=== PATIENT | female | born 1930 | race Caucasian/White ===

== ENCOUNTER 2016-10-11 17:56 | Inpatient (IN) | payer OTHER ==
[2016-10-11 20:06] LABS: MCH 27.9 pg (25.7-33.7); MCHC 33.1 g/dl (32.0-36.0); MEAN CELL VOLUME 84.3 fl (80-96); MEAN PLT VOLUME 6.8 fl (7.5-11.1); NEUTROPHILS 62.4 % (42.8-82.8); PLATELET COUNT 371 K/MM3 (134-434); RDW 15.4 % (11.6-15.6); WHITE BLOOD COUNT 7.5 K/mm3 (4.0-10.0)
[2016-10-11] MEDS ORDERED: VANCOMYCIN 1,000 MG in DEXTROSE 5%-WATER - 250 ML IVPB ONE (20:10)
[2016-10-11] MEDS ORDERED: PIPERACILLIN/TAZOB 3.375 GM/50 ML PRE-DOCKED IVPB ONE (20:10)
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
[2016-10-11 20:30] LABS: CALCIUM 8.3 mg/dL (8.5-10.1); CREATININE 1.1 mg/dL (0.55-1.02)
[2016-10-11 20:47] LABS: C-REACTIVE PROTEIN 1.9 MG/DL (0.00-0.3)
[2016-10-11 21:09] LABS: ERYTHROCYTE SEDIMENTATION RATE 125 mm/hr (0-30)
[2016-10-11] MEDS ORDERED: PIPERACILLIN/TAZOB 3.375 GM 50 ML IVPB ONE (21:55)
[2016-10-11] MEDS ORDERED: VANCOMYCIN 1 GRAM (PRE-DOCKED) 250 ML IVPB ONE (22:19)
[2016-10-12 00:44] VITALS: BMI 19.8
[2016-10-12 09:46] LABS: URINE APPEARANCE CLEAR; URINE BILIRUBIN NEGATIVE (NEGATIVE); URINE BLOOD NEGATIVE (NEGATIVE); URINE COLOR STRAW; URINE GLUCOSE (UA) NEGATIVE (NEGATIVE); URINE KETONE NEGATIVE (NEGATIVE); URINE LEUK ESTERASE NEGATIVE (NEGATIVE); URINE NITRITE NEGATIVE (NEGATIVE); URINE UROBILINOGEN NEGATIVE E.U./dl (0.2-1.0)
[2016-10-12 10:00] LABS: URINE PROTEIN 2+ (NEGATIVE)
[2016-10-12] MEDS ORDERED: ACETAMINOPHEN 325 MG TABLET (FP) PO PRN (10:22)
--- NOTE | 2016-10-12 12:27 | PN ---
Progress Note (short form) - Note Progress Note: ID Consult dictated Infected chronic R foot wound Chronic osteomyelitis Await wound c/s Empiric zosyn/ vancomycin
[2016-10-12] MEDS: PIPERACILLIN/TAZOB 3.375 GM 50 ML IVPB SCH (13:03)
[2016-10-12] MEDS: COLLAGENASE CLOSTRIDIUM HIST. 30 GRAMS TUBE TP SCH (13:19)
[2016-10-12] MEDS: VANCOMYCIN 1 GRAM (PRE-DOCKED) 250 ML IVPB SCH (13:20)
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
[2016-10-12] MEDS ORDERED: PIPERACILLIN/TAZOB 3.375 GM 50 ML IVPB SCH (18:00)
--- NOTE | 2016-10-12 19:59 | CONS ---
DATE OF CONSULTATION: DATE OF DICTATION: 10/12/2016 HISTORY OF PRESENT ILLNESS: The patient is an 86-year-old female evaluated for infected foot ulcer. She has a long history (20 years) of a chronic nonhealing right foot ulcer, for which she has been hospitalized on multiple occasions for infection. She has had multiple skin graft failures in the past. She was most recently hospitalized in May 2016 for infection of the wound. She now returns with worsening infection. She was seen in the wound care center where she was found to have a foul-smelling drainage and necrotic tissue over the 4th metatarsal bone. She underwent incision and drainage and debridement. She has an exposed 4th metatarsal. She was referred to the hospital for IV antibiotic therapy. She denies any pain. She also denies any associated fever or chills. Cultures in the past have grown pseudomonas and coagulase negative Staphylococcus. PAST MEDICAL HISTORY: Positive for diabetes mellitus, history of chronic right dorsal foot ulcer with recurrent cellulitis and wound infection, coronary artery disease, asthma, COPD, hypertension. The patient is legally blind. PAST SURGICAL HISTORY: Status post multiple failed skin grafts. ALLERGIES: Epinephrine. SOCIAL HISTORY: She lives at home with family members. Nonsmoker, nondrinker. SYSTEMS REVIEW: Neurologic: No loss of consciousness, seizure activity, focal weakness. Cardiac: Negative chest pain and palpitations. Respiratory: Negative cough or sputum production. Gastrointestinal: Negative vomiting or diarrhea. Genitourinary: Negative for urinary tract infection. LABORATORY DATA: White count 7.5, hematocrit 27.9, platelet count is 371. BUN 21, creatinine 1.1. ESR 125. C-reactive protein 1.7. Urine leukocyte esterase negative. PHYSICAL EXAMINATION: General: She is chronically ill-appearing. She is blind. Vital Signs: Temperature 97.9, blood pressure 138/73, pulse 62 and regular, respirations 20 per minute. Sclerae anicteric. Corneas are opacified. Heart: Sounds S1, S2. Lungs: Clear. Abdomen: Soft, nontender. Extremities: There is a large ulceration present over the dorsal aspect of the foot. There is granulation tissue. There is exposed bone. No purulent drainage or foul odor. Positive erythema and warmth present in the distal right lower extremity. IMPRESSION: 1. Recurrent infected right foot ulcer. 2. Possible sepsis secondary to infected foot ulcer. 3. Cellulitis of the right lower extremity. 4. Diabetes mellitus. PLAN: Wound culture. Await blood cultures, empiric antibiotic coverage with vancomycin and Zosyn, local wound care. Thank you for the kind referral. CARLOS MONTES M.D. [id number]
--- NOTE | 2016-10-12 21:05 | EKG ---
Test Reason : Blood Pressure : / mmHG Vent. Rate : 073 BPM Atrial Rate : 073 BPM P-R Int : 150 ms QRS Dur : 104 ms QT Int : 402 ms P-R-T Axes : 074 060 071 degrees QTc Int : 442 ms POOR DATA QUALITY, INTERPRETATION MAY BE ADVERSELY AFFECTED NORMAL SINUS RHYTHM SEPTAL INFARCT , AGE UNDETERMINED ABNORMAL ECG WHEN COMPARED WITH ECG OF 30-JUL-2016 16:07, SEPTAL INFARCT IS NOW PRESENT Confirmed by OLIVER FANG MD ([id number]) on 10/12/2016 9:04:59 PM Referred By: Confirmed By:OLIVER FANG MD
[2016-10-12] MEDS: HEPARIN NA (PORCINE) 5,000 UNITS/ML 1ML VIAL SQ SCH (21:35)
[2016-10-12] MEDS: guaiFENesin/D-METHORPHAN HB 10 ML UNIT-DOSE CUPS PO PRN (22:40)
[2016-10-13] MEDS: ALBUTEROL SO4 2.5/IPRATROPIUM 0.5 INH SOL 3 ML VIAL.NEB. NEB SCH ×4 (00:14→17:45)
[2016-10-13] MEDS: VANCOMYCIN 1 GRAM (PRE-DOCKED) 250 ML IVPB SCH (01:02)
[2016-10-13] MEDS: PIPERACILLIN/TAZOB 3.375 GM 50 ML IVPB SCH ×3 (02:00→17:38)
[2016-10-13 08:58] LABS: ALBUMIN 2.5 g/dl (3.4-5.0); BILIRUBIN,TOTAL 0.2 mg/dL (0.2-1.0); CALCIUM 7.9 mg/dL (8.5-10.1); TOT PROT 6.8 g/dl (6.4-8.2)
[2016-10-13 08:59] LABS: BASOPHIL 0.9 % (0-2.0); EOSINOPHIL 12.8 % (0-4.5); MCHC 32.8 g/dl (32.0-36.0); MEAN CELL VOLUME 85.5 fl (80-96); MEAN PLT VOLUME 7.1 fl (7.5-11.1); NEUTROPHILS 58.3 % (42.8-82.8); PLATELET COUNT 356 K/MM3 (134-434); WHITE BLOOD COUNT 7.6 K/mm3 (4.0-10.0)
[2016-10-13] MEDS: FUROSEMIDE 20 MG TABLET (FP) PO SCH (09:28)
[2016-10-13] MEDS: COLLAGENASE CLOSTRIDIUM HIST. 30 GRAMS TUBE TP SCH (09:28)
--- NOTE | 2016-10-13 11:10 | PN ---
Progress Note, Physician History of Present Illness: c/o cough no sob - Current Medication List Current Medications: Active Medications Acetaminophen (Tylenol -) 650 mg PO Q4H PRN PRN Reason: FEVER OR PAIN Albuterol/Ipratropium (Duoneb -) 1 amp NEB QIDR [facility] Last Admin: 10/13/16 08:03 Dose: Not Given Collagenase (Santyl -) 1 applic TP DAILY [facility] Last Admin: 10/13/16 09:28 Dose: 1 applic Furosemide (Lasix -) 20 mg PO DAILY [facility] Last Admin: 10/13/16 09:28 Dose: 20 mg Guaifenesin (Robitussin Dm -) 10 ml PO QID PRN PRN Reason: COUGH Last Admin: 10/12/16 22:40 Dose: 10 ml Heparin Sodium (Porcine) (Heparin -) 5,000 unit SQ BID [facility] Last Admin: 10/12/16 21:35 Dose: 5,000 unit Vancomycin HCl (Vancomycin (Pre-Docked)) 250 mls @ 166.667 mls/hr IVPB Q12H [facility] Last Admin: 10/13/16 01:02 Dose: 166.667 mls/hr Piperacillin Sod/Tazobactam Sod (Zosyn 3.375gm Ivpb (Pre-Docked)) 50 mls @ 100 mls/hr IVPB Q8H-IV [facility] PRN Reason: Protocol Last Admin: 10/13/16 09:28 Dose: 100 mls/hr - Objective Vital Signs: Vital Signs Temperature 98.3 F 10/13/16 05:30 Pulse Rate 63 10/13/16 05:30 Respiratory Rate 14 10/13/16 05:30 Blood Pressure 116/54 10/13/16 05:30 O2 Sat by Pulse Oximetry (%) 94 L 10/12/16 21:00 Cardiovascular: Yes: S1, S2 Respiratory: Yes: Rhonchi Gastrointestinal: Yes: Normal Bowel Sounds, Soft Wound/Incision: Yes: Dressing Dry and Intact Labs: CBC, BMP 10/13/16 07:50 10/13/16 07:50 Problem List - Problems (1) Chronic ulcer of right foot Assessment/Plan: IV ABX ID AND SURGERY WOUND CARE Code(s): L97.519 - NON-PRS CHRONIC ULCER OTH PRT RIGHT FOOT W UNSP SEVERITY Qualifiers: Non-pressure ulcer stage: limited to breakdown of skin Qualified Code(s): L97.511 - Non-pressure chronic ulcer of other part of right foot limited to breakdown of skin (2) COPD (chronic obstructive pulmonary disease) Assessment/Plan: NEBS F/U CXR Code(s): J44.9 - CHRONIC OBSTRUCTIVE PULMONARY DISEASE, UNSPECIFIED (3) Hypertension Assessment/Plan: Vital Signs Period Temp Pulse Resp BP Sys/Moscoso Pulse Ox Last 24 Hr 97.9 F-97.9 F 62-77 16-18 122-154/57-74 92-96 Code(s): I10 - ESSENTIAL (PRIMARY) HYPERTENSION (4) Peripheral vascular disease Code(s): I73.9 - PERIPHERAL VASCULAR DISEASE, UNSPECIFIED
[2016-10-13] MEDS: guaiFENesin/D-METHORPHAN HB 10 ML UNIT-DOSE CUPS PO PRN (21:20)
[2016-10-13] MEDS: HEPARIN NA (PORCINE) 5,000 UNITS/ML 1ML VIAL SQ SCH (21:32)
[2016-10-14] MEDS: ALBUTEROL SO4 2.5/IPRATROPIUM 0.5 INH SOL 3 ML VIAL.NEB. NEB SCH ×4 (00:15→17:02)
[2016-10-14] MEDS: VANCOMYCIN 1 GRAM (PRE-DOCKED) 250 ML IVPB SCH (01:00)
[2016-10-14] MEDS: PIPERACILLIN/TAZOB 3.375 GM 50 ML IVPB SCH ×3 (02:00→18:29)
[2016-10-14] MEDS: guaiFENesin/D-METHORPHAN HB 10 ML UNIT-DOSE CUPS PO PRN (04:20)
--- NOTE | 2016-10-14 10:01 | PN ---
Progress Note, Physician History of Present Illness: No complaints of foot pain Afebrile WBC WNL Wound c/s Proteus, corynebacterium - Current Medication List Current Medications: Active Medications Acetaminophen (Tylenol -) 650 mg PO Q4H PRN PRN Reason: FEVER OR PAIN Albuterol/Ipratropium (Duoneb -) 1 amp NEB QIDR [facility] Last Admin: 10/14/16 06:30 Dose: 1 amp Collagenase (Santyl -) 1 applic TP DAILY [facility] Last Admin: 10/13/16 09:28 Dose: 1 applic Furosemide (Lasix -) 20 mg PO DAILY [facility] Last Admin: 10/13/16 09:28 Dose: 20 mg Guaifenesin (Robitussin Dm -) 10 ml PO QID PRN PRN Reason: COUGH Last Admin: 10/14/16 04:20 Dose: 10 ml Heparin Sodium (Porcine) (Heparin -) 5,000 unit SQ BID [facility] Last Admin: 10/13/16 21:32 Dose: 5,000 unit Vancomycin HCl (Vancomycin (Pre-Docked)) 250 mls @ 166.667 mls/hr IVPB Q12H [facility] Last Admin: 10/14/16 01:00 Dose: 166.667 mls/hr Piperacillin Sod/Tazobactam Sod (Zosyn 3.375gm Ivpb (Pre-Docked)) 50 mls @ 100 mls/hr IVPB Q8H-IV [facility] PRN Reason: Protocol Last Admin: 10/14/16 02:00 Dose: 100 mls/hr - Objective Vital Signs: Vital Signs Temperature 97.4 F L 10/14/16 05:58 Pulse Rate 62 10/14/16 05:58 Respiratory Rate 20 10/14/16 05:58 Blood Pressure 140/70 10/14/16 05:58 O2 Sat by Pulse Oximetry (%) 96 10/13/16 21:00 Constitutional: Yes: No Distress Eyes: Yes: Other (Blind) Cardiovascular: Yes: Regular Rate and Rhythm, S1, S2 Respiratory: Yes: CTA Bilaterally Gastrointestinal: Yes: Normal Bowel Sounds, Soft. No: Tenderness Musculoskeletal: Yes: Other (R foot with malodorous serous drainage decreased distal LE warmth No erythema) Labs: CBC, BMP 10/13/16 07:50 10/13/16 07:50 Assessment/Plan Recurrent infection, chronic R foot ulcer Cellulitis LE- resolved Diabetes mellitus Continue zosyn D/C vancomycin Local wound care
[2016-10-14] MEDS: PIPERACILLIN/TAZOB 3.375 GM 50 ML IVPB ONE ×2 (10:28→10:29)
[2016-10-14] MEDS: HEPARIN NA (PORCINE) 5,000 UNITS/ML 1ML VIAL SQ SCH ×2 (10:30→21:37)
[2016-10-14] MEDS: FUROSEMIDE 20 MG TABLET (FP) PO SCH (10:31)
[2016-10-14] MEDS: COLLAGENASE CLOSTRIDIUM HIST. 30 GRAMS TUBE TP SCH (10:31)
--- NOTE | 2016-10-14 16:47 | PN ---
Progress Note, Physician Chief Complaint: eating no distress no compliants - Current Medication List Current Medications: Active Medications Acetaminophen (Tylenol -) 650 mg PO Q4H PRN PRN Reason: FEVER OR PAIN Albuterol/Ipratropium (Duoneb -) 1 amp NEB QIDR [facility] Last Admin: 10/14/16 11:30 Dose: Not Given Collagenase (Santyl -) 1 applic TP DAILY [facility] Last Admin: 10/14/16 10:31 Dose: 1 applic Furosemide (Lasix -) 20 mg PO DAILY [facility] Last Admin: 10/14/16 10:31 Dose: 20 mg Guaifenesin (Robitussin Dm -) 10 ml PO QID PRN PRN Reason: COUGH Last Admin: 10/14/16 04:20 Dose: 10 ml Heparin Sodium (Porcine) (Heparin -) 5,000 unit SQ BID [facility] Last Admin: 10/14/16 10:30 Dose: 5,000 unit Piperacillin Sod/Tazobactam Sod (Zosyn 3.375gm Ivpb (Pre-Docked)) 50 mls @ 100 mls/hr IVPB Q8H-IV [facility] PRN Reason: Protocol Last Admin: 10/14/16 10:30 Dose: 100 mls/hr - Objective Vital Signs: Vital Signs Temperature 97.9 F 10/14/16 14:00 Pulse Rate 64 10/14/16 15:18 Respiratory Rate 20 10/14/16 14:00 Blood Pressure 105/54 10/14/16 14:00 O2 Sat by Pulse Oximetry (%) 95 10/14/16 15:18 Eyes: Yes: Other (eye derangement) Cardiovascular: Yes: WNL Respiratory: Yes: WNL Gastrointestinal: Yes: WNL Edema: No Labs: CBC, BMP 10/13/16 07:50 10/13/16 07:50 Problem List - Problems (1) COPD (chronic obstructive pulmonary disease) Code(s): J44.9 - CHRONIC OBSTRUCTIVE PULMONARY DISEASE, UNSPECIFIED (2) Cellulitis and abscess of foot Code(s): L03.119 - CELLULITIS OF UNSPECIFIED PART OF LIMB L02.619 - CUTANEOUS ABSCESS OF UNSPECIFIED FOOT (3) Hypertension Code(s): I10 - ESSENTIAL (PRIMARY) HYPERTENSION (4) Peripheral vascular disease Code(s): I73.9 - PERIPHERAL VASCULAR DISEASE, UNSPECIFIED Assessment/Plan (1) Chronic ulcer of right foot Assessment/Plan: IV ABX ID AND SURGERY WOUND CARE Code(s): L97.519 - NON-PRS CHRONIC ULCER OTH PRT RIGHT FOOT W UNSP SEVERITY Qualifiers: Non-pressure ulcer stage: limited to breakdown of skin Qualified Code(s): L97.511 - Non-pressure chronic ulcer of other part of right foot limited to breakdown of skin (2) COPD (chronic obstructive pulmonary disease) Assessment/Plan: NEBS F/U CXR -> NO CHANGE Code(s): J44.9 - CHRONIC OBSTRUCTIVE PULMONARY DISEASE, UNSPECIFIED (3) Hypertension Assessment/Plan: Code(s): I10 - ESSENTIAL (PRIMARY) HYPERTENSION (4) Peripheral vascular disease Code(s): I73.9 - PERIPHERAL VASCULAR DISEASE, UNSPECIFIED [facility]
[2016-10-15] MEDS: PIPERACILLIN/TAZOB 3.375 GM 50 ML IVPB SCH ×2 (02:05→10:11)
[2016-10-15] MEDS: ALBUTEROL SO4 2.5/IPRATROPIUM 0.5 INH SOL 3 ML VIAL.NEB. NEB SCH ×3 (05:51→11:10)
[2016-10-15] MEDS: VANCOMYCIN 1 GRAM (PRE-DOCKED) 250 ML IVPB SCH (07:53)
[2016-10-15] MEDS: HEPARIN NA (PORCINE) 5,000 UNITS/ML 1ML VIAL SQ SCH ×2 (07:53→11:28)
[2016-10-15 08:07] LABS: EOSINOPHIL 19.8 % (0-4.5); MCH 28.1 pg (25.7-33.7); MEAN CELL VOLUME 85.2 fl (80-96); MEAN PLT VOLUME 6.9 fl (7.5-11.1); NEUTROPHILS 52.2 % (42.8-82.8); PLATELET COUNT 325 K/MM3 (134-434); RDW 15.4 % (11.6-15.6); WHITE BLOOD COUNT 7.1 K/mm3 (4.0-10.0)
[2016-10-15 08:53] LABS: ALBUMIN 2.4 g/dl (3.4-5.0); CALCIUM 8.5 mg/dL (8.5-10.1)
[2016-10-15 08:56] LABS: BILIRUBIN,TOTAL 0.2 mg/dL (0.2-1.0); CREATININE 0.9 mg/dL (0.55-1.02); TOT PROT 6.7 g/dl (6.4-8.2)
[2016-10-15] MEDS ORDERED: PT OWN MED DRAWER 7, Y5N ONE (10:07)
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
[2016-10-15] MEDS: FUROSEMIDE 20 MG TABLET (FP) PO SCH (10:11)
[2016-10-15] MEDS: COLLAGENASE CLOSTRIDIUM HIST. 30 GRAMS TUBE TP SCH (10:15)
[2016-10-15 14:32] VITALS: BP 118/56; PULSE 80; TEMP 97.6
--- NOTE | 2016-10-15 14:39 | PN ---
Progress Note, Physician History of Present Illness: No c/o foot pain No fever/ chills Wound c/s ESBL (s) levaquin - Current Medication List Current Medications: Active Medications Acetaminophen (Tylenol -) 650 mg PO Q4H PRN PRN Reason: FEVER OR PAIN Albuterol/Ipratropium (Duoneb -) 1 amp NEB QIDR [facility] Last Admin: 10/15/16 11:10 Dose: 1 amp Collagenase (Santyl -) 1 applic TP DAILY [facility] Last Admin: 10/15/16 10:15 Dose: 1 applic Furosemide (Lasix -) 20 mg PO DAILY [facility] Last Admin: 10/15/16 10:11 Dose: 20 mg Guaifenesin (Robitussin Dm -) 10 ml PO QID PRN PRN Reason: COUGH Last Admin: 10/14/16 04:20 Dose: 10 ml Heparin Sodium (Porcine) (Heparin -) 5,000 unit SQ BID [facility] Last Admin: 10/15/16 11:28 Dose: 5,000 unit Piperacillin Sod/Tazobactam Sod (Zosyn 3.375gm Ivpb (Pre-Docked)) 50 mls @ 100 mls/hr IVPB Q8H-IV TOMMY PRN Reason: Protocol Last Admin: 10/15/16 10:11 Dose: 100 mls/hr - Objective Vital Signs: Vital Signs Temperature 97.6 F 10/15/16 14:29 Pulse Rate 80 10/15/16 14:29 Respiratory Rate 20 10/15/16 06:08 Blood Pressure 118/56 10/15/16 14:29 O2 Sat by Pulse Oximetry (%) 95 10/14/16 21:00 Constitutional: Yes: No Distress Cardiovascular: Yes: Regular Rate and Rhythm, S1, S2 Respiratory: Yes: CTA Bilaterally Gastrointestinal: Yes: Normal Bowel Sounds, Soft Extremities: Yes: Other (decreased erythema/ warmth LE + chronic foot ulcer) Labs: CBC, BMP 10/15/16 07:08 10/15/16 07:08 Assessment/Plan Recurrent infection, chronic R foot ulcer Cellulitis LE- resolved Diabetes mellitus May substitute po levaquin for addition 7d Antibiotic "cure" unlikely Continue Local wound care
--- NOTE | 2016-10-15 15:23 | DS ---
Physical Examination Vital Signs: Vital Signs Temperature 97.6 F 10/15/16 14:29 Pulse Rate 80 10/15/16 14:29 Respiratory Rate 20 10/15/16 06:08 Blood Pressure 118/56 10/15/16 14:29 O2 Sat by Pulse Oximetry (%) 95 10/14/16 21:00 Findings/Remarks: CHRONIC WOUND INFECTION RIGHT FOOT, WELL KNOWN TO SURGICAL WOUND CARE TEAM HER AT [facility] Constitutional: Yes: Mild Distress Eyes: Yes: Other (BLIND LEGALLY) HENT: Yes: WNL Neck: Yes: WNL Cardiovascular: Yes: WNL Respiratory: Yes: WNL Gastrointestinal: Yes: WNL Renal/: Yes: WNL Musculoskeletal: Yes: WNL Extremities: Yes: Deformity Edema: Yes Peripheral Pulses WNL: Yes Integumentary: Yes: Pressure Ulcer Wound/Incision: Yes: Dressing Removed, Reddened, Excoriated, Unapproximated Neurological: Yes: Pre-Existing Deficit, Unsteady Gait, Weakness ...Motor Strength: LLE, RLE Psychiatric: Yes: Other Labs: CBC, BMP 10/15/16 07:08 10/15/16 07:08 Discharge Summary Reason For Visit: CHRONIC ULCER OF RIGHT FOOT Current Active Problems Foot pain, right (Acute) Procedures: Principal: XRAYS Other Procedures: LABS Hospital Course: ADMITTED GIVEN IV ABX, SEEN BY ID AND VASC SX. DEEMED LIKELY A WOUND THAT WILL NOT IMPROVE WITH IV ABX VS PO ABX AND CAN DISCHARGE ON PO ABX WITH WOUND CARE OUTPATIENT FOLLOW UP. - Instructions Diet, Activity, Other Instructions: PT NEEDS TO BE ENROLLED IN HYPERBARIC OXYGEN THERAPY PRIOR TO D/C [id number] . Referrals: Gretel Condon MD [Primary Care Provider] - Disposition: VNS/HOME HEALTH CARE - Home Medications Comprehensive Discharge Medication List: Ambulatory Orders Furosemide [Lasix -] 20 mg PO DAILY 07/30/16 Albuterol Sulfate Inhaler - [Ventolin HFA Inhaler -] 2 puff IH Q4H PRN #0 inhaler 08/05/16 Collagenase Clostridium Hist. [Santyl] 1 applic TP DAILY #90 oint...g. 09/18/16
[2016-10-16] MEDS ORDERED: LEVOFLOXACIN 500 MG TABLET (FP) PO SCH ×2 (06:00→10:00)
== END 2016-10-15 18:32 | disposition home health service (06) | DRG 593 ==
LOC: JER 17:56 → JERBED 22:07 → J6S 23:52
PROVIDERS: ADMIT Family Medicine; ATTEND Family Medicine
DX: L97.519 Non-pressure chronic ulcer of other part of right foot with unspecified severity (principal); L03.115 Cellulitis of right lower limb; B96.1 Klebsiella pneumoniae [K. pneumoniae] as the cause of diseases classified elsewhere; J44.9 Chronic obstructive pulmonary disease, unspecified; H40.9 Unspecified glaucoma; H54.8 Legal blindness, as defined in USA; I73.9 Peripheral vascular disease, unspecified; I10 Essential (primary) hypertension; E11.9 Type 2 diabetes mellitus without complications
CPT/HCPCS: 11042; 36415; 71010-TC; 71020-TC; 73610-TC-RT; 73630-TC-RT; 80048; 80053; 81003; 81015; 85025; 85651; 86140; 87040; 87070; 87086; 87186; 87205; 93005; 93010; 94640; 99284-25; J1644

== ENCOUNTER 2016-12-24 15:13 | Inpatient (IN) | payer OTHER ==
[2016-12-24] MEDS ORDERED: DEXAMETHASONE SOD PHOSPHATE 10 MG/1 ML VIAL ONE (15:18)
[2016-12-24] MEDS ORDERED: MAGNESIUM SULF 50% (8.12 MEQ/2 ML-1 GM VIAL) ONE (15:18)
[2016-12-24] MEDS ORDERED: IPRATROPIUM BR 0.02% 0.5 MG/2.5 ML VIAL.NEB. NEB ONE (15:19)
[2016-12-24] MEDS ORDERED: ALBUTEROL SO4 0.083% IH SOL 2.5 MG/3 ML VIAL.NEB. NEB ONE (15:19)
--- NOTE | 2016-12-24 15:25 | PDOC ---
History of Present Illness - General History Source: Patient Exam Limitations: No Limitations - History of Present Illness Initial Comments: 12/24/16 15:25 The patient is an 86-year-old woman, accompanied by her daughter, with a significant past medical history of hypertension, peripheral vascular disease, chronic right foot wound (has an appointment tomorrow with our Wound Care Clinic ), asthma, chronic obstructive pulmonary disease, and legally blindness who presents to the emergency department via EMS for further evaluation of shortness of breath this morning. As per EMS, on arrival, the patient was noted to have an oxygen saturation of 76%. Patient was given a total of 2 Combivent treatments, 2mg of Magnesium and 10 mg of Decadron. On ER arrival, patient was placed on a Duo-Neb treatment and was noted to have an oxygen saturation of 100% , respiratory rate of 28, heart rate 85 and blood pressure of 154/65. As per patient's daughter, she states that her mother had endorsed a dry intermittent cough that had progressively worsen throughout the day into shortness of breath. Patient expresses concern, as she does not want to miss her appointment for her chronic right foot wound tomorrow. No other complaints. No chills, weakness. No chest pain, lightheadedness, headaches. No abdominal pain, nausea, vomiting. Allergies: Epinepherine. Past Surgical History: None reported Social History: Non-smoker. No EtOH and recreational drug use. Primary Care Physician: Dr. Gretel Condon <Ronda Esquivel - Last Filed: 12/24/16 16:33> - General History Source: Patient, Family, Old Records Exam Limitations: No Limitations <Hellen Duque - Last Filed: 12/24/16 16:46> - General Chief Complaint: Shortness of Breath Stated Complaint: Shortness of Breath Time Seen by Provider: 12/24/16 15:24 Past History <Ronda Esquivel - Last Filed: 12/24/16 16:33> - Past Medical History Anemia: No Asthma: Yes Cancer: No Cardiac Disorders: Yes CVA: No COPD: Yes CHF: No Dementia: No Diabetes: (GLAUCOMA/BILATERAL BLINDNESS) GI Disorders: No Disorders: No HTN: Yes Hypercholesterolemia: No Liver Disease: No Seizures: No Thyroid Disease: No - Surgical History Abdominal Surgery: No Appendectomy: No Cardiac Surgery: No Cholecystectomy: No Lung Surgery: No Neurologic Surgery: No Orthopedic Surgery: No - Psycho/Social/Smoking Cessation Hx Anxiety: No Suicidal Ideation: No Smoking Status: No Smoking History: Never smoked Have you smoked in the past 12 months: No Number of Cigarettes Smoked Daily: 0 Hx Alcohol Use: No Drug/Substance Use Hx: No Substance Use Type: None Hx Substance Use Treatment: No <Hellen Duque - Last Filed: 12/24/16 16:46> - Past Medical History Allergies/Adverse Reactions: Allergies Allergy/AdvReac Type Severity Reaction Status Date / Time epinephrine AdvReac Mild Itching Verified 10/11/16 18:03 Home Medications: Ambulatory Orders Furosemide [Lasix -] 20 mg PO DAILY 07/30/16 Albuterol Sulfate Inhaler - [Ventolin HFA Inhaler -] 2 puff IH Q4H PRN #0 inhaler 08/05/16 Collagenase Clostridium Hist. [Santyl] 1 applic TP DAILY #90 oint...g. 09/18/16 Acetaminophen [Tylenol .Regular Strength -] 650 mg PO Q4H PRN #0 tablet Albuterol 2.5/Ipratropium 0.5 [Duoneb -] 1 amp NEB QIDR amp 10/15/16 Collagenase Clostridium Hist. [Santyl -] 1 applic TP DAILY tube 10/15/16 Guaifenesin Dm [Robitussin Dm -] 10 ml PO QID PRN #0 cup 10/15/16 Levofloxacin [Levaquin -] 500 mg PO DAILY #7 tablet 10/15/16 Review of Systems - Review of Systems Able to Perform ROS?: Yes Comments:: 12/24/16 15:25 CONSTITUTIONAL: Absent: fever, chills, diaphoresis, generalized weakness, malaise, loss of appetite HEENT: Absent: rhinorrhea, nasal congestion, throat pain, throat swelling, difficulty swallowing, mouth swelling, ear pain, eye pain, visual Changes CARDIOVASCULAR: Absent: chest pain, syncope, palpitations, irregular heart rate , lightheadedness, peripheral edema RESPIRATORY: Present: Cough. Shortness of breath. Absent: dyspnea with exertion , orthopnea, wheezing, stridor, hemoptysis GASTROINTESTINAL:Absent: abdominal pain, abdominal distension, nausea, vomiting , diarrhea, constipation, melena, hematochezia GENITOURINARY: Absent: dysuria, frequency, urgency, hesitancy, hematuria, flank pain, genital pain MUSCULOSKELETAL: Absent: myalgia, arthralgia, joint swelling SKIN: Absent: rash, itching, pallor HEMATOLOGIC/IMMUNOLOGIC: Absent: easy bleeding, easy bruising, lymphadenopathy, frequent infections ENDOCRINE:Absent: unexplained weight gain, unexplained weight loss, heat intolerance, cold intolerance NEUROLOGIC: Absent: headache, focal weakness or paresthesias, dizziness, unsteady gait, seizure, mental status changes, bladder or bowel incontinence PSYCHIATRIC: Absent: anxiety, depression, suicidal or homicidal ideation, hallucinations <Ronda Esquivel - Last Filed: 12/24/16 16:33> *Physical Exam - Vital Signs Last Vital Signs Temp Pulse Resp BP Pulse Ox 85 28 H 154/65 100 12/24/16 15:20 12/24/16 15:20 12/24/16 15:20 12/24/16 15:20 - Physical Exam Comments: 12/24/16 15:25 GENERAL: Well developed, well nourished. Awake and alert. HEENT: Normocephalic, atraumatic. EOMI. No conjunctival pallor. Sclera are non- icteric. Moist mucous membranes. Oropharynx is clear. NECK: Supple. Full ROM. No JVD. CARDIOVASCULAR: Regular rate and rhythm. No murmurs, rubs, or gallops. PULMONARY: Good air movement with diffuse expiratory wheezes and rhonhourous breath sounds, bl bases ABDOMINAL: Soft. Non-tender. Non-distended. No rebound or guarding. No organomegaly. Normoactive bowel sounds. MUSCULOSKELETAL: Normal range of motion at all joints. No bony deformities or tenderness. No CVA tenderness. EXTREMITIES: No cyanosis. No clubbing. No edema. No calf tenderness. SKIN: Extensive ulceration of the dorsum of the right foot with purulent and foul smelling drainage. Normal capillary refill. No rashes. No jaundice. NEUROLOGICAL: Alert, awake, appropriate. Cranial nerves 2-12 intact. Normal speech. PSYCHIATRIC: Cooperative. Appropriate mood and affect. <Ronda Esquivel - Last Filed: 12/24/16 16:33> - Vital Signs Last Vital Signs Temp Pulse Resp BP Pulse Ox 85 28 H 154/65 100 12/24/16 15:20 12/24/16 15:20 12/24/16 15:20 12/24/16 15:20 <Hellen Duque - Last Filed: 12/24/16 16:46> Heart Score/ECG Review #1 ECG reviewed & interpreted by me at: 15:42 General ECG Interpretation: Sinus Rhythm (at 88 bpm.), Normal Rate, Normal Intervals, No acute ischemic changes <Ronda Esquivel - Last Filed: 12/24/16 16:33> ED Treatment Course - LABORATORY CBC & Chemistry Diagram: 12/24/16 16:10 <Ronda Esquivel - Last Filed: 12/24/16 16:33> - LABORATORY CBC & Chemistry Diagram: 12/24/16 16:10 <Hellen Duque - Last Filed: 12/24/16 16:46> Medical Decision Making - Medical Decision Making 12/24/16 15:43 86-year-old female with history of asthma/COPD, CHF, chronic wound on the right foot for which he is followed by wound management presents to the emergency department with shortness of breath this morning; the patient received albuterol , dexamethasone and magnesium sulfate in the field by EMS. She also has foul smelling drainage from her right foot ulcer. Differential diagnosis includes but is not limited to: COPD exacerbation, pneumonia, URI, CHF, electrolyte abnormality, toxic/metabolic derangement, osteomyelitis of the right foot, cellulitis. Plan: 1. Albuterol/Atrovent treatments 2. Chest x-ray 3. Septic workup 4. Plain film of the right foot and ankle 5. IV antibiotics 6. Observe and reevaluate <Hellen Duque - Last Filed: 12/24/16 16:46> *DC/Admit/Observation/Transfer - Attestations Scribe Attestion: 12/24/16 15:25 Documentation prepared by Ronda Esquivel, acting as senior medical billing specialist for Hellen Duque MD. <Ronda Esquivel - Last Filed: 12/24/16 16:33> - Discharge Dispostion Admit: Yes - Attestations Physician Attestion: 12/24/16 15:46 I, Dr. Hellen Duque, attest that the scribes documentation that appears above has been prepared under my direction and personally reviewed by me in its entirety. I confirmed that the note above accurately reflects all work, treatment, procedures, and medical decision-making performed by me. <Hellen Duque - Last Filed: 12/24/16 16:46> Diagnosis at time of Disposition: COPD exacerbation, Shortness of breath, Cellulitis and abscess of leg - Discharge Dispostion Condition at time of disposition: Stable - Referrals Referrals: Gretel Condon MD [Primary Care Provider] -
[2016-12-24] MEDS ORDERED: SODIUM CHLORIDE 1,000 ML IV STA (15:26)
[2016-12-24] MEDS ORDERED: PIPERACILLIN/TAZOB 3.375 GM/50 ML PRE-DOCKED IV ONE (15:46)
[2016-12-24] MEDS ORDERED: VANCOMYCIN 1,000 MG in DEXTROSE 5%-WATER - 250 ML IVPB ONE (15:46)
[2016-12-24] MEDS ORDERED: VANCOMYCIN 1 GRAM (PRE-DOCKED) 250 ML IVPB ONE (16:35)
[2016-12-24] MEDS ORDERED: PIPERACILLIN/TAZOB 3.375 GM 50 ML IVPB ONE (16:35)
[2016-12-24 17:01] LABS: ALBUMIN 2.7 g/dl (3.4-5.0); BILIRUBIN,TOTAL 0.2 mg/dL (0.2-1.0); CALCIUM 8.1 mg/dL (8.5-10.1); COCKROFT - GAULT 37.7825; TOT PROT 7.4 g/dl (6.4-8.2)
[2016-12-24 17:04] LABS: TROPONIN I 0.05 ng/ml (0.00-0.05)
[2016-12-24 17:23] LABS: VENOUS BLOOD GAS HCO3 28.7 meq/L (19-25)
[2016-12-24 17:24] LABS: VENOUS PH 7.21 (7.32-7.42)
[2016-12-24 18:01] LABS: INR 1.08 (0.82-1.09); PROTHROMBIN TIME (PATIENT) 11.9 SEC (9.98-11.88)
[2016-12-24 18:03] LABS: ACTIVATED PTT 47.5 SECONDS (26.9-34.4)
--- NOTE | 2016-12-24 18:59 | HP ---
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 As per EMS, on arrival, the patient was noted to have an oxygen saturation of 76%. Patient was given a total of 2 Combivent treatments, 2mg of Magnesium and 10 mg of Decadron. On ER arrival, patient was placed on a Duo-Neb treatment and was noted to have an oxygen saturation of 100% , respiratory rate of 28, heart rate 85 and blood pressure of 154/65. As per patient's daughter, she states that her mother had endorsed a dry intermittent cough that had progressively worsen throughout the day into shortness of breath. Patient expresses concern, as she does not want to miss her appointment for her chronic right foot wound tomorrow. No other complaints. No chills, weakness. No chest pain, lightheadedness, headaches. No abdominal pain, nausea, vomiting. 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) Cardiovascular: Yes: HTN Pulmonary: Yes: Asthma, COPD Musculoskeletal: Yes: Other (rt leg wound - receiving wound care) - Smoking History Smoking history: Never smoked Have you smoked in the past 12 months: No Aproximately how many cigarettes per day: 0 - Alcohol/Substance Use Hx Alcohol Use: No - Social History ADL: Family Assistance History of Recent Travel: No Home Medications - Allergies Allergies/Adverse Reactions: Allergies Allergy/AdvReac Type Severity Reaction Status Date / Time epinephrine Allergy Mild Itching Verified 12/24/16 17:25 - Home Medications Home Medications: Ambulatory Orders Loratadine [Claritin -] 10 mg PO DAILY 12/24/16 Memantine HCl/Donepezil HCl [Namzaric 14 mg-10 mg Capsule] 12/24/16 Montelukast Na [Singulair -] 12/24/16 Review of Systems - Review of Systems Constitutional: reports: Weakness Eyes: reports: Other (LEGALLY BLIND) HENT: reports: No Symptoms Neck: reports: No Symptoms Cardiovascular: reports: Shortness of Breath Respiratory: reports: Cough, SOB, SOB on Exertion, Wheezing Gastrointestinal: reports: No Symptoms Genitourinary: reports: No Symptoms Integumentary: reports: Rash, Wound (FOUL SMELL) Neurological: reports: Pre-Existing Deficit Physical Examination Vital Signs: Vital Signs Temperature 97.6 F 12/24/16 16:20 Pulse Rate 86 12/24/16 16:20 Respiratory Rate 24 12/24/16 16:20 Blood Pressure 129/58 12/24/16 17:09 O2 Sat by Pulse Oximetry (%) 98 12/24/16 16:20 Constitutional: Yes: Moderate Distress Eyes: Yes: Other HENT: Yes: WNL Neck: Yes: WNL Cardiovascular: Yes: Murmur, Other Respiratory: Yes: Diminished, On Nasal O2, Poor Air Entry, SOB, Wheezes Gastrointestinal: Yes: WNL Renal/: Yes: WNL Musculoskeletal: Yes: Muscle Weakness Extremities: Yes: WNL Edema: Yes Peripheral Pulses WNL: Yes Integumentary: Yes: Pressure Ulcer, Venous Stasis Changes Wound/Incision: Yes: Dressing Dry and Intact, Draining, Unapproximated Neurological: Yes: Pre-Existing Deficit, Unsteady Gait, Other ...Motor Strength: RLE Psychiatric: Yes: Other Problem List - Problems (1) COPD exacerbation Code(s): J44.1 - CHRONIC OBSTRUCTIVE PULMONARY DISEASE W (ACUTE) EXACERBATION (2) Cellulitis and abscess of leg Code(s): L02.419 - CUTANEOUS ABSCESS OF LIMB, UNSPECIFIED L03.119 - CELLULITIS OF UNSPECIFIED PART OF LIMB (3) Shortness of breath Code(s): R06.02 - SHORTNESS OF BREATH (4) Asthma exacerbation in COPD Code(s): J44.1 - CHRONIC OBSTRUCTIVE PULMONARY DISEASE W (ACUTE) EXACERBATION J45.901 - UNSPECIFIED ASTHMA WITH (ACUTE) EXACERBATION Assessment/Plan COPD/ASTHMA ACUTE EXACERBATION PULMONARY EVAL STEROIDS IV NEBS 02 SUPPORT WOUND CARE RLE, PODIATRY AND VASC SURGERY EVAL
[2016-12-24] MEDS ORDERED: ACETAMINOPHEN 325 MG TABLET (FP) PO PRN (19:03)
[2016-12-24] MEDS ORDERED: methylPREDNISolone NA SUCC 40 MG/1 ML VIAL ONE (19:34)
[2016-12-24] MEDS: methylPREDNISolone NA SUCC 40 MG/1 ML VIAL IVPB SCH (20:05)
[2016-12-24] MEDS ORDERED: HEPARIN NA (PORCINE) 5,000 UNITS/ML 1ML VIAL ONE (21:00)
[2016-12-24] MEDS: BUDESONIDE/FORMETEROL FUMARATE 80/4.5 mcg INHALER IH SCH (21:40)
[2016-12-24] MEDS ORDERED: ARFORMOTEROL TARTRATE 15 MCG/2 ML VIAL NEB SCH (22:00)
[2016-12-24] MEDS: HEPARIN NA (PORCINE) 5,000 UNITS/ML 1ML VIAL SQ SCH (22:14)
[2016-12-24 22:26] LABS: MCH 26.7 pg (25.7-33.7); MCHC 31.1 g/dl (32.0-36.0); MEAN PLT VOLUME 7.7 fl (7.5-11.1); PLATELET COUNT 350 K/MM3 (134-434); RDW 17.1 % (11.6-15.6); WHITE BLOOD COUNT 13.4 K/mm3 (4.0-10.0)
[2016-12-24 22:41] LABS: URINE APPEARANCE CLEAR; URINE BILIRUBIN NEGATIVE (NEGATIVE); URINE BLOOD NEGATIVE (NEGATIVE); URINE COLOR LTYELLOW; URINE GLUCOSE (UA) NEGATIVE (NEGATIVE); URINE KETONE NEGATIVE (NEGATIVE); URINE LEUK ESTERASE NEGATIVE (NEGATIVE); URINE NITRITE NEGATIVE (NEGATIVE); URINE UROBILINOGEN NEGATIVE E.U./dl (0.2-1.0)
[2016-12-24 22:54] LABS: URINE PROTEIN 2+ (NEGATIVE)
[2016-12-24 23:13] LABS: URINE HYALINE CAST 6 /lpf; URINE MUCUS RARE; URINE RBC 1 /hpf (0-3); URINE WBC 1 /hpf (3-5)
[2016-12-24 23:51] LABS: PLATELET ESTIMATE ADEQUATE (NORMAL)
[2016-12-25] MEDS ORDERED: ALBUTEROL SO4 0.083% IH SOL 2.5 MG/3 ML VIAL.NEB. NEB PRN (00:20)
[2016-12-25] MEDS ORDERED: MAGNESIUM HYDROX 2400MG/30ML ORAL SUSPENSION 30 ML CUP PO ONE (00:30)
[2016-12-25 01:13] VITALS: BMI 17.6
[2016-12-25] MEDS: methylPREDNISolone NA SUCC 40 MG/1 ML VIAL IVPB SCH ×4 (02:46→21:57)
[2016-12-25] MEDS: guaiFENesin 200 MG/10 ML 10 ML UNIT-DOSE CUPS PO PRN (07:19)
[2016-12-25] MEDS: BUDESONIDE/FORMETEROL FUMARATE 80/4.5 mcg INHALER IH SCH (09:32)
[2016-12-25] MEDS: HEPARIN NA (PORCINE) 5,000 UNITS/ML 1ML VIAL SQ SCH ×2 (09:32→21:57)
--- NOTE | 2016-12-25 11:10 | CONSULT ---
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 As per EMS, on arrival, the patient was noted to have an oxygen saturation of 76%. Patient was given a total of 2 Combivent treatments, 2mg of Magnesium and 10 mg of Decadron. On ER arrival, patient was placed on a Duo-Neb treatment and was noted to have an oxygen saturation of 100% , respiratory rate of 28, heart rate 85 and blood pressure of 154/65. As per patient's daughter, she states that her mother had endorsed a dry intermittent cough that had progressively worsen throughout the day into shortness of breath. Patient expresses concern, as she does not want to miss her appointment for her chronic right foot wound tomorrow. 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) Cardiovascular: Yes: HTN Pulmonary: Yes: Asthma, COPD ...: No Musculoskeletal: Yes: Other (rt leg wound - receiving wound care) - Advance Directives Advance Directives: Yes: Living Will, Health Care Proxy - Smoking History Smoking history: Never smoked Have you smoked in the past 12 months: No Aproximately how many cigarettes per day: 0 - Alcohol/Substance Use Hx Alcohol Use: No - Social History ADL: Family Assistance History of Recent Travel: No History - Admission Reason For Visit: SHORTNESS OF BREATH; CHRONIC ASTHMA W/EXACERBATION - Diagnostics X-ray: Report Reviewed - General Mental Status: Alert and Oriented, Awake and Alert, Able to Follow Commands Attention: Intact Ability to Follow Directions: Excellent Head/Neck Control: WFL - Hearing Hearing: Functional, Impaired Speech Evaluation - Communication Primary Language: MEXICAN Communication: Yes: Within Normal Limits Oral Expression Ability: Yes: No Impairment - Speech Production Able to Make Needs Known: Yes: WNL Intelligibility: Yes: WNL - Speech Characteristics Voice Loudness: Mildly Soft/Quiet Voice Pitch: Yes: Normal Voice Phonatory-based Quality: Yes: Hoarse (mild. Pt reports feeling congested.) Speech Pattern: Normal Nasal Resonance: Normal Articulation: Yes: Precise Rate of Speech: Intact - Language/Auditory Comprehension Follows: Yes: 2 Stage Simple Commands - Language/Verbal Expression Able to Respond to Simple Queries: Yes: WNL Able to Communicate Wants and Needs: Yes: WNL Functional Communication Status: Yes: WNL - Memory/Perception long-term Memory: Yes: WNL Short Term Memory: Yes: WNL - Swallow Evaluation/Bedside Assessment Current Nutritional Intake: Regular, Thin Liquids, Other (Observed coughing during meals. Pt denies dysphagia, stating that she is coughing now because she is congested.) Dentition: Yes: Adequate Facial Symmetry at Rest: Facial Droop Left (slight) Facial Symmetry on Retraction: Symmetrical Facial Movement: Controlled Sensation: Normal Against Resistance Opening: Normal Against Resistance Closing: Normal Pucker Lips: Normal Smile: Normal Lingual Movement: Normal Lingual Speed of Movement: Normal Lingual Movement Strgth Against Opposition: Normal Velopharyngeal Movement: Normal Laryngeal Elevation: WFL Laryngeal Movement: Able to Palpate Rate of Intake: WFL Bolus Size: WFL Labial Seal: WFL Chewing: WFL Oral Prep Time: WFL A-P Transit: WFL Pocketing: None Timing of Swallow: WFL Coughing/Throat Clear: Yes (with and without po trials) Recommendations - Speech Evaluation, Impression/Plan Impression: Pt c/o congestion, mild hoarseness, noted to be coughing with and without po trials. Dx in EMR: acute exac of Asthma.Possible bronchitis/z jakob ordered by ID. - Dysphagia Impressions/Plan Dysphagia Impressions: Ongoing Evaluation *Silent aspiration: cannot be R/O at bedside Recommendations: Modified Barium Swallow (If ddx of pulmonary infection/ aspiration. Bedside evaluation not conclusive, but overtly is WNL.), Other ( Observe for PO tolerance.) - Recommendations Diet Consistency: Regular Medication Administration: Whole with water Liquids: Thin Liquids
--- NOTE | 2016-12-25 11:15 | PN ---
Progress Note (short form) - Note Progress Note: ID consult dictated a/p COPD/asthma exacerbation with acute onset of wheezing yesterday no fevers but productive cough no pneumonia on cxray possible bronchitis Zpak/nebs/steroids chronic foot wound followed by Dr Phoenix no signs of cellulitis to suggest need for antibiotics management per wound care history of ESBL organisms in the wound- maintain contact isolation Problem List - Problems (1) COPD exacerbation Code(s): J44.1 - CHRONIC OBSTRUCTIVE PULMONARY DISEASE W (ACUTE) EXACERBATION (2) Chronic ulcer of right foot Code(s): L97.519 - NON-PRS CHRONIC ULCER OTH PRT RIGHT FOOT W UNSP SEVERITY Qualifiers: Non-pressure ulcer stage: limited to breakdown of skin Qualified Code(s): L97.511 - Non-pressure chronic ulcer of other part of right foot limited to breakdown of skin
[2016-12-25] MEDS ORDERED: ALBUTEROL SO4 2.5/IPRATROPIUM 0.5 INH SOL 3 ML VIAL.NEB. NEB ONE (11:40)
--- NOTE | 2016-12-25 11:42 | CONSULT ---
Consultation: REQUESTING PROVIDER: CONSULT REQUEST: We have been asked to medically evaluate this patient for ( specify). HISTORY OF PRESENT ILLNESS: The patient is an 86-year-old woman, accompanied by her daughter, with a significant past medical history of hypertension, peripheral vascular disease, chronic right foot wound (has an appointment tomorrow with our Wound Care Clinic), asthma, chronic obstructive pulmonary disease, and legally blindness who presents to the emergency department via EMS for further evaluation of shortness of breath this morning. As per EMS, on arrival, the patient was noted to have an oxygen saturation of 76%. Patient was given a total of 2 Combivent treatments, 2mg of Magnesium and 10 mg of Decadron. patient states that she has productive cough from one week, which is same, don't know the color of sputum( she is blind and no one checked it for her ) denies fever, chills. Patient states that sob started in afternoon and she used her neb which didn't help so she called ems. Patient don't remember when was the last time she has copd exacerbation. She don't use her inhalers regularly. Not on home oxygen states that her daughter smokes and when ever she comes home after smoke the smell of smoke makes her uncomfortable. denies orthopnea, chest pain, palpitations, dizziness, lightheadedness. Denies sick contact, denies travel. Today states that she still feel congested. breathing is still same as yesterday. on 5 L NC never smoked sputum white in color REVIEW OF SYSTEMS: CONSTITUTIONAL: Absent: fever, chills, diaphoresis, HEENT: Absent: rhinorrhea, nasal congestion, CARDIOVASCULAR: Absent: chest pain, syncope, palpitations, lightheadedness, peripheral edema RESPIRATORY: Absent: cough, shortness of breath, dyspnea with exertion, orthopnea, wheezing, GASTROINTESTINAL: Absent: abdominal pain, abdominal distension, nausea, vomiting, diarrhea, constipation, GENITOURINARY: Absent: dysuria, frequency, urgency, PHYSICAL EXAMINATION Vital Signs - 24 hr 12/24/16 12/24/16 12/24/16 17: 20:00 21:00 Temperature 98 F Pulse Rate 76 Respiratory 20 20 Rate Blood Pressure 129/58 132/57 O2 Sat by Pulse 98 Oximetry (%) 12/24/16 12/25/16 23:00 06:00 Temperature 98.7 F 97.8 F Pulse Rate 86 79 Respiratory 20 18 Rate Blood Pressure 143/73 140/72 O2 Sat by Pulse 98 Oximetry (%) GENERAL: Awake, alert, and fully oriented, EARS, NOSE, THROAT: Ears normal, nares patent, oropharynx clear without exudates. dry mucous membranes. NECK: Normal range of motion, no lymphadenopathy, no JVD, LUNGS: decrease air entry b/l, b/l diffuse wheezing both in inspiration and expiration, no rales HEART: s1s2 noral ABDOMEN: Soft, nontender, not distended, normoactive bowel sounds, MUSCULOSKELETAL: Normal range of motion at all joints. No bony deformities or tenderness. No CVA tenderness UPPER EXTREMITIES: 2+ pulses, warm, well-perfused. LOWER EXTREMITIES: warm, well-perfused. No calf tenderness. No peripheral edema. SKIN: Warm, dry, Laboratory Results - last 24 hr 12/24/16 12/24/16 12/24/16 17:00 17:10 17:15 ESR INR 1.08 PTT (Actin FS) 47.5 H VBG pH 7.21 L* D POC VBG pCO2 73.1 H* D POC VBG pO2 33.6 Mixed VBG HCO3 28.7 H C-Reactive Protein Urine Color Urine Appearance Urine pH Urine Protein Urine Glucose (UA) Urine Ketones Urine Blood Urine Nitrite Urine Bilirubin Urine Urobilinogen Ur Leukocyte Esterase Urine RBC Urine WBC Ur Epithelial Cells Hyaline Casts Urine Mucus Blood Type A POSITIVE Antibody Screen Negative 12/24/16 12/24/16 12/24/16 19:15 19:15 22:25 ESR 117 H INR PTT (Actin FS) VBG pH POC VBG pCO2 POC VBG pO2 Mixed VBG HCO3 C-Reactive Protein 1.1 H D Urine Color Ltyellow Urine Appearance Clear Urine pH 5.0 Urine Protein 2+ H Urine Glucose (UA) Negative Urine Ketones Negative Urine Blood Negative Urine Nitrite Negative Urine Bilirubin Negative Urine Urobilinogen Negative Ur Leukocyte Esterase Negative Urine RBC 1 Urine WBC 1 Ur Epithelial Cells Rare Hyaline Casts 6 Urine Mucus Rare Blood Type Antibody Screen Active Medications Generic Name Dose Route Start Last Admin Trade Name Freq PRN Reason Stop Dose Admin Acetaminophen 650 mg 12/24/16 19:03 Tylenol - PO Q6H PRN FEVER OR PAIN Albuterol Sulfate 1 amp 12/25/16 00:20 12/25/16 07:22 Ventolin 0.083% Nebulizer Soln - NEB 1 amp Q4H PRN Administration SHORT OF BREATH/WHEEZING Albuterol/Ipratropium 1 amp 12/25/16 11:40 Duoneb - NEB 12/25/16 11:41 ONCE ONE Albuterol/Ipratropium 1 amp 12/25/16 12:00 Duoneb - NEB QIDR CONNIE Azithromycin 250 mg 12/26/16 10:00 Zithromax - PO 12/29/16 10:01 DAILY CONNIE Budesonide/Formoterol Fumarate 2 puff 12/24/16 22:00 12/25/16 09:32 Symbicort 80/4.5mcg - IH Not Given BID CONNIE Guaifenesin 10 ml 12/25/16 00:21 12/25/16 07:19 Robitussin - PO 10 ml Q6H PRN Administration Guaifenesin 10 ml 12/25/16 11:03 Robitussin Dm - PO Q6H PRN COUGH Heparin Sodium (Porcine) 5,000 unit 12/24/16 22:00 12/25/16 09:32 Heparin - SQ 5,000 unit BID CONNIE Administration Azithromycin 250 mls @ 250 mls/hr 12/25/16 11:45 Zithromax 500mg Ivpb (Pre-Docked) IVPB 12/25/16 12:44 ONCE ONE Methylprednisolone Sodium Succinate 40 mg 12/25/16 15:00 Solu-Medrol - IVPB Q6H-IV CONNIE Sodium Hypochlorite 1 applic 12/25/16 12:00 Dakin's Solution 0.5% (Full Strength) - TP DAILY [facility] ASSESSMENT/PLAN: acute hypoxic respiratory failure from copd/ asthma excerbration: diffuse b/l wheezing with decreased air entry b/l, could be exaggerated by coughing from bronchitis. asthma chronic right foot wound h/o pvd h/o htn constipation Plan Iv steroid 40mg iv q6h duoneb neb qid connie albuterol inhaler prn peak flow measurement humdified oxygen, keep spo2> 90 follow blood and urine culture monitor vitals miralax for cosntipation dvt prophylaxis: on heparin Dispo: We will continue to follow the patient. Thank you for this consultative opportunity. Visit type - Emergency Visit Emergency Visit: Yes ED Registration Date: 12/24/16 Care time: The patient presented to the Emergency Department on the above date and was hospitalized for further evaluation of their emergent condition. - New Patient This patient is new to me today: Yes Date on this admission: 12/25/16 - Critical Care Critical Care patient: No
[2016-12-25] MEDS ORDERED: AZITHROMYCIN IVPB 250 ML IVPB ONE (11:45)
--- NOTE | 2016-12-25 12:13 | PN ---
Problem List - Problems (1) COPD exacerbation Code(s): J44.1 - CHRONIC OBSTRUCTIVE PULMONARY DISEASE W (ACUTE) EXACERBATION (2) Chronic ulcer of right foot Code(s): L97.519 - NON-PRS CHRONIC ULCER OTH PRT RIGHT FOOT W UNSP SEVERITY Qualifiers: Non-pressure ulcer stage: limited to breakdown of skin Qualified Code(s): L97.511 - Non-pressure chronic ulcer of other part of right foot limited to breakdown of skin (3) Bronchitis Code(s): J40 - BRONCHITIS, NOT SPECIFIED ACUTE OR CHRONIC
--- NOTE | 2016-12-25 12:25 | CONSULT ---
Consult Consult Specialty:: Podiatry/Wound Care Reason for Consultation:: Chronic Ulcer Right foot - History of Present Illness Chief Complaint: Chronic Wound Right foot History of Present Illness: he patient is an 86-year-old woman, admitted on 12/25/16 fro COPD with SOB, with a significant past medical history of hypertension, peripheral vascular disease , chronic right foot wound (has an appointment tomorrow with our Wound Care Clinic), asthma, chronic obstructive pulmonary disease, and legally blindness who presents to the emergency department via EMS for further evaluation of shortness of breath this morning. As per EMS, on arrival, the patient was noted to have an oxygen saturation of 76%. Patient was given a total of 2 Combivent treatments, 2mg of Magnesium and 10 mg of Decadron. On ER arrival, patient was placed on a Duo-Neb treatment and was noted to have an oxygen saturation of 100% , respiratory rate of 28, heart rate 85 and blood pressure of 154/65. 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) Cardio/Vascular: Yes: HTN Pulmonary: Yes: Asthma, COPD ...: No Musculoskeletal: Yes: Other (rt leg wound - receiving wound care) - Alcohol/Substance Use Hx Alcohol Use: No - Smoking History Smoking history: Never smoked Have you smoked in the past 12 months: No Aproximately how many cigarettes per day: 0 - Social History ADL: Family Assistance History of Recent Travel: No Home Medications - Allergies Allergies/Adverse Reactions: Allergies Allergy/AdvReac Type Severity Reaction Status Date / Time epinephrine Allergy Mild Itching Verified 12/24/16 17:25 - Home Medications Home Medications: Ambulatory Orders Loratadine [Claritin -] 10 mg PO DAILY 12/24/16 Memantine HCl/Donepezil HCl [Namzaric 14 mg-10 mg Capsule] 1 cap PO DAILY Montelukast Na [Singulair -] 10 mg PO HS 12/24/16 Albuterol Sulfate Inhaler - [Ventolin Hfa Inhaler -] 1 - 2 inh PO Q4H PRN Furosemide 10 mg PO DAILY 12/25/16 Multivitamins [Tab-A-Vit -] 1 tab PO DAILY 12/25/16 Review of Systems - Review of Systems Constitutional: reports: No Symptoms Eyes: reports: No Symptoms HENT: reports: No Symptoms Neck: reports: No Symptoms Cardiovascular: reports: No Symptoms Respiratory: reports: No Symptoms Gastrointestinal: reports: No Symptoms Genitourinary: reports: No Symptoms Breasts: reports: No Symptoms Reported Musculoskeletal: reports: No Symptoms Integumentary: reports: Wound (Chronic Dorsal Right foot) Neurological: reports: No Symptoms Endocrine: reports: No Symptoms Hematology/Lymphatic: reports: No Symptoms Psychiatric: reports: No Symptoms Physical Exam Vital Signs: Vital Signs Temperature 97.8 F 12/25/16 06:00 Pulse Rate 79 12/25/16 06:00 Respiratory Rate 18 12/25/16 09:00 Blood Pressure 140/72 12/25/16 06:00 O2 Sat by Pulse Oximetry (%) 98 12/25/16 09:00 Constitutional: Yes: Well Nourished, No Distress, Calm Eyes: Yes: Other (Legally Blind) HENT: Yes: WNL Neck: Yes: WNL Cardiovascular: Yes: WNL Respiratory: Yes: WNL Gastrointestinal: Yes: WNL ...Rectal Exam: Yes: Deferred Renal/: Yes: WNL Musculoskeletal: Yes: WNL Extremities: Yes: WNL Peripheral Pulses WNL: Yes Integumentary: Yes: WNL Wound/Incision: Yes: Clean/Dry (Wound full thickness with mixed fibro granular base no drainage no mal odor no cellulitis no clinical signs of infection. Patetin had an Apligraf applied 1 week ago. Today the wound looks much better as compared to last visit.) ...Motor Strength: WNL Psychiatric: Yes: WNL, Alert, Oriented Imaging - Results X-ray: Report Reviewed, Image Reviewed Problem List - Problems (1) COPD exacerbation Code(s): J44.1 - CHRONIC OBSTRUCTIVE PULMONARY DISEASE W (ACUTE) EXACERBATION (2) Shortness of breath Code(s): R06.02 - SHORTNESS OF BREATH (3) Chronic ulcer of right foot Code(s): L97.519 - NON-PRS CHRONIC ULCER OTH PRT RIGHT FOOT W UNSP SEVERITY Qualifiers: Non-pressure ulcer stage: limited to breakdown of skin Qualified Code(s): L97.511 - Non-pressure chronic ulcer of other part of right foot limited to breakdown of skin (4) Bronchitis Code(s): J40 - BRONCHITIS, NOT SPECIFIED ACUTE OR CHRONIC Assessment/Plan 1) Continue Dakins solution and Locla wound care to Right foot 2) No surgical intervention needeat this time 3) Have aptietn follow up in wound center upon D/C to home 4) Re consult as need arises
[2016-12-25] MEDS: guaiFENesin/D-METHORPHAN HB 10 ML UNIT-DOSE CUPS PO PRN ×2 (12:48→21:57)
[2016-12-25] MEDS: SODIUM HYPOCHLORITE 0.5% 473 ML- BULK BOTTLE TP SCH (12:49)
--- NOTE | 2016-12-25 13:13 | PN ---
Progress Note (short form) - Note Progress Note: Vascular surgery note: The patient states that she had an appointment for today with Dr. Phoenix in the wound clinic. He see and treats her for her right foot wound. Two years ago she had a skin graft to her right foot in [place] which became infected. Since then the wound hasn't healed. They placed an apligraf on it last week. She is ambulatory and uses walking stick for assistance because of her sight. Vital Signs Period Temp Pulse Resp BP Sys/Moscoso Pulse Ox Last 24 Hr 97.6 F-98.7 F 76-86 18-28 129-154/57-73 98-100 PE: Right foot with large chronic wound over the dorsal aspect of her foot. Wound base with fibrinous material, no necrotic tissue. Granulation base. slight pseudomonal odor. mild venous stasis changes to right lower calf. No swelling noted bilaterally or erythema. +2 palpable femoral pulses and feet warm to touch b/l dorsi/plantar flexion, 5/5 bilaterally CBC, BMP 12/24/16 16:20 12/24/16 16:20 12/18/2016-LE arterial doppler studies completed, no results in the computer. Problem List - Problems (1) Chronic ulcer of right foot Assessment/Plan: Local wound care ordered with Dakins to right foot Spoke with Dr. Pulido and he reviewed her vascular studies and there is no evidence of vascular LE compromise, continue with local wound care and the patient may f/u with Dr. Phoenix in the wound clinic as an outpt. Code(s): L97.519 - NON-PRS CHRONIC ULCER OTH PRT RIGHT FOOT W UNSP SEVERITY Qualifiers: Non-pressure ulcer stage: limited to breakdown of skin Qualified Code(s): L97.511 - Non-pressure chronic ulcer of other part of right foot limited to breakdown of skin
--- NOTE | 2016-12-25 13:23 | EKG ---
Test Reason : Blood Pressure : / mmHG Vent. Rate : 088 BPM Atrial Rate : 088 BPM P-R Int : 200 ms QRS Dur : 100 ms QT Int : 384 ms P-R-T Axes : 087 067 084 degrees QTc Int : 464 ms NORMAL SINUS RHYTHM NORMAL ECG WHEN COMPARED WITH ECG OF 11-OCT-2016 21:43, CRITERIA FOR SEPTAL INFARCT ARE NO LONGER PRESENT NONSPECIFIC T WAVE ABNORMALITY NOW EVIDENT IN LATERAL LEADS Confirmed by AKASH CORONADO MD ([id number]) on 12/25/2016 1:23:21 PM Referred By: Confirmed By:AKASH CORONADO MD
--- NOTE | 2016-12-25 14:05 | CONS ---
DATE OF CONSULTATION: DATE OF DICTATION: 12/25/2016 REQUESTING PHYSICIAN: Gretel Condon MD HISTORY OF PRESENT ILLNESS: This is an 86-year-old woman with a longstanding history of a chronic wound to her right foot that she has had for years. She is followed by Dr. Phoenix in wound care. She gets admitted once or twice a year with accompanying cellulitis and fever. Yesterday morning, she developed shortness of breath and wheezing. Her daughter called the EMS. She had an O2 saturation of 76%. She was given Combivent, magnesium, Decadron, and she improved. She has had a cough that apparently for the last year. Patient is blind and unable to sort of quantitative her cough. She has had no fevers or chills. She has no chest pain or abdominal pain. ALLERGIES: She is allergic to EPINEPHRINE PAST MEDICAL HISTORY: Notable for hypertension, peripheral vascular disease, chronic right foot wound, asthma, COPD. She is legally blind. MEDICATIONS AT HOME: Include furosemide, albuterol inhaler, Santyl application to her leg, and cough medicine. FAMILY HISTORY: Noncontributory. SOCIAL HISTORY: She lives alone. There is no history of cigarette or substance use. REVIEW OF SYSTEMS: Her daughter is very involved in her care and she has visiting nurse services. There is no diarrhea, nausea, vomiting, chest pain, or abdominal pain. There is no history of any recent travel. Patient is blind due to glaucoma. PHYSICAL EXAMINATION General: She is awake and alert. She has a moist cough. Vital signs: Temperature is 97.8; pulse is 79. She has had no fevers since admission. Blood pressure is 140/72, respiratory rate 18, she weighs 126 pounds. HEENT: She is normocephalic. Her eyes are anicteric. Her right eye is sunken in. Both her corneas are cloudy. She has no thrush. Neck: Supple. Lungs: Have bilateral wheezes throughout. Heart: Regular rate and rhythm. Abdomen: Soft, nontender. Extremities: On the right leg, she has a chronic foot ulcer. There is no associated erythema. The leg is not swollen. DIAGNOSTIC DATA: Labs are notable for a white count of 13.4, hemoglobin 10, platelets are 350. BUN 31, creatinine 1.0. Chest x-ray is negative for infiltrate. Cultures are pending. SUMMARY: This is an 86-year-old woman with, legally blind, who lives at home, with chronic obstructive pulmonary disease asthma exacerbation, acute onset of wheezing yesterday, no fevers, but she has had productive cough, no pneumonia on x-ray, possible bronchitis. Will treat her with a Z-Monty and nebulizers and steroids per Pulmonary. She has a chronic foot wound that is followed by Dr. Phoenix. She has no signs of cellulitis to suggest a need for antibiotics at this time. Would continue local management of the wound. History of prior ESBL organisms. Would maintain contact isolation. LOCO PIERCE M.D. [id number]
--- NOTE | 2016-12-25 15:07 | PN ---
Teaching Attending Note Name of Resident: Kendell Gonzalez ATTENDING PHYSICIAN STATEMENT I saw and evaluated the patient. I reviewed the resident's note and discussed the case with the resident. I agree with the resident's findings and plan as documented PULMONARY IMP ACUTE HYPOXEMIC /HYPERCAPNEIC RESPIRATORY FAILURE ASTHMA/COPD EXACERBATION PVD HTN BLINDNESS PLAN IV STEROIDS INHALED BRONCHODILATORS NASAL O2 PEAK FLOW MEASUREMENTS ABG DR FONSECA Problem List - Problems (1) COPD exacerbation Code(s): J44.1 - CHRONIC OBSTRUCTIVE PULMONARY DISEASE W (ACUTE) EXACERBATION (2) Shortness of breath Code(s): R06.02 - SHORTNESS OF BREATH (3) Asthma exacerbation in COPD Code(s): J44.1 - CHRONIC OBSTRUCTIVE PULMONARY DISEASE W (ACUTE) EXACERBATION J45.901 - UNSPECIFIED ASTHMA WITH (ACUTE) EXACERBATION (4) Chronic ulcer of right foot Code(s): L97.519 - NON-PRS CHRONIC ULCER OTH PRT RIGHT FOOT W UNSP SEVERITY Qualifiers: Non-pressure ulcer stage: limited to breakdown of skin Qualified Code(s): L97.511 - Non-pressure chronic ulcer of other part of right foot limited to breakdown of skin (5) Cough Code(s): R05 - COUGH (6) Hypoxia Code(s): R09.02 - HYPOXEMIA (7) Acute hypoxemic respiratory failure Code(s): J96.01 - ACUTE RESPIRATORY FAILURE WITH HYPOXIA (8) Acute respiratory failure with hypoxia and hypercapnia Code(s): J96.01 - ACUTE RESPIRATORY FAILURE WITH HYPOXIA J96.02 - ACUTE RESPIRATORY FAILURE WITH HYPERCAPNIA
[2016-12-25 16:55] LABS: ARTERIAL BLD GAS O2 SATURATION 95.1 % (90-98.9); ARTERIAL BLOOD GAS BASE EXCESS 2.3 meq/l (-2-2); ARTERIAL BLOOD GAS HCO3 28.4 meq/L (22-26); ARTERIAL BLOOD GAS PO2 76.1 mmHg (68-100); ARTERIAL BLOOD GAS pH 7.34 (7.35-7.45)
[2016-12-25 16:56] LABS: ALLENS TEST POSITIVE; ART PUNCT SITE RIGHT RADIAL; LPM/O2% 2LPM; PT. ON O2? YES; TYPE OF O2 NASAL
[2016-12-25] MEDS: ALBUTEROL SO4 2.5/IPRATROPIUM 0.5 INH SOL 3 ML VIAL.NEB. NEB SCH (17:45)
--- NOTE | 2016-12-25 22:24 | PN ---
Progress Note, Physician Chief Complaint: AWAKE ALERT C/O DYSPNEA AND WHEEZING - Current Medication List Current Medications: Active Medications Acetaminophen (Tylenol -) 650 mg PO Q6H PRN PRN Reason: FEVER OR PAIN Albuterol Sulfate (Ventolin 0.083% Nebulizer Soln -) 1 amp NEB Q4H PRN PRN Reason: SHORT OF BREATH/WHEEZING Last Admin: 12/25/16 07:22 Dose: 1 amp Albuterol/Ipratropium (Duoneb -) 1 amp NEB QIDR TOMMY Last Admin: 12/25/16 17:45 Dose: 1 amp Azithromycin (Zithromax -) 250 mg PO DAILY [facility] Stop: 12/29/16 10:01 Guaifenesin (Robitussin -) 10 ml PO Q6H PRN Last Admin: 12/25/16 07:19 Dose: 10 ml Guaifenesin (Robitussin Dm -) 10 ml PO Q6H PRN PRN Reason: COUGH Last Admin: 12/25/16 21:57 Dose: 10 ml Heparin Sodium (Porcine) (Heparin -) 5,000 unit SQ BID TOMMY Last Admin: 12/25/16 21:57 Dose: 5,000 unit Methylprednisolone Sodium Succinate (Solu-Medrol -) 40 mg IVPB Q6H-IV [facility] Last Admin: 12/25/16 21:57 Dose: 40 mg Sodium Hypochlorite (Dakin's Solution 0.5% (Full Strength) -) 1 applic TP DAILY [facility] Last Admin: 12/25/16 12:49 Dose: 1 applic - Objective Vital Signs: Vital Signs Temperature 98.1 F 12/25/16 18:35 Pulse Rate 92 H 12/25/16 18:35 Respiratory Rate 18 12/25/16 18:35 Blood Pressure 144/69 12/25/16 18:35 O2 Sat by Pulse Oximetry (%) 98 12/25/16 09:00 Constitutional: Yes: Mild Distress Eyes: Yes: WNL HENT: Yes: WNL Neck: Yes: WNL Cardiovascular: Yes: WNL Respiratory: Yes: Wheezes Gastrointestinal: Yes: WNL Genitourinary: Yes: WNL Musculoskeletal: Yes: Muscle Weakness Extremities: Yes: WNL Edema: Yes Edema: LLE: Trace, RLE: Trace Peripheral Pulses WNL: Yes Integumentary: Yes: Pressure Ulcer Wound/Incision: Yes: Dressing Dry and Intact, Other Neurological: Yes: Pre-Existing Deficit, Unsteady Gait ...Motor Strength: RLE (ULCER WOUND DRESSING INTACT) Psychiatric: Yes: WNL Labs: INR, PTT INR 1.08 (0.82-1.09) 12/24/16 17:00 Problem List - Problems (1) COPD exacerbation Code(s): J44.1 - CHRONIC OBSTRUCTIVE PULMONARY DISEASE W (ACUTE) EXACERBATION (2) Cellulitis and abscess of leg Code(s): L02.419 - CUTANEOUS ABSCESS OF LIMB, UNSPECIFIED L03.119 - CELLULITIS OF UNSPECIFIED PART OF LIMB (3) Shortness of breath Code(s): R06.02 - SHORTNESS OF BREATH (4) Asthma exacerbation in COPD Code(s): J44.1 - CHRONIC OBSTRUCTIVE PULMONARY DISEASE W (ACUTE) EXACERBATION J45.901 - UNSPECIFIED ASTHMA WITH (ACUTE) EXACERBATION Assessment/Plan PULM EVAL NEBS STEROIDS IV 02 SUPPORT WOUND CAR WITH PODIATRY FOLLOW UP
[2016-12-26] MEDS: ALBUTEROL SO4 2.5/IPRATROPIUM 0.5 INH SOL 3 ML VIAL.NEB. NEB SCH ×5 (00:44→23:03)
[2016-12-26] MEDS: methylPREDNISolone NA SUCC 40 MG/1 ML VIAL IVPB SCH ×4 (02:15→21:59)
[2016-12-26] MEDS: AZITHROMYCIN 250 MG TABLET (FP) PO SCH (09:05)
[2016-12-26] MEDS: HEPARIN NA (PORCINE) 5,000 UNITS/ML 1ML VIAL SQ SCH ×2 (09:05→21:59)
[2016-12-26] MEDS: guaiFENesin/D-METHORPHAN HB 10 ML UNIT-DOSE CUPS PO PRN (09:05)
--- NOTE | 2016-12-26 09:56 | PN ---
Physical Exam: SUBJECTIVE: Patient seen and examined Patient sitting comfartably in bed, on 3 L NC spo2 95 states that she she still feel congested and have cough. States didn't feel any better since yesterday. Patient have diffuse wheezing b/l both in expiration and inspiration. OBJECTIVE: Vital Signs Period Temp Pulse Resp BP Sys/Moscoso Pulse Ox Last 24 Hr 97.8 F-98.1 F 82-92 18-20 132-189/69-94 95 GENERAL: Awake, alert, and fully oriented, EARS, NOSE, THROAT: nares patent, oropharynx clear without exudates. dry mucous membranes. NECK: Normal range of motion, no lymphadenopathy, LUNGSair entry improved since yesterday, b/l diffuse wheezing both in inspiration and expiration, no rales HEART: s1s2 normal ABDOMEN: Soft, nontender, not distended, normoactive bowel sounds, UPPER EXTREMITIES: 2+ pulses, warm, well-perfused. LOWER EXTREMITIES: warm, well-perfused. No calf tenderness. No peripheral edema. dressing present on right foot SKIN: Warm, dry, Laboratory Results - last 24 hr 12/24/16 12/25/16 22:25 16:50 Puncture Site Right radial ABG pH 7.34 L ABG pCO2 at Pt Temp 54.3 H ABG pO2 at Pt Temp 76.1 ABG HCO3 28.4 H ABG O2 Sat (Measured) 95.1 ABG O2 Content 14.1 L ABG Base Excess 2.3 H Darren Test Positive O2 Delivery Device Nasal Oxygen Flow Rate 2lpm PEEP 0.0 Ur Specific Burton 1.020 Active Medications Generic Name Dose Route Start Last Admin Trade Name Freq PRN Reason Stop Dose Admin Acetaminophen 650 mg 12/24/16 19:03 Tylenol - PO Q6H PRN FEVER OR PAIN Albuterol Sulfate 1 amp 12/25/16 00:20 12/25/16 07:22 Ventolin 0.083% Nebulizer Soln - NEB 1 amp Q4H PRN Administration SHORT OF BREATH/WHEEZING Albuterol/Ipratropium 1 amp 12/25/16 18:00 12/26/16 05:48 Duoneb - NEB 1 amp QIDR CONNIE Administration Arformoterol Tartrate 1 amp 12/26/16 10:00 Brovana (Restricted To Pulmonology/Resp) - NEB BID CONNIE Azithromycin 250 mg 12/26/16 10:00 12/26/16 09:05 Zithromax - PO 12/29/16 10:01 250 mg DAILY CONNIE Administration Guaifenesin 10 ml 12/25/16 00:21 12/25/16 07:19 Robitussin - PO 10 ml Q6H PRN Administration Guaifenesin 10 ml 12/25/16 11:03 12/26/16 09:05 Robitussin Dm - PO 10 ml Q6H PRN Administration COUGH Heparin Sodium (Porcine) 5,000 unit 12/24/16 22:00 12/26/16 09:05 Heparin - SQ 5,000 unit BID CONNIE Administration Methylprednisolone Sodium Succinate 40 mg 12/25/16 15:00 12/26/16 09:05 Solu-Medrol - IVPB 40 mg Q6H-IV CONNIE Administration Sodium Hypochlorite 1 applic 12/25/16 12:00 12/25/16 12:49 Dakin's Solution 0.5% (Full Strength) - TP 1 applic DAILY CONNIE Administration Microbiology 12/24/16 16:20 Blood - Peripheral Venous Blood Culture - Preliminary NO GROWTH OBTAINED AFTER 24 HOURS, INCUBATION TO CONTINUE FOR 4 DAYS. 12/24/16 16:20 Blood - Peripheral Venous Blood Culture - Preliminary NO GROWTH OBTAINED AFTER 24 HOURS, INCUBATION TO CONTINUE FOR 4 DAYS. ASSESSMENT/PLAN: acute hypoxic hypercapnic respiratory failure from copd/ asthma excerbration: diffuse b/l wheezing, could be exaggerated by coughing from bronchitis. asthma chronic right foot wound h/o pvd h/o htn constipation Plan Iv steroid 40mg iv q6h duoneb neb qid connie albuterol inhaler prn use humdified oxygen, keep spo2> 90 antibiotics as per id blood culture no growth monitor vitals, monitor and control blood pressure miralax for cosntipation dvt prophylaxis: on heparin Visit type - Emergency Visit Emergency Visit: Yes ED Registration Date: 12/24/16 Care time: The patient presented to the Emergency Department on the above date and was hospitalized for further evaluation of their emergent condition. - New Patient This patient is new to me today: No - Critical Care Critical Care patient: No
[2016-12-26] MEDS ORDERED: ARFORMOTEROL TARTRATE 15 MCG/2 ML VIAL NEB SCH (10:15)
--- NOTE | 2016-12-26 10:22 | PN ---
Progress Note, Physician Chief Complaint: STILL SOB WITH DYSPNEA AT REST COUGH IMPROVED - Current Medication List Current Medications: Active Medications Acetaminophen (Tylenol -) 650 mg PO Q6H PRN PRN Reason: FEVER OR PAIN Albuterol/Ipratropium (Duoneb -) 1 amp NEB QIDR [facility] Last Admin: 12/26/16 05:48 Dose: 1 amp Arformoterol Tartrate (Brovana (Restricted To Pulmonology/Resp) -) 1 amp NEB BID TOMMY Azithromycin (Zithromax -) 250 mg PO DAILY [facility] Stop: 12/29/16 10:01 Last Admin: 12/26/16 09:05 Dose: 250 mg Guaifenesin (Robitussin -) 10 ml PO Q6H PRN Last Admin: 12/25/16 07:19 Dose: 10 ml Guaifenesin (Robitussin Dm -) 10 ml PO Q6H PRN PRN Reason: COUGH Last Admin: 12/26/16 09:05 Dose: 10 ml Heparin Sodium (Porcine) (Heparin -) 5,000 unit SQ BID [facility] Last Admin: 12/26/16 09:05 Dose: 5,000 unit Methylprednisolone Sodium Succinate (Solu-Medrol -) 40 mg IVPB Q6H-IV TOMMY Last Admin: 12/26/16 09:05 Dose: 40 mg Sodium Hypochlorite (Dakin's Solution 0.5% (Full Strength) -) 1 applic TP DAILY [facility] Last Admin: 12/25/16 12:49 Dose: 1 applic - Objective Vital Signs: Vital Signs Temperature 97.8 F 12/26/16 06:00 Pulse Rate 92 H 12/26/16 06:00 Respiratory Rate 18 12/26/16 06:00 Blood Pressure 189/94 12/26/16 06:00 O2 Sat by Pulse Oximetry (%) 95 12/25/16 21:00 Constitutional: Yes: Mild Distress Eyes: Yes: WNL HENT: Yes: WNL Neck: Yes: WNL Cardiovascular: Yes: WNL Respiratory: Yes: Cough, Diminished, Wheezes Gastrointestinal: Yes: WNL Genitourinary: Yes: WNL Musculoskeletal: Yes: Muscle Weakness Extremities: Yes: Deformity Edema: Yes Edema: RLE: 1+ Peripheral Pulses WNL: Yes Integumentary: Yes: Pressure Ulcer Wound/Incision: Yes: Dressing Dry and Intact Neurological: Yes: Paresthesia ...Motor Strength: RLE Psychiatric: Yes: Other Labs: INR, PTT INR 1.08 (0.82-1.09) 12/24/16 17:00 Problem List - Problems (1) COPD exacerbation Code(s): J44.1 - CHRONIC OBSTRUCTIVE PULMONARY DISEASE W (ACUTE) EXACERBATION (2) Cellulitis and abscess of leg Code(s): L02.419 - CUTANEOUS ABSCESS OF LIMB, UNSPECIFIED L03.119 - CELLULITIS OF UNSPECIFIED PART OF LIMB (3) Shortness of breath Code(s): R06.02 - SHORTNESS OF BREATH (4) Asthma exacerbation in COPD Code(s): J44.1 - CHRONIC OBSTRUCTIVE PULMONARY DISEASE W (ACUTE) EXACERBATION J45.901 - UNSPECIFIED ASTHMA WITH (ACUTE) EXACERBATION Assessment/Plan PULM EVAL NEBS STEROIDS IV 02 SUPPORT WOUND CAR WITH PODIATRY FOLLOW UP DVT PROPHYLAXIS OOB TO CHAIR PT EVAL
--- NOTE | 2016-12-26 13:48 | PN ---
Progress Note (short form) - Note Progress Note: PULMONARY States breathing about the same. +nonproductive cough and wheezing. Last Vital Signs Temp Pulse Resp BP Pulse Ox 98.0 F 79 18 151/83 95 12/26/16 09:00 12/26/16 09:00 12/26/16 09:00 12/26/16 09:00 12/26/16 09:00 Gen: NAD in chair Heart: RRR Lung: scattered rhonchi, wheezes Abd: soft, nontender Ext: no edema CBC, BMP 12/24/16 16:20 12/24/16 16:20 Active Medications Acetaminophen (Tylenol -) 650 mg PO Q6H PRN PRN Reason: FEVER OR PAIN Albuterol Sulfate (Ventolin 0.083% Nebulizer Soln -) 1 amp NEB Q4H PRN PRN Reason: SHORT OF BREATH/WHEEZING Albuterol/Ipratropium (Duoneb -) 1 amp NEB QIDR [facility] Last Admin: 12/26/16 11:30 Dose: 1 amp Azithromycin (Zithromax -) 250 mg PO DAILY [facility] Stop: 12/29/16 10:01 Last Admin: 12/26/16 09:05 Dose: 250 mg Guaifenesin (Robitussin -) 10 ml PO Q6H PRN Last Admin: 12/25/16 07:19 Dose: 10 ml Guaifenesin (Robitussin Dm -) 10 ml PO Q6H PRN PRN Reason: COUGH Last Admin: 12/26/16 09:05 Dose: 10 ml Heparin Sodium (Porcine) (Heparin -) 5,000 unit SQ BID [facility] Last Admin: 12/26/16 09:05 Dose: 5,000 unit Methylprednisolone Sodium Succinate (Solu-Medrol -) 40 mg IVPB Q6H-IV [facility] Last Admin: 12/26/16 09:05 Dose: 40 mg Sodium Hypochlorite (Dakin's Solution 0.5% (Full Strength) -) 1 applic TP DAILY [facility] Last Admin: 12/25/16 12:49 Dose: 1 applic A/P Acute Asthma/COPD Exacerbation HTN PAD - continue medrol at current dose, can taper in AM - inhaled bronchodilators - O2 as needed - empiric antibiotics - monitor peak flow - DVT prophylaxis
[2016-12-26] MEDS: SODIUM HYPOCHLORITE 0.5% 473 ML- BULK BOTTLE TP SCH (16:00)
[2016-12-26] MEDS ORDERED: MAGNESIUM HYDROX 2400MG/30ML ORAL SUSPENSION 30 ML CUP PO PRN (21:39)
[2016-12-27] MEDS: methylPREDNISolone NA SUCC 40 MG/1 ML VIAL IVPB SCH ×3 (03:47→17:16)
[2016-12-27] MEDS: ALBUTEROL SO4 0.083% IH SOL 2.5 MG/3 ML VIAL.NEB. NEB PRN ×2 (04:05→15:58)
[2016-12-27] MEDS: guaiFENesin/D-METHORPHAN HB 10 ML UNIT-DOSE CUPS PO PRN ×2 (04:41→17:16)
[2016-12-27] MEDS: ALBUTEROL SO4 2.5/IPRATROPIUM 0.5 INH SOL 3 ML VIAL.NEB. NEB SCH ×4 (06:18→23:36)
[2016-12-27 08:12] LABS: MCH 27.6 pg (25.7-33.7); MCHC 32.5 g/dl (32.0-36.0); MEAN CELL VOLUME 84.9 fl (80-96); MEAN PLT VOLUME 7.2 fl (7.5-11.1); PLATELET COUNT 315 K/MM3 (134-434); RDW 16.8 % (11.6-15.6); WHITE BLOOD COUNT 8.3 K/mm3 (4.0-10.0)
[2016-12-27 08:48] LABS: ALBUMIN 2.6 g/dl (3.4-5.0); BILIRUBIN,TOTAL 0.2 mg/dL (0.2-1.0); CALCIUM 8.4 mg/dL (8.5-10.1); COCKROFT - GAULT 42.1685; CREATININE 0.9 mg/dL (0.55-1.02); TOT PROT 6.6 g/dl (6.4-8.2)
[2016-12-27] MEDS: HEPARIN NA (PORCINE) 5,000 UNITS/ML 1ML VIAL SQ SCH ×2 (09:23→21:47)
[2016-12-27] MEDS: AZITHROMYCIN 250 MG TABLET (FP) PO SCH (09:24)
[2016-12-27] MEDS: SODIUM HYPOCHLORITE 0.5% 473 ML- BULK BOTTLE TP SCH (09:26)
--- NOTE | 2016-12-27 12:45 | PN ---
Progress Note, Physician History of Present Illness: PULMONARY ALERT,FEELING BETTER,LESS DYSPNEIC - Current Medication List Current Medications: Active Medications Acetaminophen (Tylenol -) 650 mg PO Q6H PRN PRN Reason: FEVER OR PAIN Albuterol Sulfate (Ventolin 0.083% Nebulizer Soln -) 1 amp NEB Q4H PRN PRN Reason: SHORT OF BREATH/WHEEZING Last Admin: 12/27/16 04:05 Dose: 1 amp Albuterol/Ipratropium (Duoneb -) 1 amp NEB QIDR [facility]OM[facility] Last Admin: 12/27/16 11:05 Dose: 1 amp Azithromycin (Zithromax -) 250 mg PO DAILY [facility] Stop: 12/29/16 10:01 Last Admin: 12/27/16 09:24 Dose: 250 mg Guaifenesin (Robitussin -) 10 ml PO Q6H PRN Last Admin: 12/25/16 07:19 Dose: 10 ml Guaifenesin (Robitussin Dm -) 10 ml PO Q6H PRN PRN Reason: COUGH Last Admin: 12/27/16 04:41 Dose: 10 ml Heparin Sodium (Porcine) (Heparin -) 5,000 unit SQ BID [facility]OM[facility] Last Admin: 12/27/16 09:23 Dose: 5,000 unit Magnesium Hydroxide (Milk Of Magnesia -) 30 ml PO HS PRN PRN Reason: CONSTIPATION Last Admin: 12/26/16 22:03 Dose: 30 ml Methylprednisolone Sodium Succinate (Solu-Medrol -) 40 mg IVPB Q6H-IV TOMMY Last Admin: 12/27/16 09:23 Dose: 40 mg Sodium Hypochlorite (Dakin's Solution 0.5% (Full Strength) -) 1 applic TP DAILY [facility] Last Admin: 12/27/16 09:26 Dose: 1 applic - Objective Vital Signs: Vital Signs Temperature 97.8 F 12/27/16 10:00 Pulse Rate 88 12/27/16 11:00 Respiratory Rate 20 12/27/16 10:00 Blood Pressure 142/83 12/27/16 10:00 O2 Sat by Pulse Oximetry (%) 94 L 12/27/16 11:00 Constitutional: Yes: Well Nourished, Calm Eyes: Yes: WNL HENT: Yes: WNL Neck: Yes: WNL Cardiovascular: Yes: Regular Rate and Rhythm, S1, S2 Respiratory: Yes: Wheezes (LESS WHEEZES BILATERALLY) Gastrointestinal: Yes: Normal Bowel Sounds, Soft Extremities: Yes: WNL Edema: No Labs: CBC, BMP 12/27/16 06:20 12/27/16 06:20 INR, PTT INR 1.08 (0.82-1.09) 12/24/16 17:00 Problem List - Problems (1) COPD exacerbation Code(s): J44.1 - CHRONIC OBSTRUCTIVE PULMONARY DISEASE W (ACUTE) EXACERBATION (2) Shortness of breath Code(s): R06.02 - SHORTNESS OF BREATH (3) Asthma exacerbation in COPD Code(s): J44.1 - CHRONIC OBSTRUCTIVE PULMONARY DISEASE W (ACUTE) EXACERBATION J45.901 - UNSPECIFIED ASTHMA WITH (ACUTE) EXACERBATION (4) Chronic ulcer of right foot Code(s): L97.519 - NON-PRS CHRONIC ULCER OTH PRT RIGHT FOOT W UNSP SEVERITY Qualifiers: Non-pressure ulcer stage: limited to breakdown of skin Qualified Code(s): L97.511 - Non-pressure chronic ulcer of other part of right foot limited to breakdown of skin (5) Cough Code(s): R05 - COUGH (6) Hypoxia Code(s): R09.02 - HYPOXEMIA (7) Acute hypoxemic respiratory failure Code(s): J96.01 - ACUTE RESPIRATORY FAILURE WITH HYPOXIA (8) Acute respiratory failure with hypoxia and hypercapnia Code(s): J96.01 - ACUTE RESPIRATORY FAILURE WITH HYPOXIA J96.02 - ACUTE RESPIRATORY FAILURE WITH HYPERCAPNIA Assessment/Plan IMP ACUTE HYPOXEMIC /HYPERCAPNEIC RESPIRATORY FAILURE IMPROVING ASTHMA/COPD EXACERBATION PVD HTN BLINDNESS PLAN STEROID TAPER INHALED BRONCHODILATORS NASAL O2 PEAK FLOW MEASUREMENTS DR FONSECA Problem List - Problems (1) COPD exacerbation Code(s): J44.1 - CHRONIC OBSTRUCTIVE PULMONARY DISEASE W (ACUTE) EXACERBATION (2) Shortness of breath Code(s): R06.02 - SHORTNESS OF BREATH (3) Asthma exacerbation in COPD Code(s): J44.1 - CHRONIC OBSTRUCTIVE PULMONARY DISEASE W (ACUTE) EXACERBATION J45.901 - UNSPECIFIED ASTHMA WITH (ACUTE) EXACERBATION (4) Chronic ulcer of right foot Code(s): L97.519 - NON-PRS CHRONIC ULCER OTH PRT RIGHT FOOT W UNSP SEVERITY Qualifiers: Non-pressure ulcer stage: limited to breakdown of skin Qualified Code(s): L97.511 - Non-pressure chronic ulcer of other part of right foot limited to breakdown of skin (5) Cough Code(s): R05 - COUGH (6) Hypoxia Code(s): R09.02 - HYPOXEMIA (7) Acute hypoxemic respiratory failure Code(s): J96.01 - ACUTE RESPIRATORY FAILURE WITH HYPOXIA (8) Acute respiratory failure with hypoxia and hypercapnia Code(s): J96.01 - ACUTE RESPIRATORY FAILURE WITH HYPOXIA J96.02 - ACUTE RESPIRATORY FAILURE WITH HYPERCAPNIA
--- NOTE | 2016-12-27 12:49 | PN ---
Progress Note (short form) - Note Progress Note: still some wheezing Vital Signs Period Temp Pulse Resp BP Sys/Moscoso Pulse Ox Last 24 Hr 97.6 F-98.2 F 80-110 18-20 141-154/73-86 92-96 cor-rrr lungs bilateral wheezing abd soft,nt ext foot bandaged CBC, BMP 12/27/16 06:20 12/27/16 06:20 Microbiology 12/24/16 16:20 Blood - Peripheral Venous Blood Culture - Preliminary NO GROWTH OBTAINED AFTER 48 HOURS, INCUBATION TO CONTINUE FOR 3 DAYS. 12/24/16 16:20 Blood - Peripheral Venous Blood Culture - Preliminary NO GROWTH OBTAINED AFTER 48 HOURS, INCUBATION TO CONTINUE FOR 3 DAYS. 12/24/16 22:25 Urine - Urine Clean Catch Urine Culture - Final NO GROWTH OBTAINED a/p copd exacerbation- per pulmonary, would finish 5 day course of zithromax chronic right foot infection- local care per podiatry please call back if needed Problem List - Problems (1) COPD exacerbation Code(s): J44.1 - CHRONIC OBSTRUCTIVE PULMONARY DISEASE W (ACUTE) EXACERBATION (2) Chronic ulcer of right foot Code(s): L97.519 - NON-PRS CHRONIC ULCER OTH PRT RIGHT FOOT W UNSP SEVERITY Qualifiers: Non-pressure ulcer stage: limited to breakdown of skin Qualified Code(s): L97.511 - Non-pressure chronic ulcer of other part of right foot limited to breakdown of skin (3) Bronchitis Code(s): J40 - BRONCHITIS, NOT SPECIFIED ACUTE OR CHRONIC
--- NOTE | 2016-12-27 13:35 | PN ---
Physical Exam: SUBJECTIVE: Patient seen and examined sitting comfortably in bed, having breakfast and listening to music feels better states breathing has improved states cough has improved. denies fever, chills OBJECTIVE: Vital Signs Period Temp Pulse Resp BP Sys/Moscoso Pulse Ox Last 24 Hr 97.6 F-98.2 F 80-110 18-20 141-154/73-86 92-96 GENERAL: Awake, alert, and fully oriented, EARS, NOSE, THROAT: nares patent, oropharynx clear without exudates. dry mucous membranes. NECK: Normal range of motion, no lymphadenopathy, LUNGSair air entry improved, b/l diffuse wheezing but decreased since yesterday. HEART: s1s2 normal ABDOMEN: Soft, nontender, not distended, normoactive bowel sounds, UPPER EXTREMITIES: 2+ pulses, warm, well-perfused. LOWER EXTREMITIES: warm, No calf tenderness. No peripheral edema. SKIN: Warm, dry, Laboratory Results - last 24 hr 12/27/16 12/27/16 06:20 06:20 WBC 8.3 D RBC 3.90 Hgb 10.8 Hct 33.1 MCV 84.9 MCHC 32.5 RDW 16.8 H Plt Count 315 MPV 7.2 L Sodium 140 Potassium 5.2 H D Chloride 99 Carbon Dioxide 35 H D Anion Gap 6 L BUN 41 H D Creatinine 0.9 Creat Clearance w eGFR 59.65 Random Glucose 136 H Calcium 8.4 L Total Bilirubin 0.2 AST 19 ALT 19 Alkaline Phosphatase 114 Total Protein 6.6 Albumin 2.6 L Active Medications Generic Name Dose Route Start Last Admin Trade Name Freq PRN Reason Stop Dose Admin Acetaminophen 650 mg 12/24/16 19:03 Tylenol - PO Q6H PRN FEVER OR PAIN Albuterol Sulfate 1 amp 12/26/16 10:25 12/27/16 04:05 Ventolin 0.083% Nebulizer Soln - NEB 1 amp Q4H PRN Administration SHORT OF BREATH/WHEEZING Albuterol/Ipratropium 1 amp 12/25/16 18:00 12/27/16 11:05 Duoneb - NEB 1 amp QIDR CONNIE Administration Azithromycin 250 mg 12/26/16 10:00 12/27/16 09:24 Zithromax - PO 12/29/16 10:01 250 mg DAILY CONNIE Administration Guaifenesin 10 ml 12/25/16 00:21 12/25/16 07:19 Robitussin - PO 10 ml Q6H PRN Administration Guaifenesin 10 ml 12/25/16 11:03 12/27/16 04:41 Robitussin Dm - PO 10 ml Q6H PRN Administration COUGH Heparin Sodium (Porcine) 5,000 unit 12/24/16 22:00 12/27/16 09:23 Heparin - SQ 5,000 unit BID CONNIE Administration Magnesium Hydroxide 30 ml 12/26/16 21:39 12/26/16 22:03 Milk Of Magnesia - PO 30 ml HS PRN Administration CONSTIPATION Methylprednisolone Sodium Succinate 40 mg 12/27/16 18:00 Solu-Medrol - IVPB Q8H-IV CONNIE Sodium Hypochlorite 1 applic 12/25/16 12:00 12/27/16 09:26 Dakin's Solution 0.5% (Full Strength) - TP 1 applic DAILY CONNIE Administration Microbiology 12/24/16 16:20 Blood - Peripheral Venous Blood Culture - Preliminary NO GROWTH OBTAINED AFTER 48 HOURS, INCUBATION TO CONTINUE FOR 3 DAYS. 12/24/16 16:20 Blood - Peripheral Venous Blood Culture - Preliminary NO GROWTH OBTAINED AFTER 48 HOURS, INCUBATION TO CONTINUE FOR 3 DAYS. 12/24/16 22:25 Urine - Urine Clean Catch Urine Culture - Final NO GROWTH OBTAINED ASSESSMENT/PLAN: acute hypoxic hypercapnic respiratory failure from copd/ asthma excerbration: diffuse b/l wheezing, could be exaggerated by coughing from bronchitis. asthma chronic right foot wound h/o pvd h/o htn constipation Plan Iv steroid taperd to 40mg q8h conitnue duoneb neb qid connie albuterol inhaler prn use humdified oxygen, keep spo2> 90 antibiotics as per id miralax for cosntipation dvt prophylaxis: on heparin Visit type - Emergency Visit Emergency Visit: Yes ED Registration Date: 12/24/16 Care time: The patient presented to the Emergency Department on the above date and was hospitalized for further evaluation of their emergent condition. - New Patient This patient is new to me today: No - Critical Care Critical Care patient: No
--- NOTE | 2016-12-27 14:33 | PN ---
Progress Note, Physician Chief Complaint: STILL SOB WITH DYSPNEA AT REST COUGH IMPROVED - Current Medication List Current Medications: Active Medications Acetaminophen (Tylenol -) 650 mg PO Q6H PRN PRN Reason: FEVER OR PAIN Albuterol Sulfate (Ventolin 0.083% Nebulizer Soln -) 1 amp NEB Q4H PRN PRN Reason: SHORT OF BREATH/WHEEZING Last Admin: 12/27/16 04:05 Dose: 1 amp Albuterol/Ipratropium (Duoneb -) 1 amp NEB QIDR TOMMY Last Admin: 12/27/16 11:05 Dose: 1 amp Azithromycin (Zithromax -) 250 mg PO DAILY [facility] Stop: 12/29/16 10:01 Last Admin: 12/27/16 09:24 Dose: 250 mg Guaifenesin (Robitussin -) 10 ml PO Q6H PRN Last Admin: 12/25/16 07:19 Dose: 10 ml Guaifenesin (Robitussin Dm -) 10 ml PO Q6H PRN PRN Reason: COUGH Last Admin: 12/27/16 04:41 Dose: 10 ml Heparin Sodium (Porcine) (Heparin -) 5,000 unit SQ BID TOMMY Last Admin: 12/27/16 09:23 Dose: 5,000 unit Magnesium Hydroxide (Milk Of Magnesia -) 30 ml PO HS PRN PRN Reason: CONSTIPATION Last Admin: 12/26/16 22:03 Dose: 30 ml Methylprednisolone Sodium Succinate (Solu-Medrol -) 40 mg IVPB Q8H-IV TOMMY Sodium Hypochlorite (Dakin's Solution 0.5% (Full Strength) -) 1 applic TP DAILY [facility] Last Admin: 12/27/16 09:26 Dose: 1 applic - Objective Vital Signs: Vital Signs Temperature 97.8 F 12/27/16 10:00 Pulse Rate 88 12/27/16 11:00 Respiratory Rate 20 12/27/16 10:00 Blood Pressure 142/83 12/27/16 10:00 O2 Sat by Pulse Oximetry (%) 94 L 12/27/16 11:00 Constitutional: Yes: Mild Distress Eyes: Yes: WNL HENT: Yes: WNL Neck: Yes: WNL Cardiovascular: Yes: WNL Respiratory: Yes: Wheezes Gastrointestinal: Yes: WNL Genitourinary: Yes: WNL Musculoskeletal: Yes: Muscle Weakness Extremities: Yes: Deformity Edema: Yes Edema: RLE: 1+ Peripheral Pulses WNL: Yes Integumentary: Yes: Pressure Ulcer, Other Wound/Incision: Yes: Dressing Dry and Intact, Unapproximated, Other Neurological: Yes: Pre-Existing Deficit, Weakness, Other ...Motor Strength: RLE Psychiatric: Yes: WNL Labs: CBC, BMP 12/27/16 06:20 12/27/16 06:20 INR, PTT INR 1.08 (0.82-1.09) 12/24/16 17:00 Problem List - Problems (1) COPD exacerbation Code(s): J44.1 - CHRONIC OBSTRUCTIVE PULMONARY DISEASE W (ACUTE) EXACERBATION (2) Cellulitis and abscess of leg Code(s): L02.419 - CUTANEOUS ABSCESS OF LIMB, UNSPECIFIED L03.119 - CELLULITIS OF UNSPECIFIED PART OF LIMB (3) Shortness of breath Code(s): R06.02 - SHORTNESS OF BREATH (4) Asthma exacerbation in COPD Code(s): J44.1 - CHRONIC OBSTRUCTIVE PULMONARY DISEASE W (ACUTE) EXACERBATION J45.901 - UNSPECIFIED ASTHMA WITH (ACUTE) EXACERBATION Assessment/Plan PULM EVAL NEBS STEROIDS IV 02 SUPPORT WOUND CAR WITH PODIATRY FOLLOW UP DVT PROPHYLAXIS OOB TO CHAIR PT EVAL
[2016-12-27 17:18] LABS: CALCIUM 8.3 mg/dL (8.5-10.1); COCKROFT - GAULT 34.5015; CREATININE 1.1 mg/dL (0.55-1.02)
[2016-12-28] MEDS: methylPREDNISolone NA SUCC 40 MG/1 ML VIAL IVPB SCH ×3 (01:53→17:29)
[2016-12-28] MEDS: ALBUTEROL SO4 0.083% IH SOL 2.5 MG/3 ML VIAL.NEB. NEB PRN ×3 (02:52→19:55)
[2016-12-28] MEDS: ALBUTEROL SO4 2.5/IPRATROPIUM 0.5 INH SOL 3 ML VIAL.NEB. NEB SCH ×4 (06:35→23:10)
[2016-12-28] MEDS: HEPARIN NA (PORCINE) 5,000 UNITS/ML 1ML VIAL SQ SCH ×2 (09:17→21:31)
[2016-12-28] MEDS: guaiFENesin/D-METHORPHAN HB 10 ML UNIT-DOSE CUPS PO PRN ×2 (09:17→20:20)
[2016-12-28] MEDS: AZITHROMYCIN 250 MG TABLET (FP) PO SCH (09:17)
[2016-12-28] MEDS: SODIUM HYPOCHLORITE 0.5% 473 ML- BULK BOTTLE TP SCH (09:20)
[2016-12-28] MEDS ORDERED: INSULIN REGULAR HUMAN 100 UNITS/ML *VIAL IVPUSH ONE (10:00)
[2016-12-28 10:36] LABS: CALCIUM 8.7 mg/dL (8.5-10.1); COCKROFT - GAULT 42.1685; CREATININE 0.9 mg/dL (0.55-1.02)
--- NOTE | 2016-12-28 12:06 | PN ---
Progress Note (short form) - Note Progress Note: PULMONARY Short of breath this AM but now feeling better. +nonproductive cough and wheezing. Last Vital Signs Temp Pulse Resp BP Pulse Ox 98.1 F 99 H 20 151/89 94 L 12/28/16 10:00 12/28/16 10:00 12/28/16 10:00 12/28/16 10:00 12/28/16 09:00 Gen: NAD in chair Heart: RRR Lung: scattered rhonchi, wheezes Abd: soft, nontender Ext: no edema CBC, BMP 12/27/16 06:20 12/28/16 09:50 Active Medications Acetaminophen (Tylenol -) 650 mg PO Q6H PRN PRN Reason: FEVER OR PAIN Albuterol Sulfate (Ventolin 0.083% Nebulizer Soln -) 1 amp NEB Q4H PRN PRN Reason: SHORT OF BREATH/WHEEZING Last Admin: 12/28/16 08:52 Dose: 1 amp Albuterol/Ipratropium (Duoneb -) 1 amp NEB QIDR [facility]OM[facility] Last Admin: 12/28/16 06:35 Dose: 1 amp Azithromycin (Zithromax -) 250 mg PO DAILY [facility] Stop: 12/29/16 10:01 Last Admin: 12/28/16 09:17 Dose: 250 mg Guaifenesin (Robitussin -) 10 ml PO Q6H PRN Last Admin: 12/25/16 07:19 Dose: 10 ml Guaifenesin (Robitussin Dm -) 10 ml PO Q6H PRN PRN Reason: COUGH Last Admin: 12/28/16 09:17 Dose: 10 ml Heparin Sodium (Porcine) (Heparin -) 5,000 unit SQ BID [facility] Last Admin: 12/28/16 09:17 Dose: 5,000 unit Methylprednisolone Sodium Succinate (Solu-Medrol -) 40 mg IVPB Q8H-IV [facility] Last Admin: 12/28/16 09:17 Dose: 40 mg Sodium Hypochlorite (Dakin's Solution 0.5% (Full Strength) -) 1 applic TP DAILY [facility] Last Admin: 12/28/16 09:20 Dose: 1 applic A/P Acute Asthma/COPD Exacerbation HTN PAD - continue medrol at current dose - inhaled bronchodilators - O2 as needed - empiric antibiotics - monitor peak flow - DVT prophylaxis
--- NOTE | 2016-12-28 13:55 | PN ---
Progress Note, Physician Chief Complaint: AWAKE EATING LUNCH WITH ASSISTANCE BREATHING BETTER DENIES CHEST PAIN - Current Medication List Current Medications: Active Medications Acetaminophen (Tylenol -) 650 mg PO Q6H PRN PRN Reason: FEVER OR PAIN Albuterol Sulfate (Ventolin 0.083% Nebulizer Soln -) 1 amp NEB Q4H PRN PRN Reason: SHORT OF BREATH/WHEEZING Last Admin: 12/28/16 08:52 Dose: 1 amp Albuterol/Ipratropium (Duoneb -) 1 amp NEB QIDR [facility] Last Admin: 12/28/16 12:23 Dose: 1 amp Azithromycin (Zithromax -) 250 mg PO DAILY [facility] Stop: 12/29/16 10:01 Last Admin: 12/28/16 09:17 Dose: 250 mg Guaifenesin (Robitussin -) 10 ml PO Q6H PRN Last Admin: 12/25/16 07:19 Dose: 10 ml Guaifenesin (Robitussin Dm -) 10 ml PO Q6H PRN PRN Reason: COUGH Last Admin: 12/28/16 09:17 Dose: 10 ml Heparin Sodium (Porcine) (Heparin -) 5,000 unit SQ BID [facility] Last Admin: 12/28/16 09:17 Dose: 5,000 unit Methylprednisolone Sodium Succinate (Solu-Medrol -) 40 mg IVPB Q8H-IV [facility] Last Admin: 12/28/16 09:17 Dose: 40 mg Sodium Hypochlorite (Dakin's Solution 0.5% (Full Strength) -) 1 applic TP DAILY [facility] Last Admin: 12/28/16 09:20 Dose: 1 applic - Objective Vital Signs: Vital Signs Temperature 98.1 F 12/28/16 10:00 Pulse Rate 86 12/28/16 12:22 Respiratory Rate 20 12/28/16 10:00 Blood Pressure 151/89 12/28/16 10:00 O2 Sat by Pulse Oximetry (%) 96 12/28/16 12:22 Constitutional: Yes: Mild Distress Eyes: Yes: WNL HENT: Yes: WNL Neck: Yes: WNL Cardiovascular: Yes: WNL Respiratory: Yes: On Nasal O2, Wheezes Gastrointestinal: Yes: WNL Musculoskeletal: Yes: Muscle Weakness Extremities: Yes: Other Edema: Yes Edema: LLE: 1+, RLE: 1+ Peripheral Pulses WNL: Yes Integumentary: Yes: Pressure Ulcer, Rash, Skin Tear, Venous Stasis Changes Wound/Incision: Yes: Dressing Dry and Intact, Unapproximated Neurological: Yes: Pre-Existing Deficit, Unsteady Gait, Weakness ...Motor Strength: RLE Psychiatric: Yes: WNL, Other Labs: CBC, BMP 12/27/16 06:20 12/28/16 09:50 INR, PTT INR 1.08 (0.82-1.09) 12/24/16 17:00 Problem List - Problems (1) COPD exacerbation Code(s): J44.1 - CHRONIC OBSTRUCTIVE PULMONARY DISEASE W (ACUTE) EXACERBATION (2) Cellulitis and abscess of leg Code(s): L02.419 - CUTANEOUS ABSCESS OF LIMB, UNSPECIFIED L03.119 - CELLULITIS OF UNSPECIFIED PART OF LIMB (3) Shortness of breath Code(s): R06.02 - SHORTNESS OF BREATH (4) Asthma exacerbation in COPD Code(s): J44.1 - CHRONIC OBSTRUCTIVE PULMONARY DISEASE W (ACUTE) EXACERBATION J45.901 - UNSPECIFIED ASTHMA WITH (ACUTE) EXACERBATION Assessment/Plan K+ ELEVATED 5.8 D50 1 AMP AND INSULIN 10UNITS GIVEN REPEAT BMP STEROIDS IV TAPER TO PREDNISONE THEN OFF IV ABX NEBS OOB TO CHAIR INCENTIVE SPRIOMETRY
[2016-12-28] MEDS ORDERED: FUROSEMIDE 40 MG/4 ML INJECTABLE VIAL ONE (22:30)
[2016-12-28] MEDS ORDERED: FUROSEMIDE 40 MG/4 ML INJECTABLE VIAL IVPUSH ONE (23:00)
[2016-12-29] MEDS: methylPREDNISolone NA SUCC 40 MG/1 ML VIAL IVPB SCH ×3 (01:48→21:50)
[2016-12-29] MEDS: ALBUTEROL SO4 0.083% IH SOL 2.5 MG/3 ML VIAL.NEB. NEB PRN ×3 (03:00→21:55)
[2016-12-29] MEDS: guaiFENesin/D-METHORPHAN HB 10 ML UNIT-DOSE CUPS PO PRN ×3 (04:14→21:49)
[2016-12-29] MEDS: ALBUTEROL SO4 2.5/IPRATROPIUM 0.5 INH SOL 3 ML VIAL.NEB. NEB SCH ×3 (05:48→17:47)
[2016-12-29 07:47] LABS: COCKROFT - GAULT 42.1685; CREATININE 0.9 mg/dL (0.55-1.02); MAGNESIUM 2.4 mg/dL (1.8-2.4)
[2016-12-29] MEDS: AZITHROMYCIN 250 MG TABLET (FP) PO SCH (10:26)
[2016-12-29] MEDS: HEPARIN NA (PORCINE) 5,000 UNITS/ML 1ML VIAL SQ SCH ×2 (10:26→21:50)
--- NOTE | 2016-12-29 12:56 | PN ---
Progress Note (short form) - Note Progress Note: PULMONARY Breathing slightly better. +nonproductive cough and wheezing. Last Vital Signs Temp Pulse Resp BP Pulse Ox 98.2 F 82 22 126/64 95 12/29/16 08:01 12/29/16 11:36 12/29/16 08:01 12/29/16 08:01 12/29/16 11:36 Gen: NAD in chair Heart: RRR Lung: scattered rhonchi, wheezes Abd: soft, nontender Ext: no edema CBC, BMP 12/27/16 06:20 12/29/16 06:15 Active Medications Acetaminophen (Tylenol -) 650 mg PO Q6H PRN PRN Reason: FEVER OR PAIN Albuterol Sulfate (Ventolin 0.083% Nebulizer Soln -) 1 amp NEB Q4H PRN PRN Reason: SHORT OF BREATH/WHEEZING Last Admin: 12/29/16 08:23 Dose: 1 amp Albuterol/Ipratropium (Duoneb -) 1 amp NEB QIDR [facility] Last Admin: 12/29/16 11:36 Dose: 1 amp Guaifenesin (Robitussin -) 10 ml PO Q6H PRN Last Admin: 12/25/16 07:19 Dose: 10 ml Guaifenesin (Robitussin Dm -) 10 ml PO Q6H PRN PRN Reason: COUGH Last Admin: 12/29/16 10:25 Dose: 10 ml Heparin Sodium (Porcine) (Heparin -) 5,000 unit SQ BID [facility] Last Admin: 12/29/16 10:26 Dose: 5,000 unit Methylprednisolone Sodium Succinate (Solu-Medrol -) 40 mg IVPB Q8H-IV [facility] Last Admin: 12/29/16 10:26 Dose: 40 mg Sodium Hypochlorite (Dakin's Solution 0.5% (Full Strength) -) 1 applic TP DAILY [facility] Last Admin: 12/28/16 09:20 Dose: 1 applic A/P Acute Asthma/COPD Exacerbation HTN PAD - will decrease medrol to q12h, if continues to improve can change to oral prednisone in AM - inhaled bronchodilators - O2 as needed - empiric antibiotics - monitor peak flow - DVT prophylaxis
[2016-12-29] MEDS: PARoxetine HCL 10 MG TABLET (FP) PO SCH (13:59)
[2016-12-29] MEDS: SODIUM HYPOCHLORITE 0.5% 473 ML- BULK BOTTLE TP SCH (17:40)
--- NOTE | 2016-12-29 20:33 | PN ---
Progress Note, Physician Chief Complaint: awake nad appears depressed - Current Medication List Current Medications: Active Medications Acetaminophen (Tylenol -) 650 mg PO Q6H PRN PRN Reason: FEVER OR PAIN Albuterol Sulfate (Ventolin 0.083% Nebulizer Soln -) 1 amp NEB Q4H PRN PRN Reason: SHORT OF BREATH/WHEEZING Last Admin: 12/29/16 08:23 Dose: 1 amp Albuterol/Ipratropium (Duoneb -) 1 amp NEB QIDR [facility] Last Admin: 12/29/16 17:47 Dose: 1 amp Guaifenesin (Robitussin -) 10 ml PO Q6H PRN Last Admin: 12/25/16 07:19 Dose: 10 ml Guaifenesin (Robitussin Dm -) 10 ml PO Q6H PRN PRN Reason: COUGH Last Admin: 12/29/16 10:25 Dose: 10 ml Heparin Sodium (Porcine) (Heparin -) 5,000 unit SQ BID [facility] Last Admin: 12/29/16 10:26 Dose: 5,000 unit Methylprednisolone Sodium Succinate (Solu-Medrol -) 40 mg IVPB BID [facility] Paroxetine HCl (Paxil -) 10 mg PO DAILY [facility] Last Admin: 12/29/16 13:59 Dose: 10 mg Sodium Hypochlorite (Dakin's Solution 0.5% (Full Strength) -) 1 applic TP DAILY [facility] Last Admin: 12/29/16 17:40 Dose: 1 applic - Objective Vital Signs: Vital Signs Temperature 98.2 F 12/29/16 17:38 Pulse Rate 83 12/29/16 17:38 Respiratory Rate 20 12/29/16 17:38 Blood Pressure 137/69 12/29/16 17:38 O2 Sat by Pulse Oximetry (%) 95 12/29/16 11:36 Constitutional: Yes: No Distress Eyes: Yes: WNL HENT: Yes: WNL Neck: Yes: WNL Cardiovascular: Yes: WNL Respiratory: Yes: Wheezes Gastrointestinal: Yes: WNL Genitourinary: Yes: WNL Musculoskeletal: Yes: WNL Extremities: Yes: WNL, Deformity Edema: Yes Edema: LLE: 1+, RLE: 1+ Peripheral Pulses WNL: Yes Integumentary: Yes: WNL Wound/Incision: Yes: Clean/Dry Neurological: Yes: Pre-Existing Deficit ...Motor Strength: LLE, RLE Labs: CBC, BMP 12/27/16 06:20 12/29/16 06:15 INR, PTT INR 1.08 (0.82-1.09) 12/24/16 17:00 Problem List - Problems (1) COPD exacerbation Code(s): J44.1 - CHRONIC OBSTRUCTIVE PULMONARY DISEASE W (ACUTE) EXACERBATION (2) Cellulitis and abscess of leg Code(s): L02.419 - CUTANEOUS ABSCESS OF LIMB, UNSPECIFIED L03.119 - CELLULITIS OF UNSPECIFIED PART OF LIMB (3) Shortness of breath Code(s): R06.02 - SHORTNESS OF BREATH (4) Asthma exacerbation in COPD Code(s): J44.1 - CHRONIC OBSTRUCTIVE PULMONARY DISEASE W (ACUTE) EXACERBATION J45.901 - UNSPECIFIED ASTHMA WITH (ACUTE) EXACERBATION Assessment/Plan K+ IMPROVED PAXIL STARTED DISCHARGE PLANNING D50 1 AMP AND INSULIN 10UNITS GIVEN REPEAT BMP STEROIDS IV TAPER TO PREDNISONE THEN OFF IV ABX NEBS OOB TO CHAIR INCENTIVE SPRIOMETRY
[2016-12-30] MEDS: ALBUTEROL SO4 2.5/IPRATROPIUM 0.5 INH SOL 3 ML VIAL.NEB. NEB SCH ×4 (00:34→18:34)
[2016-12-30] MEDS: guaiFENesin/D-METHORPHAN HB 10 ML UNIT-DOSE CUPS PO PRN (06:28)
[2016-12-30] MEDS: ALBUTEROL SO4 0.083% IH SOL 2.5 MG/3 ML VIAL.NEB. NEB PRN (06:59)
[2016-12-30] MEDS: SODIUM HYPOCHLORITE 0.5% 473 ML- BULK BOTTLE TP SCH (09:24)
[2016-12-30] MEDS: HEPARIN NA (PORCINE) 5,000 UNITS/ML 1ML VIAL SQ SCH ×2 (09:24→22:35)
[2016-12-30] MEDS: PARoxetine HCL 10 MG TABLET (FP) PO SCH (09:24)
[2016-12-30] MEDS: methylPREDNISolone NA SUCC 40 MG/1 ML VIAL IVPB SCH ×2 (09:24→22:35)
--- NOTE | 2016-12-30 13:13 | PN ---
Progress Note, Physician History of Present Illness: pulmonary alert,still dyspneic,+cough,+ wheezing - Current Medication List Current Medications: Active Medications Acetaminophen (Tylenol -) 650 mg PO Q6H PRN PRN Reason: FEVER OR PAIN Albuterol Sulfate (Ventolin 0.083% Nebulizer Soln -) 1 amp NEB Q4H PRN PRN Reason: SHORT OF BREATH/WHEEZING Last Admin: 12/30/16 06:59 Dose: 1 amp Albuterol/Ipratropium (Duoneb -) 1 amp NEB QIDR [facility] Last Admin: 12/30/16 11:55 Dose: 1 amp Guaifenesin (Robitussin -) 10 ml PO Q6H PRN Last Admin: 12/25/16 07:19 Dose: 10 ml Guaifenesin (Robitussin Dm -) 10 ml PO Q6H PRN PRN Reason: COUGH Last Admin: 12/30/16 06:28 Dose: 10 ml Heparin Sodium (Porcine) (Heparin -) 5,000 unit SQ BID [facility] Last Admin: 12/30/16 09:24 Dose: 5,000 unit Paroxetine HCl (Paxil -) 10 mg PO DAILY [facility] Last Admin: 12/30/16 09:24 Dose: 10 mg Prednisone (Deltasone -) 20 mg PO DAILY [facility] Sodium Hypochlorite (Dakin's Solution 0.5% (Full Strength) -) 1 applic TP DAILY [facility] Last Admin: 12/30/16 09:24 Dose: 1 applic - Objective Vital Signs: Vital Signs Temperature 98.2 F 12/30/16 06:00 Pulse Rate 78 12/30/16 06:00 Respiratory Rate 20 12/30/16 06:00 Blood Pressure 140/80 12/30/16 06:00 O2 Sat by Pulse Oximetry (%) 95 12/29/16 22:00 Constitutional: Yes: Well Nourished, Calm Eyes: Yes: WNL HENT: Yes: WNL Neck: Yes: WNL Cardiovascular: Yes: Regular Rate and Rhythm, S1, S2 Respiratory: Yes: Wheezes (bilateral wheezes) Gastrointestinal: Yes: Normal Bowel Sounds, Soft Extremities: Yes: WNL Edema: No Labs: CBC, BMP Problem List - Problems (1) COPD exacerbation Code(s): J44.1 - CHRONIC OBSTRUCTIVE PULMONARY DISEASE W (ACUTE) EXACERBATION (2) Shortness of breath Code(s): R06.02 - SHORTNESS OF BREATH (3) Asthma exacerbation in COPD Code(s): J44.1 - CHRONIC OBSTRUCTIVE PULMONARY DISEASE W (ACUTE) EXACERBATION J45.901 - UNSPECIFIED ASTHMA WITH (ACUTE) EXACERBATION (4) Chronic ulcer of right foot Code(s): L97.519 - NON-PRS CHRONIC ULCER OTH PRT RIGHT FOOT W UNSP SEVERITY Qualifiers: Non-pressure ulcer stage: limited to breakdown of skin Qualified Code(s): L97.511 - Non-pressure chronic ulcer of other part of right foot limited to breakdown of skin (5) Cough Code(s): R05 - COUGH (6) Hypoxia Code(s): R09.02 - HYPOXEMIA (7) Acute hypoxemic respiratory failure Code(s): J96.01 - ACUTE RESPIRATORY FAILURE WITH HYPOXIA (8) Acute respiratory failure with hypoxia and hypercapnia Code(s): J96.01 - ACUTE RESPIRATORY FAILURE WITH HYPOXIA J96.02 - ACUTE RESPIRATORY FAILURE WITH HYPERCAPNIA Assessment/Plan PULMONARY IMP ACUTE HYPOXEMIC /HYPERCAPNEIC RESPIRATORY FAILURE ASTHMA/COPD EXACERBATION PVD HTN BLINDNESS PLAN IV STEROIDS SOLUMEDROL 40Q12 INHALED BRONCHODILATORS NASAL O2 PEAK FLOW MEASUREMENTS CHEST PT DR FONSECA Problem List - Problems (1) COPD exacerbation Code(s): J44.1 - CHRONIC OBSTRUCTIVE PULMONARY DISEASE W (ACUTE) EXACERBATION (2) Shortness of breath Code(s): R06.02 - SHORTNESS OF BREATH (3) Asthma exacerbation in COPD Code(s): J44.1 - CHRONIC OBSTRUCTIVE PULMONARY DISEASE W (ACUTE) EXACERBATION J45.901 - UNSPECIFIED ASTHMA WITH (ACUTE) EXACERBATION (4) Chronic ulcer of right foot Code(s): L97.519 - NON-PRS CHRONIC ULCER OTH PRT RIGHT FOOT W UNSP SEVERITY Qualifiers: Non-pressure ulcer stage: limited to breakdown of skin Qualified Code(s): L97.511 - Non-pressure chronic ulcer of other part of right foot limited to breakdown of skin (5) Cough Code(s): R05 - COUGH (6) Hypoxia Code(s): R09.02 - HYPOXEMIA (7) Acute hypoxemic respiratory failure Code(s): J96.01 - ACUTE RESPIRATORY FAILURE WITH HYPOXIA (8) Acute respiratory failure with hypoxia and hypercapnia Code(s): J96.01 - ACUTE RESPIRATORY FAILURE WITH HYPOXIA J96.02 - ACUTE RESPIRATORY FAILURE WITH HYPERCAPNIA
[2016-12-30] MEDS ORDERED: predniSONE 20 MG TABLET (UD) PO SCH (13:15)
--- NOTE | 2016-12-30 16:34 | PN ---
Progress Note, Physician Chief Complaint: AWAKE ALERT STILL HAS SOB - Current Medication List Current Medications: Active Medications Acetaminophen (Tylenol -) 650 mg PO Q6H PRN PRN Reason: FEVER OR PAIN Albuterol Sulfate (Ventolin 0.083% Nebulizer Soln -) 1 amp NEB Q4H PRN PRN Reason: SHORT OF BREATH/WHEEZING Last Admin: 12/30/16 06:59 Dose: 1 amp Albuterol/Ipratropium (Duoneb -) 1 amp NEB QIDR [facility] Last Admin: 12/30/16 11:55 Dose: 1 amp Guaifenesin (Robitussin -) 10 ml PO Q6H PRN Last Admin: 12/25/16 07:19 Dose: 10 ml Guaifenesin (Robitussin Dm -) 10 ml PO Q6H PRN PRN Reason: COUGH Last Admin: 12/30/16 06:28 Dose: 10 ml Heparin Sodium (Porcine) (Heparin -) 5,000 unit SQ BID [facility] Last Admin: 12/30/16 09:24 Dose: 5,000 unit Methylprednisolone Sodium Succinate (Solu-Medrol -) 40 mg IVPB BID [facility] Paroxetine HCl (Paxil -) 10 mg PO DAILY [facility] Last Admin: 12/30/16 09:24 Dose: 10 mg Sodium Hypochlorite (Dakin's Solution 0.5% (Full Strength) -) 1 applic TP DAILY [facility] Last Admin: 12/30/16 09:24 Dose: 1 applic - Objective Vital Signs: Vital Signs Temperature 98.3 F 12/30/16 14:00 Pulse Rate 78 12/30/16 14:00 Respiratory Rate 18 12/30/16 14:00 Blood Pressure 142/78 12/30/16 14:00 O2 Sat by Pulse Oximetry (%) 96 12/30/16 13:34 Constitutional: Yes: Mild Distress Eyes: Yes: WNL HENT: Yes: WNL Neck: Yes: WNL Cardiovascular: Yes: WNL Respiratory: Yes: Wheezes Gastrointestinal: Yes: WNL Genitourinary: Yes: Other Musculoskeletal: Yes: Muscle Weakness Extremities: Yes: Deformity Edema: Yes Edema: RLE: 1+ Peripheral Pulses WNL: Yes Integumentary: Yes: Pressure Ulcer, Venous Stasis Changes Wound/Incision: Yes: Dressing Dry and Intact Neurological: Yes: Pre-Existing Deficit ...Motor Strength: LLE, RLE Psychiatric: Yes: WNL Labs: CBC, BMP 12/27/16 06:20 12/29/16 06:15 INR, PTT INR 1.08 (0.82-1.09) 12/24/16 17:00 Problem List - Problems (1) COPD exacerbation Code(s): J44.1 - CHRONIC OBSTRUCTIVE PULMONARY DISEASE W (ACUTE) EXACERBATION (2) Cellulitis and abscess of leg Code(s): L02.419 - CUTANEOUS ABSCESS OF LIMB, UNSPECIFIED L03.119 - CELLULITIS OF UNSPECIFIED PART OF LIMB (3) Shortness of breath Code(s): R06.02 - SHORTNESS OF BREATH (4) Asthma exacerbation in COPD Code(s): J44.1 - CHRONIC OBSTRUCTIVE PULMONARY DISEASE W (ACUTE) EXACERBATION J45.901 - UNSPECIFIED ASTHMA WITH (ACUTE) EXACERBATION Assessment/Plan PLAN DISCUSSED WITH PATIENT WILL NEED SNF TO [facility] FOR CARDIOPULM REHAB PREDNISONE TAPER AND NEBS PT ASHISH
[2016-12-30] MEDS: guaiFENesin 200 MG/10 ML 10 ML UNIT-DOSE CUPS PO PRN (22:35)
[2016-12-31] MEDS: ALBUTEROL SO4 2.5/IPRATROPIUM 0.5 INH SOL 3 ML VIAL.NEB. NEB SCH ×3 (00:01→11:58)
[2016-12-31] MEDS: ALBUTEROL SO4 0.083% IH SOL 2.5 MG/3 ML VIAL.NEB. NEB PRN (03:24)
--- NOTE | 2016-12-31 06:57 | DS ---
Physical Examination Vital Signs: Vital Signs Temperature 97.9 F 12/31/16 06:00 Pulse Rate 71 12/31/16 06:00 Respiratory Rate 18 12/31/16 06:00 Blood Pressure 142/71 12/31/16 06:00 O2 Sat by Pulse Oximetry (%) 96 12/30/16 21:00 Constitutional: Yes: No Distress Eyes: Yes: WNL HENT: Yes: WNL Neck: Yes: WNL Cardiovascular: Yes: WNL Respiratory: Yes: Wheezes Gastrointestinal: Yes: WNL Musculoskeletal: Yes: Muscle Weakness Extremities: Yes: Deformity Edema: Yes Edema: RLE: 1+ Integumentary: Yes: Pressure Ulcer, Venous Stasis Changes Wound/Incision: Yes: Dressing Dry and Intact, Unapproximated Neurological: Yes: Pre-Existing Deficit Psychiatric: Yes: Other Labs: CBC, BMP 12/27/16 06:20 12/29/16 06:15 Discharge Summary Reason For Visit: SHORTNESS OF BREATH; CHRONIC ASTHMA W/EXACERBATION Current Active Problems Acute hypoxemic respiratory failure (Acute) Acute respiratory failure with hypoxia and hypercapnia (Acute) Bronchitis (Acute) COPD exacerbation (Acute) Cellulitis and abscess of leg (Acute) Shortness of breath (Acute) Procedures: Principal: chest xrays Other Procedures: labs Hospital Course: admitted for acute exacerbation of asthma, right lower extremity wound, iv abx given, iv steroids, nebs, patient will need PT and cardiopulm rehab with wound care at [facility] Condition: Improved - Instructions Diet, Activity, Other Instructions: low sodoim, wound care, cardio pulm rehab Referrals: Gretel Condon MD [Primary Care Provider] - Disposition: [facility] - Home Medications Comprehensive Discharge Medication List: Ambulatory Orders Loratadine [Claritin -] 10 mg PO DAILY 12/24/16 Memantine HCl/Donepezil HCl [Namzaric 14 mg-10 mg Capsule] 1 cap PO DAILY Montelukast Na [Singulair -] 10 mg PO HS 12/24/16 Albuterol Sulfate Inhaler - [Ventolin HFA Inhaler -] 1 - 2 inh PO Q4H PRN Furosemide 10 mg PO DAILY 12/25/16 Multivitamins [Multivit ([facility] Formulary)] 1 tab PO DAILY 12/25/16 Acetaminophen [Tylenol .Regular Strength -] 650 mg PO Q6H PRN #0 tablet Albuterol 2.5/Ipratropium 0.5 [Duoneb -] 1 amp NEB QIDR amp 12/31/16 Heparin - 5,000 unit SQ BID vial 12/31/16 Paroxetine HCl [Paxil -] 10 mg PO DAILY tablet 12/31/16 Prednisone [Deltasone -] 20 mg PO DAILY tablet 12/31/16 Sodium Hypochlorite 0.5% [Dakin's Solution 0.5% (Full Strength) -] 1 applic TP DAILY ml 12/31/16
[2016-12-31] MEDS: HEPARIN NA (PORCINE) 5,000 UNITS/ML 1ML VIAL SQ SCH (09:09)
[2016-12-31] MEDS: PARoxetine HCL 10 MG TABLET (FP) PO SCH (09:10)
[2016-12-31] MEDS: methylPREDNISolone NA SUCC 40 MG/1 ML VIAL IVPB SCH (09:10)
[2016-12-31] MEDS: SODIUM HYPOCHLORITE 0.5% 473 ML- BULK BOTTLE TP SCH (09:17)
[2016-12-31 15:25] VITALS: BP 145/67; PULSE 75; TEMP 98.5
== END 2016-12-31 16:57 | DRG 189 ==
LOC: JER 15:13 → JERBED 16:46 → J4S 23:30
PROVIDERS: ADMIT Family Medicine; ATTEND Family Medicine
DX: J96.01 Acute respiratory failure with hypoxia (principal); J44.1 Chronic obstructive pulmonary disease with (acute) exacerbation; J45.901 Unspecified asthma with (acute) exacerbation; L03.115 Cellulitis of right lower limb; J96.02 Acute respiratory failure with hypercapnia; I73.9 Peripheral vascular disease, unspecified; H54.8 Legal blindness, as defined in USA; L97.519 Non-pressure chronic ulcer of other part of right foot with unspecified severity; K59.00 Constipation, unspecified; I10 Essential (primary) hypertension
CPT/HCPCS: 36415; 36600; 71010-TC; 73610-TC-RT; 73630-TC-RT; 80048; 80053; 81003; 81015; 82550; 82803; 83605; 83735; 84484; 85025; 85027; 85610; 85651; 85730; 86140; 86850; 86900; 86901; 87040; 87070; 87086; 87186; 87205; 93005; 93010; 94150; 94640; 97116-GP; 97162-PG; 99285-25; J1644

== ENCOUNTER 2017-05-05 13:33 | Inpatient (IN) | payer OTHER ==
[2017-05-05 14:08] VITALS: BMI 23.3
[2017-05-05 14:20] LABS: BASOPHIL 0.4 % (0-2.0); EOSINOPHIL 2.4 % (0-4.5); MCH 28.8 pg (25.7-33.7); MCHC 32.8 g/dl (32.0-36.0); MEAN PLT VOLUME 7.2 fl (7.5-11.1); NEUTROPHILS 90.1 % (42.8-82.8); PLATELET COUNT 292 K/MM3 (134-434); RDW 13.8 % (11.6-15.6); WHITE BLOOD COUNT 10.4 K/mm3 (4.0-10.0)
[2017-05-05 14:28] LABS: INR 1.05 (0.82-1.09); PROTHROMBIN TIME (PATIENT) 11.6 SEC (9.98-11.88)
[2017-05-05] MEDS ORDERED: ALBUTEROL SO4 2.5/IPRATROPIUM 0.5 INH SOL 3 ML VIAL.NEB. NEB ONE (14:33)
[2017-05-05 14:46] LABS: ALBUMIN 2.6 g/dl (3.4-5.0); ALK PHOS 85 U/L (45-117); ANION GAP 6 (8-16); BILIRUBIN,TOTAL 0.3 mg/dL (0.2-1.0); CALCIUM 8.5 mg/dL (8.5-10.1); CO2 33 mmol/L (21-32); CREATININE 0.8 mg/dL (0.55-1.02); GLUCOSE,RANDOM 112 mg/dL (74-106); SGOT/AST 24 U/L (15-37); SGPT/ALT 26 U/L (12-78); TOT PROT 6.1 g/dl (6.4-8.2)
[2017-05-05 15:08] LABS: CPK 196 IU/L (26-192)
[2017-05-05 15:09] LABS: TROPONIN I 0.28 ng/ml (0.00-0.05)
[2017-05-05] MEDS ORDERED: ASPIRIN 81 MG CHEWABLE TABLETS PO ONE (15:20)
--- NOTE | 2017-05-05 15:43 | PDOC ---
Attending Attestation - Resident Resident Name: Jas Urbina - ED Attending Attestation I have performed the following: I have examined & evaluated the patient, The case was reviewed & discussed with the resident, I agree w/resident's findings & plan, Exceptions are as noted - Medical Decision Making 05/05/17 15:51 Vital Signs Temp Pulse Resp BP Pulse Ox 97.5 F L 78 22 136/50 98 05/05/17 13:40 05/05/17 13:40 05/05/17 13:40 05/05/17 13:40 05/05/17 13:50 86 year old female with HTN, peripheral vascular disease, asthma, COPD p/w COPD exacerbation. Pt reports for the last several days of feeing SOB. The patient has been started empirically on levaquin and prednisone, however, symptoms weren 't improving. So came into the ED from halfway. Denies fevers, chills, chest pain. Pt appears to be in COPD exacerbation. Nebs, steroids. Chest xray reviewed. No acute infiltrate. Labs reviewed. Troponin elevated 0.28. ECG reviewed with no SEAN. I suspect demand ischemia. However, will need to cycle troponins. Admit. 05/05/17 16:[address] Condon. Accepts patient under telemetry. Requests Dr Funk for cardiology consultation. <Sean Cintron - Last Filed: 05/05/17 16:00> - HPI HPI: 05/05/17 15:57 The patient is a 86 year old female resident from [facility], with a significant past medical history of Asthma, COPD, Dementia who presents to the emergency department for evaluation of COPD. As per nursing staff patient has been complaining of cough and SOB. Patient was given 60 mg of Prednisone and Levaquin. Patient presents to the ED for further evaluation. Currently in the ED, patient offers no complaints however states that she is cold. She denies chest pain, headache or dizziness. She denies fever, chills, abdominal pain, nausea, vomit, diarrhea or constipation. She denies dysuria, frequency, urgency or hematu - Physicial Exam PE: 05/05/17 15:57 GENERAL: Awake, alert, and fully oriented, in no acute distress. +Tired appearing. +Blind HEAD: No signs of trauma EYES: PERRLA, EOMI, sclera anicteric, conjunctiva clear ENT: Auricles normal inspection, hearing grossly normal, nares patent, oropharynx clear without exudates. Moist mucosa NECK: Normal ROM, supple, no lymphadenopathy, JVD, or masses LUNGS: Breath sounds equal, clear to auscultation bilaterally. No crackles. + Diffuse wheezing. Tachypneic to mid 20s HEART: Regular rate and rhythm, normal S1 and S2, no murmurs, rubs or gallops ABDOMEN: Soft, nontender, normoactive bowel sounds. No guarding, no rebound. No masses EXTREMITIES: Normal range of motion, no edema. No clubbing or cyanosis. No cords, erythema, or tenderness NEUROLOGICAL: Cranial nerves II through XII grossly intact. Normal speech, normal gait SKIN: Warm, Dry, normal turgor, no rashes or lesions noted. - Medical Decision Making 05/05/17 15:[address] Condon 15:49 Awaiting call back. Roseanna Akhtar returned the page 15:57 Discussed case. Patient will be admitted Dr. Funk's service paged at 16:00 Number unable to be reached. Busy signal. Documentation prepared by Brittany Lees, acting as certified medical technician assistant for Sean Cintron MD <Brittany Lees - Last Filed: 05/05/17 16:11> Heart Score/ECG Review #1 ECG reviewed & interpreted by me at: 14:20 05/05/17 15:43 NSR 79, no std/sean, normal axis, normal intervals, QTC 472 msec <Sean Cintron - Last Filed: 05/05/17 16:00>
[2017-05-05] MEDS ORDERED: MAGNESIUM SULF 50% (8.12 MEQ/2 ML-1 GM VIAL) IVPB ONE (15:56)
[2017-05-05] MEDS ORDERED: ALBUTEROL SO4 0.083% IH SOL 2.5 MG/3 ML VIAL.NEB. NEB ONE ×2 (15:56→16:04)
[2017-05-05] MEDS ORDERED: methylPREDNISolone NA SUCC 125 MG/2 ML VIAL IVPB ONE (16:03)
[2017-05-05] MEDS ORDERED: MAGNESIUM SULF 50% (8.12 MEQ/2 ML-1 GM VIAL) ONE (16:04)
[2017-05-05] MEDS ORDERED: ASPIRIN 81 MG CHEWABLE TABLETS ONE (16:04)
--- NOTE | 2017-05-05 16:05 | PDOC ---
*Physical Exam - Vital Signs Last Vital Signs Temp Pulse Resp BP Pulse Ox 97.5 F L 78 22 136/50 98 05/05/17 13:40 05/05/17 13:40 05/05/17 13:40 05/05/17 13:40 05/05/17 13:50 ED Treatment Course - LABORATORY CBC & Chemistry Diagram: 05/05/17 14:05 05/05/17 14:05 - ADDITIONAL ORDERS Additional order review: Laboratory Results 05/05/17 05/05/17 05/05/17 15:20 14:05 14:05 PT with INR 11.60 INR 1.05 Sodium 142 Potassium 3.9 D Chloride 103 Carbon Dioxide 33 H Anion Gap 6 L BUN 27 H D Creatinine 0.8 Creat Clearance w eGFR > 60 Random Glucose 112 H Lactic Acid 0.8 Calcium 8.5 Total Bilirubin 0.3 D AST 24 D ALT 26 D Alkaline Phosphatase 85 D Creatine Kinase 196 H Creatine Kinase Index 4.1 CK-MB (CK-2) 8.149 H Troponin I 0.28 H B-Natriuretic Peptide 473.92 H Total Protein 6.1 L Albumin 2.6 L 05/05/17 14:24 Influenza Types A,B Antigen (BRADY) - Final Nasopharyngeal Swab - Final 05/05/17 14:05 RBC 3.93 MCV 88.0 MCHC 32.8 RDW 13.8 D MPV 7.2 L Neutrophils % 90.1 H Lymphocytes % 4.6 L D Monocytes % 2.5 L Eosinophils % 2.4 D Basophils % 0.4 - Medications Given in the ED: ED Medications Discontinued Medications Generic Name Dose Route Start Last Admin Trade Name Loyda PRN Reason Stop Dose Admin Albuterol/Ipratropium 1 amp 05/05/17 14:33 05/05/17 15:06 Duoneb - NEB 05/05/17 14:34 1 amp ONCE ONE Administration *DC/Admit/Observation/Transfer Diagnosis at time of Disposition: COPD exacerbation - Discharge Dispostion Condition at time of disposition: Stable Admit: Yes
--- NOTE | 2017-05-05 16:09 | PDOC ---
History of Present Illness - General Chief Complaint: Shortness of Breath Stated Complaint: SOB Time Seen by Provider: 05/05/17 14:08 History Source: Patient Exam Limitations: Dementia - History of Present Illness Initial Comments: 05/05/17 16:44 Patient is a 86F with history of blindness, COPD, and wound on R leg here today complaining of shortness of breath for the past 3-4 days from [facility]. She has complained of associated cough. Per the daughter, the [place] [facility] facility has said her vital signs have been stable and normal. They gave her 60mg prednisone and 500mg levaquin along with nebs and O2. Patient denies chest pain, nausea, vomiting, fevers, chills and diaphoresis. She endorses worsening cough. Patient has a healing wound on left foot, currently being followed by Dr Che. Last seen on , according to daughter. Past History - Past Medical History Allergies/Adverse Reactions: Allergies Allergy/AdvReac Type Severity Reaction Status Date / Time Penicillins Allergy Severe Verified 05/05/17 14:03 epinephrine Allergy Mild Itching Verified 05/05/17 14:03 Home Medications: Ambulatory Orders Memantine HCl/Donepezil HCl [Namzaric 14 mg-10 mg Capsule] 1 cap PO DAILY Montelukast Na [Singulair -] 10 mg PO HS 12/24/16 Furosemide 20 mg PO DAILY 12/25/16 Paroxetine HCl [Paxil -] 10 mg PO DAILY tablet 12/31/16 Acetaminophen [Tylenol] 650 mg PO BID 05/05/17 Albuterol 2.5/Ipratropium 0.5 [Duoneb -] 1 amp NEB TID 05/05/17 Calcium Alginate 1 applic TP DAILY 05/05/17 Calcium Carbonate/Vitamin D3 [Oyster Shell 500-Vit D3 200 Tb] 1 each PO BID Guaifenesin Dm [Robitussin Dm] 10 ml PO Q6H 05/05/17 Levofloxacin [Levaquin] 500 mg PO DAILY 05/05/17 Prednisolone [Millipred] 60 mg PO ONCE 05/05/17 Prednisone [Deltasone -] 5 mg PO DAILY 05/05/17 Sennosides [Senna] 2 tab PO DAILY 05/05/17 Anemia: No Asthma: Yes (has home o2 PRN) Cancer: No Cardiac Disorders: No CVA: No COPD: Yes CHF: No Dementia: Yes (short term) Diabetes: No GI Disorders: Yes (constipation) Disorders: No HTN: No Hypercholesterolemia: No Liver Disease: No Seizures: No Thyroid Disease: No - Surgical History Abdominal Surgery: No Appendectomy: No Cardiac Surgery: No Cholecystectomy: No Lung Surgery: No Neurologic Surgery: No Orthopedic Surgery: No - Immunization History Immunization Up to Date: Yes - Suicide/Smoking/Psychosocial Hx Smoking Status: No Smoking History: Former smoker Have you smoked in the past 12 months: No Number of Cigarettes Smoked Daily: 0 Information on smoking cessation initiated: No Hx Alcohol Use: No Drug/Substance Use Hx: No Substance Use Type: None Hx Substance Use Treatment: No Review of Systems - Review of Systems Comments:: 05/05/17 16:47 GENERAL/CONSTITUTIONAL: No fever or chills. HEAD, EYES, EARS, NOSE AND THROAT: No change in vision, but blind. No sore throat. CARDIOVASCULAR: No chest pain. Positive for shortness of breath. RESPIRATORY: Positive for cough and wheezing. GASTROINTESTINAL: No nausea, vomiting, diarrhea or constipation. GENITOURINARY: No dysuria, frequency, or change in urination. SKIN: No rash NEUROLOGIC: No headache, vertigo, loss of consciousness, or change in strength/ sensation. ENDOCRINE: No increased thirst. No abnormal weight change ALLERGIC/IMMUNOLOGIC: No hives or skin allergy. *Physical Exam - Vital Signs Last Vital Signs Temp Pulse Resp BP Pulse Ox 97.5 F L 78 22 136/50 98 05/05/17 13:40 05/05/17 13:40 05/05/17 13:40 05/05/17 13:40 05/05/17 13:50 - Physical Exam Comments: 05/05/17 16:48 GENERAL: Awake, alert, and fully oriented, in moderate distress HEAD: No signs of trauma, normocephalic, atraumatic EYES: sclera anicteric, conjunctiva clear ENT: Auricles normal inspection, hearing grossly normal, nares patent, oropharynx clear without exudates. Moist mucosa LUNGS: Tachypneic, speaks full sentences, bilateral wheezing and rales HEART: Regular rate and rhythm, normal S1 and S2, no murmurs, rubs or gallops, peripheral pulses normal and equal bilaterally. ABDOMEN: Soft, nontender, normoactive bowel sounds. No guarding, no rebound. No masses EXTREMITIES: Banded right foot with healing wound. Normal range of motion, no edema. No clubbing or cyanosis. NEUROLOGICAL: Cranial nerves II through XII grossly intact. Normal speech, no focal sensorimotor deficits SKIN: Warm, Dry, normal turgor ED Treatment Course - LABORATORY CBC & Chemistry Diagram: 05/05/17 14:05 05/05/17 14:05 - ADDITIONAL ORDERS Additional order review: Laboratory Results 05/05/17 05/05/17 05/05/17 15:20 14:05 14:05 PT with INR 11.60 INR 1.05 Sodium 142 Potassium 3.9 D Chloride 103 Carbon Dioxide 33 H Anion Gap 6 L BUN 27 H D Creatinine 0.8 Creat Clearance w eGFR > 60 Random Glucose 112 H Lactic Acid 0.8 Calcium 8.5 Total Bilirubin 0.3 D AST 24 D ALT 26 D Alkaline Phosphatase 85 D Creatine Kinase 196 H Creatine Kinase Index 4.1 CK-MB (CK-2) 8.149 H Troponin I 0.28 H B-Natriuretic Peptide 473.92 H Total Protein 6.1 L Albumin 2.6 L 05/05/17 14:24 Influenza Types A,B Antigen (BRADY) - Final Nasopharyngeal Swab - Final 05/05/17 14:05 RBC 3.93 MCV 88.0 MCHC 32.8 RDW 13.8 D MPV 7.2 L Neutrophils % 90.1 H Lymphocytes % 4.6 L D Monocytes % 2.5 L Eosinophils % 2.4 D Basophils % 0.4 - RADIOLOGY Radiology Studies Ordered: Category Date Time Status CHEST - PA [RAD] Stat Radiology 05/05/17 14:25 Completed - Medications Given in the ED: ED Medications Discontinued Medications Generic Name Dose Route Start Last Admin Trade Name Freq PRN Reason Stop Dose Admin Albuterol/Ipratropium 1 amp 05/05/17 14:33 05/05/17 15:06 Duoneb - NEB 05/05/17 14:34 1 amp ONCE ONE Administration Medical Decision Making - Medical Decision Making 05/05/17 16:49 Patient is an 86F with history of blindness, COPD and chronic foot wound here today with SOB. In some respiratory distress. Will evaluate with labs, cxr, ecg , blood cultures. Differential diagnosis includes, but is not limited to: COPD exacerbation, ACS, CHF. Will treat with duonebs. 05/05/17 16:52 Laboratory Tests 05/05/17 05/05/17 05/05/17 14:05 14:05 14:05 WBC 10.4 H Hgb 11.3 Hct 34.6 Plt Count 292 INR 1.05 Lactic Acid Troponin I 0.28 H B-Natriuretic Peptide 473.92 H 05/05/17 15:20 WBC Hgb Hct Plt Count INR Lactic Acid 0.8 Troponin I B-Natriuretic Peptide CBC shows small white count, otherwise normal. INR normal. Trop elevated to .28. BNP elevated to 473. Believe that this is demand ischemia. Given aspirin. EKG shows normal sinus rhythm, normal axis, normal rate. No ST elevations or depressions. CXR shows no pneumonia. Admitted to [facility]. *DC/Admit/Observation/Transfer Diagnosis at time of Disposition: COPD exacerbation - Discharge Dispostion Condition at time of disposition: Stable Admit: Yes
[2017-05-05] MEDS ORDERED: ARTIFICIAL TEARS (POLYVINYL ALCOHOL 1.4%) OPTH DROPS OU PRN (17:47)
[2017-05-05] MEDS ORDERED: ACETAMINOPHEN 325 MG TABLET (FP) PO PRN (17:47)
--- NOTE | 2017-05-05 17:51 | HP ---
Admitting History and Physical - Primary Care Physician PCP: Gretel Condon - Admission Chief Complaint: SHORT OF BREATH/COUGH History of Present Illness: Patient is a 86F with history of blindness, COPD, and wound on R leg here today complaining of shortness of breath for the past 3-4 days from [facility]. She has complained of associated cough. Per the daughter, the care home has said her vital signs have been stable and normal. They gave her 60mg prednisone and 500mg levaquin along with nebs and O2. Patient denies chest pain, nausea, vomiting, fevers, chills and diaphoresis. She endorses worsening cough. Patient has a healing wound on left foot, currently being followed by Dr Che. Last seen on , according to daughter. 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 (legally blind due to glaucoma) Cardiovascular: Yes: HTN Pulmonary: Yes: Asthma, COPD Musculoskeletal: Yes: Other (rt leg wound - receiving wound care) - Smoking History Smoking history: Former smoker Have you smoked in the past 12 months: No Aproximately how many cigarettes per day: 0 - Alcohol/Substance Use Hx Alcohol Use: No - Social History ADL: Family Assistance History of Recent Travel: No Home Medications - Allergies Allergies/Adverse Reactions: Allergies Allergy/AdvReac Type Severity Reaction Status Date / Time Penicillins Allergy Severe Verified 05/05/17 14:03 epinephrine Allergy Mild Itching Verified 05/05/17 14:03 - Home Medications Home Medications: Ambulatory Orders Memantine HCl/Donepezil HCl [Namzaric 14 mg-10 mg Capsule] 1 cap PO DAILY Montelukast Na [Singulair -] 10 mg PO HS 12/24/16 Furosemide 20 mg PO DAILY 12/25/16 Paroxetine HCl [Paxil -] 10 mg PO DAILY tablet 12/31/16 Acetaminophen [Tylenol] 650 mg PO BID 05/05/17 Albuterol 2.5/Ipratropium 0.5 [Duoneb -] 1 amp NEB TID 05/05/17 Calcium Alginate 1 applic TP DAILY 05/05/17 Calcium Carbonate/Vitamin D3 [Oyster Shell 500-Vit D3 200 Tb] 1 each PO BID Guaifenesin Dm [Robitussin Dm] 10 ml PO Q6H 05/05/17 Levofloxacin [Levaquin] 500 mg PO DAILY 05/05/17 Prednisolone [Millipred] 60 mg PO ONCE 05/05/17 Prednisone [Deltasone -] 5 mg PO DAILY 05/05/17 Sennosides [Senna] 2 tab PO DAILY 05/05/17 Review of Systems - Review of Systems Constitutional: reports: Weakness Eyes: reports: Blind Spots, Other HENT: reports: No Symptoms Neck: reports: No Symptoms Cardiovascular: reports: No Symptoms Respiratory: reports: Cough, SOB Gastrointestinal: reports: No Symptoms Genitourinary: reports: No Symptoms Musculoskeletal: reports: Joint Pain, Muscle Weakness Integumentary: reports: Rash, Wound Neurological: reports: Pre-Existing Deficit, Unsteady Gait, Weakness Endocrine: reports: No Symptoms Hematology/Lymphatic: reports: No Symptoms Psychiatric: reports: Anxiety Physical Examination Vital Signs: Vital Signs Temperature 98.0 F 05/05/17 17:01 Pulse Rate 78 05/05/17 17:01 Respiratory Rate 20 05/05/17 17:01 Blood Pressure 122/58 05/05/17 17:01 O2 Sat by Pulse Oximetry (%) 98 05/05/17 17:01 Constitutional: Yes: Moderate Distress Eyes: Yes: WNL HENT: Yes: WNL Neck: Yes: WNL Cardiovascular: Yes: WNL Respiratory: Yes: Cough, On Nasal O2, Poor Air Entry, SOB Gastrointestinal: Yes: WNL Renal/: Yes: WNL Musculoskeletal: Yes: Muscle Weakness Extremities: Yes: Deformity, Erythema Edema: No Peripheral Pulses WNL: Yes Integumentary: Yes: Pressure Ulcer, Venous Stasis Changes, Other Wound/Incision: Yes: Dressing Dry and Intact Neurological: Yes: Pre-Existing Deficit ...Motor Strength: RLE Psychiatric: Yes: Other Imaging - Results Chest X-ray: Report Reviewed Problem List - Problems (1) Acute hypoxemic respiratory failure Code(s): J96.01 - ACUTE RESPIRATORY FAILURE WITH HYPOXIA (2) Acute respiratory failure with hypoxia and hypercapnia Code(s): J96.01 - ACUTE RESPIRATORY FAILURE WITH HYPOXIA J96.02 - ACUTE RESPIRATORY FAILURE WITH HYPERCAPNIA (3) Asthma exacerbation in COPD Code(s): J44.1 - CHRONIC OBSTRUCTIVE PULMONARY DISEASE W (ACUTE) EXACERBATION J45.901 - UNSPECIFIED ASTHMA WITH (ACUTE) EXACERBATION (4) Cellulitis Code(s): L03.90 - CELLULITIS, UNSPECIFIED Qualifiers: Site of cellulitis: extremity Site of cellulitis of extremity: lower extremity Laterality: right Qualified Code(s): L03.115 - Cellulitis of right lower limb Assessment/Plan IV STEROIDS PULM EVAL DUO NEB LEVAQUIN IV WOUND CARE PSYCHIATRY TO DETERMINE IF ANXIETY INDUCED TACHYPNEA PAXIL INCREASED TO 20MG DAILY
[2017-05-05] MEDS: LEVOFLOXACIN 500 MG IVPB 100 ML IVPB SCH (18:34)
[2017-05-05] MEDS: methylPREDNISolone NA SUCC 40 MG/1 ML VIAL IVPB SCH (18:34)
[2017-05-05] MEDS: MONTELUKAST NA 10 MG TABLET PO SCH (22:03)
[2017-05-05] MEDS: SENNOSIDES 8.6MG TABLET (FP) PO SCH (22:03)
[2017-05-05] MEDS: MEMANTINE HCL 10 MG TABLET (FP) PO SCH (22:03)
[2017-05-05] MEDS: ALBUTEROL SO4 2.5/IPRATROPIUM 0.5 INH SOL 3 ML VIAL.NEB. NEB PRN (22:09)
[2017-05-06] MEDS: methylPREDNISolone NA SUCC 40 MG/1 ML VIAL IVPB SCH ×3 (02:18→17:41)
[2017-05-06] MEDS: ALBUTEROL SO4 2.5/IPRATROPIUM 0.5 INH SOL 3 ML VIAL.NEB. NEB PRN ×2 (06:00→21:45)
[2017-05-06] MEDS ORDERED: PT OWN MED DRAWER 7, Y5N ONE ×2 (06:17→21:38)
[2017-05-06 08:30] LABS: MCH 28.5 pg (25.7-33.7); MCHC 32.9 g/dl (32.0-36.0); MEAN CELL VOLUME 86.6 fl (80-96); PLATELET COUNT 293 K/MM3 (134-434); RDW 13.9 % (11.6-15.6); WHITE BLOOD COUNT 5.4 K/mm3 (4.0-10.0)
[2017-05-06 08:55] LABS: ALBUMIN 2.4 g/dl (3.4-5.0); ALK PHOS 80 U/L (45-117); ANION GAP 4 (8-16); BILIRUBIN,TOTAL 0.3 mg/dL (0.2-1.0); CALCIUM 8.2 mg/dL (8.5-10.1); CO2 33 mmol/L (21-32); GLUCOSE,RANDOM 124 mg/dL (74-106); SGOT/AST 21 U/L (15-37); SGPT/ALT 22 U/L (12-78); TOT PROT 5.6 g/dl (6.4-8.2)
[2017-05-06] MEDS ORDERED: PARoxetine HCL 10 MG TABLET (FP) ONE (10:00)
[2017-05-06] MEDS: LEVOFLOXACIN 500 MG IVPB 100 ML IVPB SCH (10:18)
[2017-05-06] MEDS: MEMANTINE HCL 10 MG TABLET (FP) PO SCH ×2 (10:19→21:49)
[2017-05-06] MEDS: PARoxetine HCL 20 MG TABLET (FP) PO SCH (10:19)
[2017-05-06] MEDS: guaiFENesin/D-METHORPHAN HB 10 ML UNIT-DOSE CUPS PO PRN (11:18)
--- NOTE | 2017-05-06 12:09 | PN ---
Progress Note (short form) - Note Progress Note: PULMONARY CONSULTATION DICTATED 05/06/17 IMP ASTHMA/COPD EXACERBATION LIKELY URI H/O HYPOXEMIC/HYPERCAPNEIC RESPIRATORY FAILURE CHRONIC RLE WOUND INFECTION GLAUCOMA PVD HTN PLAN IV STEROIDS INHALED BRONCHODILATORS NASAL O2 ANTIBIOTICS SPUTUM C+S MONITOR PEAK FLOW DR FONSECA Problem List - Problems (1) COPD exacerbation Code(s): J44.1 - CHRONIC OBSTRUCTIVE PULMONARY DISEASE W (ACUTE) EXACERBATION (2) Chronic ulcer of right foot Code(s): L97.519 - NON-PRS CHRONIC ULCER OTH PRT RIGHT FOOT W UNSP SEVERITY Qualifiers: Non-pressure ulcer stage: limited to breakdown of skin Qualified Code(s ): L97.511 - Non-pressure chronic ulcer of other part of right foot limited to breakdown of skin (3) Cough Code(s): R05 - COUGH (4) Hypertension Code(s): I10 - ESSENTIAL (PRIMARY) HYPERTENSION (5) Legally blind Code(s): H54.8 - LEGAL BLINDNESS, DEFINED IN [place] (6) Peripheral vascular disease Code(s): I73.9 - PERIPHERAL VASCULAR DISEASE, UNSPECIFIED (7) Shortness of breath Code(s): R06.02 - SHORTNESS OF BREATH (8) Asthma-COPD overlap syndrome Code(s): J44.9 - CHRONIC OBSTRUCTIVE PULMONARY DISEASE, UNSPECIFIED
--- NOTE | 2017-05-06 13:57 | CON.PSY ---
Psychiatry Consult Chief Complaint: I am ok, I have pneumonia. Symptoms: reports: Memory Impairment - Previous Psychiatric Treatment Outpatient: Less than 6 mos ago - Previous Substance Abuse Treatment Outpatient: None - Reason for Previous Treatment Reason for Previous Treatment: Major Depression - Current Medications Current Medications: Active Medications Acetaminophen (Tylenol -) 650 mg PO Q6H PRN PRN Reason: FEVER OR PAIN Albuterol/Ipratropium (Duoneb -) 1 amp NEB Q6H PRN PRN Reason: SHORTNESS OF BREATH Last Admin: 05/06/17 06:00 Dose: 1 amp Artificial Tears (Artificial Tears) 1 drop OU BID PRN PRN Reason: DRY EYES Last Admin: 05/05/17 22:03 Dose: 1 drp Guaifenesin (Robitussin Dm -) 10 ml PO Q6H PRN PRN Reason: COUGH Last Admin: 05/06/17 11:18 Dose: 10 ml Levofloxacin (Levaquin 500 Mg Premixed Ivpb -) 100 mls @ 100 mls/hr IVPB DAILY [facility] Last Admin: 05/06/17 10:18 Dose: 100 mls/hr Memantine (Namenda -) 10 mg PO BID [facility] Last Admin: 05/06/17 10:19 Dose: 10 mg Methylprednisolone Sodium Succinate (Solu-Medrol -) 40 mg IVPB Q8H-IV [facility] Last Admin: 05/06/17 10:19 Dose: 40 mg Montelukast Sodium (Singulair -) 10 mg PO HS [facility] Last Admin: 05/05/17 22:03 Dose: 10 mg Paroxetine HCl (Paxil -) 20 mg PO DAILY [facility] Last Admin: 05/06/17 10:19 Dose: 20 mg Senna (Senna -) 1 tab PO HS [facility] Last Admin: 05/05/17 22:03 Dose: 1 tab - Allergies Allergies: Allergies Allergy/AdvReac Type Severity Reaction Status Date / Time Penicillins Allergy Severe Verified 05/05/17 14:03 epinephrine Allergy Mild Itching Verified 05/05/17 14:03 - Current Living Status Usual Living Arrangement: Senior Living - Current Mental Status Evaluation Appearance: Well Groomed Attitude: Cooperative - Affect Affect: Constrictive Appropriateness: Appropriate to Content - Mood Mood: Euthymic - Speech/Language Expressive: Coherent - Psychomotor Activity Psychomotor Activity: Slowed - Thought Process Thought Process: Intact - Thought Content Hallucinations: Absent Delusions: Absent - Self Perception Self Perception: No Impairment - Cognition Attention: Alert Orientation: Time Memory, Short Term: 2/3 Memory, Remote with Promptin/3 - Concentration Serial Sevens Intact: No Simple Calculations Intact: No - Abstraction Proverb Interpretation: Intact Judgement: Minimally Impaired - Insight Insight: Intact - Impulse Control Impulse Control: Minimally Impaired - Suicidal Ideation Suicidal Ideation: No - Homicidal Ideation Homicidal Ideation: No
--- NOTE | 2017-05-06 14:29 | CON.CARD ---
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 The patient denies chest pains and palpitations. Her breathlessness improved. She is currently symptom free. 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 blind due to glaucoma) Cardio/Vascular: Yes: HTN Pulmonary: Yes: Asthma, COPD ...: No Musculoskeletal: Yes: Other (rt leg wound - receiving wound care) - Alcohol/Substance Use Hx Alcohol Use: No - Smoking History Smoking history: Former smoker Have you smoked in the past 12 months: No Aproximately how many cigarettes per day: 0 - Social History Usual Living Arrangement: Intermediate ADL: Family Assistance History of Recent Travel: No Home Medications - Allergies Allergies/Adverse Reactions: Allergies Allergy/AdvReac Type Severity Reaction Status Date / Time Penicillins Allergy Severe Verified 05/05/17 14:03 epinephrine Allergy Mild Itching Verified 05/05/17 14:03 - Home Medications Home Medications: Ambulatory Orders Memantine HCl/Donepezil HCl [Namzaric 14 mg-10 mg Capsule] 1 cap PO DAILY Montelukast Na [Singulair -] 10 mg PO HS 12/24/16 Furosemide 20 mg PO DAILY 12/25/16 Paroxetine HCl [Paxil -] 10 mg PO DAILY tablet 12/31/16 Acetaminophen [Tylenol] 650 mg PO BID 05/05/17 Albuterol 2.5/Ipratropium 0.5 [Duoneb -] 1 amp NEB TID 05/05/17 Calcium Alginate 1 applic TP DAILY 05/05/17 Calcium Carbonate/Vitamin D3 [Oyster Shell 500-Vit D3 200 Tb] 1 each PO BID Guaifenesin Dm [Robitussin Dm] 10 ml PO Q6H 05/05/17 Levofloxacin [Levaquin] 500 mg PO DAILY 05/05/17 Prednisolone [Millipred] 60 mg PO ONCE 05/05/17 Prednisone [Deltasone -] 5 mg PO DAILY 05/05/17 Sennosides [Senna] 2 tab PO DAILY 05/05/17 Review of Systems - Review of Systems Constitutional: reports: Weakness Eyes: reports: Other (Blindness) HENT: reports: No Symptoms Neck: reports: No Symptoms Cardiovascular: reports: Shortness of Breath Respiratory: reports: SOB Gastrointestinal: reports: No Symptoms Genitourinary: reports: No Symptoms Breasts: reports: No Symptoms Reported Musculoskeletal: reports: No Symptoms Integumentary: reports: No Symptoms Neurological: reports: No Symptoms Endocrine: reports: No Symptoms Hematology/Lymphatic: reports: No Symptoms Psychiatric: reports: Depression Vital Signs: Vital Signs Temperature 99.9 F H 05/06/17 13:54 Pulse Rate 70 05/06/17 13:54 Respiratory Rate 20 05/06/17 13:54 Blood Pressure 126/61 05/06/17 13:54 O2 Sat by Pulse Oximetry (%) 98 05/06/17 09:00 Constitutional: Yes: Well Nourished, No Distress, Calm Eyes: Yes: Other (Blindness) HENT: Yes: WNL, Atraumatic, Normocephalic Neck: Yes: WNL, Supple Respiratory: Yes: Regular, CTA Bilaterally Gastrointestinal: Yes: WNL, Normal Bowel Sounds, Soft Renal/: Yes: WNL Cardiovascular: Yes: Regular Rate and Rhythm JVD: No Carotid Bruit: No PMI: Non-Displaced Heart Sounds: Yes: S1, S2 Murmur: Yes: Systolic Murmur, Grade 2 Musculoskeletal: Yes: WNL Extremities: Yes: Other (Wound draped) Edema: No Peripheral Pulses WNL: No Peripheral Pulses: 1+ Left Femoral, 1+ Right Femoral, 1+ Left Popliteal, 1+ Right Popliteal, 1+ Left Doralis Pedis, 1+ Right Dorsalis Pedis, 2+ Left Carotid , 2+ Right Carotid Neurological: Yes: Alert ...Motor Strength: WNL - Other Data Labs, Other Data: CBC, BMP 05/06/17 06:00 05/06/17 06:00 INR, PTT INR 1.05 (0.82-1.09) 05/05/17 14:05 Assessment/Plan 86-year-old correction resident, who is blind, now presenting with shortness of breath, and found to have elevated cardiac markers. The patient reports no chest pains. Would treat conservatively in this setting. Start Toprol-XL 25 mg daily. Consider ruling out pulmonary embolus. There is no evidence of CHF nor pneumonia. There is no need for further cardiac workup at this point. Please do not hesitate to call us PRN. The patient is stable and symptom-free.
--- NOTE | 2017-05-06 14:30 | PN ---
Progress Note, Physician Chief Complaint: AWAKE, COMFORTABLE MILD SOB NO CP - Current Medication List Current Medications: Active Medications Acetaminophen (Tylenol -) 650 mg PO Q6H PRN PRN Reason: FEVER OR PAIN Albuterol/Ipratropium (Duoneb -) 1 amp NEB Q6H PRN PRN Reason: SHORTNESS OF BREATH Last Admin: 05/06/17 06:00 Dose: 1 amp Artificial Tears (Artificial Tears) 1 drop OU BID PRN PRN Reason: DRY EYES Last Admin: 05/05/17 22:03 Dose: 1 drp Guaifenesin (Robitussin Dm -) 10 ml PO Q6H PRN PRN Reason: COUGH Last Admin: 05/06/17 11:18 Dose: 10 ml Levofloxacin (Levaquin 500 Mg Premixed Ivpb -) 100 mls @ 100 mls/hr IVPB DAILY [facility] Last Admin: 05/06/17 10:18 Dose: 100 mls/hr Memantine (Namenda -) 10 mg PO BID [facility] Last Admin: 05/06/17 10:19 Dose: 10 mg Methylprednisolone Sodium Succinate (Solu-Medrol -) 40 mg IVPB Q8H-IV [facility] Last Admin: 05/06/17 10:19 Dose: 40 mg Montelukast Sodium (Singulair -) 10 mg PO HS [facility] Last Admin: 05/05/17 22:03 Dose: 10 mg Paroxetine HCl (Paxil -) 20 mg PO DAILY [facility] Last Admin: 05/06/17 10:19 Dose: 20 mg Senna (Senna -) 1 tab PO HS [facility] Last Admin: 05/05/17 22:03 Dose: 1 tab - Objective Vital Signs: Vital Signs Temperature 99.9 F H 05/06/17 13:54 Pulse Rate 70 05/06/17 13:54 Respiratory Rate 20 05/06/17 13:54 Blood Pressure 126/61 05/06/17 13:54 O2 Sat by Pulse Oximetry (%) 98 05/06/17 09:00 Constitutional: Yes: Mild Distress Eyes: Yes: WNL HENT: Yes: WNL Neck: Yes: WNL Cardiovascular: Yes: WNL Respiratory: Yes: Cough, On Nasal O2, SOB Gastrointestinal: Yes: WNL Genitourinary: Yes: WNL Musculoskeletal: Yes: WNL Extremities: Yes: Deformity, Erythema Edema: Yes Peripheral Pulses WNL: Yes Integumentary: Yes: Pressure Ulcer, Skin Tear Wound/Incision: Yes: Dressing Dry and Intact, Excoriated, Unapproximated Neurological: Yes: Pre-Existing Deficit ...Motor Strength: LLE, RLE Psychiatric: Yes: Other Labs: CBC, BMP 05/06/17 06:00 05/06/17 06:00 INR, PTT INR 1.05 (0.82-1.09) 05/05/17 14:05 Problem List - Problems (1) Acute hypoxemic respiratory failure Code(s): J96.01 - ACUTE RESPIRATORY FAILURE WITH HYPOXIA (2) Acute respiratory failure with hypoxia and hypercapnia Code(s): J96.01 - ACUTE RESPIRATORY FAILURE WITH HYPOXIA J96.02 - ACUTE RESPIRATORY FAILURE WITH HYPERCAPNIA (3) Asthma exacerbation in COPD Code(s): J44.1 - CHRONIC OBSTRUCTIVE PULMONARY DISEASE W (ACUTE) EXACERBATION J45.901 - UNSPECIFIED ASTHMA WITH (ACUTE) EXACERBATION (4) Cellulitis Code(s): L03.90 - CELLULITIS, UNSPECIFIED Qualifiers: Qualified Code(s): L03.115 - Cellulitis of right lower limb Assessment/Plan IV STEROIDS PULM EVAL DUO NEB LEVAQUIN IV WOUND CARE PSYCHIATRY TO DETERMINE IF ANXIETY INDUCED TACHYPNEA PAXIL INCREASED TO 20MG DAILY FEELING BETTER TODAY CHANGE TO PREDNISONE TOMORROW DC PLANNING
--- NOTE | 2017-05-06 14:57 | CONS ---
PULMONARY CONSULTATION DATE OF CONSULTATION: 05/06/2017 REFERRING PHYSICIAN: Grteel Condon MD HISTORY OF PRESENT ILLNESS: The patient is an 86-year-old female with a past medical history of asthma/COPD; history of chronic right lower extremity wound infection, currently being treated in wound care; history of blindness; history of hypercapnic, hypoxemic respiratory failure last spring, who is a nonsmoker, admitted to [facility] from [facility] with complaint of 3-to-4-day history of increasing shortness of breath. Patient apparently at the custodial started complaining of cough. At the time, they gave her prednisone and Levaquin and supplemental O2 and nebulizer. Despite these measures, she has had increase in symptoms. At which time, she presented to the emergency room. She denies any chest pain, nausea, vomiting, or diaphoresis. Denies any fevers or chills. They report she is a nonsmoker. There is no history of occupational exposure to chemicals or fumes. She was born in [place], moved to the [facility] many years ago. On admission, she was placed on IV steroids and bronchodilators with good clinical response. PAST MEDICAL HISTORY: Again includes asthma/COPD; history of hypercapnic, hypoxemic respiratory failure; chronic right lower extremity wound; and glaucoma, legally blind. REVIEW OF SYSTEMS: No orthopnea. Positive cough. Positive shortness of breath. No fever. No chills. No chest pain. No palpitations. No nausea. No vomiting. No abdominal pain. CURRENT MEDICATIONS: Solu-Medrol, Tylenol, Levaquin, Paxil, DuoNeb, Namenda, Singulair, and Artificial Tears. PHYSICAL EXAMINATION: General: The patient is an elderly female, was awake, alert, in no acute distress. She is out of bed, in chair. Vital Signs: She is afebrile. Her heart rate is 78, blood pressure is 110/50, respiratory rate is 18, O2 saturation is 93% on 2 L. HEENT: Normocephalic, atraumatic. Neck: Supple. Heart: Regular. S1, S2. Chest: Scattered bilateral wheezes. Abdomen: Soft. Bowel sounds are positive. Extremities: The right lower extremity foot is wrapped. LABORATORY DATA: WBC is 5.4, hemoglobin 10.8, hematocrit 33, platelet count of 293,000. INR is 1.05. Chemistries: BUN is 30, creatinine 1.0. Chest x-ray: No infiltrates and no effusions. IMPRESSION: 1. Dyspnea, cough, chest congestion, likely asthma exacerbation. 2. Likely upper respiratory tract infection. 3. Chronic right lower extremity wound. 4. History of hypercapnic/hypoxemic respiratory failure. PLAN: Continue IV steroids, inhaled bronchodilators, O2, on to peak flow, antibiotics. MARILY FONSECA M.D. [id number]
--- NOTE | 2017-05-06 21:41 | EKG ---
Test Reason : Blood Pressure : / mmHG Vent. Rate : 079 BPM Atrial Rate : 079 BPM P-R Int : 190 ms QRS Dur : 100 ms QT Int : 412 ms P-R-T Axes : 076 051 060 degrees QTc Int : 472 ms NORMAL SINUS RHYTHM BASELINE ARTIFACTS POSSIBLE LEFT ATRIAL ENLARGEMENT BORDERLINE ECG WHEN COMPARED WITH ECG OF 24-DEC-2016 15:42, NONSPECIFIC T WAVE ABNORMALITY NO LONGER EVIDENT IN LATERAL LEADS NO CLINICAL INFORMATION IS AVAILABLE REPEAT EKG IF CLINICALLY INDICATED Confirmed by ARCADIO CANDELARIO MD ([id number]) on 05/06/2017 9:40:44 PM Referred By: Confirmed By:ARCADIO CANDELARIO MD
[2017-05-06] MEDS: SENNOSIDES 8.6MG TABLET (FP) PO SCH (21:48)
[2017-05-06] MEDS: MONTELUKAST NA 10 MG TABLET PO SCH (21:49)
[2017-05-07] MEDS: methylPREDNISolone NA SUCC 40 MG/1 ML VIAL IVPB SCH (01:34)
[2017-05-07] MEDS ORDERED: METOPROLOL SUCCINATE 25 MG TAB.SR.24H (FP) PO SCH (10:00)
[2017-05-07] MEDS: ALBUTEROL SO4 2.5/IPRATROPIUM 0.5 INH SOL 3 ML VIAL.NEB. NEB PRN (10:00)
[2017-05-07] MEDS ORDERED: predniSONE 10 MG TABLET (UD) PO SCH (10:00)
--- NOTE | 2017-05-07 10:28 | DS ---
Physical Examination Vital Signs: Vital Signs Temperature 97.2 F L 05/07/17 05:48 Pulse Rate 716 H 05/07/17 05:48 Respiratory Rate 20 05/07/17 05:48 Blood Pressure 135/58 05/07/17 05:48 O2 Sat by Pulse Oximetry (%) 93 L 05/06/17 21:55 Constitutional: Yes: No Distress Eyes: Yes: WNL, Other HENT: Yes: WNL Neck: Yes: WNL Cardiovascular: Yes: WNL Respiratory: Yes: WNL Gastrointestinal: Yes: WNL Renal/: Yes: WNL Musculoskeletal: Yes: WNL Extremities: Yes: WNL Edema: No Peripheral Pulses WNL: Yes Integumentary: Yes: Pressure Ulcer Wound/Incision: Yes: Dressing Dry and Intact Neurological: Yes: Pre-Existing Deficit, Unsteady Gait ...Motor Strength: LLE, RLE Psychiatric: Yes: Other Labs: CBC, BMP 05/06/17 06:00 05/06/17 06:00 Discharge Summary Reason For Visit: CHRONIC OBSTRUCTIVE ASTHMA WITH EXACERBATION Current Active Problems Asthma-COPD overlap syndrome (Acute) COPD exacerbation (Acute) Procedures: Principal: CXR Hospital Course: ADMITTED FOR ACUTE ASTHMA EXACERBATION, IV STEROIDS AND PAXIL INCREASED TO 20MG DAILY PREDNISONE TAPER FOR 15 DAYS Condition: Stable - Instructions Diet, Activity, Other Instructions: PREDNISONE TAPER BY 10MG EVERY 5 DAYS LOW SODIUM DIET PULMONARY REHAB Disposition: SNF FACILITY - Home Medications Comprehensive Discharge Medication List: Ambulatory Orders Acetaminophen [Tylenol] 650 mg PO BID 05/05/17 Guaifenesin Dm [Robitussin Dm -] 10 ml PO Q6H 05/05/17 Acetaminophen [Tylenol .Regular Strength -] 650 mg PO Q6H PRN #0 tablet Albuterol 2.5/Ipratropium 0.5 [Duoneb -] 1 amp NEB Q6H PRN #0 amp 05/07/17 Albuterol 2.5/Ipratropium 0.5 [Duoneb -] 1 amp NEB TID #0 amp 05/07/17 Calcium Alginate 1 applic TP DAILY #0 pkt 05/07/17 Calcium Carbonate/Vitamin D3 [Oyster Shell 500-Vit D3 200 Tb] 1 each PO BID #0 tab 05/07/17 Furosemide 20 mg PO DAILY #0 tab 05/07/17 Guaifenesin Dm [Robitussin Dm -] 10 ml PO Q6H PRN #0 syr 05/07/17 Levofloxacin [Levaquin] 500 mg PO DAILY #0 tab 05/07/17 Memantine HCl/Donepezil HCl [Namzaric 14 mg-10 mg Capsule] 1 cap PO DAILY #0 tab 05/07/17 Metoprolol Succinate [Toprol XL -] 25 mg PO DAILY tab 05/07/17 Montelukast Na [Singulair -] 10 mg PO HS tablet 05/07/17 Montelukast Na [Singulair -] 10 mg PO HS #0 tab 05/07/17 Paroxetine HCl [Paxil -] 20 mg PO DAILY tablet 05/07/17 Polyvinyl Alcohol [Artificial Tears] 1 drop OU BID PRN #0 bottle 05/07/17 Prednisone [Deltasone -] 30 mg PO DAILY tablet 05/07/17 10MG TAPER EVERY 5 DAYS Sennosides [Senna -] 1 tab PO HS tablet 05/07/17 Sennosides [Senna -] 2 tab PO DAILY #0 tab 05/07/17
[2017-05-07] MEDS ORDERED: PARoxetine HCL 10 MG TABLET (FP) ONE (10:39)
[2017-05-07] MEDS: MEMANTINE HCL 10 MG TABLET (FP) PO SCH (10:51)
[2017-05-07] MEDS: PARoxetine HCL 20 MG TABLET (FP) PO SCH (10:51)
[2017-05-07] MEDS: LEVOFLOXACIN 500 MG IVPB 100 ML IVPB SCH (10:51)
[2017-05-07] MEDS: guaiFENesin/D-METHORPHAN HB 10 ML UNIT-DOSE CUPS PO PRN (10:59)
[2017-05-07 12:53] VITALS: BP 137/74; PULSE 71; TEMP 98.4
== END 2017-05-07 13:34 | DRG 190 ==
LOC: JER 13:33 → JERBED 16:05 → J4S 17:00
PROVIDERS: ADMIT Family Medicine; ATTEND Family Medicine
PROC: 3E0F7GC Introduction of Other Therapeutic Substance into Respiratory Tract, Via Natural or Artificial Opening (ICD-10-PCS; principal; 2017-05-05)
DX: J44.1 Chronic obstructive pulmonary disease with (acute) exacerbation (principal); J96.01 Acute respiratory failure with hypoxia; J96.02 Acute respiratory failure with hypercapnia; L03.115 Cellulitis of right lower limb; I73.89 Other specified peripheral vascular diseases; I10 Essential (primary) hypertension; K59.09 Other constipation; F41.8 Other specified anxiety disorders; H40.89 Other specified glaucoma; H54.8 Legal blindness, as defined in USA; L89.311 Pressure ulcer of right buttock, stage 1; L89.321 Pressure ulcer of left buttock, stage 1; R05 Cough; L97.519 Non-pressure chronic ulcer of other part of right foot with unspecified severity; Z87.891 Personal history of nicotine dependence; Z99.81 Dependence on supplemental oxygen
CPT/HCPCS: 36415; 71010-TC; 80053; 82553; 83036; 83605; 83880; 84484; 85025; 85027; 85610; 85651; 86140; 87040; 87804; 93005; 93010; 94640; 97116-GP; 97161-GP; 99285-25

== ENCOUNTER 2017-05-09 21:48 | Emergency (ER) | payer OTHER ==
[2017-05-09 22:27] VITALS: BMI 23.2
--- NOTE | 2017-05-10 00:03 | PDOC ---
Attending Attestation - HPI HPI: 05/10/17 01:53 Patient is a 86 year old woman from [facility] who was brought by EMS to the ED s/p fall at 2pm today. Patient reports sitting on the toilet when she slipped and hit her shoulder on the wall followed by falling on the floor. She reports falling onto her left hand when falling on the floor. As per patient's daughter, patient was giving x ray at [place], results indicating left shoulder fracture, causing them to send her to the ED. Patient denies hitting her head and loss on consciousness after fall. Denies fever, chills. Denies chest pain, SOB. Denies headache, lightheadedness. Denies any other symptoms. Allergies: penicillin. Epinephrine. Social history: No smoking. No alcohol. No illicit drugs. Surgical history: Dr. Jenkins PMD: Dr. Jenkins - Physicial Exam PE: 05/10/17 01:53 GENERAL: Awake, alert, and fully oriented, in no acute distress HEAD: No signs of trauma EYES: +Blind at baseline. PERRLA, EOMI, sclera anicteric, conjunctiva clear ENT: Auricles normal inspection, hearing grossly normal, nares patent, oropharynx clear without exudates. Moist mucosa NECK: Normal ROM, supple, no lymphadenopathy, JVD, or masses LUNGS: Breath sounds equal, clear to auscultation bilaterally. No wheezes, and no crackles HEART: Regular rate and rhythm, normal S1 and S2, no murmurs, rubs or gallops ABDOMEN: Soft, nontender, normoactive bowel sounds. No guarding, no rebound. No masses EXTREMITIES: +Swelling to left shoulder and left humerus. +Swelling to left hand. +Left hand ecchymosis. +Deforming to left forearm. +Radial pulse intact. + Left arm sensation intact. +Distal pulse intact Normal range of motion, no edema. No clubbing or cyanosis. No cords, erythema, or tenderness NEUROLOGICAL: Cranial nerves II through XII grossly intact. Normal speech, normal gait SKIN: +Brisk capillary refill Warm, Dry, normal turgor, no rashes or lesions noted. <Zack Carlisle - Last Filed: 05/10/17 01:53> - Resident Resident Name: Charmaine Strong - ED Attending Attestation I have performed the following: I have examined & evaluated the patient, The case was reviewed & discussed with the resident, I agree w/resident's findings & plan, Exceptions are as noted - Medical Decision Making 05/10/17 00:03 I, Dr. Jaki Miles, DO, attest that this document has been prepared under my direction and personally reviewed by me in its entirety. I further attest, that it accurately reflects all work, treatment, procedures and medical decision -making performed by me. 05/10/17 02:29 a/p: 86yo female with L shoulder fracture after a fall today in the bathroom at her ECF. -deformity noted to wrist -will repeat xrays -sling -splint most likely -ct head and neck, question if the patient hit her head -labs -re-eval 05/10/17 02:29 pt with distal radius fracture - splint applied. pt tolerated the procedure well neurovasc intact after the splinting 05/10/17 02:30 pt signed out pending ct head and neck after fall call placed to dr. cordero to discuss fractures most likely d/c to ecf <Jaki Miles - Last Filed: 05/10/17 02:32> Procedures - Splinting Splint Location: Left: Forearm Pre-Proc Neuro Vasc Exam: normal Hand-Made Type: orthoglass Splint Type: Yes: Volar Post-Proc Neuro Vasc Exam: normal Sanjeev Bandage: 3" Sling: Yes Complications: No <Jaki Miles - Last Filed: 05/10/17 02:32>
[2017-05-10] MEDS ORDERED: SODIUM CHLORIDE 1,000 ML IV STA ×2 (00:13→08:34)
[2017-05-10] MEDS ORDERED: morphine CARPU-JECT 2 MG/1 ML DISP.SYRIN IVPUSH ONE ×2 (00:14→05:14)
--- NOTE | 2017-05-10 00:48 | PDOC ---
History of Present Illness - General Chief Complaint: Injury Stated Complaint: FALL Time Seen by Provider: 05/09/17 22:41 History Source: Patient, Family (2 daughters at bedside) Exam Limitations: No Limitations - History of Present Illness Initial Comments: 86yo F with PMH of asthma/COPD, mild dementia, presents c/o Left shoulder pain s /p fall. Pt comes from [facility]. At 2pm pt fell off toilet in bathroom, hit her head and shoulder and slouched down to the floor. (-) LOC. [facility] performed xrays revealing acute Left humeral neck and greater tuberosity fractures with mild displacement, prompting [facility] to send pt to ER. Pt was last adm to this hospital on 05/05/17 for COPD/asthma exacerbation , discharged 05/07/17. PCP: Dr. Jose Jenkins 05/10/17 00:43 Associated Symptoms: denies: chest pain, cough, diaphoresis, fever/chills, headaches, nausea/vomiting, rash, syncope Past History - Past Medical History Allergies/Adverse Reactions: Allergies Allergy/AdvReac Type Severity Reaction Status Date / Time Penicillins Allergy Severe Verified 05/09/17 22:27 epinephrine Allergy Mild Itching Verified 05/09/17 22:27 Home Medications: Ambulatory Orders Acetaminophen [Tylenol .Regular Strength -] 650 mg PO Q6H PRN #0 tablet Albuterol 2.5/Ipratropium 0.5 [Duoneb -] 1 amp NEB Q6H PRN #0 amp 05/07/17 Albuterol 2.5/Ipratropium 0.5 [Duoneb -] 1 amp NEB TID #0 amp 05/07/17 Calcium Alginate 1 applic TP DAILY #0 pkt 05/07/17 Calcium Carbonate/Vitamin D3 [Oyster Shell 500-Vit D3 200 Tb] 1 each PO BID #0 tab 05/07/17 Furosemide 20 mg PO DAILY #0 tab 05/07/17 Guaifenesin Dm [Robitussin Dm -] 10 ml PO Q6H PRN #0 syr 05/07/17 Levofloxacin [Levaquin] 500 mg PO DAILY #0 tab 05/07/17 Memantine HCl/Donepezil HCl [Namzaric 14 mg-10 mg Capsule] 1 cap PO DAILY #0 tab 05/07/17 Montelukast Na [Singulair -] 10 mg PO HS tablet 05/07/17 Paroxetine HCl [Paxil -] 20 mg PO DAILY tablet 05/07/17 Polyvinyl Alcohol [Artificial Tears] 1 drop OU BID PRN #0 bottle 05/07/17 Prednisone [Deltasone -] 30 mg PO DAILY tablet 05/07/17 Sennosides [Senna -] 1 tab PO HS tablet 05/07/17 Sennosides [Senna -] 2 tab PO DAILY #0 tab 05/07/17 Metoprolol Tartrate 25 mg PO DAILY 05/09/17 Anemia: No Asthma: Yes (has home o2 PRN) Cancer: No Cardiac Disorders: No CVA: No COPD: Yes CHF: No Dementia: Yes (short term) Diabetes: No GI Disorders: Yes (constipation) Disorders: No HTN: No Hypercholesterolemia: No Liver Disease: No Seizures: No Thyroid Disease: No Other medical history: blind, healing wound on Right foot -> followed by Dr. Solares - Surgical History Abdominal Surgery: No Appendectomy: No Cardiac Surgery: No Cholecystectomy: No Lung Surgery: No Neurologic Surgery: No Orthopedic Surgery: No - Immunization History Immunization Up to Date: Yes - Suicide/Smoking/Psychosocial Hx Smoking Status: No Smoking History: Never smoked Have you smoked in the past 12 months: No Number of Cigarettes Smoked Daily: 0 Information on smoking cessation initiated: No Hx Alcohol Use: No Drug/Substance Use Hx: No Substance Use Type: None Hx Substance Use Treatment: No Review of Systems - Review of Systems Able to Perform ROS?: Yes Is the patient limited Ivorian proficient: No Constitutional: No: Chills, Diaphoresis, Fever HEENTM: No: Eye Pain, Ear Pain, Nose Pain, Nose Congestion, Throat Pain Respiratory: No: Cough, Shortness of Breath Cardiac (ROS): No: Chest Pain, Edema, Irregular Heart Rate, Lightheadedness, Palpitations, Syncope, Chest Tightness ABD/GI: No: Abdominal Distended, Constipated, Diarrhea, Nausea, Vomiting, Abdominal cramping : No: Burning, Dysuria Musculoskeletal: No: Back Pain, Neck Pain Integumentary: Yes: Bruising (Right antecubital, Left hand dorsum). No: Rash Neurological: No: Headache, Dizziness Hematologic/Lymphatic: Yes: Easy Bruising. No: Easy Bleeding *Physical Exam - Vital Signs Last Vital Signs Temp Pulse Resp BP Pulse Ox 98.2 F 55 L 16 154/66 97 05/09/17 22:16 05/09/17 22:16 05/09/17 22:16 05/09/17 22:16 05/09/17 22:16 - Physical Exam General Appearance: Yes: Nourished, Appropriately Dressed. No: Apparent Distress HEENT: positive: Normal Voice, Other (normocephalic, atraumatic skull with no crepitus or tenderness). negative: Nasal Congestion, Rhinorrhea, [place]ajera Neck: positive: Trachea midline, Supple Respiratory/Chest: positive: Wheezing (mild expiratory wheezing to bilateral lower lungs). negative: Respiratory Distress, Accessory Muscle Use Cardiovascular: positive: Regular Rhythm, S1, S2. negative: Murmur Gastrointestinal/Abdominal: positive: Soft. negative: Distended, Guarding, Rebound, Tenderness Musculoskeletal: positive: Other (Left shoulder/forearm/wrist tender to palpation. Deformity to Left forearm noted. Left radial pulse intact.). negative: Vertebral Tenderness Extremity: positive: Other (Healing wound to Right foot followed by Dr. Solares). negative: Swelling, Calf Tenderness, Erythema Integumentary: positive: Swelling (Left forearm to wrist), Bruising (Left forearm to wrist) Neurologic: positive: Fully Oriented, Alert, Normal Mood/Affect, Normal Response ED Treatment Course - LABORATORY CBC & Chemistry Diagram: 05/10/17 00:48 05/10/17 00:48 - RADIOLOGY Radiology Studies Ordered: Category Date Time Status CERVICAL SPINE CT W/O CONTR [CT] Stat CT Scan 05/10/17 00:[address] WITHOUT CONTRAST [CT] Stat CT Scan 05/10/17 00:10 Ordered ELBOW-LEFT [RAD] Stat Radiology 05/10/17 00:10 Ordered SHOULDER-LEFT [RAD] Stat Radiology 05/10/17 00:10 Ordered WRIST W/HAND-LEFT* [RAD] Stat Radiology 05/10/17 00:10 Ordered Medical Decision Making - Medical Decision Making 86yo F with PMH of asthma/COPD, mild dementia, presents from [facility] s/p fall c/o Left shoulder pain. custodial performed xrays revealing acute Left humeral neck and greater tuberosity fractures with mild displacement. Pt also hit head, (-) LOC. On exam, +tenderness to Left shoulder , Left forearm and Left wrist. Deformity noted to Left forearm. Bruising/ swelling noted from Left forearm to wrist. repeat xrays to Left: shoulder, humerus, elbow, forearm, wrist/hand Head CT noncontrast Cervical Spine CT noncontrast Morphine 2mg IVpush given for pain NS 1 L bolus Call put out to Ortho (Dr. Dorman) 05/10/17 01:15 05/10/17 01:32 CBC with diff -> leukocytosis of 11.4 CMP -> mildly elevated Cr of 1.1, elevated BUN of 43 -> pt received NS 1 L bolus while in ER type and screen 05/10/17 02:26 INR/PT and PTT wnl Xrays to Left: shoulder, humerus, elbow, forearm, wrist/hand -> reveal distal radial fx and proximal humerus fx, official read pending. Wrist splinted. Shoulder in sling. 2nd call put out to Ortho (Dr. Dorman). Pt can likely f/u as outpt for these fxs. 05/10/17 05:[address] Cervical Spine CT performed, official read pending. Morphine 2mg IM given for pain. 05/10/17 06:[address] reveals no acute processes. Head CT reveals partial opacification of the Right mastoid air cells, which could suggest mastoiditis. Call put out to Dr. Jose Jenkins regarding admission. 05/10/17 07:22 Case signed out to ER resident Allegra Mosquera. *DC/Admit/Observation/Transfer Diagnosis at time of Disposition: Mastoiditis - Discharge Dispostion Condition at time of disposition: Fair
[2017-05-10] MEDS ORDERED: morphine CARPU-JECT 2 MG/1 ML DISP.SYRIN ONE ×2 (00:51→06:10)
[2017-05-10 00:59] LABS: BASOPHIL 0.6 % (0-2.0); EOSINOPHIL 0.4 % (0-4.5); MCH 28.6 pg (25.7-33.7); MCHC 32.9 g/dl (32.0-36.0); MEAN CELL VOLUME 86.8 fl (80-96); MEAN PLT VOLUME 7.9 fl (7.5-11.1); NEUTROPHILS 81.2 % (42.8-82.8); PLATELET COUNT 300 K/MM3 (134-434); RDW 14.2 % (11.6-15.6); WHITE BLOOD COUNT 11.4 K/mm3 (4.0-10.0)
[2017-05-10 01:19] LABS: ALBUMIN 2.3 g/dl (3.4-5.0); ANION GAP 7 (8-16); BILIRUBIN,TOTAL 0.2 mg/dL (0.2-1.0); CALCIUM 7.4 mg/dL (8.5-10.1); CO2 31 mmol/L (21-32); CREATININE 1.1 mg/dL (0.55-1.02); GLUCOSE,RANDOM 117 mg/dL (74-106); INR 1.02 (0.82-1.09); PROTHROMBIN TIME (PATIENT) 11.2 SEC (9.98-11.88); SGOT/AST 16 U/L (15-37); SGPT/ALT 25 U/L (12-78); TOT PROT 5.2 g/dl (6.4-8.2)
[2017-05-10 01:20] LABS: ALK PHOS 70 U/L (45-117)
[2017-05-10 01:22] LABS: ACTIVATED PTT 29.1 SECONDS (26.9-34.4)
[2017-05-10] MEDS ORDERED: morphine CARPU-JECT 2 MG/1 ML DISP.SYRIN IM ONE (05:59)
--- NOTE | 2017-05-10 07:34 | PDOC ---
*Physical Exam - Vital Signs 86 yo with mild dementia who had a GLF in her SNF and hurt her arm. Fractures of distal humerus, FA fracture as well. Mastoid effusion on CT, elevated WBC 11.4. If the CT is normal she may be able to go home. PMD is Dr. Dubon who has been paged to discuss admission to Obs. Resident Sherri spoke with Ortho Dr. Dorman who notes from ortho perspective can be managed as OP from SNF Last Vital Signs Temp Pulse Resp BP Pulse Ox 98.2 F 55 L 16 154/66 97 05/09/17 22:16 05/09/17 22:16 05/09/17 22:16 05/09/17 22:16 05/09/17 22:16 05/10/17 07:40 ED Treatment Course - LABORATORY CBC & Chemistry Diagram: 05/10/17 00:48 05/10/17 00:48 - ADDITIONAL ORDERS Additional order review: Laboratory Results 05/10/17 05/10/17 05/10/17 00:48 00:48 00:48 PT with INR 11.20 INR 1.02 PTT (Actin FS) 29.1 D Sodium 140 Potassium 4.2 Chloride 102 Carbon Dioxide 31 Anion Gap 7 L BUN 43 H D Creatinine 1.1 H Creat Clearance w eGFR 47.32 Random Glucose 117 H Calcium 7.4 L Total Bilirubin 0.2 D AST 16 D ALT 25 Alkaline Phosphatase 70 Total Protein 5.2 L Albumin 2.3 L Blood Type A POSITIVE Antibody Screen Negative 05/10/17 00:48 RBC 3.85 MCV 86.8 MCHC 32.9 RDW 14.2 MPV 7.9 Neutrophils % 81.2 Lymphocytes % 11.3 D Monocytes % 6.5 D Eosinophils % 0.4 D Basophils % 0.6 - Medications Given in the ED: ED Medications Discontinued Medications Generic Name Dose Route Start Last Admin Trade Name Freq PRN Reason Stop Dose Admin Sodium Chloride 1,000 mls @ 1,000 mls/hr 05/10/17 00:13 05/10/17 00:55 Normal Saline - IV 05/10/17 01:12 1,000 mls/hr ASDIR STA Administration Morphine Sulfate 2 mg 05/10/17 00:14 05/10/17 00:55 Morphine Injection - IVPUSH 05/10/17 00:15 2 mg ONCE ONE Administration Morphine Sulfate 2 mg 05/10/17 05:14 05/10/17 06:02 Morphine Injection - IVPUSH 05/10/17 05:15 Not Given ONCE ONE Morphine Sulfate 2 mg 05/10/17 05:59 05/10/17 06:17 Morphine Injection - IM 05/10/17 06:00 2 mg ONCE ONE Administration *DC/Admit/Observation/Transfer Diagnosis at time of Disposition: Fracture, humerus, anatomical neck Qualifiers: Encounter type: initial encounter Fracture type: closed Laterality: left Qualified Code(s): S42.292A - Other displaced fracture of upper end of left humerus, initial encounter for closed fracture Distal radius fracture, left Qualifiers: Encounter type: initial encounter Fracture type: closed Fracture morphology: unspecified fracture morphology Qualified Code(s): S52.502A - Unspecified fracture of the lower end of left radius, initial encounter for closed fracture - Discharge Dispostion Disposition: CARE HOME FACILITY Condition at time of disposition: Stable Admit: No - Referrals Referrals: Jose Jenkins MD [Primary Care Provider] - Artem Dorman MD [Staff Physician] - - Patient Instructions Printed Discharge Instructions: How to Use a Sling Additional Instructions: You were seen in the ER for a fall during which you fractured your left upper arm and left wrist as well. We spoke with our orthopedist second rigger, Dr. Dorman, who believes you can go back to your skilled care facility and be managed in the orthopedics clinic. Please follow up with Dr. Dorman (we are giving you the referral information). Please also follow up with your primary care provider , or you can always return to the emergency room for new or worsening symptoms like headache, vomiting, vision changes, another fall, or any other symptoms. - Post Discharge Activity
--- NOTE | 2017-05-10 08:19 | PDOC ---
*Physical Exam - Vital Signs Last Vital Signs Temp Pulse Resp BP Pulse Ox 98.2 F 55 L 16 154/66 97 05/09/17 22:16 05/09/17 22:16 05/09/17 22:16 05/09/17 22:16 05/09/17 22:16 - Physical Exam General Appearance: Yes: Nourished, Appropriately Dressed HEENT: positive: Normal ENT Inspection, Other (no tenderness to scalp or mastoid bone. TM clear bilaterally.) Neck: positive: Trachea midline Respiratory/Chest: positive: Lungs Clear, Normal Breath Sounds Cardiovascular: positive: Regular Rhythm, Regular Rate, S1, S2 Gastrointestinal/Abdominal: positive: Normal Bowel Sounds, Flat, Soft Musculoskeletal: positive: Other (left arm sling and splint in place) Extremity: positive: Normal Capillary Refill, Normal Inspection Integumentary: positive: Normal Color, Dry, Warm ED Treatment Course - LABORATORY CBC & Chemistry Diagram: 05/10/17 00:48 05/10/17 00:48 - ADDITIONAL ORDERS Additional order review: Laboratory Results 05/10/17 05/10/17 05/10/17 00:48 00:48 00:48 PT with INR 11.20 INR 1.02 PTT (Actin FS) 29.1 D Sodium 140 Potassium 4.2 Chloride 102 Carbon Dioxide 31 Anion Gap 7 L BUN 43 H D Creatinine 1.1 H Creat Clearance w eGFR 47.32 Random Glucose 117 H Calcium 7.4 L Total Bilirubin 0.2 D AST 16 D ALT 25 Alkaline Phosphatase 70 Total Protein 5.2 L Albumin 2.3 L Blood Type A POSITIVE Antibody Screen Negative 05/10/17 00:48 RBC 3.85 MCV 86.8 MCHC 32.9 RDW 14.2 MPV 7.9 Neutrophils % 81.2 Lymphocytes % 11.3 D Monocytes % 6.5 D Eosinophils % 0.4 D Basophils % 0.6 - Medications Given in the ED: ED Medications Discontinued Medications Generic Name Dose Route Start Last Admin Trade Name Freq PRN Reason Stop Dose Admin Sodium Chloride 1,000 mls @ 1,000 mls/hr 05/10/17 00:13 05/10/17 00:55 Normal Saline - IV 05/10/17 01:12 1,000 mls/hr ASDIR STA Administration Morphine Sulfate 2 mg 05/10/17 00:14 05/10/17 00:55 Morphine Injection - IVPUSH 05/10/17 00:15 2 mg ONCE ONE Administration Morphine Sulfate 2 mg 05/10/17 05:14 05/10/17 06:02 Morphine Injection - IVPUSH 05/10/17 05:15 Not Given ONCE ONE Morphine Sulfate 2 mg 05/10/17 05:59 05/10/17 06:17 Morphine Injection - IM 05/10/17 06:00 2 mg ONCE ONE Administration Medical Decision Making - Medical Decision Making 05/10/17 08:14 pt signed out to me at 7 am. briefly 86 yo F s/p fall from toilet. hit head on wall. denies LOC. no neck or back pain. c/o left shoulder pain. pt was found to have distal radial fracture, and humeral fracture. awaiting head ct results. ct head with air fluid levels in mastoid cells. stated clinical correlat e for mastoiditis. pt denies head pain , ear pain, no dizziness or other comlaints. on exam awake alert left arm splinted. mastoid nontender bilaterally. tm clear bilaterally. plan: no clinical signs of mastoiditis. awaiting urine for possible uti, due to mild elevated wbc. 11.1. also possible due to trauma/ fracture. Dr. barnes was paged, no return call. d/w dr ortiz, will send back to [facility]. d/w dr. cordero, [facility], will followup outpt. 05/10/17 09:06 ua negative. d/w nurse at [facility], will send back to nursing facility. *DC/Admit/Observation/Transfer Diagnosis at time of Disposition: Radial fracture, Left humeral fracture Fracture, humerus, anatomical neck Qualifiers: Encounter type: initial encounter Fracture type: closed Laterality: left Qualified Code(s): S42.292A - Other displaced fracture of upper end of left humerus, initial encounter for closed fracture Distal radius fracture, left Qualifiers: Encounter type: initial encounter Fracture type: closed Fracture morphology: unspecified fracture morphology Qualified Code(s): S52.502A - Unspecified fracture of the lower end of left radius, initial encounter for closed fracture - Discharge Dispostion Disposition: JAIL FACILITY Condition at time of disposition: Stable Admit: No - Referrals Referrals: Jose Jenkins MD [Primary Care Provider] - Artem Cordero MD [Staff Physician] - - Patient Instructions Printed Discharge Instructions: How to Use a Sling Additional Instructions: You were seen in the ER for a fall during which you fractured your left upper arm and left wrist as well. We spoke with our orthopedist prosthodontist, Dr. Cordero, who believes you can go back to your skilled care facility and be managed in the orthopedics clinic. Please follow up with Dr. Cordero (we are giving you the referral information). Please also follow up with your primary care provider , or you can always return to the emergency room for new or worsening symptoms like headache, vomiting, vision changes, another fall, or any other symptoms. - Post Discharge Activity
[2017-05-10 08:34] VITALS: TEMP 98.5
[2017-05-10 08:54] LABS: PH,URINE 5.5 (5.0-8.0); URINE APPEARANCE CLEAR; URINE BILIRUBIN NEGATIVE (NEGATIVE); URINE BLOOD TRACE-INTA (NEGATIVE); URINE COLOR LT. YELLOW; URINE GLUCOSE (UA) NEGATIVE (NEGATIVE); URINE KETONE NEGATIVE (NEGATIVE); URINE LEUK ESTERASE NEGATIVE (NEGATIVE); URINE NITRITE NEGATIVE (NEGATIVE); URINE UROBILINOGEN 0.2 mg/dL (0.2-1.0)
[2017-05-10 08:55] LABS: URINE PROTEIN 2+ (NEGATIVE)
[2017-05-10 09:25] LABS: URINE HYALINE CAST 1 /lpf; URINE MUCUS RARE; URINE RBC <1 /hpf (0-3); URINE WBC <1 /hpf (3-5)
[2017-05-10 09:59] VITALS: BP 157/77; PULSE 67
--- NOTE | 2017-05-11 08:42 | EKG ---
Test Reason : Blood Pressure : / mmHG Vent. Rate : 055 BPM Atrial Rate : 055 BPM P-R Int : 200 ms QRS Dur : 096 ms QT Int : 410 ms P-R-T Axes : 085 062 063 degrees QTc Int : 392 ms SINUS BRADYCARDIA ANTEROSEPTAL INFARCT , AGE UNDETERMINED ABNORMAL ECG Confirmed by MD DAMIEN, KAMLESH ([id number]) on 05/11/2017 8:42:20 AM Referred By: Confirmed By:KAMLESH QUEZADA MD
== END 2017-05-10 10:09 ==
LOC: JER 21:48 → SUPCPDRO 21:48 → JER 05-10 10:09
PROC: 3E0337Z Introduction of Electrolytic and Water Balance Substance into Peripheral Vein, Percutaneous Approach (ICD-10-PCS; principal; 2017-05-09)
PROC: 2W3DX1Z Immobilization of Left Lower Arm using Splint (ICD-10-PCS; 2017-05-09)
DX: S42.292A Other displaced fracture of upper end of left humerus, initial encounter for closed fracture (principal); S52.502A Unspecified fracture of the lower end of left radius, initial encounter for closed fracture; H70.009 Acute mastoiditis without complications, unspecified ear; J45.909 Unspecified asthma, uncomplicated; J44.9 Chronic obstructive pulmonary disease, unspecified; F03.90 Unspecified dementia, unspecified severity, without behavioral disturbance, psychotic disturbance, mood disturbance, and anxiety; K59.00 Constipation, unspecified; W18.12XA Fall from or off toilet with subsequent striking against object, initial encounter; Y93.89 Activity, other specified; Y92.121 Bathroom in nursing home as the place of occurrence of the external cause; Y99.8 Other external cause status
CPT/HCPCS: 29125; 36415; 70450-TC; 72125-TC; 73030-TC-LT; 73060-TC-LT; 73070-TC-LT; 73090-TC-LT; 73110-TC-LT; 73130-TC-LT; 80053; 81003; 81015; 85025; 85610; 85730; 86850; 86900; 86901; 87086; 93005; 93010; 96360; 99285-25

== ENCOUNTER 2017-08-05 08:33 | Inpatient (IN) | payer OTHER ==
--- NOTE | 2017-08-05 08:46 | PDOC ---
Attending Attestation - [facility] HPI: 08/05/17 09:59 The patient is a 86 year old female, with a significant past medical history of Asthma, DM, Dementia, Depression, Glaucoma, PVD, COPD who presents to the emergency department with generalized weakness and cough today. Patients state tested nursing assistant knocked on patients door with no response which was unusual. Apartment door was opened by superintendent [employer] services and patient was found in bed, coughing, AMS. As per EMS, patients O2 saturation was 79% and was immediately place on non rebreather. Patients O2 saturation came to 95 % and patient was brought to the ED for further evaluation of her emergent condition. As per daughters at bedside, patient has been feeling increasingly tired and fatigued for the past few days. Patient endorses dry cough for which she has been on Prednisone for 2 days. Patient denies chest pain, headache or dizziness. Patient denies fever, chills, abdominal pain, nausea, vomit, diarrhea or constipation. Patient denies dysuria , frequency, urgency or hematuria. Patient denies sick contacts or recent travel. Allergies: epinephrine Past surgical history: None Social history: None PCP: Dr. Condon - Physicial Exam PE: 08/05/17 09:59 GENERAL: Awake, alert, and fully oriented, in no acute distress HEAD: No signs of trauma EYES: PERRLA, EOMI, sclera anicteric, conjunctiva clear ENT: Auricles normal inspection, hearing grossly normal, nares patent, oropharynx clear without exudates. Moist mucosa NECK: Normal ROM, supple, no lymphadenopathy, JVD, or masses LUNGS: +Rhoncii with wheezing. +Coarse breath sounds. Breath sounds equal. No crackles HEART: Regular rate and rhythm, normal S1 and S2, no murmurs, rubs or gallops ABDOMEN: Soft, nontender, normoactive bowel sounds. No guarding, no rebound. No masses EXTREMITIES: Normal range of motion, no edema. No clubbing or cyanosis. No cords, erythema, or tenderness NEUROLOGICAL: Cranial nerves II through XII grossly intact. Normal speech, normal gait SKIN: Warm, Dry, normal turgor, no rashes or lesions noted. - Critical Care Time Total Critical Care Time: 30 Critical Care Statement: The care of this patient involved high complexity decision making to prevent further life threatening deterioration of the patient 's condition and/or to evaluate & treat vital organ system(s) failure or risk of failure. - Medical Decision Making 08/05/17 09:59 Documentation prepared by Brittany Lees, acting as medical device engineer for Jaki Miles DO 08/05/17 10:22 Dr. Condon paged via phone answering service. Patient's case discussed. 08/05/17 10:33 Marian paged overhead Awaiting call back. 08/05/17 10:34 Call returned. Patients case discussed <Brittany Lees - Last Filed: 08/05/17 10:34> - Resident Resident Name: Chepe Joyce - ED Attending Attestation I have performed the following: I have examined & evaluated the patient, The case was reviewed & discussed with the resident, I agree w/resident's findings & plan, Exceptions are as noted - Critical Care Time Total Critical Care Time: 30 Critical Care Statement: The care of this patient involved high complexity decision making to prevent further life threatening deterioration of the patient 's condition and/or to evaluate & treat vital organ system(s) failure or risk of failure. - Medical Decision Making 08/05/17 08:46 I, Dr. Jaki Miles DO, attest that this document has been prepared under my direction and personally reviewed by me in its entirety. I further attest, that it accurately reflects all work, treatment, procedures and medical decision -making performed by me. 08/05/17 10:38 a/p: 86yo female with resp distress from home -hx of copd follows with MARIAN worsening SOB, weakness today, will check all labs, nebs, lactate, ivf hydation, steroids, mag -will monitor and reassess 08/05/17 10:[address] Condon who accepts pt to service 08/05/17 10:[address] Braga who will see the patient in consult 08/05/17 10:39 still with wheezing on exam, improved. will give another neb <Jaki Miles - Last Filed: 08/05/17 10:42> Discharge Disposition <Brittany Lees - Last Filed: 08/05/17 10:34> - Discharge Dispostion Last Admission D/C Date: 05/07/17 Admit: Yes <Jaki Miles - Last Filed: 08/05/17 10:42> - Diagnosis COPD exacerbation, Hypercapnic respiratory failure - Discharge Dispostion Condition at time of disposition: Guarded
[2017-08-05] MEDS ORDERED: methylPREDNISolone NA SUCC 125 MG/2 ML VIAL IVPB ONE (08:47)
[2017-08-05] MEDS ORDERED: methylPREDNISolone NA SUCC 125 MG/2 ML VIAL ONE ×2 (08:47→16:00)
[2017-08-05] MEDS ORDERED: ALBUTEROL SO4 2.5/IPRATROPIUM 0.5 INH SOL 3 ML VIAL.NEB. NEB ONE ×4 (08:47)
[2017-08-05] MEDS ORDERED: SODIUM CHLORIDE 0.9% 1000 ML INFUS.BAG IV ONE (08:47)
--- NOTE | 2017-08-05 09:03 | PDOC ---
History of Present Illness - General Chief Complaint: Altered Mental Status Stated Complaint: POSSIBLE STROKE Time Seen by Provider: 08/05/17 08:43 History Source: EMS Exam Limitations: Clinical Condition - History of Present Illness Initial Comments: 08/05/17 09:04 The patient is an 86F with a PMH of COPD and asthma, mild dementia, who presents to the ED from her home after being found by her aide. The aide states that she was unable to move or speak, altered, and was having some difficulty breathing. She called EMS. On EMS's arrival she was satting 97, BG 206. She is currently on medrol for a COPD exacerbation. She is unable to provide any history but states that she is not in any pain. Unable to do ROS. Past History - Past Medical History Allergies/Adverse Reactions: Allergies Allergy/AdvReac Type Severity Reaction Status Date / Time epinephrine Allergy Mild Itching Verified 08/05/17 08:43 Home Medications: Ambulatory Orders Acetaminophen [Tylenol .Regular Strength -] 650 mg PO Q6H PRN #0 tablet Albuterol 2.5/Ipratropium 0.5 [Duoneb -] 1 amp NEB Q6H PRN #0 amp 05/07/17 Albuterol 2.5/Ipratropium 0.5 [Duoneb -] 1 amp NEB TID #0 amp 05/07/17 Calcium Alginate 1 applic TP DAILY #0 pkt 05/07/17 Calcium Carbonate/Vitamin D3 [Oyster Shell 500-Vit D3 200 Tb] 1 each PO BID #0 tab 05/07/17 Furosemide 20 mg PO DAILY #0 tab 05/07/17 Guaifenesin Dm [Robitussin Dm -] 10 ml PO Q6H PRN #0 syr 05/07/17 Levofloxacin [Levaquin] 500 mg PO DAILY #0 tab 05/07/17 Memantine HCl/Donepezil HCl [Namzaric 14 mg-10 mg Capsule] 1 cap PO DAILY #0 tab 05/07/17 Montelukast Na [Singulair -] 10 mg PO HS tablet 05/07/17 Paroxetine HCl [Paxil -] 20 mg PO DAILY tablet 05/07/17 Polyvinyl Alcohol [Artificial Tears] 1 drop OU BID PRN #0 bottle 05/07/17 Prednisone [Deltasone -] 30 mg PO DAILY tablet 05/07/17 Sennosides [Senna -] 1 tab PO HS tablet 05/07/17 Sennosides [Senna -] 2 tab PO DAILY #0 tab 05/07/17 Metoprolol Tartrate 25 mg PO DAILY 05/09/17 Anemia: No Asthma: Yes (has home o2 PRN) Cancer: No Cardiac Disorders: No CVA: No COPD: Yes CHF: No Dementia: Yes (short term) Diabetes: No GI Disorders: Yes (constipation) Disorders: No HTN: No Hypercholesterolemia: No Liver Disease: No Psychiatric Problems: Yes (depression) Seizures: No Thyroid Disease: No Other medical history: glucoma,pvd, foot ulcer - Surgical History Abdominal Surgery: No Appendectomy: No Cardiac Surgery: No Cholecystectomy: No Lung Surgery: No Neurologic Surgery: No Orthopedic Surgery: No - Immunization History Immunization Up to Date: Yes - Suicide/Smoking/Psychosocial Hx Smoking Status: No Smoking History: Unknown if ever smoked Have you smoked in the past 12 months: No Number of Cigarettes Smoked Daily: 0 Information on smoking cessation initiated: No Hx Alcohol Use: No Drug/Substance Use Hx: No Substance Use Type: None Hx Substance Use Treatment: No Review of Systems - Review of Systems Able to Perform ROS?: No (Clinical condition) *Physical Exam - Vital Signs Last Vital Signs Temp Pulse Resp BP Pulse Ox 96.6 F L 95 H 30 H 148/106 85 L 08/05/17 08:44 08/05/17 08:44 08/05/17 08:44 08/05/17 08:44 08/05/17 08:44 - Physical Exam Comments: 08/05/17 09:17 GENERAL: Well developed, well nourished. Awake and not fully alert. In moderate distress. HEENT: Normocephalic, atraumatic. Hearing grossly normal. B/l glaucoma, worse in R eye. Oropharynx is clear. NECK: Supple. Full ROM. No JVD. CARDIOVASCULAR: Regular rate and rhythm. No murmurs, rubs, or gallops. Distal pulses are 2+ and symmetric. PULMONARY: In respiratory distress. B/l rhonchi in all lung lombardi. ABDOMINAL: Soft. Non-tender. Non-distended. No rebound or guarding. No organomegaly. Normoactive bowel sounds. MUSCULOSKELETAL: Normal range of motion at all joints. No bony deformities or tenderness. EXTREMITIES: No cyanosis. No clubbing. No edema. No calf tenderness. SKIN: Warm and dry. Normal capillary refill. No rashes. No jaundice. NEUROLOGICAL: Alert, awake, appropriate. Cranial nerves 2-12 intact. Normal speech. Gait is unobserved. PSYCHIATRIC: Cooperative. Good eye contact. Appropriate mood and affect. Heart Score/ECG Review #1 ECG reviewed & interpreted by me at: 09:45 General ECG Interpretation: Sinus Rhythm, Normal Rate, Normal Intervals, No acute ischemic changes Compared to previous ECG there are: Changes noted (New T wave flattening in V3, otherwise unremarkable) 08/05/17 09:45 Rate 95 QRS 100 Qtc 472 ED Treatment Course - LABORATORY CBC & Chemistry Diagram: 08/05/17 09:10 08/05/17 08:50 - RADIOLOGY Radiology Studies Ordered: Category Date Time Status CHEST X-RAY PORTABLE* [RAD] Stat Radiology 08/05/17 08:43 Ordered Medical Decision Making - Medical Decision Making 08/05/17 09:20 The patient is an 86F with a PMH of COPD and mild dementia who presents in AMS with difficulty breathing. BG was 206 at bedside. U/S did not show B lines but did reveal a distended bladder. Rectal temp is 96.8. Sepsis protocol is being followed. Will monitor closely. Will give duonebs to help with breathing. CXR negative. 08/05/17 09:36 ABG 7.2/72/54 Will inform hospitalist once labs return. 08/05/17 09:46 Pt is satting 96-98% on NRB with nebs. 08/05/17 11:21 Attending admitted pt. *DC/Admit/Observation/Transfer Diagnosis at time of Disposition: COPD exacerbation, Hypercapnic respiratory failure - Discharge Dispostion Condition at time of disposition: Guarded - Referrals - Patient Instructions - Post Discharge Activity
[2017-08-05] MEDS ORDERED: MAGNESIUM SULF 50% (8.12 MEQ/2 ML-1 GM VIAL) IVPB ONE (09:39)
[2017-08-05] MEDS ORDERED: MAGNESIUM SULF 50% (8.12 MEQ/2 ML-1 GM VIAL) ONE (09:45)
[2017-08-05 09:48] LABS: INR 0.96 (0.82-1.09); PROTHROMBIN TIME (PATIENT) 10.9 SEC (9.98-11.88)
[2017-08-05 09:51] LABS: ACTIVATED PTT 30.3 SECONDS (26.9-34.4)
[2017-08-05 09:58] LABS: URINE APPEARANCE CLEAR; URINE BILIRUBIN NEGATIVE (NEGATIVE); URINE BLOOD 1+ (NEGATIVE); URINE COLOR COLORLESS; URINE GLUCOSE (UA) 3+ (NEGATIVE); URINE KETONE NEGATIVE (NEGATIVE); URINE LEUK ESTERASE NEGATIVE (NEGATIVE); URINE NITRITE NEGATIVE (NEGATIVE); URINE UROBILINOGEN NEGATIVE mg/dL (0.2-1.0)
[2017-08-05 09:59] LABS: URINE PROTEIN 2+ (NEGATIVE)
[2017-08-05 10:01] LABS: URINE HYALINE CAST 6 /lpf
[2017-08-05 10:03] LABS: ALBUMIN 2.9 g/dl (3.4-5.0); ANION GAP 7 (8-16); BLOOD UREA NITROGEN 26 mg/dL (7-18); CALCIUM 8.1 mg/dL (8.5-10.1); CHLORIDE 104 mmol/L (98-107); CO2 30 mmol/L (21-32); CREATININE 1.2 mg/dL (0.55-1.02); GLUCOSE,RANDOM 229 mg/dL (74-106); SGPT/ALT 33 U/L (12-78); SODIUM 141 mmol/L (136-145)
[2017-08-05 10:08] LABS: ALK PHOS 124 U/L (45-117); BILIRUBIN,TOTAL 0.2 mg/dL (0.2-1.0)
[2017-08-05 10:11] LABS: POTASSIUM 4.3 mmol/L (3.5-5.1); SGOT/AST 38 U/L (15-37)
[2017-08-05] MEDS ORDERED: ALBUTEROL SO4 0.083% IH SOL 2.5 MG/3 ML VIAL.NEB. NEB ONE ×2 (10:41)
[2017-08-05 11:55] LABS: BASO % 0.4 % (0-2.0); EOS % 0.4 % (0-4.5); HEMATOCRIT 31.8 % (32.4-45.2); LYMPH % 3.8 % (8-40); MCH 27.6 pg (25.7-33.7); MCHC 31.5 g/dl (32.0-36.0); MEAN CELL VOLUME 87.6 fl (80-96); MEAN PLT VOLUME 7.3 fl (7.5-11.1); NEUT % 91.4 % (42.8-82.8); PLATELET COUNT 246 K/MM3 (134-434); RBC 3.63 M/mm3 (3.60-5.2); RDW 15.2 % (11.6-15.6); WHITE BLOOD COUNT 11.5 K/mm3 (4.0-10.0)
--- NOTE | 2017-08-05 12:05 | PN ---
Progress Note (short form) - Note Progress Note: PULMONARY CONSULTATION DICTATED 08/05/17 IMP ACUTE ON CHRONIC HYPOXEMIC/HYPERCAPNEIC RESPIRATORY FAILURE ASTHMA/COPD EXACERBATION PVD ELEVATED LACTATE BLINDNESS DM PLAN IV STEROIDS INHALED BRONCHODILATORS O2 TO MAINTAIN SAT 90% OR GREATER ANTIBIOTICS F/U ABGS TREND LACTATE DR FONSECA Problem List - Problems (1) Acute on chronic respiratory failure with hypoxia and hypercapnia Code(s): J96.21 - ACUTE AND CHRONIC RESPIRATORY FAILURE WITH HYPOXIA; J96.22 - ACUTE AND CHRONIC RESPIRATORY FAILURE WITH HYPERCAPNIA (2) COPD exacerbation Code(s): J44.1 - CHRONIC OBSTRUCTIVE PULMONARY DISEASE W (ACUTE) EXACERBATION (3) Asthma-COPD overlap syndrome Code(s): J44.9 - CHRONIC OBSTRUCTIVE PULMONARY DISEASE, UNSPECIFIED (4) Hypoxia Code(s): R09.02 - HYPOXEMIA (5) Peripheral vascular disease Code(s): I73.9 - PERIPHERAL VASCULAR DISEASE, UNSPECIFIED (6) Pressure ulcer of right foot, stage 3 Code(s): L89.893 - PRESSURE ULCER OF OTHER SITE, STAGE 3 (7) Wheeze Code(s): R06.2 - WHEEZING
[2017-08-05] MEDS ORDERED: methylPREDNISolone NA SUCC 40 MG/1 ML VIAL IVPUSH SCH (12:15)
[2017-08-05] MEDS ORDERED: methylPREDNISolone NA SUCC 40 MG/1 ML VIAL ONE (12:39)
--- NOTE | 2017-08-05 14:31 | CONS ---
PULMONARY CONSULTATION DATE OF CONSULTATION: 08/05/2017 REFERRING PHYSICIAN: Gretel Condon MD HISTORY OF PRESENT ILLNESS: The patient is an 86-year-old female known to me in previous hospitalization with past medical history of asthma/COPD, history of chronic right lower extremity wound infection, history of blindness, and hypoxemic, hypercapnic respiratory failure, currently maintained on home O2, lives at home, transferred to [facility] earlier today secondary to generalized weakness, cough, and increasing shortness of breath. Patient apparently was at the shelter. The aide knocked on the door. The patient was found to be poorly responsive. The apartment door was opened by the superintendent [employer], and the patient was found lying in bed, coughing, with altered mental status. As per EMS, the patient's O2 saturation was 79%. She was placed on nonrebreather, with improvement in O2 saturation to 95%. The patient was transferred to [facility] ER with the above. In the ER, the patient was found to be in acute respiratory distress. She was treated with inhaled bronchodilators, supplemental O2, as well as magnesium sulfate with some clinical improvement. Patient is currently on nasal cannula, appears in no acute respiratory distress. The patient is a nonsmoker. There is no history of occupational exposure to chemicals or fumes. She was born in [place] and moved to the [place] at the age of 86. There is no history of recent travel. There is no history of DVT or PE in the past. PAST MEDICAL HISTORY: Again includes asthma/COPD on home O2, diabetes, dementia , depression, glaucoma, blindness, peripheral vascular disease, and chronic lower extremity wound. REVIEW OF SYSTEMS: Unable to obtain at this time. CURRENT MEDICATIONS: Administered Solu-Medrol, magnesium sulfate, albuterol, and DuoNeb. MEDICATIONS PRIOR TO ADMISSION: Include, DuoNeb, calcium carbonate, Lasix 20 mg daily, Robitussin-DM, Levaquin, Namzaric, and Singulair. PHYSICAL EXAMINATION: General: The patient is an elderly female, thin, well developed, awake, appears in no acute respiratory distress. Vital Signs: She is currently afebrile. Blood pressure is 148/106. Respiratory rate is 30. O2 saturation is 85%; that was on room air. HEENT: Normocephalic, atraumatic. Neck: Supple. Heart: Regular. S1, S2. Chest: Diffuse bilateral expiratory and inspiratory wheezes. Abdomen: Soft. Bowel sounds are positive. Extremities: No signs of edema. LABORATORY DATA: WBC is pending. Chemistries: BUN 26, creatinine 1.2. Lactate is 2.1. CPK/MB is 4.6. Initial blood gas showed pH of 7.20, pCO2 of 72, a pO2 of 54, bicarbonate of 29, and a saturation of 82, unknown quantity of oxygen. Chest x-ray reveals no acute infiltrates and/or effusions. IMPRESSION: 1. [id number], hypercapnic, hypoxemic respiratory failure secondary to decompensated chronic obstructive pulmonary disease. 2. History of peripheral vascular disease. 3. Glaucoma. 4. Lower extremity wound. 5. Depression. PLAN: IV steroids, inhaled bronchodilators, supplemental O2, antibiotics. Obtain followup chest x-rays. Follow up ABGs. If the patient should develop progressive respiratory distress, will require BiPAP and/or mechanical ventilation. MARILY FONSECA M.D. [id number] MTDD
[2017-08-05] MEDS: methylPREDNISolone NA SUCC 125 MG/2 ML VIAL IVPUSH SCH ×2 (16:02→22:07)
--- NOTE | 2017-08-05 16:46 | HP ---
Admitting History and Physical - Primary Care Physician PCP: Gretel Condon - Admission Chief Complaint: resp distress History of Present Illness: The patient is an 86F with a PMH of COPD and asthma, mild dementia, who presents to the ED from her home after being found by her aide. The aide states that she was unable to move or speak, altered, and was having some difficulty breathing. She called EMS. On EMS's arrival she was satting 97, BG 206. She is currently on medrol for a COPD exacerbation. She is unable to provide any history but states that she is not in any pain. Unable to do ROS. 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: Other (legally blind due to glaucoma) Cardiovascular: Yes: HTN Pulmonary: Yes: Asthma, COPD Musculoskeletal: Yes: Other (rt leg wound - receiving wound care) - Smoking History Smoking history: Unknown if ever smoked Have you smoked in the past 12 months: No Aproximately how many cigarettes per day: 0 - Alcohol/Substance Use Hx Alcohol Use: No - Social History ADL: Family Assistance History of Recent Travel: No Home Medications - Allergies Allergies/Adverse Reactions: Allergies Allergy/AdvReac Type Severity Reaction Status Date / Time epinephrine Allergy Mild Itching Verified 08/05/17 08:43 - Home Medications Home Medications: Ambulatory Orders Albuterol 0.083% Nebulizer Jasmin [Ventolin 0.083%] 1 neb NEB QID 08/05/17 Memantine HCl/Donepezil HCl [Namzaric 28 mg-10 mg Capsule] 1 each PO DAILY 08/05 Montelukast Na [Singulair -] 10 mg PO HS 08/05/17 Review of Systems - Review of Systems Constitutional: reports: Weakness Eyes: reports: No Symptoms HENT: reports: No Symptoms Neck: reports: No Symptoms Cardiovascular: reports: Shortness of Breath Respiratory: reports: Cough, SOB Gastrointestinal: reports: No Symptoms Genitourinary: reports: No Symptoms Musculoskeletal: reports: Muscle Weakness Integumentary: reports: Wound Neurological: reports: Pre-Existing Deficit Endocrine: reports: No Symptoms Hematology/Lymphatic: reports: No Symptoms Psychiatric: reports: No Symptoms Physical Examination Vital Signs: Vital Signs Temperature 96.6 F L 08/05/17 08:44 Pulse Rate 76 08/05/17 13:47 Respiratory Rate 16 12/19/17 13:47 Blood Pressure 147/57 08/05/17 13:47 O2 Sat by Pulse Oximetry (%) 100 08/05/17 13:47 Constitutional: Yes: Mild Distress Eyes: Yes: WNL HENT: Yes: WNL Neck: Yes: WNL Cardiovascular: Yes: Other Respiratory: Yes: Cough, On Nasal O2, Poor Air Entry, SOB, SOB on Exertion Gastrointestinal: Yes: WNL Renal/: Yes: WNL Musculoskeletal: Yes: Muscle Weakness Edema: No Peripheral Pulses WNL: Yes Integumentary: Yes: Other Wound/Incision: Yes: Unapproximated (right foot ulcer) ...Motor Strength: LLE, RLE Psychiatric: Yes: WNL Labs: CBC, BMP 08/05/17 10:41 08/05/17 08:50 Imaging - Results Chest X-ray: Report Reviewed Cat Scan: Report Reviewed Problem List - Problems (1) Acute on chronic respiratory failure with hypoxia and hypercapnia Code(s): J96.21 - ACUTE AND CHRONIC RESPIRATORY FAILURE WITH HYPOXIA; J96.22 - ACUTE AND CHRONIC RESPIRATORY FAILURE WITH HYPERCAPNIA (2) COPD exacerbation Code(s): J44.1 - CHRONIC OBSTRUCTIVE PULMONARY DISEASE W (ACUTE) EXACERBATION (3) Hypercapnic respiratory failure Code(s): J96.92 - RESPIRATORY FAILURE, UNSPECIFIED WITH HYPERCAPNIA (4) Acute hypoxemic respiratory failure Code(s): J96.01 - ACUTE RESPIRATORY FAILURE WITH HYPOXIA (5) Acute respiratory failure with hypoxia and hypercapnia Code(s): J96.01 - ACUTE RESPIRATORY FAILURE WITH HYPOXIA; J96.02 - ACUTE RESPIRATORY FAILURE WITH HYPERCAPNIA (6) Asthma exacerbation in COPD Code(s): J44.1 - CHRONIC OBSTRUCTIVE PULMONARY DISEASE W (ACUTE) EXACERBATION; J45.901 - UNSPECIFIED ASTHMA WITH (ACUTE) EXACERBATION (7) Asthma-COPD overlap syndrome Code(s): J44.9 - CHRONIC OBSTRUCTIVE PULMONARY DISEASE, UNSPECIFIED Assessment/Plan pulmonary eval steroids iv nebs 02 support dvt prophylaxis oob to chair pt eval
[2017-08-05] MEDS ORDERED: ONDANSETRON *ODT* 4 MG TABLET SL PRN (16:47)
[2017-08-05] MEDS ORDERED: ACETAMINOPHEN 325 MG TABLET (FP) PO PRN (16:47)
[2017-08-05 17:58] VITALS: BMI 25.4
[2017-08-05] MEDS: ALBUTEROL SO4 2.5/IPRATROPIUM 0.5 INH SOL 3 ML VIAL.NEB. NEB SCH ×2 (18:09→23:14)
--- NOTE | 2017-08-05 21:17 | EKG ---
Test Reason : Blood Pressure : / mmHG Vent. Rate : 095 BPM Atrial Rate : 095 BPM P-R Int : 190 ms QRS Dur : 100 ms QT Int : 376 ms P-R-T Axes : 084 071 075 degrees QTc Int : 472 ms NORMAL SINUS RHYTHM ANTEROSEPTAL INFARCT (CITED ON OR BEFORE 10-MAY-2017) ABNORMAL ECG WHEN COMPARED WITH ECG OF 10-MAY-2017 07:43, VENT. RATE HAS INCREASED BY 40 BPM QT HAS LENGTHENED Confirmed by MD OCTAVIO, MONICA ([id number]) on 08/05/2017 9:17:03 PM Referred By: Confirmed By:MONICA CUNNINGHAM MD
[2017-08-05] MEDS: MONTELUKAST NA 10 MG TABLET PO SCH (22:06)
[2017-08-05] MEDS: HEPARIN NA (PORCINE) 5,000 UNITS/ML 1ML VIAL SQ SCH (22:07)
[2017-08-05] MEDS: DONEPEZIL HCL 10 MG TABLET (FP) PO SCH (22:07)
[2017-08-06] MEDS: ALBUTEROL SO4 0.083% IH SOL 2.5 MG/3 ML VIAL.NEB. NEB PRN ×2 (03:43→09:15)
[2017-08-06] MEDS: methylPREDNISolone NA SUCC 125 MG/2 ML VIAL IVPUSH SCH ×4 (04:10→21:52)
[2017-08-06] MEDS ORDERED: guaiFENesin/D-METHORPHAN HB 10 ML UNIT-DOSE CUPS PO PRN (04:32)
[2017-08-06] MEDS: ALBUTEROL SO4 2.5/IPRATROPIUM 0.5 INH SOL 3 ML VIAL.NEB. NEB SCH ×4 (06:45→23:31)
[2017-08-06] MEDS: DONEPEZIL HCL 10 MG TABLET (FP) PO SCH ×2 (09:30→21:53)
[2017-08-06] MEDS: HEPARIN NA (PORCINE) 5,000 UNITS/ML 1ML VIAL SQ SCH ×2 (09:30→21:53)
--- NOTE | 2017-08-06 11:43 | PN ---
Progress Note, Physician Chief Complaint: AWAKE ALERT LEGALLY BLIND STILL WITH SOB/COUGH - Current Medication List Current Medications: Active Medications Acetaminophen (Tylenol -) 650 mg PO Q6H PRN PRN Reason: FEVER OR PAIN Albuterol Sulfate (Ventolin 0.083% Nebulizer Soln -) 1 amp NEB Q4H PRN PRN Reason: SHORT OF BREATH/WHEEZING Last Admin: 08/06/17 09:15 Dose: 1 amp Albuterol/Ipratropium (Duoneb -) 1 amp NEB QIDR [facility] Last Admin: 08/06/17 06:45 Dose: 1 amp Donepezil HCl (Aricept -) 10 mg PO BID [facility] Last Admin: 08/06/17 09:30 Dose: 10 mg Guaifenesin (Robitussin Dm -) 10 ml PO Q6H PRN PRN Reason: COUGH Last Admin: 08/06/17 06:04 Dose: 10 ml Heparin Sodium (Porcine) (Heparin -) 5,000 unit SQ BID [facility] Last Admin: 08/06/17 09:30 Dose: 5,000 unit Methylprednisolone Sodium Succinate (Solu-Medrol -) 60 mg IVPUSH Q6H-IV [facility] Last Admin: 08/06/17 09:30 Dose: 60 mg Montelukast Sodium (Singulair -) 10 mg PO HS [facility] Last Admin: 08/05/17 22:06 Dose: 10 mg Ondansetron HCl (Zofran Odt -) 4 mg SL Q6H PRN PRN Reason: NAUSEA AND/OR VOMITING - Objective Vital Signs: Vital Signs Temperature 98.0 F 08/06/17 10:00 Pulse Rate 89 08/06/17 10:00 Respiratory Rate 26 H 08/06/17 10:00 Blood Pressure 135/58 08/06/17 10:00 O2 Sat by Pulse Oximetry (%) 95 08/05/17 21:00 Constitutional: Yes: Mild Distress Eyes: Yes: WNL HENT: Yes: WNL Neck: Yes: WNL Cardiovascular: Yes: WNL Respiratory: Yes: Cough, On Nasal O2, Poor Air Entry, SOB Gastrointestinal: Yes: WNL Genitourinary: Yes: WNL Musculoskeletal: Yes: Muscle Weakness Extremities: Yes: WNL Edema: No Peripheral Pulses WNL: Yes Integumentary: Yes: Pressure Ulcer Wound/Incision: Yes: Dressing Dry and Intact Neurological: Yes: Pre-Existing Deficit, Weakness ...Motor Strength: LLE, RLE Psychiatric: Yes: Other Labs: CBC, BMP 08/05/17 10:41 08/05/17 08:50 INR, PTT INR 0.96 (0.82-1.09) 08/05/17 09:10 Problem List - Problems (1) Acute on chronic respiratory failure with hypoxia and hypercapnia Code(s): J96.21 - ACUTE AND CHRONIC RESPIRATORY FAILURE WITH HYPOXIA; J96.22 - ACUTE AND CHRONIC RESPIRATORY FAILURE WITH HYPERCAPNIA (2) COPD exacerbation Code(s): J44.1 - CHRONIC OBSTRUCTIVE PULMONARY DISEASE W (ACUTE) EXACERBATION (3) Hypercapnic respiratory failure Code(s): J96.92 - RESPIRATORY FAILURE, UNSPECIFIED WITH HYPERCAPNIA (4) Acute hypoxemic respiratory failure Code(s): J96.01 - ACUTE RESPIRATORY FAILURE WITH HYPOXIA (5) Acute respiratory failure with hypoxia and hypercapnia Code(s): J96.01 - ACUTE RESPIRATORY FAILURE WITH HYPOXIA; J96.02 - ACUTE RESPIRATORY FAILURE WITH HYPERCAPNIA (6) Asthma exacerbation in COPD Code(s): J44.1 - CHRONIC OBSTRUCTIVE PULMONARY DISEASE W (ACUTE) EXACERBATION; J45.901 - UNSPECIFIED ASTHMA WITH (ACUTE) EXACERBATION (7) Asthma-COPD overlap syndrome Code(s): J44.9 - CHRONIC OBSTRUCTIVE PULMONARY DISEASE, UNSPECIFIED (8) Pressure ulcer of right foot, stage 3 Code(s): L89.893 - PRESSURE ULCER OF OTHER SITE, STAGE 3 Assessment/Plan STEROIDS IV NEBS 02 SUPPORT WOUND CARE ULCER RIGHT FOOT DRESSING CHANGE PULM/VASC SX F/U
--- NOTE | 2017-08-06 11:53 | PN ---
Progress Note, Physician History of Present Illness: pulmonary alert,sob improving,+ cough - Current Medication List Current Medications: Active Medications Acetaminophen (Tylenol -) 650 mg PO Q6H PRN PRN Reason: FEVER OR PAIN Albuterol Sulfate (Ventolin 0.083% Nebulizer Soln -) 1 amp NEB Q4H PRN PRN Reason: SHORT OF BREATH/WHEEZING Last Admin: 08/06/17 09:15 Dose: 1 amp Albuterol/Ipratropium (Duoneb -) 1 amp NEB QIDR [facility] Last Admin: 08/06/17 06:45 Dose: 1 amp Donepezil HCl (Aricept -) 10 mg PO BID [facility] Last Admin: 08/06/17 09:30 Dose: 10 mg Guaifenesin (Robitussin Dm -) 10 ml PO Q6H PRN PRN Reason: COUGH Last Admin: 08/06/17 06:04 Dose: 10 ml Heparin Sodium (Porcine) (Heparin -) 5,000 unit SQ BID [facility] Last Admin: 08/06/17 09:30 Dose: 5,000 unit Methylprednisolone Sodium Succinate (Solu-Medrol -) 60 mg IVPUSH Q6H-IV [facility] Last Admin: 08/06/17 09:30 Dose: 60 mg Montelukast Sodium (Singulair -) 10 mg PO HS [facility] Last Admin: 08/05/17 22:06 Dose: 10 mg Ondansetron HCl (Zofran Odt -) 4 mg SL Q6H PRN PRN Reason: NAUSEA AND/OR VOMITING - Objective Vital Signs: Vital Signs Temperature 98.0 F 08/06/17 10:00 Pulse Rate 89 08/06/17 10:00 Respiratory Rate 26 H 08/06/17 10:00 Blood Pressure 135/58 08/06/17 10:00 O2 Sat by Pulse Oximetry (%) 95 08/05/17 21:00 Constitutional: Yes: Calm, Thin Eyes: Yes: Other (legally blind) HENT: Yes: WNL Neck: Yes: WNL Cardiovascular: Yes: Pulse Irregular, S1, S2 Respiratory: Yes: Wheezes (bilatral wheezes) Gastrointestinal: Yes: Normal Bowel Sounds, Soft Extremities: Yes: WNL Edema: Yes Labs: CBC, BMP Laboratory Tests 08/05/17 11:44 Lactic Acid 1.6 Problem List - Problems (1) Acute on chronic respiratory failure with hypoxia and hypercapnia Code(s): J96.21 - ACUTE AND CHRONIC RESPIRATORY FAILURE WITH HYPOXIA; J96.22 - ACUTE AND CHRONIC RESPIRATORY FAILURE WITH HYPERCAPNIA (2) COPD exacerbation Code(s): J44.1 - CHRONIC OBSTRUCTIVE PULMONARY DISEASE W (ACUTE) EXACERBATION (3) Asthma-COPD overlap syndrome Code(s): J44.9 - CHRONIC OBSTRUCTIVE PULMONARY DISEASE, UNSPECIFIED (4) Hypoxia Code(s): R09.02 - HYPOXEMIA (5) Peripheral vascular disease Code(s): I73.9 - PERIPHERAL VASCULAR DISEASE, UNSPECIFIED (6) Pressure ulcer of right foot, stage 3 Code(s): L89.893 - PRESSURE ULCER OF OTHER SITE, STAGE 3 (7) Wheeze Code(s): R06.2 - WHEEZING Assessment/Plan IMP ACUTE ON CHRONIC HYPOXEMIC/HYPERCAPNEIC RESPIRATORY FAILURE ASTHMA/COPD EXACERBATION PVD ELEVATED LACTATE NORMAL BLINDNESS DM PLAN IV STEROIDS same dose INHALED BRONCHODILATORS O2 TO MAINTAIN SAT 90% OR GREATER F/U ABGS ROBITUSSIN AC DR FONSECA Problem List - Problems (1) Acute on chronic respiratory failure with hypoxia and hypercapnia Code(s): J96.21 - ACUTE AND CHRONIC RESPIRATORY FAILURE WITH HYPOXIA; J96.22 - ACUTE AND CHRONIC RESPIRATORY FAILURE WITH HYPERCAPNIA (2) COPD exacerbation Code(s): J44.1 - CHRONIC OBSTRUCTIVE PULMONARY DISEASE W (ACUTE) EXACERBATION (3) Asthma-COPD overlap syndrome Code(s): J44.9 - CHRONIC OBSTRUCTIVE PULMONARY DISEASE, UNSPECIFIED (4) Hypoxia Code(s): R09.02 - HYPOXEMIA (5) Peripheral vascular disease Code(s): I73.9 - PERIPHERAL VASCULAR DISEASE, UNSPECIFIED (6) Pressure ulcer of right foot, stage 3 Code(s): L89.893 - PRESSURE ULCER OF OTHER SITE, STAGE 3 (7) Wheeze Code(s): R06.2 - WHEEZING
[2017-08-06] MEDS: guaiFENesin/CODEINE 5 ML UNIT-DOSE CUPS PO PRN ×2 (14:07→21:53)
[2017-08-06] MEDS: MONTELUKAST NA 10 MG TABLET PO SCH (21:53)
[2017-08-07] MEDS: methylPREDNISolone NA SUCC 125 MG/2 ML VIAL IVPUSH SCH ×4 (03:16→21:55)
[2017-08-07] MEDS: ALBUTEROL SO4 2.5/IPRATROPIUM 0.5 INH SOL 3 ML VIAL.NEB. NEB SCH ×4 (06:50→23:20)
[2017-08-07] MEDS: guaiFENesin/CODEINE 5 ML UNIT-DOSE CUPS PO PRN (09:26)
[2017-08-07] MEDS: HEPARIN NA (PORCINE) 5,000 UNITS/ML 1ML VIAL SQ SCH ×2 (09:27→22:09)
[2017-08-07] MEDS: DONEPEZIL HCL 10 MG TABLET (FP) PO SCH ×2 (09:27→22:08)
[2017-08-07] MEDS: ALBUTEROL SO4 0.083% IH SOL 2.5 MG/3 ML VIAL.NEB. NEB PRN (10:00)
[2017-08-07] MEDS ORDERED: MAGNESIUM HYDROX 2400MG/30ML ORAL SUSPENSION 30 ML CUP PO ONE (11:39)
--- NOTE | 2017-08-07 11:40 | PN ---
Progress Note, Physician Chief Complaint: AWAKE FEELING BETTER OFF 02 - Current Medication List Current Medications: Active Medications Acetaminophen (Tylenol -) 650 mg PO Q6H PRN PRN Reason: FEVER OR PAIN Albuterol Sulfate (Ventolin 0.083% Nebulizer Soln -) 1 amp NEB Q4H PRN PRN Reason: SHORT OF BREATH/WHEEZING Last Admin: 08/07/17 10:00 Dose: 1 amp Albuterol/Ipratropium (Duoneb -) 1 amp NEB QIDR [facility] Last Admin: 08/07/17 11:33 Dose: Not Given Donepezil HCl (Aricept -) 10 mg PO BID [facility] Last Admin: 08/07/17 09:27 Dose: 10 mg Guaifenesin/Codeine Phosphate (Robitussin Ac -) 5 ml PO QID PRN PRN Reason: COUGH Last Admin: 08/07/17 09:26 Dose: 5 ml Heparin Sodium (Porcine) (Heparin -) 5,000 unit SQ BID [facility] Last Admin: 08/07/17 09:27 Dose: 5,000 unit Magnesium Hydroxide (Milk Of Magnesia -) 30 ml PO ONCE ONE Stop: 08/07/17 11:40 Methylprednisolone Sodium Succinate (Solu-Medrol -) 60 mg IVPUSH Q6H-IV [facility] Last Admin: 08/07/17 09:27 Dose: 60 mg Montelukast Sodium (Singulair -) 10 mg PO HS [facility] Last Admin: 08/06/17 21:53 Dose: 10 mg Ondansetron HCl (Zofran Odt -) 4 mg SL Q6H PRN PRN Reason: NAUSEA AND/OR VOMITING Polyethylene Glycol (Miralax (For Daily Use) -) 17 gm PO DAILY [facility] - Objective Vital Signs: Vital Signs Temperature 98 F 08/07/17 09:40 Pulse Rate 84 08/07/17 09:40 Respiratory Rate 18 08/07/17 09:40 Blood Pressure 154/70 08/07/17 09:40 O2 Sat by Pulse Oximetry (%) 96 08/07/17 09:00 Constitutional: Yes: No Distress Eyes: Yes: WNL HENT: Yes: WNL Neck: Yes: WNL Cardiovascular: Yes: WNL Respiratory: Yes: Wheezes Gastrointestinal: Yes: WNL Genitourinary: Yes: WNL Musculoskeletal: Yes: Muscle Weakness Extremities: Yes: WNL Edema: Yes Peripheral Pulses WNL: Yes Integumentary: Yes: Pressure Ulcer Wound/Incision: Yes: Dressing Dry and Intact Neurological: Yes: Pre-Existing Deficit ...Motor Strength: LLE, RLE Psychiatric: Yes: WNL Labs: CBC, BMP 08/05/17 10:41 08/05/17 08:50 INR, PTT INR 0.96 (0.82-1.09) 08/05/17 09:10 Problem List - Problems (1) Acute on chronic respiratory failure with hypoxia and hypercapnia Code(s): J96.21 - ACUTE AND CHRONIC RESPIRATORY FAILURE WITH HYPOXIA; J96.22 - ACUTE AND CHRONIC RESPIRATORY FAILURE WITH HYPERCAPNIA (2) COPD exacerbation Code(s): J44.1 - CHRONIC OBSTRUCTIVE PULMONARY DISEASE W (ACUTE) EXACERBATION (3) Hypercapnic respiratory failure Code(s): J96.92 - RESPIRATORY FAILURE, UNSPECIFIED WITH HYPERCAPNIA (4) Acute hypoxemic respiratory failure Code(s): J96.01 - ACUTE RESPIRATORY FAILURE WITH HYPOXIA (5) Acute respiratory failure with hypoxia and hypercapnia Code(s): J96.01 - ACUTE RESPIRATORY FAILURE WITH HYPOXIA; J96.02 - ACUTE RESPIRATORY FAILURE WITH HYPERCAPNIA (6) Asthma exacerbation in COPD Code(s): J44.1 - CHRONIC OBSTRUCTIVE PULMONARY DISEASE W (ACUTE) EXACERBATION; J45.901 - UNSPECIFIED ASTHMA WITH (ACUTE) EXACERBATION (7) Asthma-COPD overlap syndrome Code(s): J44.9 - CHRONIC OBSTRUCTIVE PULMONARY DISEASE, UNSPECIFIED (8) Pressure ulcer of right foot, stage 3 Code(s): L89.893 - PRESSURE ULCER OF OTHER SITE, STAGE 3 Assessment/Plan STEROIDS IV NEBS 02 SUPPORT WOUND CARE ULCER RIGHT FOOT DRESSING CHANGE PULM/VASC SX F/U
[2017-08-07] MEDS: POLYETHYLENE GLYCOL 3350 119 GM BTL PO SCH (11:51)
--- NOTE | 2017-08-07 14:12 | PN ---
Progress Note (short form) - Note Progress Note: NAD on 2 L NC O2 with saturation 96%. No acute events overnight. Breathing improving. Intake & Output 08/04/17 08/05/17 08/06/17 08/07/17 23:59 23:59 23:59 23:59 Intake Total 560 120 Output Total 100 800 400 Balance -100 -240 -280 Weight 130 lb Last Vital Signs Temp Pulse Resp BP Pulse Ox 98 F 84 18 154/70 96 08/07/17 09:40 08/07/17 09:40 08/07/17 09:40 08/07/17 09:40 08/07/17 09:00 Active Medications Acetaminophen (Tylenol -) 650 mg PO Q6H PRN PRN Reason: FEVER OR PAIN Albuterol Sulfate (Ventolin 0.083% Nebulizer Soln -) 1 amp NEB Q4H PRN PRN Reason: SHORT OF BREATH/WHEEZING Last Admin: 08/07/17 10:00 Dose: 1 amp Albuterol/Ipratropium (Duoneb -) 1 amp NEB QIDR [facility] Last Admin: 08/07/17 11:33 Dose: Not Given Donepezil HCl (Aricept -) 10 mg PO BID [facility] Last Admin: 08/07/17 09:27 Dose: 10 mg Guaifenesin/Codeine Phosphate (Robitussin Ac -) 5 ml PO QID PRN PRN Reason: COUGH Last Admin: 08/07/17 09:26 Dose: 5 ml Heparin Sodium (Porcine) (Heparin -) 5,000 unit SQ BID [facility] Last Admin: 08/07/17 09:27 Dose: 5,000 unit Methylprednisolone Sodium Succinate (Solu-Medrol -) 60 mg IVPUSH Q6H-IV [facility] Last Admin: 08/07/17 09:27 Dose: 60 mg Montelukast Sodium (Singulair -) 10 mg PO HS [facility] Last Admin: 08/06/17 21:53 Dose: 10 mg Ondansetron HCl (Zofran Odt -) 4 mg SL Q6H PRN PRN Reason: NAUSEA AND/OR VOMITING Polyethylene Glycol (Miralax (For Daily Use) -) 17 gm PO DAILY [facility] Last Admin: 08/07/17 11:51 Dose: 17 gm Constitutional: Yes: NAD Eyes: Yes: Other (legally blind) HENT: Yes: WNL Neck: Yes: WNL Cardiovascular: Yes: Pulse Irregular, S1, S2 Respiratory: Yes: Bilateral wheeze/rhonchi Gastrointestinal: Yes: Normal Bowel Sounds, Soft Extremities: Yes: WNL Edema: Yes Labs: Problem List - Problems (1) Acute on chronic respiratory failure with hypoxia and hypercapnia Code(s): J96.21 - ACUTE AND CHRONIC RESPIRATORY FAILURE WITH HYPOXIA; J96.22 - ACUTE AND CHRONIC RESPIRATORY FAILURE WITH HYPERCAPNIA (2) COPD exacerbation Code(s): J44.1 - CHRONIC OBSTRUCTIVE PULMONARY DISEASE W (ACUTE) EXACERBATION (3) Asthma-COPD overlap syndrome Code(s): J44.9 - CHRONIC OBSTRUCTIVE PULMONARY DISEASE, UNSPECIFIED (4) Hypoxia Code(s): R09.02 - HYPOXEMIA (5) Peripheral vascular disease Code(s): I73.9 - PERIPHERAL VASCULAR DISEASE, UNSPECIFIED (6) Pressure ulcer of right foot, stage 3 Code(s): L89.893 - PRESSURE ULCER OF OTHER SITE, STAGE 3 (7) Wheeze Code(s): R06.2 - WHEEZING Assessment/Plan IMP ACUTE ON CHRONIC HYPOXEMIC/HYPERCAPNEIC RESPIRATORY FAILURE ASTHMA/COPD EXACERBATION PVD ELEVATED LACTATE NORMAL BLINDNESS DM PLAN IV STEROID TAPER INHALED BRONCHODILATORS O2 TO MAINTAIN SAT 90% OR GREATER ROBITUSSIN AC Dr Guzman
--- NOTE | 2017-08-07 17:30 | PN ---
Progress Note (short form) - Note Progress Note: [facility] Pt seen and examined. Well known to wound care team. Dressing changed to right foot. Ulcer is clean, pink, good granulation. Santyl to wound daily. Ty Pulido DO
[2017-08-07] MEDS: COLLAGENASE CLOSTRIDIUM HIST. 30 GRAMS TUBE TP SCH (19:10)
--- NOTE | 2017-08-07 19:55 | CONSULT ---
Consult - text type - Consultation Consultation Note: The patient is a 86F with a PMH of COPD and asthma, mild dementia, who presents to the ED from her home after being found by her aide with ltered mental status and difficulty breathing. She called EMS. On EMS's arrival she was satting 97, BG 206. She is currently on medrol for a COPD exacerbation. She is unable to provide any history but states that she is not in any pain. 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 (legally blind due to glaucoma) Cardiovascular: Yes: HTN Pulmonary: Yes: Asthma, COPD Musculoskeletal: Yes: Other (rt leg wound - receiving wound care) - Smoking History Smoking history: Unknown if ever smoked - Social History ADL: Family Assistance Home Medications - Allergies Allergies/Adverse Reactions: Allergies Allergy/AdvReac Type Severity Reaction Status Date / Time epinephrine Allergy Mild Itching Verified 08/05/17 08:43 - Home Medications Home Medications: Ambulatory Orders Albuterol 0.083% Nebulizer Jasmin [Ventolin 0.083%] 1 neb NEB QID 08/05/17 Memantine HCl/Donepezil HCl [Namzaric 28 mg-10 mg Capsule] 1 each PO DAILY 08/05 Montelukast Na [Singulair -] 10 mg PO HS 08/05/17 Vital Signs: Last Vital Signs Temp Pulse Resp BP Pulse Ox 98.0 F 72 18 140/80 96 08/07/17 17:00 08/07/17 17:00 08/07/17 17:00 08/07/17 17:00 08/07/17 09:00 Constitutional: Yes: Mild Distress Eyes: Yes: WNL HENT: Yes: WNL Neck: Yes: WNL Cardiovascular: Yes: Other Respiratory: Yes: Cough, On Nasal O2, Poor Air Entry, SOB, SOB on Exertion Gastrointestinal: Yes: WNL Renal/: Yes: WNL Musculoskeletal: Yes: Muscle Weakness Peripheral Pulses WNL: Yes Integumentary: Yes: Other Wound/Incision: Yes: Unapproximated (right foot ulcer) ...Motor Strength: LLE, RLE LAbs/Meds reviewed Imaging - Results Chest X-ray: Report Reviewed Cat Scan: Report Reviewed Problem List - Problems (1) Acute on chronic respiratory failure with hypoxia and hypercapnia Code(s): J96.21 - ACUTE AND CHRONIC RESPIRATORY FAILURE WITH HYPOXIA; J96.22 - ACUTE AND CHRONIC RESPIRATORY FAILURE WITH HYPERCAPNIA (2) COPD exacerbation Code(s): J44.1 - CHRONIC OBSTRUCTIVE PULMONARY DISEASE W (ACUTE) EXACERBATION (3) Hypercapnic respiratory failure Code(s): J96.92 - RESPIRATORY FAILURE, UNSPECIFIED WITH HYPERCAPNIA (4) Acute hypoxemic respiratory failure Code(s): J96.01 - ACUTE RESPIRATORY FAILURE WITH HYPOXIA (5) Acute respiratory failure with hypoxia and hypercapnia Code(s): J96.01 - ACUTE RESPIRATORY FAILURE WITH HYPOXIA; J96.02 - ACUTE RESPIRATORY FAILURE WITH HYPERCAPNIA (6) Asthma exacerbation in COPD Code(s): J44.1 - CHRONIC OBSTRUCTIVE PULMONARY DISEASE W (ACUTE) EXACERBATION; J45.901 - UNSPECIFIED ASTHMA WITH (ACUTE) EXACERBATION (7) Asthma-COPD overlap syndrome Code(s): J44.9 - CHRONIC OBSTRUCTIVE PULMONARY DISEASE, UNSPECIFIED Assessment/Plan 86 y/o with HTN/COPD/asthma, comes in with COPD exacrbation Anemia of chronic disease--? COPD/Rt. leg wound/? CKD check iron studies/B12/folate/protein studies/TSH/fT4 check stool occult did not have gi w/u will follow will follow
[2017-08-07] MEDS: MONTELUKAST NA 10 MG TABLET PO SCH (22:08)
[2017-08-08] MEDS: methylPREDNISolone NA SUCC 125 MG/2 ML VIAL IVPUSH SCH ×2 (03:56→09:40)
[2017-08-08] MEDS: ALBUTEROL SO4 2.5/IPRATROPIUM 0.5 INH SOL 3 ML VIAL.NEB. NEB SCH ×2 (06:50→12:00)
[2017-08-08 07:53] LABS: BASO % 0.2 % (0-2.0); HEMATOCRIT 33.4 % (32.4-45.2); HEMOGLOBIN 10.9 GM/dL (10.7-15.3); MCH 28.1 pg (25.7-33.7); MCHC 32.5 g/dl (32.0-36.0); MEAN CELL VOLUME 86.5 fl (80-96); MONO % 2.1 % (3.8-10.2); NEUT % 92.7 % (42.8-82.8); RBC 3.86 M/mm3 (3.60-5.2); RDW 15.3 % (11.6-15.6); WHITE BLOOD COUNT 9.1 K/mm3 (4.0-10.0)
[2017-08-08 07:56] LABS: ACTIVATED PTT 30.7 SECONDS (26.9-34.4); INR 0.99 (0.82-1.09); PROTHROMBIN TIME (PATIENT) 11.2 SEC (9.98-11.88)
[2017-08-08 08:58] LABS: ALBUMIN 2.4 g/dl (3.4-5.0); ANION GAP 7 (8-16); BLOOD UREA NITROGEN 41 mg/dL (7-18); CALCIUM 7.7 mg/dL (8.5-10.1); CHLORIDE 101 mmol/L (98-107); CO2 32 mmol/L (21-32); GLUCOSE,RANDOM 141 mg/dL (74-106); POTASSIUM 4.6 mmol/L (3.5-5.1); SGOT/AST 22 U/L (15-37); SGPT/ALT 36 U/L (12-78); SODIUM 140 mmol/L (136-145)
[2017-08-08 08:59] LABS: BILIRUBIN,TOTAL 0.2 mg/dL (0.2-1.0); TOT PROT 5.7 g/dl (6.4-8.2)
[2017-08-08 09:08] LABS: ALK PHOS 95 U/L (45-117)
[2017-08-08] MEDS: DONEPEZIL HCL 10 MG TABLET (FP) PO SCH (09:40)
[2017-08-08] MEDS: HEPARIN NA (PORCINE) 5,000 UNITS/ML 1ML VIAL SQ SCH (09:40)
[2017-08-08] MEDS: POLYETHYLENE GLYCOL 3350 119 GM BTL PO SCH (09:41)
[2017-08-08] MEDS: COLLAGENASE CLOSTRIDIUM HIST. 30 GRAMS TUBE TP SCH (09:41)
[2017-08-08] MEDS ORDERED: predniSONE 20 MG TABLET (UD) PO SCH (10:00)
--- NOTE | 2017-08-08 10:01 | DS ---
Physical Examination Vital Signs: Vital Signs Temperature 98.7 F 08/08/17 06:00 Pulse Rate 65 08/08/17 06:00 Respiratory Rate 18 08/08/17 06:00 Blood Pressure 154/81 08/08/17 06:00 O2 Sat by Pulse Oximetry (%) 98 08/07/17 21:00 Constitutional: Yes: Mild Distress Eyes: Yes: WNL HENT: Yes: WNL Neck: Yes: WNL Cardiovascular: Yes: WNL Respiratory: Yes: Wheezes Gastrointestinal: Yes: WNL Renal/: Yes: WNL Musculoskeletal: Yes: Muscle Weakness Extremities: Yes: WNL Edema: No Peripheral Pulses WNL: Yes Integumentary: Yes: Pressure Ulcer Wound/Incision: Yes: Dressing Dry and Intact Neurological: Yes: WNL ...Motor Strength: WNL Psychiatric: Yes: WNL Labs: CBC, BMP 08/08/17 05:05 08/08/17 05:05 Discharge Summary Reason For Visit: OBSTRUCTIVE CHRONIC BRONCHITIS Current Active Problems Acute on chronic respiratory failure with hypoxia and hypercapnia (Acute) COPD exacerbation (Acute) Hypercapnic respiratory failure (Acute) Procedures: Principal: CXR Hospital Course: ADMITTED ASTHMA EXACERBATION, IV STEROIDS, NEBS RESP SUPPORT GIVEN, CHANGE TO PO PREDNISONE WITH HOME HEALTH AID. F/U OUT PATIENT Condition: Fair - Instructions Diet, Activity, Other Instructions: SEE DR BROOKS IN 1 WEEK FOR F/U [facility] Disposition: VNS/HOME HEALTH CARE - Home Medications Comprehensive Discharge Medication List: Ambulatory Orders Albuterol 0.083% Nebulizer Jasmin [Ventolin 0.083%] 1 neb NEB QID 08/05/17 Memantine HCl/Donepezil HCl [Namzaric 28 mg-10 mg Capsule] 1 each PO DAILY 08/05 Montelukast Na [Singulair -] 10 mg PO HS 08/05/17
[2017-08-08 12:46] LABS: PLATELET COUNT 255 K/MM3 (134-434)
[2017-08-08 13:57] VITALS: BP 144/71; PULSE 81; TEMP 98.9
[2017-08-09 06:06] LABS: SERUM IRON SATURATION 9 % (15-55); TOTAL IRON BINDING CAPACITY 237 ug/dL (250-450); UIBC 215 ug/dL (118-369)
[2017-08-14 09:50] LABS: ALBUMIN 2.7 g/dL (2.9-4.4); ALPHA-1-GLOBULINS 0.3 g/dL (0.0-0.4); ALPHA-2-GLOBULINS 0.8 g/dL (0.4-1.0); BETA GLOBULINS 0.9 g/dL (0.7-1.3)
== END 2017-08-08 17:23 | disposition home health service (06) | DRG 189 ==
LOC: JER 08:33 → JERBED 10:41 → J4W 20:30
PROVIDERS: ADMIT Family Medicine; ATTEND Family Medicine
DX: J96.22 Acute and chronic respiratory failure with hypercapnia (principal); L89.893 Pressure ulcer of other site, stage 3; J44.1 Chronic obstructive pulmonary disease with (acute) exacerbation; F03.90 Unspecified dementia, unspecified severity, without behavioral disturbance, psychotic disturbance, mood disturbance, and anxiety; J96.21 Acute and chronic respiratory failure with hypoxia; E11.9 Type 2 diabetes mellitus without complications; F32.9 Major depressive disorder, single episode, unspecified; H40.9 Unspecified glaucoma; I73.9 Peripheral vascular disease, unspecified; Z99.81 Dependence on supplemental oxygen; H54.8 Legal blindness, as defined in USA; D63.8 Anemia in other chronic diseases classified elsewhere
CPT/HCPCS: 36415; 71010-TC; 80053; 81003; 81015; 82550; 82553; 82607; 82728; 82747; 82803; 83540; 83550; 83605; 84155; 84156; 84157; 84165; 84439; 84443; 84484; 85014; 85025; 85384; 85610; 85730; 86850; 86900; 86901; 87040; 87086; 93005; 93010; 94640; 97116-GP; 97161-GP; 99284-25; J1644

== ENCOUNTER 2017-09-22 09:06 | Inpatient (IN) | payer OTHER ==
--- NOTE | 2017-09-22 09:39 | PDOC ---
History of Present Illness - General Chief Complaint: Shortness of Breath Stated Complaint: SHORTNESS OF BREATH Time Seen by Provider: 09/22/17 09:28 Past History - Past Medical History Allergies/Adverse Reactions: Allergies Allergy/AdvReac Type Severity Reaction Status Date / Time epinephrine Allergy Mild Itching Verified 09/22/17 09:07 Home Medications: Ambulatory Orders Albuterol 0.083% Nebulizer Jasmin [Ventolin 0.083%] 1 neb NEB QID 09/22/17 Ferrous Sulfate 325 mg PO BID 09/22/17 Memantine HCl/Donepezil HCl [Namzaric 28 mg-10 mg Capsule] 1 each PO DAILY 09/22 Montelukast Sodium [Singulair] 10 mg PO DAILY 09/22/17 Anemia: No Asthma: Yes (has home o2 PRN) Cancer: No Cardiac Disorders: No CVA: No COPD: Yes CHF: No Dementia: Yes (short term) Diabetes: No GI Disorders: Yes (constipation) Disorders: No HTN: No Hypercholesterolemia: No Liver Disease: No Psychiatric Problems: Yes (depression) Seizures: No Thyroid Disease: No - Surgical History Abdominal Surgery: No Appendectomy: No Cardiac Surgery: No Cholecystectomy: No Lung Surgery: No Neurologic Surgery: No Orthopedic Surgery: No - Immunization History Immunization Up to Date: Yes - Suicide/Smoking/Psychosocial Hx Smoking Status: No Smoking History: Never smoked Have you smoked in the past 12 months: No Number of Cigarettes Smoked Daily: 0 Hx Alcohol Use: No Drug/Substance Use Hx: No Substance Use Type: None Hx Substance Use Treatment: No *Physical Exam - Vital Signs Last Vital Signs Temp Pulse Resp BP Pulse Ox 95.7 F L 88 22 182/92 100 09/22/17 09:08 09/22/17 09:32 09/22/17 09:08 09/22/17 09:08 09/22/17 09:32 *DC/Admit/Observation/Transfer - Referrals Referrals: Gretel Condon MD [Primary Care Provider] - - Patient Instructions - Post Discharge Activity
--- NOTE | 2017-09-22 09:53 | PDOC ---
Attending Attestation - HPI HPI: 09/22/17 10:30 Pt is a 86 yo F with a PMHx of Asthma, DM, Dementia, Depression, Glaucoma, PVD, COPD who presents to the ED BIBA with generalized weakness ,cough and SOB for the past 5 days. As per family, patient has been taking at home nebulizers with no relief and presents to the ED for further evaluation. Upon evaluation, patient's vital signs significant for 95.7 rectal temperature. Allergies: epinephrine Past surgical history: None Social history: None PCP: Dr. Condon - Medical Decision Making 09/22/17 10:31 Documentation prepared by Brittany Lees, acting as center medical and lab director for Joanne Prado MD <Brittany Lees - Last Filed: 09/22/17 11:46> - Resident Resident Name: Partha Molina - ED Attending Attestation I have performed the following: I have examined & evaluated the patient, The case was reviewed & discussed with the resident, I agree w/resident's findings & plan, Exceptions are as noted - Physicial Exam PE: GENERAL: Awake, alert, and oriented to person and place. +Tachypnea, labored breathing. HEAD: No signs of trauma EYES: PERRLA, EOMI, sclera anicteric, conjunctiva clear ENT: Auricles normal inspection, hearing grossly normal, nares patent, oropharynx clear without exudates. Dry mucosa NECK: Normal ROM, supple, no lymphadenopathy, JVD, or masses LUNGS: Breath sounds equal, clear to auscultation bilaterally. No wheezes, and no crackles HEART: Regular rate and rhythm, normal S1 and S2, no murmurs, rubs or gallops ABDOMEN: Soft, nontender, normoactive bowel sounds. No guarding, no rebound. No masses EXTREMITIES: Normal range of motion, no edema. No clubbing or cyanosis. No cords, erythema, or tenderness NEUROLOGICAL: Cranial nerves II through XII grossly intact. Motor and sensation intact. SKIN: Warm, Dry, normal turgor, no rashes or lesions noted. - Medical Decision Making Pt ill-appearing on eval, with diffuse wheezing, tachypnea. Will treat with nebs , abx and steroids, plan for admission. <Joanne Prado - Last Filed: 09/29/17 09:48>
--- NOTE | 2017-09-22 09:56 | PDOC ---
History of Present Illness - General Chief Complaint: Shortness of Breath Stated Complaint: SHORTNESS OF BREATH Time Seen by Provider: 09/22/17 09:28 - History of Present Illness Initial Comments: 09/22/17 09:46 87 yo F with h/o DM, PVD, asthma, COPD, Dementia, macular degeneration, who presents with SOB, cough, and fatigue. Pt. reports increased weakness this AM. Has been experieinced increased SOB, Ortiz, pleuritic chest pain, and increased non productive cough over the past 5 days ( 09/17/17). Home 02 2 liters, but increased to 3 liters over the past 3 days. Decreased ambulation with cane over the past week. Up with assistance (home health aide) to bathroom. Denies F/C, N /V, hemoptysis, swelling, abdominal pain, urinary complaints, diarrhea, constipation, lightheadedness, LOC, sensory changes. Daily duoneb use Q4 hours albuterol. Denies h//o CAD/ FL, stent placement, CABG. Dr. Condon PMD. Scheduled to see Dr. Braga tomorrow. Flu vaccine 6 months ago. Denies recent sick contacts. Recent [facility] admission for acute hypoxic, hypercarbnic resp failure ( 08/05/17-08/08/17). Denies h/o ICU admission or intubation. NKDA. Past History - Past Medical History Allergies/Adverse Reactions: Allergies Allergy/AdvReac Type Severity Reaction Status Date / Time epinephrine Allergy Mild Itching Verified 09/22/17 09:07 Home Medications: Ambulatory Orders Albuterol 0.083% Nebulizer Jasmin [Ventolin 0.083%] 1 neb NEB QID 09/22/17 Ferrous Sulfate 325 mg PO BID 09/22/17 Memantine HCl/Donepezil HCl [Namzaric 28 mg-10 mg Capsule] 1 each PO DAILY 09/22 Montelukast Sodium [Singulair] 10 mg PO DAILY 09/22/17 Anemia: No Asthma: Yes (has home o2 PRN) Cancer: No Cardiac Disorders: No CVA: No COPD: Yes CHF: No Dementia: Yes (short term) Diabetes: No GI Disorders: Yes (constipation) Disorders: No HTN: No Hypercholesterolemia: No Liver Disease: No Psychiatric Problems: Yes (depression) Seizures: No Thyroid Disease: No - Surgical History Abdominal Surgery: No Appendectomy: No Cardiac Surgery: No Cholecystectomy: No Lung Surgery: No Neurologic Surgery: No Orthopedic Surgery: No - Immunization History Immunization Up to Date: Yes - Suicide/Smoking/Psychosocial Hx Smoking Status: No Smoking History: Never smoked Have you smoked in the past 12 months: No Number of Cigarettes Smoked Daily: 0 Hx Alcohol Use: No Drug/Substance Use Hx: No Substance Use Type: None Hx Substance Use Treatment: No Review of Systems - Review of Systems Comments:: 09/22/17 09:46 GENERAL/CONSTITUTIONAL:+ Fatigue. No fever or chills. HEAD, EYES, EARS, NOSE AND THROAT: No change in vision. No ear pain or discharge. No sore throat.- CARDIOVASCULAR: + chest pain and shortness of breath RESPIRATORY: +cough, wheezing. No hemoptysis. GASTROINTESTINAL: No nausea, vomiting, diarrhea or constipation. GENITOURINARY: No dysuria, frequency, or change in urination. MUSCULOSKELETAL: No joint or muscle swelling or pain. No neck or back pain. SKIN: No rash NEUROLOGIC: No headache, vertigo, loss of consciousness, or change in strength/ sensation. ENDOCRINE: No increased thirst. No abnormal weight change HEMATOLOGIC/LYMPHATIC: No anemia, easy bleeding, or history of blood clots. ALLERGIC/IMMUNOLOGIC: No hives or skin allergy. *Physical Exam - Vital Signs Last Vital Signs Temp Pulse Resp BP Pulse Ox 95.7 F L 88 22 182/92 100 09/22/17 09:08 09/22/17 09:32 09/22/17 09:08 09/22/17 09:08 09/22/17 09:32 - Physical Exam Comments: 09/22/17 09:46 GENERAL: Awake, alert, and fully oriented, in no acute distress HEAD: No signs of trauma, normocephalic, atraumatic EYES: PERRLA, EOMI, sclera anicteric, conjunctiva clear ENT: Hearing grossly normal, nares patent, oropharynx clear without exudates. Moist mucosa NECK: Normal ROM, supple, no lymphadenopathy, JVD, or masses LUNGS: BL diffuse exp/insp rhonci and BL rales at lung bases. HEART: Regular rate and rhythm, normal S1 and S2, no murmurs, rubs or gallops, peripheral pulses normal and equal bilaterally. EXTREMITIES : Normal inspection, Normal range of motion, no edema. No clubbing or cyanosis. SKIN: Warm, Dry, normal turgor, no rashes or lesions noted. ED Treatment Course - LABORATORY CBC & Chemistry Diagram: 09/22/17 09:41 09/22/17 09:41 Medical Decision Making - Medical Decision Making 09/22/17 10:07 87 yo F with h/o DM, PVD, asthma, COPD, Dementia, macular degeneration, arrives EMS w/ increased SOB, Ortiz, pleuritic chest pain, and increased non productive cough over the past 5 days ( 09/17/17). Increased home O2 requirement, duoneb use , and decreased ambulation x 1 week Denies F/C, N/V, hemoptysis, swelling, abdominal pain, urinary complaints, diarrhea, constipation, lightheadedness, LOC , sensory changes. Denies h/o CAD/ FL, stent placement, CABG. Dr. Condon PMD. Flu vaccine 6 months ago. Recent [facility] admission for acute hypoxic, hypercarbnic resp failure ( 08/05/17-08/08/17). Denies h/o ICU admission or intubation. NKDA. Physical exam with insp/exp rhonci and rales at BL Lung bases. Patient with obstructive lung disease, possible COPD and asthma exaccerbation. Will also consider PNA, URI, and influenza in setting opf acute on chronic resp. complaints. ED Course: CBC, CMP, Cardiac Profile, UA, PT/INR EKG, CXR Duonebs, Methylpred 125mg 09/22/17 11:32 CBC, CMP: Unremarkable CXR: No acute cardiopulm pathology 09/22/17 11:35 Azithromycin IV 09/22/17 11:37 Dr. Condon control electrician service contacted. 09/22/17 11:47 2 Magnesium EKG: Abnormal rhythm with TWI leads III, AvF. Absent GILLES, STD. RBBB. 09/22/17 12:12 Dr Condon control electrician service contacted. Per Dr. Condon BNP, Echo. Consulted Dr. Funk and Dr. Braga. Admit to Dr. Condon tele *DC/Admit/Observation/Transfer Diagnosis at time of Disposition: SOB (shortness of breath) - Discharge Dispostion Disposition: HOME - Referrals Referrals: Gretel Condon MD [Primary Care Provider] - - Patient Instructions - Post Discharge Activity
[2017-09-22 10:02] LABS: BASO % 0.6 % (0-2.0); EOS % 0.6 % (0-4.5); HEMATOCRIT 39.3 % (32.4-45.2); HEMOGLOBIN 12.3 GM/dL (10.7-15.3); MCH 27.9 pg (25.7-33.7); MCHC 31.4 g/dl (32.0-36.0); MONO % 5.3 % (3.8-10.2); NEUT % 84.5 % (42.8-82.8); PLATELET COUNT 238 K/MM3 (134-434); RBC 4.42 M/mm3 (3.60-5.2); RDW 15.9 % (11.6-15.6); WHITE BLOOD COUNT 11.4 K/mm3 (4.0-10.0)
[2017-09-22] MEDS ORDERED: methylPREDNISolone NA SUCC 40 MG/1 ML VIAL IVPUSH ONE ×2 (10:05→11:30)
[2017-09-22 10:14] LABS: PROTHROMBIN TIME (PATIENT) 11.3 SEC (9.98-11.88)
[2017-09-22 10:17] LABS: ACTIVATED PTT 38.3 SECONDS (26.9-34.4)
[2017-09-22 10:23] LABS: ALBUMIN 3.2 g/dl (3.4-5.0); ANION GAP 8 (8-16); BILIRUBIN,TOTAL 0.2 mg/dL (0.2-1.0); BLOOD UREA NITROGEN 30 mg/dL (7-18); CALCIUM 8.1 mg/dL (8.5-10.1); CHLORIDE 103 mmol/L (98-107); CO2 32 mmol/L (21-32); GLUCOSE,RANDOM 127 mg/dL (74-106); POTASSIUM 4.5 mmol/L (3.5-5.1); SGOT/AST 30 U/L (15-37); SGPT/ALT 31 U/L (12-78); SODIUM 143 mmol/L (136-145); TOT PROT 7.7 g/dl (6.4-8.2)
[2017-09-22 10:26] LABS: ALK PHOS 146 U/L (45-117)
[2017-09-22] MEDS ORDERED: methylPREDNISolone NA SUCC 125 MG/2 ML VIAL ONE ×2 (10:35→12:16)
[2017-09-22] MEDS ORDERED: ALBUTEROL SO4 2.5/IPRATROPIUM 0.5 INH SOL 3 ML VIAL.NEB. NEB ONE (10:35)
[2017-09-22] MEDS: ALBUTEROL SO4 2.5/IPRATROPIUM 0.5 INH SOL 3 ML VIAL.NEB. NEB SCH ×3 (10:55→20:50)
[2017-09-22] MEDS ORDERED: AZITHROMYCIN IVPB 500 MG in DEXTROSE 5%-WATER - 250 ML IVPB ONE (11:34)
[2017-09-22] MEDS ORDERED: MAGNESIUM SULF 50% (8.12 MEQ/2 ML-1 GM VIAL) IVPB ONE (11:46)
[2017-09-22] MEDS ORDERED: AZITHROMYCIN IVPB 250 ML IVPB ONE (12:16)
[2017-09-22] MEDS ORDERED: MAGNESIUM SULF 50% (8.12 MEQ/2 ML-1 GM VIAL) ONE (12:16)
--- NOTE | 2017-09-22 12:42 | EKG ---
Test Reason : Blood Pressure : / mmHG Vent. Rate : 084 BPM Atrial Rate : 084 BPM P-R Int : 194 ms QRS Dur : 104 ms QT Int : 404 ms P-R-T Axes : 085 069 080 degrees QTc Int : 477 ms NORMAL SINUS RHYTHM SEPTAL INFARCT (CITED ON OR BEFORE 10-MAY-2017) ABNORMAL ECG WHEN COMPARED WITH ECG OF 05-AUG-2017 09:36, T WAVE VARIATION Confirmed by SAM TUCKER, ESTEBAN ([id number]) on 09/22/2017 12:41:54 PM Referred By: Confirmed By:ESTEBAN VARGAS MD
--- NOTE | 2017-09-22 15:32 | CON.CARD ---
Consult Consult Specialty:: Cardiology Reason for Consultation:: Elevated TP - History of Present Illness History of Present Illness: 87 F with COPD and Asthma on home O2, several admissions for asthma exacerbation in the past. Mildly elevated TP levels in the past and normal LV function on echocardiogram. She is admitted with few days of cough and wheezing with increased shortness of breath and this morning was less alert and therefore brought to the ER. There are no sick contacts. Her daughter is with her and reports decreased food intake. Her ECG is normal. 1st troponin is minimally elevated. The patient is sleeping but aroused and does not offer complaints of chest pain. 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 (legally blind due to glaucoma) Cardio/Vascular: Yes: HTN Pulmonary: Yes: Asthma, COPD Musculoskeletal: Yes: Other (rt leg wound - receiving wound care) - Alcohol/Substance Use Hx Alcohol Use: No - Smoking History Smoking history: Never smoked Have you smoked in the past 12 months: No Aproximately how many cigarettes per day: 0 - Social History Usual Living Arrangement: [facility] ADL: Family Assistance History of Recent Travel: No Home Medications - Allergies Allergies/Adverse Reactions: Allergies Allergy/AdvReac Type Severity Reaction Status Date / Time epinephrine Allergy Mild Itching Verified 09/22/17 09:07 - Home Medications Home Medications: Ambulatory Orders Albuterol 0.083% Nebulizer Jasmin [Ventolin 0.083%] 1 neb NEB QID 09/22/17 Ferrous Sulfate 325 mg PO BID 09/22/17 Memantine HCl/Donepezil HCl [Namzaric 28 mg-10 mg Capsule] 1 each PO DAILY 09/22 Montelukast Sodium [Singulair] 10 mg PO DAILY 09/22/17 Review of Systems Unable to obtain ROS, reason: due to dementia Vital Signs: Vital Signs Temperature 95.7 F L 09/22/17 09:08 Pulse Rate 86 09/22/17 11:30 Respiratory Rate 26 H 09/22/17 11:30 Blood Pressure 168/70 09/22/17 11:30 O2 Sat by Pulse Oximetry (%) 100 09/22/17 11:30 Constitutional: Yes: No Distress, Cachectic Eyes: Yes: Conjunctiva Clear HENT: Yes: Atraumatic, Normocephalic Neck: Yes: Supple, Trachea Midline Respiratory: Yes: Regular, Diminished (poor effort), Wheezes Gastrointestinal: Yes: Normal Bowel Sounds, Soft JVD: No Carotid Bruit: No Heart Sounds: Yes: S1, S2 Murmur: No: Systolic Murmur, Diastolic Murmur Edema: Yes Edema: LLE: Trace, RLE: Trace - Other Data Labs, Other Data: CBC, BMP 09/22/17 09:41 09/22/17 09:41 INR, PTT INR 1.00 (0.82-1.09) 09/22/17 09:41 Troponin, BNP 09/22/17 09:41 Troponin I 0.06 H Troponin, BNP 09/22/17 09:41 Troponin I 0.06 H NSR nl axis and interval no STT changes. Imaging - Results Chest X-ray: Image Reviewed (Clear lungs) Problem List - Problems (1) Shortness of breath Code(s): R06.02 - SHORTNESS OF BREATH (2) Acute hypoxemic respiratory failure Code(s): J96.01 - ACUTE RESPIRATORY FAILURE WITH HYPOXIA Assessment/Plan 87 F with COPD and asthma on home O2. She is admitted with wheezing, SOB and cough. Likely Asthma exacerbation with possible infection possibly viral. CXR shows no infiltrates. She is started on steroids and IV Abx. Troponin level is minimally elevated with no significant findings on ECG. -Follow up Troponin level. Possibly due to demand mediated ischemia. No cardiac intervention is indicated. -Check Flu swab. Consider pulmonary consultation. -Avoid beta blockers in setting of active wheezing.
--- NOTE | 2017-09-22 16:33 | PN ---
Progress Note (short form) - Note Progress Note: PULMONARY CONSULTATION DICTATED 09/22/17 IMP ACUTE ON CHRONIC HYPOXEMIC RESPIRATORY FAILURE COPD EXACERBATION LIKELY URI PVD DEMENTIA HTN MACULAR DEGENERATION PLAN IV STEROIDS INHALED BRONCHODILATORS ABX CHECK ABG CULTURES O2 NIPPV NEEDED DR FONSECA Problem List - Problems (1) Shortness of breath Code(s): R06.02 - SHORTNESS OF BREATH (2) Acute on chronic respiratory failure with hypoxia and hypercapnia Code(s): J96.21 - ACUTE AND CHRONIC RESPIRATORY FAILURE WITH HYPOXIA; J96.22 - ACUTE AND CHRONIC RESPIRATORY FAILURE WITH HYPERCAPNIA (3) Asthma exacerbation in COPD Code(s): J44.1 - CHRONIC OBSTRUCTIVE PULMONARY DISEASE W (ACUTE) EXACERBATION; J45.901 - UNSPECIFIED ASTHMA WITH (ACUTE) EXACERBATION (4) Asthma-COPD overlap syndrome Code(s): J44.9 - CHRONIC OBSTRUCTIVE PULMONARY DISEASE, UNSPECIFIED (5) Bronchitis Code(s): J40 - BRONCHITIS, NOT SPECIFIED ACUTE OR CHRONIC (6) COPD exacerbation Code(s): J44.1 - CHRONIC OBSTRUCTIVE PULMONARY DISEASE W (ACUTE) EXACERBATION (7) Chronic ulcer of right foot Code(s): L97.519 - NON-PRS CHRONIC ULCER OTH PRT RIGHT FOOT W UNSP SEVERITY Qualifiers: Non-pressure ulcer stage: limited to breakdown of skin Qualified Code(s): L97.511 - Non-pressure chronic ulcer of other part of right foot limited to breakdown of skin (8) Hypertension Code(s): I10 - ESSENTIAL (PRIMARY) HYPERTENSION (9) Hypoxia Code(s): R09.02 - HYPOXEMIA (10) Peripheral vascular disease Code(s): I73.9 - PERIPHERAL VASCULAR DISEASE, UNSPECIFIED (11) Acute and chronic respiratory failure with hypoxia Code(s): J96.21 - ACUTE AND CHRONIC RESPIRATORY FAILURE WITH HYPOXIA
--- NOTE | 2017-09-22 20:19 | CONS ---
PULMONARY CONSULTATION DATE OF CONSULTATION: 09/22/2017 REFERRING PHYSICIAN: Gretel Condon MD HISTORY OF PRESENT ILLNESS: The patient is an 87-year-old female known to me in previous hospitalization with past medical history of advanced COPD on home O2, asthma, peripheral vascular disease, diabetes, dementia, macular degeneration, blindness, who presented to [facility] ER with complaint of 4-5 day history of increasing shortness of breath; cough, nonproductive; and chills. Patient uses at O2 at home, but over the past few days, increased from 2 L to 3 L. She also took frequent albuterol treatments without any improvement. According to the patient's daughter, there was no fever. There were chills. There was no chest pain or palpitations. No hemoptysis. She is a nonsmoker. There is no history of occupational exposure to chemicals or fumes. She was recently hospitalized in December 2016 secondary to hypercapnic, hypoxemic respiratory failure. At the time, she was started on inhaled bronchodilators and O2 and BiPAP with good response. In the emergency room, patient was treated with inhaled bronchodilators and steroids with some improvement. PAST MEDICAL HISTORY: Again includes asthma/COPD, dementia, macular degeneration, blindness, peripheral vascular disease, diabetes. REVIEW OF SYSTEMS: Positive shortness of breath. Positive cough. Positive chills. Positive sputum. No chest pain. No palpitations. No hemoptysis. No abdominal pain. CURRENT MEDICATIONS: Include what she was given in the ER: Solu-Medrol, Zithromax, magnesium sulfate, and DuoNeb. PHYSICAL EXAMINATION: General: The patient is an elderly female, well developed, thin, awake, alert, dyspneic. Vital Signs: She is afebrile. Heart rate is 76, blood pressure 144/71, respiratory rate is 22, O2 saturation is 96% on 2 L. HEENT: Normocephalic, atraumatic. Neck: Supple. Heart: Regular. S1, S2. Chest: Diffuse bilateral expiratory and inspiratory wheezes. Abdomen: Soft. Bowel sounds are positive. Extremities: No signs of edema. LABORATORY DATA: Chemistries: BUN is 30, creatinine is 1.0. Blood gases pending. WBC is 11.4, hemoglobin 12.3, hematocrit 39.3, platelet count 238,000. Chest x-ray reveals no infiltrates and no effusions. IMPRESSION: [id number] hypoxemic respiratory failure secondary to: 1. Advanced chronic obstructive pulmonary disease with exacerbation. 2. Likely upper respiratory tract infection. 3. Dementia. 4. Peripheral vascular disease. 5. Macular degeneration. PLAN: IV steroids, inhaled bronchodilators, supplemental O2. Check arterial blood gas. BiPAP if the patient develops increasing respiratory distress or worsening hypercapnia. Obtain cultures. Antibiotic therapy. MARILY FONSECA M.D. [id number]
[2017-09-22] MEDS: methylPREDNISolone NA SUCC 125 MG/2 ML VIAL IVPUSH SCH (22:39)
[2017-09-22 22:53] LABS: ARTERIAL BLOOD GAS BASE EXCESS 1.2 meq/l (-2-2)
[2017-09-22 22:57] LABS: ALLENS TEST POSITIVE
[2017-09-22 23:01] LABS: ARTERIAL BLD GAS O2 SATURATION 99.6 % (90-98.9); ARTERIAL BLOOD GAS pH 7.11 (7.35-7.45)
--- NOTE | 2017-09-23 00:37 | HP ---
Admitting History and Physical - Primary Care Physician PCP: Shaan Montiel - Admission Chief Complaint: Cough, Wheezing, increased SOB History of Present Illness: This is a 87 y/o woman with a PMHx of Dementia, Asthma, COPD (on O2), HTN, Glaucoma, PVD. Who presents to the ED with family for cough, wheezing and increased SOB x 5 days. Per ED records: As per family, patient has been taking at home nebulizers with no relief and presents to the ED for further evaluation. Upon evaluation, patient's vital signs significant for 95.7 rectal temperature. 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 (legally blind due to glaucoma) Cardiovascular: Yes: HTN Pulmonary: Yes: Asthma, COPD, O2 Dependent Psych: Yes: Depression Musculoskeletal: Yes: Other (rt leg wound - receiving wound care) - Smoking History Smoking history: Never smoked Have you smoked in the past 12 months: No Aproximately how many cigarettes per day: 0 - Alcohol/Substance Use Hx Alcohol Use: No - Social History ADL: Family Assistance History of Recent Travel: No Home Medications - Allergies Allergies/Adverse Reactions: Allergies Allergy/AdvReac Type Severity Reaction Status Date / Time epinephrine Allergy Mild Itching Verified 09/22/17 09:07 - Home Medications Home Medications: Ambulatory Orders Albuterol 0.083% Nebulizer Jasmin [Ventolin 0.083%] 1 neb NEB QID 09/22/17 Ferrous Sulfate 325 mg PO BID 09/22/17 Memantine HCl/Donepezil HCl [Namzaric 28 mg-10 mg Capsule] 1 each PO DAILY 09/22 Montelukast Sodium [Singulair] 10 mg PO DAILY 09/22/17 Family Disease History - Family Disease History Family History: Unable to Obtain Review of Systems Unable to obtain ROS, reason: Dementia Physical Examination Vital Signs: Vital Signs Temperature 98.6 F 09/23/17 00:03 Pulse Rate 77 09/23/17 00:03 Respiratory Rate 22 09/23/17 00:21 Blood Pressure 115/52 09/23/17 00:03 O2 Sat by Pulse Oximetry (%) 98 09/23/17 00:21 Constitutional: Yes: No Distress, Calm, Cachectic Eyes: Yes: Other (R- eye blindness) HENT: Yes: WNL, Atraumatic, Normocephalic Neck: Yes: WNL, Supple, Trachea Midline Cardiovascular: Yes: Regular Rate and Rhythm, S1, S2 Respiratory: Yes: On BiPap, Rhonchi, Wheezes Gastrointestinal: Yes: Normal Bowel Sounds, Soft ...Rectal Exam: Yes: Deferred Renal/: Yes: Incontinence Breast(s): Yes: WNL Musculoskeletal: Yes: WNL Extremities: Yes: WNL Edema: No Peripheral Pulses WNL: Yes Integumentary: Yes: Other (vascular ulcer to RLE) Wound/Incision: Yes: Dressing Dry and Intact (RLE) Neurological: Yes: Lethargy ...Motor Strength: WNL (passive) Labs: CBC, BMP 09/22/17 09:41 09/22/17 09:41 Laboratory Results - last 24 hr 09/22/17 09/22/17 09/22/17 09:30 09:41 09:41 WBC 11.4 H RBC 4.42 Hgb 12.3 D Hct 39.3 D MCV 89.0 MCH 27.9 MCHC 31.4 L RDW 15.9 H Plt Count 238 MPV 8.0 D Neutrophils % 84.5 H Lymphocytes % 9.0 D Monocytes % 5.3 D Eosinophils % 0.6 D Basophils % 0.6 PT with INR 11.30 INR 1.00 PTT (Actin FS) 38.3 H Puncture Site ABG pH ABG pCO2 at Pt Temp ABG pO2 at Pt Temp ABG HCO3 ABG O2 Sat (Measured) ABG O2 Content ABG Base Excess Darren Test O2 Delivery Device Oxygen Flow Rate Vent Mode Vent Rate Pressure Support Vent Sodium Potassium Chloride Carbon Dioxide Anion Gap BUN Creatinine Creat Clearance w eGFR Random Glucose Lactic Acid 0.9 Calcium Total Bilirubin AST ALT Alkaline Phosphatase Creatine Kinase Troponin I Total Protein Albumin Blood Type Antibody Screen 09/22/17 09/22/17 09/22/17 09:41 09:50 22:50 WBC RBC Hgb Hct MCV MCH MCHC RDW Plt Count MPV Neutrophils % Lymphocytes % Monocytes % Eosinophils % Basophils % PT with INR INR PTT (Actin FS) Puncture Site Right brachial ABG pH 7.11 L* D ABG pCO2 at Pt Temp 112.0 H* D ABG pO2 at Pt Temp 429.0 H* ABG HCO3 33.7 H ABG O2 Sat (Measured) 99.6 H* ABG O2 Content 16.5 ABG Base Excess 1.2 Darren Test Positive O2 Delivery Device Norebreather Oxygen Flow Rate 100 Vent Mode Vent Rate Pressure Support Vent Sodium 143 Potassium 4.5 Chloride 103 Carbon Dioxide 32 Anion Gap 8 BUN 30 H Creatinine 1.0 Creat Clearance w eGFR 52.69 Random Glucose 127 H Lactic Acid Calcium 8.1 L Total Bilirubin 0.2 AST 30 ALT 31 Alkaline Phosphatase 146 H Creatine Kinase 132 Troponin I 0.06 H Total Protein 7.7 Albumin 3.2 L Blood Type A POSITIVE Antibody Screen Negative 09/23/17 00:35 WBC RBC Hgb Hct MCV MCH MCHC RDW Plt Count MPV Neutrophils % Lymphocytes % Monocytes % Eosinophils % Basophils % PT with INR INR PTT (Actin FS) Puncture Site Right radial ABG pH 7.15 L* ABG pCO2 at Pt Temp 97.8 H* ABG pO2 at Pt Temp 117.0 H D ABG HCO3 32.9 H ABG O2 Sat (Measured) 98.2 ABG O2 Content 15.0 ABG Base Excess 1.9 Darren Test Positive O2 Delivery Device Bipap Oxygen Flow Rate 50% Vent Mode S/t Vent Rate 18 Pressure Support Vent 14/4 Sodium Potassium Chloride Carbon Dioxide Anion Gap BUN Creatinine Creat Clearance w eGFR Random Glucose Lactic Acid Calcium Total Bilirubin AST ALT Alkaline Phosphatase Creatine Kinase Troponin I Total Protein Albumin Blood Type Antibody Screen Intake & Output 09/20/17 09/21/17 09/22/17 09/23/17 23:59 23:59 23:59 23:59 Intake Total 111 Balance 111 Weight 58.967 kg 57.805 kg Current Medications Generic Name Dose Route Start Last Admin Trade Name Freq PRN Reason Stop Dose Admin Albuterol Sulfate 1 amp 09/22/17 16:34 Ventolin 0.083% Nebulizer Soln - NEB Q4H PRN SHORT OF BREATH/WHEEZING Albuterol/Ipratropium 1 amp 09/22/17 20:00 09/22/17 20:50 Duoneb - NEB 1 amp RQID TOMMY Administration Levofloxacin 500 mg in 100 mls @ 100 mls/hr 09/23/17 10:00 Levaquin 500 Mg Premixed Ivpb - IVPB DAILY TOMMY Methylprednisolone Sodium Succinate 60 mg 09/22/17 21:00 09/22/17 22:39 Solu-Medrol - IVPUSH 60 mg Q6H-IV TOMMY Administration Imaging - Results Chest X-ray: Report Reviewed, Image Reviewed EKG: Image Reviewed Assessment/Plan This is a 87 y/o woman with a PMHx of: Dementia, Asthma, COPD (on O2), HTN, Glaucoma, Legally Blind, PVD. Admitted Telemetry for Acute on Chronic Hypoxemic Respiratory Failure, COPD Exacerbation Problems: Acute on Chronic Hypoxemic Respiratory Failure Acute COPD Exacerbation likely URI PVD Dementia HTN Macular Degeneration Plan: 1. Pulm: Acute on Chronic Hypoxemic Resp. Failure, COPD Exacerbation secondary to URI. ABG- CO2 retention 112, placed on BIPAP, repeat ABG 1Hr post placement CO2- 97 adjusted settings accordingly maintain spo2 => 95%, Chest xray- no active disease, Pulm following, continue steroids, continue duonebs, supportive care for URI. ABG in am 2. PVD: Appreciate Vascular consult, dressing changes. 3. Neuro: Dementia, Continue home meds, Fall precautions 4. Card: Continue home meds with parameters, monitor renal function, continue tele monitoring- serial enzymes- 1st set slightly elevated- likely Demand Ischemia, Cardiology following 5. Macular Degeneration: Will continue to monitor and treat with interventions accordingly, Fall precautions 6. Straight Cath now- to obtain UA and urine culture r/o UTI FEN Replete lytes prn NPO for now, until pt is lucid DVT Prophylaxis SCDs Heparin SQ Code Status: Full Code Dispo: Requires Inpatient Care Visit type - Emergency Visit Emergency Visit: Yes ED Registration Date: 09/22/17 Care time: The patient presented to the Emergency Department on the above date and was hospitalized for further evaluation of their emergent condition. - New Patient This patient is new to me today: Yes Date on this admission: 09/23/17 - Critical Care Critical Care patient: No
[2017-09-23 00:56] LABS: ARTERIAL BLD GAS O2 SATURATION 98.2 % (90-98.9); ARTERIAL BLOOD GAS BASE EXCESS 1.9 meq/l (-2-2)
[2017-09-23 00:58] LABS: ALLENS TEST POSITIVE
[2017-09-23 01:06] LABS: ARTERIAL BLOOD GAS PCO2 97.8 mmHg (35-45); ARTERIAL BLOOD GAS pH 7.15 (7.35-7.45)
[2017-09-23] MEDS: ALBUTEROL SO4 0.083% IH SOL 2.5 MG/3 ML VIAL.NEB. NEB PRN (02:00)
[2017-09-23 02:02] LABS: URINE APPEARANCE SLCLOUDY; URINE BILIRUBIN NEGATIVE (NEGATIVE); URINE BLOOD 2+ (NEGATIVE); URINE COLOR YELLOW; URINE GLUCOSE (UA) 1+ (NEGATIVE); URINE KETONE NEGATIVE (NEGATIVE); URINE LEUK ESTERASE NEGATIVE (NEGATIVE); URINE NITRITE NEGATIVE (NEGATIVE); URINE UROBILINOGEN NEGATIVE mg/dL (0.2-1.0)
[2017-09-23 02:06] LABS: URINE PROTEIN 3+ (NEGATIVE)
[2017-09-23] MEDS: methylPREDNISolone NA SUCC 125 MG/2 ML VIAL IVPUSH SCH ×4 (02:11→22:10)
[2017-09-23 02:15] LABS: EPI CELLS RARE /HPF (FEW); URINE HYALINE CAST 37 /lpf; URINE MUCUS RARE
[2017-09-23 06:06] LABS: BASO % 0.3 % (0-2.0); EOS % 0.1 % (0-4.5); HEMATOCRIT 35.4 % (32.4-45.2); HEMOGLOBIN 11.3 GM/dL (10.7-15.3); LYMPH % 4.6 % (8-40); MCH 28.7 pg (25.7-33.7); MEAN CELL VOLUME 89.8 fl (80-96); MEAN PLT VOLUME 8.3 fl (7.5-11.1); MONO % 1.1 % (3.8-10.2); NEUT % 93.9 % (42.8-82.8); PLATELET COUNT 195 K/MM3 (134-434); RBC 3.95 M/mm3 (3.60-5.2); RDW 15.9 % (11.6-15.6); WHITE BLOOD COUNT 6.9 K/mm3 (4.0-10.0)
[2017-09-23 06:30] LABS: CHLORIDE 103 mmol/L (98-107); SODIUM 143 mmol/L (136-145)
[2017-09-23 06:31] LABS: ARTERIAL BLOOD GAS BASE EXCESS 1.8 meq/l (-2-2)
[2017-09-23 06:35] LABS: ALLENS TEST POSITIVE
[2017-09-23 06:39] LABS: ANION GAP 4 (8-16); BLOOD UREA NITROGEN 40 mg/dL (7-18); CALCIUM 8.3 mg/dL (8.5-10.1); CO2 36 mmol/L (21-32); CREATININE 1.2 mg/dL (0.55-1.02); GLUCOSE,RANDOM 146 mg/dL (74-106); PHOSPHOROUS 6.5 mg/dL (2.5-4.9)
[2017-09-23 06:41] LABS: ARTERIAL BLD GAS O2 SATURATION 99.8 % (90-98.9); ARTERIAL BLOOD GAS pH 7.14 (7.35-7.45)
[2017-09-23] MEDS: ALBUTEROL SO4 2.5/IPRATROPIUM 0.5 INH SOL 3 ML VIAL.NEB. NEB SCH ×4 (07:00→20:35)
[2017-09-23 07:55] VITALS: BMI 17.7
--- NOTE | 2017-09-23 08:16 | PN ---
Progress Note (short form) - Note Progress Note: NURSING STAFF CALLED TO REPORT PATIENT HAS BEEN SOB WITH 02 SAT 85% ON BIPAP, WITH ABG WORSENING. I SPOKE TO THE DAUGHTER OF THEO ASHBY , AND I DISCUSSED WITH AGNES THAT WE MAY NEED TO INTUBATE AND RULE OUT A PULMONARY EMBOLISM WITH A CT ANGIO OF LUNGS. AGNES HAS GIVEN PERMISSION FOR INTUBATION AND VENTILATOR USE FOR PULMONARY FAILURE AND TO HAVE A CT ANGIO DONE FOR PE WORKUP.
[2017-09-23] MEDS ORDERED: MIDAZOLAM HCL 2 MG/2 ML SINGLE DOSE VIAL ONE (08:38)
[2017-09-23] MEDS ORDERED: PROPOFOL 1,000,000 MCG/100 ML VIAL ONE ×2 (08:38→22:32)
[2017-09-23] MEDS: ALBUTEROL SO4 0.083% IH SOL 2.5 MG/3 ML VIAL.NEB. NEB SCH ×3 (09:00→09:30)
--- NOTE | 2017-09-23 09:07 | PROC ---
Intubation - Intubation Reason for Intubation: Respiratory Failure, Airway Protection Time of Intubation: 09:06 Intubation Method: orotracheal Blade used: Glidescope Tube Size (cm): 7.5 Tube position confirmed by: Direct visualization, CO2 detector, Chest x-ray, Breath sounds Breath Sounds after Intubation: equal Post Intubation Xray: Yes
[2017-09-23] MEDS: DOPAMINE 400 MG/D5W - 400,000 MCG/250 ML INFUS.BAG IVPB SCH (09:20)
[2017-09-23] MEDS ORDERED: methylPREDNISolone NA SUCC 125 MG/2 ML VIAL ONE (09:53)
[2017-09-23] MEDS ORDERED: NOREPINEPHRINE BITARTRATE 4 MG/4 ML ML IV ONE (09:56)
[2017-09-23] MEDS ORDERED: methylPREDNISolone NA SUCC 125 MG/2 ML VIAL IVPUSH ONE (10:02)
[2017-09-23] MEDS ORDERED: EPINEPHrine 1:10,000 (P-F SYR) 1 MG/10 ML DISP.SYRIN ONE (10:20)
--- NOTE | 2017-09-23 10:25 | PN ---
Progress Note (short form) - Note Progress Note: called Paola at 12:25am left a message on her cell to call back regarding mother 's current status and about ROSC efforts.
--- NOTE | 2017-09-23 10:44 | PN ---
Progress Note, Physician Chief Complaint: patient hypoxic on bipap-intubated, and transferred to icu the became pulseless - resucitated efforts started got 3 rounds of epi- atropine -central line placed then became bradycardia on pressors- dopamine cxr just taken - Current Medication List Current Medications: Active Medications Albuterol Sulfate (Ventolin 0.083% Nebulizer Soln -) 1 amp NEB Q4H PRN PRN Reason: SHORT OF BREATH/WHEEZING Last Admin: 09/23/17 02:00 Dose: 1 amp Albuterol/Ipratropium (Duoneb -) 1 amp NEB RQID TOMMY Last Admin: 09/23/17 07:00 Dose: 1 amp Levofloxacin (Levaquin 500 Mg Premixed Ivpb -) 500 mg in 100 mls @ 100 mls/hr IVPB DAILY TOMMY Dopamine HCl/Dextrose (Dopamine 400 Mg/D5w -) 400,000 mcg in 250 mls @ 10.838 mls/hr IVPB TITR TOMMY; 5 MCG/KG/MIN PRN Reason: Protocol Methylprednisolone Sodium Succinate (Solu-Medrol -) 60 mg IVPUSH Q6H-IV TOMMY Last Admin: 09/23/17 08:05 Dose: 60 mg Methylprednisolone Sodium Succinate (Solu-Medrol -) 125 mg IVPUSH ONCE ONE Stop: 09/23/17 10:03 - Objective Vital Signs: Vital Signs Temperature 98.8 F 09/23/17 08:00 Pulse Rate 85 09/23/17 08:00 Respiratory Rate 22 09/23/17 08:03 Blood Pressure 161/80 09/23/17 08:00 O2 Sat by Pulse Oximetry (%) 90 L 09/23/17 08:03 Constitutional: Yes: Other (intubated) Eyes: Yes: Other (og tube legally blind) Cardiovascular: Yes: S1, S2 Respiratory: Yes: Mechanically Ventilated Gastrointestinal: Yes: Normal Bowel Sounds, Soft Genitourinary: Yes: Mooney Present Labs: CBC, BMP 09/23/17 05:20 09/23/17 05:20 INR, PTT INR 1.00 (0.82-1.09) 09/22/17 09:41 Problem List - Problems (1) Acute on chronic respiratory failure with hypoxia and hypercapnia Assessment/Plan: intubated in icu on steroids iv iv abx pulseless- code intiated- coded 3 times already s/p 3 rounds of epi/atropine bradycardiac started on dopamine called Laurel spoke to her informed her of the situation tried to reach margarita, she didnot apple picker the phone laurel says that neither she or margarita ar HCP only wendy is the hcp and no contact information for her the family will try to reach her regarding code status explained how critical the patient current condition is... just spoke to Laurel again she is on her way to the hospital will give us the phone number of HCP when she gets her. Code(s): J96.21 - ACUTE AND CHRONIC RESPIRATORY FAILURE WITH HYPOXIA; J96.22 - ACUTE AND CHRONIC RESPIRATORY FAILURE WITH HYPERCAPNIA
[2017-09-23 10:52] LABS: HEMATOCRIT 26.5 % (32.4-45.2); HEMOGLOBIN 8.1 GM/dL (10.7-15.3); MCH 27.9 pg (25.7-33.7); MCHC 30.5 g/dl (32.0-36.0); MEAN CELL VOLUME 91.6 fl (80-96); MEAN PLT VOLUME 7.9 fl (7.5-11.1); PLATELET COUNT 170 K/MM3 (134-434); RBC 2.89 M/mm3 (3.60-5.2); RDW 15.7 % (11.6-15.6); WHITE BLOOD COUNT 23.2 K/mm3 (4.0-10.0)
[2017-09-23] MEDS: NOREPINEPHRINE BITARTRATE 16,000 MCG in DEXTROSE 5%-WATER - 984 ML IV SCH (11:00)
[2017-09-23 11:09] LABS: INR 1.21 (0.82-1.09); PROTHROMBIN TIME (PATIENT) 13.7 SEC (9.98-11.88)
[2017-09-23 11:12] LABS: ACTIVATED PTT 26.1 SECONDS (26.9-34.4)
--- NOTE | 2017-09-23 11:14 | CONSULT ---
Consultation: REQUESTING PROVIDER: CONSULT REQUEST: We have been asked to medically evaluate this patient for respiratory distress and cardiac arrest. HISTORY OF PRESENT ILLNESS: The patient is an 87 year old female with a history of Dementia, Asthma, COPD ( on O2), HTN, Glaucoma, PVD who initially presented for a COPD exacerbation with acute on chronic hypoxemia transferred to the ICU for respiratory distress following 3 cardiac arrests. The patient was initially admitted to the hospital for a COPD exacerbation and worsening SOB over the past week. This morning, the patient was noted to have worsening SOB and oxygenation status despite Bipap prompting her to be intubated. She proceeded to experience a cardiac arrest and was resuscitated with ROSC being obtained after 2 amps of epinephrine and 4 minutes. She proceeded to experience a 2nd cardiac arrest approximately 15 minutes later and ROSC was obtained after 1 amp of epinephrine and 6 minutes. She proceeded to experience a 3rd cardiac arrest approximately 45 minutes later with ROSC being obtained after 1 amp of epinephrine and 2 minutes. Overall, prognosis appears to be poor. Family was notified. Primary care physician was notified. 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 PHYSICAL EXAMINATION Vital Signs - 24 hr 09/22/17 09/22/17 09/22/17 11:30 16:26 20:20 Temperature Pulse Rate 86 Pulse Rate [ 86 86 82 Apical] Respiratory 26 H 22 20 Rate Blood Pressure Blood Pressure 168/70 144/80 131/68 [Left Arm] O2 Sat by Pulse 100 100 100 Oximetry (%) 09/22/17 09/22/17 09/23/17 22:54 23:00 00:03 Temperature 98.6 F Pulse Rate 77 Pulse Rate [ Apical] Respiratory 22 Rate Blood Pressure 115/52 Blood Pressure [Left Arm] O2 Sat by Pulse 100 98 Oximetry (%) 09/23/17 09/23/17 09/23/17 00:21 00:36 02:27 Temperature 98.7 F Pulse Rate 76 76 Pulse Rate [ Apical] Respiratory 22 22 22 Rate Blood Pressure 150/69 140/65 Blood Pressure [Left Arm] O2 Sat by Pulse 98 Oximetry (%) 09/23/17 09/23/17 09/23/17 02:40 05:00 05:28 Temperature 98.8 F Pulse Rate 84 Pulse Rate [ Apical] Respiratory 22 Rate Blood Pressure 162/74 Blood Pressure [Left Arm] O2 Sat by Pulse 96 97 Oximetry (%) 09/23/17 09/23/17 09/23/17 06:58 07:22 07:53 Temperature 98.8 F Pulse Rate 85 Pulse Rate [ Apical] Respiratory 22 Rate Blood Pressure 161/80 Blood Pressure [Left Arm] O2 Sat by Pulse 100 90 L 90 L Oximetry (%) 09/23/17 09/23/17 09/23/17 08:00 08:03 10:05 Temperature 98.8 F 97.7 F Pulse Rate 85 125 H Pulse Rate [ Apical] Respiratory 22 22 24 Rate Blood Pressure 161/80 80/50 Blood Pressure [Left Arm] O2 Sat by Pulse 90 L Oximetry (%) 09/23/17 09/23/17 10:59 11:06 Temperature Pulse Rate 114 H Pulse Rate [ Apical] Respiratory 18 18 Rate Blood Pressure 72/55 Blood Pressure [Left Arm] O2 Sat by Pulse 100 Oximetry (%) GENERAL: Sedated and intubated in acute distress. HEAD: Normal with no signs of trauma. EYES: sclera anicteric, conjunctiva clear. No lid lag. EARS, NOSE, THROAT: Ears normal, nares patent, oropharynx clear without exudates. Moist mucous membranes. NECK: Normal range of motion, supple without lymphadenopathy, JVD, or masses. LUNGS: Breath sounds equal, diffuse inspiratory and expiratory wheezing with bilateral diffuse crackles auscultated on exam. No accessory muscle use. HEART: Tachycardic rate and rhythm, normal S1 and S2 without murmur, rub or gallop. ABDOMEN: Soft, nontender, not distended, normoactive bowel sounds, no guarding, no rebound, no masses. No hepatomegaly or splenomegaly. MUSCULOSKELETAL: No bony deformities or tenderness. UPPER EXTREMITIES: 2+ pulses, warm, well-perfused. No cyanosis. No clubbing. Cap refill <2 seconds. No peripheral edema. LOWER EXTREMITIES: 2+ pulses, warm, well-perfused. No calf tenderness. No peripheral edema. NEUROLOGICAL: Unable to assess due to sedation and intubation. PSYCHIATRIC: Unable to assess due to sedation and intubation. SKIN: Warm, dry, normal turgor, no rashes or lesions noted. Laboratory Results - last 24 hr 09/22/17 09/22/17 09/23/17 09:30 22:50 00:35 WBC RBC Hgb Hct MCV MCH MCHC RDW Plt Count MPV Neutrophils % Lymphocytes % Monocytes % Eosinophils % Basophils % PT with INR INR Puncture Site Right brachial Right radial ABG pH 7.11 L* D 7.15 L* ABG pCO2 at Pt Temp 112.0 H* D 97.8 H* ABG pO2 at Pt Temp 429.0 H* 117.0 H D ABG HCO3 33.7 H 32.9 H ABG O2 Sat (Measured) 99.6 H* 98.2 ABG O2 Content 16.5 15.0 ABG Base Excess 1.2 1.9 Darren Test Positive Positive O2 Delivery Device Norebreather Bipap Oxygen Flow Rate 100 50% Vent Mode S/t Vent Rate 18 Pressure Support Vent 14/4 Sodium Potassium Chloride Carbon Dioxide Anion Gap BUN Creatinine Random Glucose Lactic Acid 0.9 Calcium Phosphorus Magnesium Troponin I Urine Color Urine Appearance Urine pH Ur Specific [place] Urine Protein Urine Glucose (UA) Urine Ketones Urine Blood Urine Nitrite Urine Bilirubin Urine Urobilinogen Ur Leukocyte Esterase Urine WBC (Auto) Urine RBC (Auto) Ur Epithelial Cells Hyaline Casts Urine Mucus 09/23/17 09/23/17 09/23/17 01:20 01:24 05:20 WBC 6.9 D RBC 3.95 Hgb 11.3 Hct 35.4 MCV 89.8 MCH 28.7 MCHC 32.0 RDW 15.9 H Plt Count 195 MPV 8.3 Neutrophils % 93.9 H Lymphocytes % 4.6 L D Monocytes % 1.1 L Eosinophils % 0.1 D Basophils % 0.3 PT with INR INR Puncture Site ABG pH ABG pCO2 at Pt Temp ABG pO2 at Pt Temp ABG HCO3 ABG O2 Sat (Measured) ABG O2 Content ABG Base Excess Darren Test O2 Delivery Device Oxygen Flow Rate Vent Mode Vent Rate Pressure Support Vent Sodium Potassium Chloride Carbon Dioxide Anion Gap BUN Creatinine Random Glucose Lactic Acid Calcium Phosphorus Magnesium Troponin I 0.05 Urine Color Yellow Urine Appearance Slcloudy Urine pH 5.0 D Ur Specific [place] 1.019 Urine Protein 3+ H Urine Glucose (UA) 1+ H D Urine Ketones Negative Urine Blood 2+ H Urine Nitrite Negative Urine Bilirubin Negative Urine Urobilinogen Negative Ur Leukocyte Esterase Negative Urine WBC (Auto) 15 Urine RBC (Auto) 97 Ur Epithelial Cells Rare Hyaline Casts 37 Urine Mucus Rare 09/23/17 09/23/17 09/23/17 05:20 06:00 10:30 WBC 23.2 H D RBC 2.89 L D Hgb 8.1 L D Hct 26.5 L D MCV 91.6 MCH 27.9 MCHC 30.5 L RDW 15.7 H Plt Count 170 MPV 7.9 Neutrophils % No Result Required. Lymphocytes % No Result Required. Monocytes % Eosinophils % Basophils % PT with INR INR Puncture Site Right brachial ABG pH 7.14 L* ABG pCO2 at Pt Temp 102.0 H* ABG pO2 at Pt Temp 412.0 H* ABG HCO3 33.4 H ABG O2 Sat (Measured) 99.8 H* ABG O2 Content 16.7 ABG Base Excess 1.8 Darren Test Positive O2 Delivery Device Oxygen Flow Rate 100 Vent Mode Vent Rate 20 Pressure Support Vent 16/4 Sodium 143 Potassium 5.0 Chloride 103 Carbon Dioxide 36 H Anion Gap 4 L BUN 40 H Creatinine 1.2 H Random Glucose 146 H Lactic Acid Calcium 8.3 L Phosphorus 6.5 H Magnesium 3.0 H Troponin I 0.04 Urine Color Urine Appearance Urine pH Ur Specific [place] Urine Protein Urine Glucose (UA) Urine Ketones Urine Blood Urine Nitrite Urine Bilirubin Urine Urobilinogen Ur Leukocyte Esterase Urine WBC (Auto) Urine RBC (Auto) Ur Epithelial Cells Hyaline Casts Urine Mucus 09/23/17 10:30 WBC RBC Hgb Hct MCV MCH MCHC RDW Plt Count MPV Neutrophils % Lymphocytes % Monocytes % Eosinophils % Basophils % PT with INR 13.70 H INR 1.21 H Puncture Site ABG pH ABG pCO2 at Pt Temp ABG pO2 at Pt Temp ABG HCO3 ABG O2 Sat (Measured) ABG O2 Content ABG Base Excess Darren Test O2 Delivery Device Oxygen Flow Rate Vent Mode Vent Rate Pressure Support Vent Sodium Potassium Chloride Carbon Dioxide Anion Gap BUN Creatinine Random Glucose Lactic Acid Calcium Phosphorus Magnesium Troponin I Urine Color Urine Appearance Urine pH Ur Specific [place] Urine Protein Urine Glucose (UA) Urine Ketones Urine Blood Urine Nitrite Urine Bilirubin Urine Urobilinogen Ur Leukocyte Esterase Urine WBC (Auto) Urine RBC (Auto) Ur Epithelial Cells Hyaline Casts Urine Mucus Active Medications Generic Name Dose Route Start Last Admin Trade Name Loyda PRN Reason Stop Dose Admin Albuterol Sulfate 1 amp 09/22/17 16:34 09/23/17 02:00 Ventolin 0.083% Nebulizer Soln - NEB 1 amp Q4H PRN Administration SHORT OF BREATH/WHEEZING Albuterol/Ipratropium 1 amp 09/22/17 20:00 09/23/17 08:50 Duoneb - NEB 1 amp RQID TOMMY Administration Levofloxacin 500 mg in 100 mls @ 100 mls/hr 09/23/17 10:00 Levaquin 500 Mg Premixed Ivpb - IVPB DAILY TOMMY Dopamine HCl/Dextrose 400,000 mcg in 250 mls @ 10.838 mls/hr 09/23/17 09:30 Dopamine 400 Mg/D5w - IVPB TITR TOMMY Protocol 5 MCG/KG/MIN Methylprednisolone Sodium Succinate 60 mg 09/22/17 21:00 09/23/17 08:05 Solu-Medrol - IVPUSH 60 mg Q6H-IV TOMMY Administration Methylprednisolone Sodium Succinate 125 mg 09/23/17 10:02 Solu-Medrol - IVPUSH 09/23/17 10:03 ONCE ONE ASSESSMENT/PLAN: The patient is an 87 year old female with a history of Dementia, Asthma, COPD ( on O2), HTN, Glaucoma, PVD who initially presented for a COPD exacerbation with acute on chronic hypoxemia transferred to the ICU for respiratory distress following 3 cardiac arrests. Overall poor prognosis. NEURO Patient is intubated. -Sedated with propofol. -Will continue to monitor. CV #Cardiac Arrest Patient coded 3 times this morning with RSOC obtained each time. She was initially noted to be in asystole with the first arrest, ventricular fibullation with the second arrest, and PEA with the third arrest. The patient is now on pressor support and tachycardic with an MAP of 62. Femoral central line has been placed. -Continue pressor support at this time and titrate as needed to maintain MAP >65 -Follow up labs drawn post arrest. -Patient to be made DNR per family's wishes. -Continue to monitor. RESP #Acute on Chronic respiratory failure Patient initially presented for COPD exacerbation. She was intubated this morning for continued respiratory distress despite Bipap prior to her cardiac arrest. She received albuterol nebulizers and steroids as well. -Follow up chest plain film. -Continue to maintain vent settings. -Follow up ABG. -Continue solu-medrol. -Continue to monitor. GI No issues currently. -Will continue to monitor. Renal No issues currently -Will continue to monitor bun/creatinine. ID No issues currently. -Will continue to monitor. MSK No issues currently FEN/GI -Replete electrolytes PRN, will monitor DISPO: Continue ICU level of care. Visit type - Emergency Visit Emergency Visit: No - New Patient This patient is new to me today: Yes Date on this admission: 09/23/17 - Critical Care Critical Care patient: Yes Total Critical Care Time (in minutes): 75 Critical Care Statement: The care of this patient involved high complexity decision making to prevent further life threatening deterioration of the patient 's condition and/or to evaluate & treat vital organ system(s) failure or risk of failure.
[2017-09-23 11:32] LABS: ALBUMIN 2.2 g/dl (3.4-5.0); ANION GAP 10 (8-16); BILIRUBIN,TOTAL 0.3 mg/dL (0.2-1.0); BLOOD UREA NITROGEN 40 mg/dL (7-18); CALCIUM 7.2 mg/dL (8.5-10.1); CHLORIDE 108 mmol/L (98-107); CO2 28 mmol/L (21-32); CREATININE 1.4 mg/dL (0.55-1.02); GLUCOSE,RANDOM 198 mg/dL (74-106); PHOSPHOROUS 7.2 mg/dL (2.5-4.9); POTASSIUM 4.5 mmol/L (3.5-5.1); SODIUM 146 mmol/L (136-145); TOT PROT 5.1 g/dl (6.4-8.2)
[2017-09-23 11:34] LABS: SGOT/AST 769 U/L (15-37); SGPT/ALT 584 U/L (12-78)
[2017-09-23 11:36] LABS: ALK PHOS 97 U/L (45-117)
[2017-09-23 12:14] LABS: PLATELET ESTIMATE ADEQUATE
--- NOTE | 2017-09-23 12:27 | PN ---
Teaching Attending Note Name of Resident: Nabeel Davis ATTENDING PHYSICIAN STATEMENT I saw and evaluated the patient. I reviewed the resident's note and discussed the case with the resident. I agree with the resident's findings and plan as documented. SUBJECTIVE: Patient seen and examined in the ICU. S/P acute respiratory failure and CP arrest x 3 events with eventual ROSC (details as outlined in Dr Davis note). Currently intubated and poorly responsive on AC mode of vent. NE and Dopamine for hemodynamic support. Family has been contacted and they have informed us that they would like Ms Cheung to DNR/DNI. They are on their way to the hospital. Intake & Output 09/20/17 09/21/17 09/22/17 09/23/17 23:59 23:59 23:59 23:59 Intake Total 311 Output Total 600 Balance -289 Weight 130 lb 127 lb 7 oz Last Vital Signs Temp Pulse Resp BP Pulse Ox 97.7 F 144 H 18 81/58 100 09/23/17 10:05 09/23/17 11:27 09/23/17 11:27 09/23/17 11:27 09/23/17 10:59 Active Medications Albuterol Sulfate (Ventolin 0.083% Nebulizer Soln -) 1 amp NEB Q4H PRN PRN Reason: SHORT OF BREATH/WHEEZING Last Admin: 09/23/17 02:00 Dose: 1 amp Albuterol/Ipratropium (Duoneb -) 1 amp NEB RQID TOMMY Last Admin: 09/23/17 08:50 Dose: 1 amp Levofloxacin (Levaquin 500 Mg Premixed Ivpb -) 500 mg in 100 mls @ 100 mls/hr IVPB DAILY TOMMY Dopamine HCl/Dextrose (Dopamine 400 Mg/D5w -) 400,000 mcg in 250 mls @ 10.838 mls/hr IVPB TITR TOMMY; 5 MCG/KG/MIN PRN Reason: Protocol Last Admin: 09/23/17 09:20 Dose: 5 mcg/kg/min, 10.838 mls/hr Methylprednisolone Sodium Succinate (Solu-Medrol -) 60 mg IVPUSH Q6H-IV TOMMY Last Admin: 09/23/17 08:05 Dose: 60 mg Methylprednisolone Sodium Succinate (Solu-Medrol -) 125 mg IVPUSH ONCE ONE Stop: 09/23/17 10:03 Last Admin: 09/23/17 11:47 Dose: 125 mg GENERAL: Intubated, poorly responsive HEAD: Normal with no signs of trauma. EYES: sclera anicteric, conjunctiva clear EARS, NOSE, THROAT: Dry mucous membranes. NECK: Normal range of motion, supple without lymphadenopathy, JVD, or masses. LUNGS: Intubated, diffuse inspiratory and expiratory wheezing with bilateral diffuse crackles. HEART: Tachycardic rate and rhythm, normal S1 and S2 without murmur, rub or gallop. ABDOMEN: Soft, not distended, (+) bowel sounds, no guarding, no rebound, no masses. No hepatomegaly or splenomegaly. MUSCULOSKELETAL: No bony deformities or tenderness. UPPER EXTREMITIES: 2+ pulses, warm, well-perfused. No cyanosis. No clubbing. Cap refill <2 seconds. No peripheral edema. LOWER EXTREMITIES: 2+ pulses, warm, well-perfused. No calf tenderness. No peripheral edema. NEUROLOGICAL: poorly responsive PSYCHIATRIC: Unable to assess due to sedation and intubation. SKIN: dry, poor turgor, no rashes or lesions noted. Laboratory Results - last 24 hr 09/22/17 09/22/17 09/23/17 09:30 22:50 00:35 WBC RBC Hgb Hct MCV MCH MCHC RDW Plt Count MPV Total Counted Neutrophils % Neutrophils % (Manual) Band Neutrophils % Lymphocytes % Lymphocytes % (Manual) Monocytes % Monocytes % (Manual) Eosinophils % Eosinophils % (Manual) Basophils % Myelocytes % (Man) Metamyelocytes Platelet Estimate PT with INR INR PTT (Actin FS) Puncture Site Right brachial Right radial ABG pH 7.11 L* D 7.15 L* ABG pCO2 at Pt Temp 112.0 H* D 97.8 H* ABG pO2 at Pt Temp 429.0 H* 117.0 H D ABG HCO3 33.7 H 32.9 H ABG O2 Sat (Measured) 99.6 H* 98.2 ABG O2 Content 16.5 15.0 ABG Base Excess 1.2 1.9 Darren Test Positive Positive O2 Delivery Device Norebreather Bipap Oxygen Flow Rate 100 50% Vent Mode S/t Vent Rate 18 Pressure Support Vent 14/4 Sodium Potassium Chloride Carbon Dioxide Anion Gap BUN Creatinine Creat Clearance w eGFR Random Glucose Lactic Acid 0.9 Calcium Phosphorus Magnesium Total Bilirubin AST ALT Alkaline Phosphatase Creatine Kinase Troponin I Total Protein Albumin Urine Color Urine Appearance Urine pH Ur Specific [place] Urine Protein Urine Glucose (UA) Urine Ketones Urine Blood Urine Nitrite Urine Bilirubin Urine Urobilinogen Ur Leukocyte Esterase Urine WBC (Auto) Urine RBC (Auto) Ur Epithelial Cells Hyaline Casts Urine Mucus 09/23/17 09/23/17 09/23/17 01:20 01:24 05:20 WBC 6.9 D RBC 3.95 Hgb 11.3 Hct 35.4 MCV 89.8 MCH 28.7 MCHC 32.0 RDW 15.9 H Plt Count 195 MPV 8.3 Total Counted Neutrophils % 93.9 H Neutrophils % (Manual) Band Neutrophils % Lymphocytes % 4.6 L D Lymphocytes % (Manual) Monocytes % 1.1 L Monocytes % (Manual) Eosinophils % 0.1 D Eosinophils % (Manual) Basophils % 0.3 Myelocytes % (Man) Metamyelocytes Platelet Estimate PT with INR INR PTT (Actin FS) Puncture Site ABG pH ABG pCO2 at Pt Temp ABG pO2 at Pt Temp ABG HCO3 ABG O2 Sat (Measured) ABG O2 Content ABG Base Excess Darren Test O2 Delivery Device Oxygen Flow Rate Vent Mode Vent Rate Pressure Support Vent Sodium Potassium Chloride Carbon Dioxide Anion Gap BUN Creatinine Creat Clearance w eGFR Random Glucose Lactic Acid Calcium Phosphorus Magnesium Total Bilirubin AST ALT Alkaline Phosphatase Creatine Kinase Troponin I 0.05 Total Protein Albumin Urine Color Yellow Urine Appearance Slcloudy Urine pH 5.0 D Ur Specific [place] 1.019 Urine Protein 3+ H Urine Glucose (UA) 1+ H D Urine Ketones Negative Urine Blood 2+ H Urine Nitrite Negative Urine Bilirubin Negative Urine Urobilinogen Negative Ur Leukocyte Esterase Negative Urine WBC (Auto) 15 Urine RBC (Auto) 97 Ur Epithelial Cells Rare Hyaline Casts 37 Urine Mucus Rare 09/23/17 09/23/17 09/23/17 05:20 06:00 10:30 WBC 23.2 H D RBC 2.89 L D Hgb 8.1 L D Hct 26.5 L D MCV 91.6 MCH 27.9 MCHC 30.5 L RDW 15.7 H Plt Count 170 MPV 7.9 Total Counted 100 Neutrophils % No Result Required. Neutrophils % (Manual) 68.0 Band Neutrophils % 11.0 Lymphocytes % No Result Required. Lymphocytes % (Manual) 6.0 L Monocytes % Monocytes % (Manual) 2 L Eosinophils % Eosinophils % (Manual) 1.0 Basophils % Myelocytes % (Man) 8 H Metamyelocytes 4 H Platelet Estimate Adequate PT with INR INR PTT (Actin FS) Puncture Site Right brachial ABG pH 7.14 L* ABG pCO2 at Pt Temp 102.0 H* ABG pO2 at Pt Temp 412.0 H* ABG HCO3 33.4 H ABG O2 Sat (Measured) 99.8 H* ABG O2 Content 16.7 ABG Base Excess 1.8 Darren Test Positive O2 Delivery Device Oxygen Flow Rate 100 Vent Mode Vent Rate 20 Pressure Support Vent 16/4 Sodium 143 Potassium 5.0 Chloride 103 Carbon Dioxide 36 H Anion Gap 4 L BUN 40 H Creatinine 1.2 H Creat Clearance w eGFR Random Glucose 146 H Lactic Acid Calcium 8.3 L Phosphorus 6.5 H Magnesium 3.0 H Total Bilirubin AST ALT Alkaline Phosphatase Creatine Kinase Troponin I 0.04 Total Protein Albumin Urine Color Urine Appearance Urine pH Ur Specific [place] Urine Protein Urine Glucose (UA) Urine Ketones Urine Blood Urine Nitrite Urine Bilirubin Urine Urobilinogen Ur Leukocyte Esterase Urine WBC (Auto) Urine RBC (Auto) Ur Epithelial Cells Hyaline Casts Urine Mucus 09/23/17 09/23/17 09/23/17 10:30 10:30 10:30 WBC RBC Hgb Hct MCV MCH MCHC RDW Plt Count MPV Total Counted Neutrophils % Neutrophils % (Manual) Band Neutrophils % Lymphocytes % Lymphocytes % (Manual) Monocytes % Monocytes % (Manual) Eosinophils % Eosinophils % (Manual) Basophils % Myelocytes % (Man) Metamyelocytes Platelet Estimate PT with INR 13.70 H INR 1.21 H PTT (Actin FS) 26.1 L D Puncture Site ABG pH ABG pCO2 at Pt Temp ABG pO2 at Pt Temp ABG HCO3 ABG O2 Sat (Measured) ABG O2 Content ABG Base Excess Darren Test O2 Delivery Device Oxygen Flow Rate Vent Mode Vent Rate Pressure Support Vent Sodium 146 H Potassium 4.5 Chloride 108 H Carbon Dioxide 28 Anion Gap 10 BUN 40 H Creatinine 1.4 H Creat Clearance w eGFR 35.74 Random Glucose 198 H Lactic Acid 6.1 H* Calcium 7.2 L Phosphorus 7.2 H Magnesium 3.0 H Total Bilirubin 0.3 D AST 769 H ALT 584 H Alkaline Phosphatase 97 Creatine Kinase 111 Troponin I 0.08 H Total Protein 5.1 L Albumin 2.2 L Urine Color Urine Appearance Urine pH Ur Specific [place] Urine Protein Urine Glucose (UA) Urine Ketones Urine Blood Urine Nitrite Urine Bilirubin Urine Urobilinogen Ur Leukocyte Esterase Urine WBC (Auto) Urine RBC (Auto) Ur Epithelial Cells Hyaline Casts Urine Mucus ASSESSMENT/PLAN: CP Arrest: prolonged resuscitative efforts with likely JAIME Dementia Asthma COPD (on O2) HTN Glaucoma PVD COPD exacerbation with acute on chronic hypoxemia PLAN: AC mode of vent Pressors for hemodynamic support STAT labs sent Check ABG Strict I & O IVF Overall prognosis appears grave for meaningful survival Family is proceeding to the hospital to discuss GOC Dr Guzman Critical care time spent in reviewing chart, evaluating patient and formulating plan - 36 minutes.
--- NOTE | 2017-09-23 12:46 | PROC ---
Central Line Insertion Indication: Vasopressor Central Line: Triple Lumen Catheter Sterile Technique: Yes Ultrasound Guided Assistance: Yes Position: Right Femoral Sterile Dressing Applied: Yes Remarks: Placed emergently for pressure support s/p ROSC
--- NOTE | 2017-09-23 12:56 | PN ---
Progress Note (short form) - Note Progress Note: called Paola at 10:25am left a message on her cell to call back regarding mother 's current status and about ROSC efforts. Paola arrived to the unit at 11:30am. I discussed her mother's CPR efforts and loss of pulse x3, intubation, and pressor support. Paola acknowledge that her mother was not doing well since last night and "since yesterday in the ER, my mother hasn't been with me, she was lost yesterday." She wanted to sign the DNR and begin to make arrangements with her sisters and family. She did not want the staff to call Luci, saying that she would do it. She declined to see her mother because she "wanted to remember her as she was." If her mother loses her pulse again, she does not want CPR or any "heroic" medications to be provided. When I explained that her mother is currently intubated, has a pulse and is currently having her blood pressure supported by medications and may not lose her pulse again, she said she would be back again in the evening with the family to consider compassionate weaning. Cary has signed the DNR, placed in the chart.
[2017-09-23 16:32] LABS: ARTERIAL BLOOD GAS BASE EXCESS -1.8 meq/l (-2-2)
[2017-09-23 16:36] LABS: ALLENS TEST POSITIVE
[2017-09-23 16:39] LABS: ARTERIAL BLOOD GAS pH 7.24 (7.35-7.45)
[2017-09-23 16:40] LABS: ARTERIAL BLOOD GAS PCO2 61.2 mmHg (35-45)
--- NOTE | 2017-09-23 16:40 | CON.ID ---
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 currently she is intubated and unresponsive in the ICU per the family she was at a SNF in the fall currently DNR - History Source History Provided By: Family Member, Medical Record Limitations to Obtaining History: Clinical Condition - Past Medical History 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 (legally blind due to glaucoma) Cardio/Vascular: Yes: HTN Pulmonary: Yes: Asthma, COPD, O2 Dependent Psych: Yes: Depression Musculoskeletal: Yes: Other (rt leg wound - receiving wound care) - Alcohol/Substance Use Hx Alcohol Use: No - Smoking History Smoking history: Never smoked Have you smoked in the past 12 months: No Aproximately how many cigarettes per day: 0 - Social History Usual Living Arrangement: [facility] ADL: Family Assistance History of Recent Travel: No Home Medications - Allergies Allergies/Adverse Reactions: Allergies Allergy/AdvReac Type Severity Reaction Status Date / Time epinephrine Allergy Mild Itching Verified 09/22/17 09:07 - Home Medications Home Medications: Ambulatory Orders Albuterol 0.083% Nebulizer Jasmin [Ventolin 0.083%] 1 neb NEB QID 09/22/17 Ferrous Sulfate 325 mg PO BID 09/22/17 Memantine HCl/Donepezil HCl [Namzaric 28 mg-10 mg Capsule] 1 each PO DAILY 09/22 Montelukast Sodium [Singulair] 10 mg PO DAILY 09/22/17 Review of Systems Unable to obtain ROS, reason: unable to obtain Physical Exam Vital Signs: Vital Signs Temperature 97.2 F L 09/23/17 13:07 Pulse Rate 144 H 09/23/17 13:07 Respiratory Rate 18 09/23/17 13:07 Blood Pressure 103/46 09/23/17 13:07 O2 Sat by Pulse Oximetry (%) 100 09/23/17 12:58 Constitutional: Yes: Other (intubated) HENT: Yes: Atraumatic, Normocephalic Neck: Yes: Other (orally intubated) Cardiovascular: Yes: Regular Rate and Rhythm, Tachycardia Respiratory: Yes: CTA Bilaterally, Diminished (at the bases) Gastrointestinal: Yes: Normal Bowel Sounds, Soft Extremities: Yes: Other (dressing RLE with underlying ulcer) Edema: No Labs: CBC, BMP 09/23/17 10:30 09/23/17 10:30 Imaging - Results Chest X-ray: Report Reviewed, Image Reviewed Problem List - Problems (1) Cardiac arrest Code(s): I46.9 - CARDIAC ARREST, CAUSE UNSPECIFIED (2) Acute respiratory failure with hypoxia and hypercapnia Code(s): J96.01 - ACUTE RESPIRATORY FAILURE WITH HYPOXIA; J96.02 - ACUTE RESPIRATORY FAILURE WITH HYPERCAPNIA (3) Leukocytosis Code(s): D72.829 - ELEVATED WHITE BLOOD CELL COUNT, UNSPECIFIED Assessment/Plan now with elevated WC would cover for aspiration and leg wound vanco/zosyn for now
[2017-09-23 16:41] LABS: ARTERIAL BLD GAS O2 SATURATION 99.9 % (90-98.9)
[2017-09-23] MEDS ORDERED: VANCOMYCIN 1,000 MG in DEXTROSE 5%-WATER - 250 ML IVPB ONE (17:05)
[2017-09-23] MEDS ORDERED: PIPERACILLIN/TAZOB 3.375 GM/50 ML PRE-DOCKED IVPB SCH (17:15)
[2017-09-23] MEDS ORDERED: PT OWN MED DRAWER 7, Y5N ONE (17:44)
[2017-09-23] MEDS: PIPERACILLIN/TAZOB 3.375 GM 3.375 GM in DEXTROSE 5%-WATER - 100 ML IVPB SCH (18:00)
[2017-09-23 20:36] LABS: ARTERIAL BLD GAS O2 SATURATION 98.5 % (90-98.9); ARTERIAL BLOOD GAS BASE EXCESS -0.1 meq/l (-2-2); ARTERIAL BLOOD GAS PCO2 55.8 mmHg (35-45)
[2017-09-23 20:39] LABS: ALLENS TEST POSITIVE
[2017-09-24] MEDS: methylPREDNISolone NA SUCC 125 MG/2 ML VIAL IVPUSH SCH ×4 (02:50→20:24)
[2017-09-24] MEDS: PIPERACILLIN/TAZOB 3.375 GM 3.375 GM in DEXTROSE 5%-WATER - 100 ML IVPB SCH (02:52)
[2017-09-24 06:24] LABS: BASO % 0.4 % (0-2.0); HEMATOCRIT 23.1 % (32.4-45.2); HEMOGLOBIN 7.5 GM/dL (10.7-15.3); LYMPH % 2.9 % (8-40); MCH 28.6 pg (25.7-33.7); MCHC 32.6 g/dl (32.0-36.0); MEAN CELL VOLUME 87.6 fl (80-96); MEAN PLT VOLUME 8.5 fl (7.5-11.1); MONO % 3.4 % (3.8-10.2); NEUT % 93.3 % (42.8-82.8); PLATELET COUNT 181 K/MM3 (134-434); RBC 2.64 M/mm3 (3.60-5.2); RDW 15.6 % (11.6-15.6); WHITE BLOOD COUNT 14.5 K/mm3 (4.0-10.0)
[2017-09-24 06:53] LABS: ALBUMIN 2.5 g/dl (3.4-5.0); ANION GAP 8 (8-16); BILIRUBIN,TOTAL 0.3 mg/dL (0.2-1.0); BLOOD UREA NITROGEN 63 mg/dL (7-18); CALCIUM 7.2 mg/dL (8.5-10.1); CHLORIDE 103 mmol/L (98-107); CO2 29 mmol/L (21-32); CREATININE 2.9 mg/dL (0.55-1.02); GLUCOSE,RANDOM 265 mg/dL (74-106); MAGNESIUM 2.7 mg/dL (1.8-2.4); PHOSPHOROUS 3.5 mg/dL (2.5-4.9); POTASSIUM 3.8 mmol/L (3.5-5.1); SODIUM 140 mmol/L (136-145); TOT PROT 5.4 g/dl (6.4-8.2)
[2017-09-24 06:54] LABS: ALK PHOS 91 U/L (45-117)
[2017-09-24 06:55] LABS: ARTERIAL BLD GAS O2 SATURATION 99.4 % (90-98.9); ARTERIAL BLOOD GAS BASE EXCESS 1.6 meq/l (-2-2); ARTERIAL BLOOD GAS PCO2 46.2 mmHg (35-45); ARTERIAL BLOOD GAS pH 7.38 (7.35-7.45)
[2017-09-24 07:01] LABS: SGOT/AST 516 U/L (15-37); SGPT/ALT 635 U/L (12-78)
[2017-09-24 07:14] LABS: INR 1.07 (0.82-1.09); PROTHROMBIN TIME (PATIENT) 12.1 SEC (9.98-11.88)
[2017-09-24 07:17] LABS: ACTIVATED PTT 29.4 SECONDS (26.9-34.4)
[2017-09-24 07:21] LABS: ALLENS TEST POSITIVE
--- NOTE | 2017-09-24 07:43 | PN ---
Progress Note, Physician Chief Complaint: Pt intubated and unresponsive at bedside. Febrile at 100.0F axillary. Waiting on family to decide further care plan. Will treat for aspiration and RLE wound with Vanco/Zosyn. - Current Medication List Current Medications: Active Medications Albuterol Sulfate (Ventolin 0.083% Nebulizer Soln -) 1 amp NEB Q4H PRN PRN Reason: SHORT OF BREATH/WHEEZING Last Admin: 09/23/17 02:00 Dose: 1 amp Albuterol/Ipratropium (Duoneb -) 1 amp NEB RQID TOMMY Last Admin: 09/23/17 20:35 Dose: 1 amp Dopamine HCl/Dextrose (Dopamine 400 Mg/D5w -) 400,000 mcg in 250 mls @ 10.838 mls/hr IVPB TITR TOMMY; 5 MCG/KG/MIN PRN Reason: Protocol Last Titration: 09/24/17 07:25 Dose: 5 mcg/kg/min, 10.838 mls/hr Norepinephrine Bitartrate 16, (000 mcg/ Dextrose) 1,000 mls @ 6.5 mls/hr IV ASDIR TOMMY; 0.03 MCG/KG/MIN PRN Reason: Protocol Last Admin: 09/23/17 11:00 Dose: 0.17 mcg/kg/min, 36.85 mls/hr Piperacillin Sod/Tazobactam (Sod 3.375 gm/ Dextrose) 100 mls @ 200 mls/hr IVPB Q8H-IV TOMMY Last Admin: 09/24/17 02:52 Dose: 200 mls/hr Sodium Chloride (Normal Saline -) 1,000 mls @ 75 mls/hr IV ASDIR TOMMY Methylprednisolone Sodium Succinate (Solu-Medrol -) 60 mg IVPUSH Q6H-IV TOMMY Last Admin: 09/24/17 02:50 Dose: 60 mg - Objective Vital Signs: Vital Signs Temperature 100.0 F H 09/24/17 06:00 Pulse Rate 80 09/24/17 07:25 Respiratory Rate 16 09/24/17 06:32 Blood Pressure 114/50 09/24/17 07:25 O2 Sat by Pulse Oximetry (%) 99 09/23/17 22:00 Constitutional: Yes: Other (INtubated) Cardiovascular: Yes: S1, S2 Respiratory: Yes: WNL, Regular, CTA Bilaterally, Wheezes Gastrointestinal: Yes: Soft. No: Tenderness, Tenderness, Rebound Edema: No Labs: CBC, BMP 09/24/17 06:10 09/24/17 06:10 INR, PTT INR 1.21 (0.82-1.09) H 09/23/17 10:30 Assessment/Plan Microbiology 09/22/17 09:50 Nasopharyngeal Swab Influenza Types A,B Antigen (BRADY) - Final 09/22/17 09:50 Nasopharyngeal Swab - Final 09/22/17 09:50 Blood - Peripheral Venous Blood Culture - Preliminary NO GROWTH OBTAINED AFTER 24 HOURS, INCUBATION TO CONTINUE FOR 4 DAYS. 09/22/17 09:30 Blood - Peripheral Venous Blood Culture - Preliminary NO GROWTH OBTAINED AFTER 24 HOURS, INCUBATION TO CONTINUE FOR 4 DAYS. Laboratory Tests 09/23/17 09/23/17 09/24/17 01:24 10:30 06:00 WBC 23.2 H D Hgb Hct Plt Count ABG pH 7.38 Oxygen Flow Rate 40 BUN Creatinine Creat Clearance w eGFR Total Bilirubin Alkaline Phosphatase Urine WBC (Auto) 15 Urine RBC (Auto) 97 09/24/17 09/24/17 06:10 06:10 WBC 14.5 H D Hgb 7.5 L Hct 23.1 L Plt Count 181 ABG pH Oxygen Flow Rate BUN 63 H Creatinine 2.9 H Creat Clearance w eGFR 15.42 Total Bilirubin 0.3 Alkaline Phosphatase 91 Urine WBC (Auto) Urine RBC (Auto) Assessment Cardiopulmonary arrest COPD Leukomoid response secondary to arrest Not sure infected ORTIZ Shock liver elevated LFTs Plan Stop Vancomcyin (no further) Continue Zosyn for today End of life care issues as discussed Christa Corrigan
[2017-09-24] MEDS: SODIUM CHLORIDE 1,000 ML IV SCH (08:06)
[2017-09-24] MEDS: ALBUTEROL SO4 2.5/IPRATROPIUM 0.5 INH SOL 3 ML VIAL.NEB. NEB SCH ×4 (08:10→20:25)
[2017-09-24] MEDS ORDERED: PT OWN MED DRAWER 7, Y5N ONE (09:06)
[2017-09-24] MEDS ORDERED: NOREPINEPHRINE BITARTRATE 4 MG/4 ML ML IV ONE ×2 (09:06→18:33)
[2017-09-24] MEDS: PIPERACILLIN/TAZOB 2.25 GM 2.25 GM/50 ML BAG IVPB SCH ×3 (09:25→20:20)
[2017-09-24] MEDS: NOREPINEPHRINE BITARTRATE 16,000 MCG in DEXTROSE 5%-WATER - 984 ML IV SCH ×2 (09:28→16:37)
[2017-09-24 09:35] LABS: URINE APPEARANCE TURBID; URINE BILIRUBIN NEGATIVE (NEGATIVE); URINE BLOOD 3+ (NEGATIVE); URINE COLOR AMBER; URINE GLUCOSE (UA) 1+ (NEGATIVE); URINE KETONE TRACE (NEGATIVE); URINE LEUK ESTERASE 1+ (NEGATIVE); URINE NITRITE NEGATIVE (NEGATIVE); URINE PROTEIN 3+ (NEGATIVE); URINE UROBILINOGEN NEGATIVE mg/dL (0.2-1.0)
--- NOTE | 2017-09-24 09:54 | PN ---
Progress Note (short form) - Note Progress Note: intubated and sedated on propofol. Vital Signs Period Temp Pulse Resp BP Sys/Moscoso Pulse Ox Last 24 Hr 99.8 F-100.8 F 78-109 16-19 111-171/40-67 99-99 GENERAL: Sedated and intubated, calm. EYES: b/l opacified iris, clear sclera. EARS, NOSE, THROAT: oropharynx clear w/endotracheal tube. Moist mucous membranes. NECK: Normal range of motion, supple without lymphadenopathy, JVD, or masses. Central line placed in left IJ LUNGS: Breath sounds equal, bilateral diffuse crackles auscultated on exam. No accessory muscle use. HEART: normal S1 and S2 without murmur, rub or gallop. ABDOMEN: Soft, nontender, not distended, normoactive bowel sounds UPPER EXTREMITIES: 2+ radial pulses, warm, well-perfused. No peripheral edema. LOWER EXTREMITIES: 2+ right DP pulse, warm, well-perfused. No peripheral edema. SKIN: anterior wound in right foot with scant drainage Laboratory Last Values WBC 14.5 K/mm3 (4.0-10.0) H D 09/24/17 06:10 RBC 2.64 M/mm3 (3.60-5.2) L 09/24/17 06:10 Hgb 7.5 GM/dL (10.7-15.3) L 09/24/17 06:10 Hct 23.1 % (32.4-45.2) L 09/24/17 06:10 MCV 87.6 fl (80-96) 09/24/17 06:10 MCH 28.6 pg (25.7-33.7) 09/24/17 06:10 MCHC 32.6 g/dl (32.0-36.0) 09/24/17 06:10 RDW 15.6 % (11.6-15.6) 09/24/17 06:10 Plt Count 181 K/MM3 (134-434) 09/24/17 06:10 MPV 8.5 fl (7.5-11.1) 09/24/17 06:10 Total Counted 100 09/23/17 10:30 Neutrophils % 93.3 % (42.8-82.8) H 09/24/17 06:10 Neutrophils % (Manual) 68.0 % (42.8-82.8) 09/23/17 10:30 Band Neutrophils % 11.0 % 09/23/17 10:30 Lymphocytes % 2.9 % (8-40) L D 09/24/17 06:10 Lymphocytes % (Manual) 6.0 % (8-40) L 09/23/17 10:30 Monocytes % 3.4 % (3.8-10.2) L D 09/24/17 06:10 Monocytes % (Manual) 2 % (3.8-10.2) L 09/23/17 10:30 Eosinophils % 0.0 % (0-4.5) D 09/24/17 06:10 Eosinophils % (Manual) 1.0 % (0-4.5) 09/23/17 10:30 Basophils % 0.4 % (0-2.0) 09/24/17 06:10 Myelocytes % (Man) 8 % (0-2) H 09/23/17 10:30 Metamyelocytes 4 % (0-2) H 09/23/17 10:30 Platelet Estimate Adequate 09/23/17 10:30 Retic Count 1.29 % (0.5-1.5) 09/24/17 16:00 PT with INR 12.10 SEC (9.98-11.88) H 09/24/17 06:10 INR 1.07 (0.82-1.09) 09/24/17 06:10 PTT (Actin FS) 29.4 SECONDS (26.9-34.4) 09/24/17 06:10 Anticoagulation Therapy No Result Required. 09/23/17 16:10 Puncture Site Right brachial 09/24/17 06:00 ABG pH 7.38 (7.35-7.45) 09/24/17 06:00 ABG pCO2 at Pt Temp 46.2 mmHg (35-45) H 09/24/17 06:00 ABG pO2 at Pt Temp 143.0 mmHg (68-100) H D 09/24/17 06:00 ABG HCO3 26.4 meq/L (22-26) H 09/24/17 06:00 ABG O2 Sat (Measured) 99.4 % (90-98.9) H 09/24/17 06:00 ABG O2 Content 11.2 % vol (15-22) L 09/24/17 06:00 ABG Base Excess 1.6 meq/l (-2-2) 09/24/17 06:00 Darren Test Positive 09/24/17 06:00 O2 Delivery Device Mech vent 09/24/17 06:00 Oxygen Flow Rate 40 09/24/17 06:00 Vent Mode A/c 09/24/17 06:00 Vent Rate 16 09/24/17 06:00 Mechanical Rate Y 09/24/17 06:00 PEEP 5.0 cmH2O 09/24/17 06:00 Pressure Support Vent 425 09/24/17 06:00 Sodium 140 mmol/L (136-145) 09/24/17 06:10 Potassium 3.8 mmol/L (3.5-5.1) 09/24/17 06:10 Chloride 103 mmol/L (98-107) 09/24/17 06:10 Carbon Dioxide 29 mmol/L (21-32) 09/24/17 06:10 Anion Gap 8 (8-16) 09/24/17 06:10 BUN 63 mg/dL (7-18) H 09/24/17 06:10 Creatinine 2.9 mg/dL (0.55-1.02) H 09/24/17 06:10 Creat Clearance w eGFR 15.42 (>60) 09/24/17 06:10 Random Glucose 265 mg/dL (74-106) H 09/24/17 06:10 Lactic Acid 6.1 mmol/L (0.0-2.0) H* 09/23/17 10:30 Calcium 7.2 mg/dL (8.5-10.1) L 09/24/17 06:10 Phosphorus 3.5 mg/dL (2.5-4.9) 09/24/17 06:10 Magnesium 2.7 mg/dL (1.8-2.4) H 09/24/17 06:10 Ferritin 138.345 ng/ml (6.9-282.5) 09/24/17 16:00 Total Bilirubin 0.3 mg/dL (0.2-1.0) 09/24/17 06:10 AST 516 U/L (15-37) H 09/24/17 06:10 ALT 635 U/L (12-78) H 09/24/17 06:10 Alkaline Phosphatase 91 U/L (45-117) 09/24/17 06:10 Creatine Kinase 111 IU/L (26-192) 09/23/17 10:30 Troponin I 0.08 ng/ml (0.00-0.05) H 09/23/17 10:30 Total Protein 5.4 g/dl (6.4-8.2) L 09/24/17 06:10 Albumin 2.5 g/dl (3.4-5.0) L 09/24/17 06:10 Urine Color Isabel 09/24/17 05:00 Urine Appearance Turbid 09/24/17 05:00 Urine pH 5.0 (5.0-8.0) 09/24/17 05:00 Ur Specific [place] 1.019 (1.001-1.035) 09/24/17 05:00 Urine Protein 3+ (NEGATIVE) H 09/24/17 05:00 Urine Glucose (UA) 1+ (NEGATIVE) H 09/24/17 05:00 Urine Ketones Trace (NEGATIVE) H 09/24/17 05:00 Urine Blood 3+ (NEGATIVE) H 09/24/17 05:00 Urine Nitrite Negative (NEGATIVE) 09/24/17 05:00 Urine Bilirubin Negative (NEGATIVE) 09/24/17 05:00 Urine Urobilinogen Negative mg/dL (0.2-1.0) 09/24/17 05:00 Ur Leukocyte Esterase 1+ (NEGATIVE) H 09/24/17 05:00 Urine WBC (Auto) 53 /hpf (3-5) 09/24/17 05:00 Urine RBC (Auto) 69 /hpf (0-3) 09/24/17 05:00 Ur Epithelial Cells Rare /HPF (FEW) 09/24/17 05:00 Urine Bacteria Many /hpf (NONE SEEN) 09/24/17 05:00 Hyaline Casts 37 /lpf 09/23/17 01:24 Urine Mucus Few 09/24/17 05:00 Blood Type A POSITIVE 09/22/17 09:50 Antibody Screen Negative 09/22/17 09:50 Crossmatch See Detail 09/22/17 09:50 Active Medications Albuterol Sulfate (Ventolin 0.083% Nebulizer Soln -) 1 amp NEB Q4H PRN PRN Reason: SHORT OF BREATH/WHEEZING Last Admin: 02/06/18 02:00 Dose: 1 amp Albuterol/Ipratropium (Duoneb -) 1 amp NEB RQID [facility] Last Admin: 09/24/17 14:10 Dose: 1 amp Heparin Sodium (Porcine) (Heparin -) 5,000 unit SQ BID CONNIE Last Admin: 09/24/17 16:37 Dose: Not Given Dopamine HCl/Dextrose (Dopamine 400 Mg/D5w -) 400,000 mcg in 250 mls @ 10.838 mls/hr IVPB TITR CONNIE; 5 MCG/KG/MIN PRN Reason: Protocol Last Admin: 09/24/17 16:44 Dose: Not Given Norepinephrine Bitartrate 16, (000 mcg/ Dextrose) 1,000 mls @ 6.5 mls/hr IV ASDIR CONNIE; 0.03 MCG/KG/MIN PRN Reason: Protocol Last Admin: 09/24/17 16:37 Dose: Not Given Sodium Chloride (Normal Saline -) 1,000 mls @ 75 mls/hr IV ASDIR CONNIE Last Admin: 09/24/17 08:06 Dose: 75 mls/hr Piperacillin/Tazobactam/Dextrose (Zosyn 2.25gm Ivpb (Premix)) 2.25 gm in 50 mls @ 100 mls/hr IVPB Q6H-IV CONNIE PRN Reason: Protocol Last Admin: 09/24/17 16:44 Dose: 100 mls/hr Famotidine/Sodium Chloride (Pepcid 20 Mg Premixed Ivpb -) 20 mg in 50 mls @ 144 mls/hr IVPB BID [facility] Last Admin: 09/24/17 16:43 Dose: 144 mls/hr Methylprednisolone Sodium Succinate (Solu-Medrol -) 60 mg IVPUSH Q6H-IV CONNIE Last Admin: 09/24/17 16:44 Dose: 60 mg 87 y/o woman with Dementia, Asthma, COPD (on O2), HTN, Glaucoma(blind), PVD transferred to ICU due to hypoxic respiratory failure and s/p cardiac arrest (09/23). originally presented to ED for sob. Neuro Sedated on propofol drip -- daily sedation vacation. Cardiovascular: s/p ROSC - norepi tittr to maintain MAP >65 - off dopamine since this morning Pulmonary On mechanical ventilation, tolerating Fio2 40% - solumedrol 60mg ivpush q6h - duonebs QID connie, [id number] prn GI/NUT: NPO at present will initiate feeds tomorrow via OG tube in the morning due to low abdominal perfusion from hemodynamic instability yesterday GI Proph famotadine - transaminitis like due to hypoperfusion Renal/Electrolytes: ORTIZ likely due to hypoperfusion - hydrate with IVF NS @75cc, monitor UOP with baeza Infectious Disease: zoyn IVPB q6hr ivpb for coverage of aspiration and RLE wound - started 2/6 Blood cultures (-), Influenza A/B (-), ucx (-), Hem/Coag: DVT Proph - Heparin BID Musculoskeletal/Skin: right anterior foot chronic wound - wound care as per Dr. payne's instructions Family Communication: discussed current status with Zully Dawson, they consented for Central line today.
[2017-09-24 09:55] LABS: EPI CELLS RARE /HPF (FEW); URINE BACTERIA MANY /hpf (NONE SEEN); URINE MUCUS FEW
--- NOTE | 2017-09-24 10:57 | PN ---
Progress Note (short form) - Note Progress Note: Patient followed in my office with chronic wound of right foot and venous stasis. Current hospital course reviewed. Wound care orders written. Follow up as needed.
--- NOTE | 2017-09-24 11:10 | PN ---
Progress Note, Physician Chief Complaint: INTUBATED AND SEDATED CHART AND NOTES REVIEWED - Current Medication List Current Medications: Active Medications Albuterol Sulfate (Ventolin 0.083% Nebulizer Soln -) 1 amp NEB Q4H PRN PRN Reason: SHORT OF BREATH/WHEEZING Last Admin: 09/23/17 02:00 Dose: 1 amp Albuterol/Ipratropium (Duoneb -) 1 amp NEB RQID TOMMY Last Admin: 09/24/17 08:10 Dose: 1 amp Dopamine HCl/Dextrose (Dopamine 400 Mg/D5w -) 400,000 mcg in 250 mls @ 10.838 mls/hr IVPB TITR TOMMY; 5 MCG/KG/MIN PRN Reason: Protocol Last Titration: 09/24/17 08:09 Dose: 3 mcg/kg/min, 6.503 mls/hr Norepinephrine Bitartrate 16, (000 mcg/ Dextrose) 1,000 mls @ 6.5 mls/hr IV ASDIR TOMMY; 0.03 MCG/KG/MIN PRN Reason: Protocol Last Admin: 09/24/17 09:28 Dose: 0.17 mcg/kg/min, 36.85 mls/hr Sodium Chloride (Normal Saline -) 1,000 mls @ 75 mls/hr IV ASDIR TOMMY Last Admin: 09/24/17 08:06 Dose: 75 mls/hr Piperacillin/Tazobactam/Dextrose (Zosyn 2.25gm Ivpb (Premix)) 2.25 gm in 50 mls @ 100 mls/hr IVPB Q6H-IV TOMMY PRN Reason: Protocol Last Admin: 09/24/17 09:25 Dose: 100 mls/hr Methylprednisolone Sodium Succinate (Solu-Medrol -) 60 mg IVPUSH Q6H-IV TOMMY Last Admin: 09/24/17 09:16 Dose: 60 mg - Objective Vital Signs: Vital Signs Temperature 99.8 F H 09/24/17 10:20 Pulse Rate 79 09/24/17 10:20 Respiratory Rate 17 09/24/17 10:40 Blood Pressure 128/52 09/24/17 10:20 O2 Sat by Pulse Oximetry (%) 99 09/23/17 22:00 Constitutional: Yes: Moderate Distress Eyes: Yes: Other HENT: Yes: Other Neck: Yes: Other Cardiovascular: Yes: Other Respiratory: Yes: Mechanically Ventilated Gastrointestinal: Yes: WNL Genitourinary: Yes: Incontinence Musculoskeletal: Yes: Muscle Weakness Extremities: Yes: Deformity Edema: No Peripheral Pulses WNL: Yes Integumentary: Yes: Pressure Ulcer Wound/Incision: Yes: Dressing Dry and Intact Neurological: Yes: Pre-Existing Deficit, Unsteady Gait ...Motor Strength: LLE, RLE Psychiatric: Yes: Other Labs: CBC, BMP 09/24/17 06:10 09/24/17 06:10 INR, PTT INR 1.07 (0.82-1.09) 09/24/17 06:10 Problem List - Problems (1) Acute and chronic respiratory failure with hypoxia Code(s): J96.21 - ACUTE AND CHRONIC RESPIRATORY FAILURE WITH HYPOXIA (2) Cardiac arrest Code(s): I46.9 - CARDIAC ARREST, CAUSE UNSPECIFIED (3) Leukocytosis Code(s): D72.829 - ELEVATED WHITE BLOOD CELL COUNT, UNSPECIFIED (4) Shortness of breath Code(s): R06.02 - SHORTNESS OF BREATH (5) Acute hypoxemic respiratory failure Code(s): J96.01 - ACUTE RESPIRATORY FAILURE WITH HYPOXIA (6) Acute on chronic respiratory failure with hypoxia and hypercapnia Code(s): J96.21 - ACUTE AND CHRONIC RESPIRATORY FAILURE WITH HYPOXIA; J96.22 - ACUTE AND CHRONIC RESPIRATORY FAILURE WITH HYPERCAPNIA (7) Acute respiratory failure with hypoxia and hypercapnia Code(s): J96.01 - ACUTE RESPIRATORY FAILURE WITH HYPOXIA; J96.02 - ACUTE RESPIRATORY FAILURE WITH HYPERCAPNIA (8) Asthma exacerbation in COPD Code(s): J44.1 - CHRONIC OBSTRUCTIVE PULMONARY DISEASE W (ACUTE) EXACERBATION; J45.901 - UNSPECIFIED ASTHMA WITH (ACUTE) EXACERBATION (9) Chronic ulcer of right foot Code(s): L97.519 - NON-PRS CHRONIC ULCER OTH PRT RIGHT FOOT W UNSP SEVERITY Qualifiers: Non-pressure ulcer stage: limited to breakdown of skin Qualified Code(s): L97.511 - Non-pressure chronic ulcer of other part of right foot limited to breakdown of skin Assessment/Plan VENT SUPPORT PULM/ICU FOLLOW UP APPRECIATED ADVANCED DIRECTIVE PER FAMILY PALLIATIVE CARE TEAM CONSULT IV ABX DVT PROPHYLAXIS WOUND CARE
[2017-09-24] MEDS ORDERED: PROPOFOL 1,000,000 MCG/100 ML VIAL ONE (15:30)
--- NOTE | 2017-09-24 15:44 | PN ---
Progress Note (short form) - Note Progress Note: Patient seen and examined . d/w daughter at bedside. Pt known to service from 08/07/2017 consulted for anemia. Chart reviewed in detail. labs reviewed ROS unobtainable due to pts condition O/E: General: intubated sedated. HEENT: +ET Tube Lung: Coarse breath sounds Cor: rrr Abd: soft LE: contracted. Last Vital Signs Temp Pulse Resp BP Pulse Ox 100.3 F H 78 16 131/60 99 09/24/17 13:40 09/24/17 13:40 09/24/17 13:40 09/24/17 13:40 09/23/17 22:00 CBC, BMP 09/24/17 06:10 09/24/17 06:10 Current Medications Generic Name Dose Route Start Last Admin Trade Name Freq PRN Reason Stop Dose Admin Albuterol Sulfate 1 amp 09/22/17 16:34 09/23/17 02:00 Ventolin 0.083% Nebulizer Soln - NEB 1 amp Q4H PRN Administration SHORT OF BREATH/WHEEZING Albuterol/Ipratropium 1 amp 09/22/17 20:00 09/24/17 11:39 Duoneb - NEB 1 amp RQID TOMMY Administration Heparin Sodium (Porcine) 5,000 unit 09/24/17 13:30 Heparin - SQ BID TOMMY Dopamine HCl/Dextrose 400,000 mcg in 250 mls @ 10.838 mls/hr 09/23/17 09:30 09/24/17 08:09 Dopamine 400 Mg/D5w - IVPB 3 mcg/kg/min TITR TOMMY 6.503 mls/hr Protocol Titration 5 MCG/KG/MIN Norepinephrine Bitartrate 16, 1,000 mls @ 6.5 mls/hr 09/23/17 11:00 09/24/17 09:28 000 mcg/ Dextrose IV 0.17 mcg/kg/min ASDIR TOMMY 36.85 mls/hr Protocol Administration 0.03 MCG/KG/MIN Sodium Chloride 1,000 mls @ 75 mls/hr 09/24/17 07:15 09/24/17 08:06 Normal Saline - IV 75 mls/hr ASDIR TOMMY Administration Piperacillin/Tazobactam/Dextrose 2.25 gm in 50 mls @ 100 mls/hr 02/07/18 09: 00 09/24/17 09:25 Zosyn 2.25gm Ivpb (Premix) IVPB 100 mls/hr Q6H-IV TOMMY Administration Protocol Famotidine/Sodium Chloride 20 mg in 50 mls @ 144 mls/hr 09/24/17 13:30 Pepcid 20 Mg Premixed Ivpb - IVPB BID TOMMY Methylprednisolone Sodium Succinate 60 mg 09/22/17 21:00 09/24/17 09:16 Solu-Medrol - IVPUSH 60 mg Q6H-IV TOMMY Administration Anemia CKD Now in Septic shock/PNA s/p CAC PAD noted prior labs, consistent with ACD, now with acute drop in the setting of ongoing illness, for FOBT, supportive transfusions, Hgb>8 as target. for PRBCs today Abx per ID. ICU care.
[2017-09-24] MEDS: HEPARIN NA (PORCINE) 5,000 UNITS/ML 1ML VIAL SQ SCH ×2 (16:37→21:15)
--- NOTE | 2017-09-24 16:41 | PN ---
Teaching Attending Note Name of Resident: Kory Menard ATTENDING PHYSICIAN STATEMENT I saw and evaluated the patient. I reviewed the resident's note and discussed the case with the resident. I agree with the resident's findings and plan as documented. SUBJECTIVE: Pt seen and examined in the ICU. Remains intubated, sedated on levophed gtt. Vented on volume assist control. OBJECTIVE: Last Vital Signs Temp Pulse Resp BP Pulse Ox 100.3 F H 78 16 131/60 99 09/24/17 13:40 09/24/17 13:40 09/24/17 13:40 09/24/17 13:40 09/23/17 22:00 Intake & Output 09/21/17 09/22/17 09/23/17 09/24/17 23:59 23:59 23:59 23:59 Intake Total 2396.6 664 Output Total 600 250 Balance 1796.6 414 Weight 58.967 kg 57.805 kg 66.088 kg Gen: intubated, sedated Heart: RRR Lung: scattered rhonchi Abd: soft, nontender Ext: + edema CBC, BMP 09/24/17 06:10 09/24/17 06:10 Active Medications Albuterol Sulfate (Ventolin 0.083% Nebulizer Soln -) 1 amp NEB Q4H PRN PRN Reason: SHORT OF BREATH/WHEEZING Last Admin: 09/23/17 02:00 Dose: 1 amp Albuterol/Ipratropium (Duoneb -) 1 amp NEB RQID TOMMY Last Admin: 09/24/17 11:39 Dose: 1 amp Heparin Sodium (Porcine) (Heparin -) 5,000 unit SQ BID TOMMY Last Admin: 09/24/17 16:37 Dose: Not Given Dopamine HCl/Dextrose (Dopamine 400 Mg/D5w -) 400,000 mcg in 250 mls @ 10.838 mls/hr IVPB TITR TOMMY; 5 MCG/KG/MIN PRN Reason: Protocol Last Titration: 09/24/17 12:30 Dose: 0 mcg/kg/min, 0 mls/hr Norepinephrine Bitartrate 16, (000 mcg/ Dextrose) 1,000 mls @ 6.5 mls/hr IV ASDIR TOMMY; 0.03 MCG/KG/MIN PRN Reason: Protocol Last Admin: 09/24/17 09:28 Dose: 0.17 mcg/kg/min, 36.85 mls/hr Sodium Chloride (Normal Saline -) 1,000 mls @ 75 mls/hr IV ASDIR TOMMY Last Admin: 09/24/17 08:06 Dose: 75 mls/hr Piperacillin/Tazobactam/Dextrose (Zosyn 2.25gm Ivpb (Premix)) 2.25 gm in 50 mls @ 100 mls/hr IVPB Q6H-IV TOMMY PRN Reason: Protocol Last Admin: 09/24/17 09:25 Dose: 100 mls/hr Famotidine/Sodium Chloride (Pepcid 20 Mg Premixed Ivpb -) 20 mg in 50 mls @ 144 mls/hr IVPB BID TOMMY Methylprednisolone Sodium Succinate (Solu-Medrol -) 60 mg IVPUSH Q6H-IV TOMMY Last Admin: 09/24/17 09:16 Dose: 60 mg ASSESSMENT AND PLAN: s/p Bradycardic Cardiac Arrest Acute on Chronic Hypoxic and Hypercapneic Respiratory Failure Acute COPD Exacerbation Pneumonia Septic Shock Acute Kidney Injury Lactic Acidosis PAD HTN Dementia - continue antibiotics - f/u cultures - taper pressors to maintain MAP >65 - continue medrol - inhaled bronchodilators - titrate FiO2 to keep SpO2 >90% - lighten sedation to assess mental status - spontaneous breathing trials if mental status improved - enteral feeds if unable to extubate - DVT/GI prophylaxis - continue ICU monitoring critical care time spent in reviewing chart, evaluating patient and formulating plan 35 min
[2017-09-24] MEDS: FAMOTIDINE 20 MG/50 ML IVPB 20 MG/50 ML MG IVPB SCH ×2 (16:43→21:16)
[2017-09-24] MEDS: DOPAMINE 400 MG/D5W - 400,000 MCG/250 ML INFUS.BAG IVPB SCH (16:44)
--- NOTE | 2017-09-24 18:18 | PROC ---
Central Line Insertion Indication: CVP Monitoring, Sepsis Risks and Benefits Explained: Yes Consent on Chart: Yes Central Line: Triple Lumen Catheter Anesthesia: 1% Lidocaine Sterile Technique: Yes Ultrasound Guided Assistance: Yes Position: Left Internal Jugular Post Insertion: Yes: Chest X-Ray Ordered Sterile Dressing Applied: Yes
[2017-09-24] MEDS ORDERED: PROPOFOL 2,000,000 MCG/200 ML VIAL ONE (18:33)
[2017-09-24] MEDS ORDERED: fentaNYL CITRATE 250 MCG/5 ML VIAL ONE (21:21)
[2017-09-24] MEDS: FENTANYL INJECTION 500 MCG in DEXTROSE 5%-WATER - 90 ML IVPB SCH (21:30)
[2017-09-25] MEDS: PIPERACILLIN/TAZOB 2.25 GM 2.25 GM in DEXTROSE 5%-WATER - 100 ML IVPB SCH ×5 (03:30→21:16)
[2017-09-25] MEDS: methylPREDNISolone NA SUCC 125 MG/2 ML VIAL IVPUSH SCH ×2 (03:39→10:00)
[2017-09-25 06:27] LABS: HEMATOCRIT 21.6 % (32.4-45.2); HEMOGLOBIN 7.2 GM/dL (10.7-15.3); MCH 28.8 pg (25.7-33.7); MCHC 33.5 g/dl (32.0-36.0); MEAN CELL VOLUME 86.1 fl (80-96); MEAN PLT VOLUME 8.5 fl (7.5-11.1); PLATELET COUNT 100 K/MM3 (134-434); RBC 2.51 M/mm3 (3.60-5.2); WHITE BLOOD COUNT 11.5 K/mm3 (4.0-10.0)
[2017-09-25] MEDS ORDERED: fentaNYL CITRATE 250 MCG/5 ML VIAL ONE ×2 (06:33→19:17)
[2017-09-25] MEDS ORDERED: BENZOIN/ALOE VERA/STORAX/TOLU 58 ML BOTTLE ONE (06:36)
[2017-09-25 07:01] LABS: CHLORIDE 102 mmol/L (98-107); POTASSIUM 3.9 mmol/L (3.5-5.1); SODIUM 140 mmol/L (136-145)
[2017-09-25] MEDS: FENTANYL INJECTION 500 MCG in DEXTROSE 5%-WATER - 90 ML IVPB SCH ×2 (07:05→20:00)
[2017-09-25] MEDS: SODIUM CHLORIDE 1,000 ML IV SCH (07:05)
[2017-09-25 07:08] LABS: ANION GAP 14 (8-16); BLOOD UREA NITROGEN 82 mg/dL (7-18); CALCIUM 7.4 mg/dL (8.5-10.1); CO2 24 mmol/L (21-32); CREATININE 3.8 mg/dL (0.55-1.02); GLUCOSE,RANDOM 180 mg/dL (74-106); MAGNESIUM 2.8 mg/dL (1.8-2.4); PHOSPHOROUS 4.7 mg/dL (2.5-4.9)
[2017-09-25] MEDS: ALBUTEROL SO4 2.5/IPRATROPIUM 0.5 INH SOL 3 ML VIAL.NEB. NEB SCH ×4 (08:10→20:56)
--- NOTE | 2017-09-25 09:23 | PN ---
Progress Note, Physician Chief Complaint: ID Continues on Zosyn Afebrile Intubated Off pressors - Current Medication List Current Medications: Active Medications Albuterol Sulfate (Ventolin 0.083% Nebulizer Soln -) 1 amp NEB Q4H PRN PRN Reason: SHORT OF BREATH/WHEEZING Last Admin: 09/23/17 02:00 Dose: 1 amp Albuterol/Ipratropium (Duoneb -) 1 amp NEB RQID TOMMY Last Admin: 09/24/17 20:25 Dose: 1 amp Heparin Sodium (Porcine) (Heparin -) 5,000 unit SQ BID TOMMY Last Admin: 09/24/17 21:15 Dose: 5,000 unit Norepinephrine Bitartrate 16, (000 mcg/ Dextrose) 1,000 mls @ 6.5 mls/hr IV ASDIR TOMMY; 0.03 MCG/KG/MIN PRN Reason: Protocol Last Titration: 09/25/17 04:06 Dose: 0 mcg/kg/min, 0 mls/hr Sodium Chloride (Normal Saline -) 1,000 mls @ 75 mls/hr IV ASDIR TOMMY Last Admin: 09/25/17 07:05 Dose: 75 mls/hr Famotidine/Sodium Chloride (Pepcid 20 Mg Premixed Ivpb -) 20 mg in 50 mls @ 144 mls/hr IVPB BID TOMMY Last Admin: 09/24/17 21:16 Dose: 144 mls/hr Fentanyl 500 mcg/ Dextrose 100 mls @ 10 mls/hr IVPB TITR TOMMY; 50 MCG/HR PRN Reason: Protocol Last Admin: 09/25/17 07:05 Dose: 10 mls/hr Piperacillin Sod/Tazobactam (Sod 2.25 gm/ Dextrose) 100 mls @ 200 mls/hr IVPB Q6H-IV TOMMY PRN Reason: Protocol Last Admin: 09/25/17 03:44 Dose: 200 mls/hr Methylprednisolone Sodium Succinate (Solu-Medrol -) 60 mg IVPUSH Q6H-IV TOMMY Last Admin: 09/25/17 03:39 Dose: 60 mg - Objective Vital Signs: Vital Signs Temperature 97.9 F 09/25/17 06:00 Pulse Rate 66 09/25/17 06:00 Respiratory Rate 16 09/25/17 07:00 Blood Pressure 124/71 09/25/17 06:00 O2 Sat by Pulse Oximetry (%) 99 09/24/17 21:06 Constitutional: Yes: Other (INtubated) Cardiovascular: Yes: S1, S2 Respiratory: Yes: WNL, Regular, CTA Bilaterally, Rhonchi Gastrointestinal: Yes: Soft Labs: CBC, BMP 09/25/17 05:55 09/25/17 05:55 INR, PTT INR 1.07 (0.82-1.09) 09/24/17 06:10 Assessment/Plan Microbiology 09/23/17 01:26 Urine - Urine Clean Catch Urine Culture - Final NO GROWTH OBTAINED 09/22/17 09:50 Nasopharyngeal Swab Influenza Types A,B Antigen (BRADY) - Final 09/22/17 09:50 Nasopharyngeal Swab - Final 09/22/17 09:50 Blood - Peripheral Venous Blood Culture - Preliminary NO GROWTH OBTAINED AFTER 48 HOURS, INCUBATION TO CONTINUE FOR 3 DAYS. 09/22/17 09:30 Blood - Peripheral Venous Blood Culture - Preliminary NO GROWTH OBTAINED AFTER 48 HOURS, INCUBATION TO CONTINUE FOR 3 DAYS. Laboratory Tests 09/24/17 09/25/17 09/25/17 06:10 05:55 05:55 WBC 11.5 H RBC 2.51 L Hct 21.6 L Plt Count 100 L D BUN 82 H Creatinine 3.8 H AST 516 H ALT 635 H Alkaline Phosphatase 91 Assessment Cardiopulmonary arrest Respirator failure ? sepsis Thrombocytopenia ? sepsis relateed on Zosyn Blood cultures neg Shock liver Unsure if any infection present. pneumonia considered Continue Zosyn Send sputum culture Prognosis poor Christa TUCKER
[2017-09-25] MEDS: FAMOTIDINE 20 MG/50 ML IVPB 20 MG/50 ML MG IVPB SCH ×2 (10:24→21:16)
[2017-09-25] MEDS: HEPARIN NA (PORCINE) 5,000 UNITS/ML 1ML VIAL SQ SCH (10:25)
--- NOTE | 2017-09-25 10:39 | PN ---
Physical Exam: SUBJECTIVE: Patient seen and examined The patient is an 87 year old female with a history of Dementia, Asthma, COPD ( on O2), HTN, Glaucoma, PVD who initially presented for a COPD exacerbation with acute on chronic hypoxemia transferred to the ICU for respiratory distress following 3 cardiac arrests. Patient is no longer on pressors. Otherwise no acute events overnight. OBJECTIVE: Vital Signs Period Temp Pulse Resp BP Sys/Moscoso Pulse Ox Last 24 Hr 97.9 F-100.3 F 66-95 16-19 111-146/53-76 99-99 GENERAL: The patient is sedated and intubated in no acute distress. HEAD: Normal with no signs of trauma. EYES: sclera anicteric, conjunctiva clear. No ptosis. ENT: oropharynx clear without exudates, moist mucous membranes. NECK: Trachea midline, full range of motion, supple. LUNGS: Breath sounds equal, clear to auscultation bilaterally, no wheezes, no crackles, no accessory muscle use. HEART: Regular rate and rhythm, S1, S2 without murmur, rub or gallop. ABDOMEN: Soft, nontender, nondistended, normoactive bowel sounds, no guarding, no rebound, no hepatosplenomegaly, no masses. EXTREMITIES: 2+ pulses, warm, well-perfused, 2+ edema. NEUROLOGICAL: Moving all four extremities spontaneously. gait not observed. PSYCH: Normal mood, normal affect. SKIN: Warm, dry, normal turgor, no rashes or lesions noted Laboratory Results - last 24 hr 09/22/17 09/22/17 09/24/17 09:30 09:50 16:00 WBC RBC Hgb Hct MCV MCH MCHC RDW Plt Count MPV Retic Count 1.29 Sodium Potassium Chloride Carbon Dioxide Anion Gap BUN Creatinine Random Glucose Lactic Acid 0.9 Calcium Phosphorus Magnesium Ferritin Troponin I Blood Type A POSITIVE Antibody Screen Negative Crossmatch See Detail 09/24/17 09/25/17 09/25/17 16:00 05:55 05:55 WBC 11.5 H RBC 2.51 L Hgb 7.2 L Hct 21.6 L MCV 86.1 MCH 28.8 MCHC 33.5 RDW 15.0 Plt Count 100 L D MPV 8.5 Retic Count Sodium 140 Potassium 3.9 Chloride 102 Carbon Dioxide 24 Anion Gap 14 BUN 82 H Creatinine 3.8 H Random Glucose 180 H Lactic Acid Calcium 7.4 L Phosphorus 4.7 Magnesium 2.8 H Ferritin 138.345 Troponin I Blood Type Antibody Screen Crossmatch 09/25/17 05:55 WBC RBC Hgb Hct MCV MCH MCHC RDW Plt Count MPV Retic Count Sodium Potassium Chloride Carbon Dioxide Anion Gap BUN Creatinine Random Glucose Lactic Acid Calcium Phosphorus Magnesium Ferritin Troponin I 0.55 H Blood Type Antibody Screen Crossmatch Active Medications Generic Name Dose Route Start Last Admin Trade Name Freq PRN Reason Stop Dose Admin Albuterol Sulfate 1 amp 09/22/17 16:34 09/23/17 02:00 Ventolin 0.083% Nebulizer Soln - NEB 1 amp Q4H PRN Administration SHORT OF BREATH/WHEEZING Albuterol/Ipratropium 1 amp 09/22/17 20:00 09/25/17 08:10 Duoneb - NEB 1 amp RQID TOMMY Administration Heparin Sodium (Porcine) 5,000 unit 09/24/17 13:30 09/25/17 10:25 Heparin - SQ 5,000 unit BID TOMMY Administration Norepinephrine Bitartrate 16, 1,000 mls @ 6.5 mls/hr 09/23/17 11:00 09/25/17 04:06 000 mcg/ Dextrose IV 0 mcg/kg/min ASDIR TOMMY 0 mls/hr Protocol Titration 0.03 MCG/KG/MIN Sodium Chloride 1,000 mls @ 75 mls/hr 09/24/17 07:15 09/25/17 07:05 Normal Saline - IV 75 mls/hr ASDIR TOMMY Administration Famotidine/Sodium Chloride 20 mg in 50 mls @ 144 mls/hr 09/24/17 13:30 10:24 Pepcid 20 Mg Premixed Ivpb - IVPB 144 mls/hr BID TOMMY Administration Fentanyl 500 mcg/ Dextrose 100 mls @ 10 mls/hr 09/24/17 19:30 09/25/17 07:05 IVPB 10 mls/hr TITR TOMMY Administration Protocol 50 MCG/HR Piperacillin Sod/Tazobactam 100 mls @ 200 mls/hr 09/25/17 03:00 09/25/17 10: 00 Sod 2.25 gm/ Dextrose IVPB 200 mls/hr Q6H-IV TOMMY Administration Protocol Methylprednisolone Sodium Succinate 60 mg 09/22/17 21:00 09/25/17 10:00 Solu-Medrol - IVPUSH 60 mg Q6H-IV TOMMY Administration ASSESSMENT/PLAN: The patient is an 87 year old female with a history of Dementia, Asthma, COPD ( on O2), HTN, Glaucoma, PVD who initially presented for a COPD exacerbation with acute on chronic hypoxemia transferred to the ICU for respiratory distress following 3 cardiac arrests. NEURO Patient is intubated. -Will stop sedation to evaluated mental status. -Will continue to monitor. CV #Cardiac Arrest Patient coded 3 times with RSOC obtained each time. She was initially noted to be in asystole with the first arrest, ventricular fibullation with the second arrest, and PEA with the third arrest. -Patient is off pressors and maintaining blood pressures. -Continue to monitor. RESP #Acute on Chronic respiratory failure Patient initially presented for COPD exacerbation. She was intubated for continued respiratory distress despite Bipap prior to her cardiac arrest. She received albuterol nebulizers and steroids as well. -Follow up chest plain film. -Continue to maintain vent settings. -Continue solu-medrol at 40mg q12h. -Continue to monitor. GI No issues currently. -Will continue to monitor. Renal No issues currently -Will continue to monitor bun/creatinine. ID -Patient started on zosyn for antibiotic coverage -Will follow up with cultures. -Will continue to monitor. MSK No issues currently FEN/GI -Replete electrolytes PRN, will monitor PPX -Continue heparin -Continue pepcid DISPO: Continue ICU level of care. Visit type - Emergency Visit Emergency Visit: No - New Patient This patient is new to me today: No - Critical Care Critical Care patient: Yes Total Critical Care Time (in minutes): 35 Critical Care Statement: The care of this patient involved high complexity decision making to prevent further life threatening deterioration of the patient 's condition and/or to evaluate & treat vital organ system(s) failure or risk of failure.
--- NOTE | 2017-09-25 12:44 | PN ---
Progress Note (short form) - Note Progress Note: Patient seen and examined . d/w daughter at bedside. Chart reviewed in detail. labs reviewed condition not changed O/E: General: intubated sedated. HEENT: +ET Tube Lung: Coarse breath sounds Cor: rrr Abd: soft LE: contracted. Last Vital Signs Temp Pulse Resp BP Pulse Ox 100.3 F H 78 16 131/60 99 09/24/17 13:40 09/24/17 13:40 09/24/17 13:40 09/24/17 13:40 09/23/17 22:00 CBC, BMP 09/24/17 06:10 09/24/17 06:10 Current Medications Generic Name Dose Route Start Last Admin Trade Name Freq PRN Reason Stop Dose Admin Albuterol Sulfate 1 amp 09/22/17 16:34 09/23/17 02:00 Ventolin 0.083% Nebulizer Soln - NEB 1 amp Q4H PRN Administration SHORT OF BREATH/WHEEZING Albuterol/Ipratropium 1 amp 09/22/17 20:00 09/24/17 11:39 Duoneb - NEB 1 amp RQID TOMMY Administration Heparin Sodium (Porcine) 5,000 unit 09/24/17 13:30 Heparin - SQ BID TOMMY Dopamine HCl/Dextrose 400,000 mcg in 250 mls @ 10.838 mls/hr 09/23/17 09:30 09/24/17 08:09 Dopamine 400 Mg/D5w - IVPB 3 mcg/kg/min TITR TOMMY 6.503 mls/hr Protocol Titration 5 MCG/KG/MIN Norepinephrine Bitartrate 16, 1,000 mls @ 6.5 mls/hr 09/23/17 11:00 09/24/17 09:28 000 mcg/ Dextrose IV 0.17 mcg/kg/min ASDIR TOMMY 36.85 mls/hr Protocol Administration 0.03 MCG/KG/MIN Sodium Chloride 1,000 mls @ 75 mls/hr 09/24/17 07:15 09/24/17 08:06 Normal Saline - IV 75 mls/hr ASDIR TOMMY Administration Piperacillin/Tazobactam/Dextrose 2.25 gm in 50 mls @ 100 mls/hr 09/24/17 09: 00 09/24/17 09:25 Zosyn 2.25gm Ivpb (Premix) IVPB 100 mls/hr Q6H-IV TOMMY Administration Protocol Famotidine/Sodium Chloride 20 mg in 50 mls @ 144 mls/hr 09/24/17 13:30 Pepcid 20 Mg Premixed Ivpb - IVPB BID TOMMY Methylprednisolone Sodium Succinate 60 mg 09/22/17 21:00 09/24/17 09:16 Solu-Medrol - IVPUSH 60 mg Q6H-IV TOMMY Administration Anemia ORTIZ Now in Septic shock/PNA s/p CAC PAD Thrombocytopenia awaiting FOBT Hgb trending down transfuse 2UPRBC Platelets drop ?meds ?acute illness , will continue to monitor monitor cr, consider renal c/s
--- NOTE | 2017-09-25 12:47 | PN ---
Progress Note, Physician Chief Complaint: patient stil in icu off presors History of Present Illness: sedated on propofol and fentanyl on AC mode on vent - Current Medication List Current Medications: Active Medications Albuterol Sulfate (Ventolin 0.083% Nebulizer Soln -) 1 amp NEB Q4H PRN PRN Reason: SHORT OF BREATH/WHEEZING Last Admin: 09/23/17 02:00 Dose: 1 amp Albuterol/Ipratropium (Duoneb -) 1 amp NEB RQID TOMMY Last Admin: 09/25/17 08:10 Dose: 1 amp Norepinephrine Bitartrate 16, (000 mcg/ Dextrose) 1,000 mls @ 6.5 mls/hr IV ASDIR TOMMY; 0.03 MCG/KG/MIN PRN Reason: Protocol Last Titration: 09/25/17 04:06 Dose: 0 mcg/kg/min, 0 mls/hr Sodium Chloride (Normal Saline -) 1,000 mls @ 75 mls/hr IV ASDIR TOMMY Last Admin: 09/25/17 07:05 Dose: 75 mls/hr Famotidine/Sodium Chloride (Pepcid 20 Mg Premixed Ivpb -) 20 mg in 50 mls @ 144 mls/hr IVPB BID TOMMY Last Admin: 09/25/17 10:24 Dose: 144 mls/hr Fentanyl 500 mcg/ Dextrose 100 mls @ 10 mls/hr IVPB TITR TOMMY; 50 MCG/HR PRN Reason: Protocol Last Admin: 09/25/17 07:05 Dose: 10 mls/hr Piperacillin Sod/Tazobactam (Sod 2.25 gm/ Dextrose) 100 mls @ 200 mls/hr IVPB Q6H-IV TOMMY PRN Reason: Protocol Last Admin: 09/25/17 10:00 Dose: 200 mls/hr Methylprednisolone Sodium Succinate (Solu-Medrol -) 40 mg IVPUSH BID TOMMY - Objective Vital Signs: Vital Signs Temperature 97.9 F 09/25/17 06:00 Pulse Rate 65 09/25/17 08:00 Respiratory Rate 16 09/25/17 10:08 Blood Pressure 105/52 09/25/17 08:00 O2 Sat by Pulse Oximetry (%) 100 09/25/17 10:00 Constitutional: Yes: Calm Cardiovascular: Yes: S1, S2 Respiratory: Yes: Mechanically Ventilated Gastrointestinal: Yes: Normal Bowel Sounds, Soft Labs: CBC, BMP 09/25/17 05:55 09/25/17 05:55 INR, PTT INR 1.07 (0.82-1.09) 09/24/17 06:10 Problem List - Problems (1) Acute on chronic respiratory failure with hypoxia and hypercapnia Assessment/Plan: intubated in icu sedated- propofol and fentanyl on steroids iv iv abx s/p bradycardiac arrest off pressors DNR yoav get renal to see patient- most likey ORTIZ secondary to hypotension/cardiac arrest Code(s): J96.21 - ACUTE AND CHRONIC RESPIRATORY FAILURE WITH HYPOXIA; J96.22 - ACUTE AND CHRONIC RESPIRATORY FAILURE WITH HYPERCAPNIA
[2017-09-25] MEDS ORDERED: PROPOFOL 1,000,000 MCG/100 ML VIAL ONE ×2 (13:29→20:35)
[2017-09-25] MEDS: NOREPINEPHRINE BITARTRATE 16,000 MCG in DEXTROSE 5%-WATER - 984 ML IV SCH (13:34)
--- NOTE | 2017-09-25 13:46 | PN ---
Teaching Attending Note Name of Resident: Nabeel Davis ATTENDING PHYSICIAN STATEMENT I saw and evaluated the patient. I reviewed the resident's note and discussed the case with the resident. I agree with the resident's findings and plan as documented. SUBJECTIVE: Patient seen and examined in the ICU. Remains intubated and sedated. Currently off pressors. OBJECTIVE: Intake & Output 09/22/17 09/23/17 09/24/17 09/25/17 23:59 23:59 23:59 23:59 Intake Total 2396.6 2325 1070.0 Output Total 600 250 350 Balance 1796.6 2075 720.0 Weight 130 lb 127 lb 7 oz 145 lb 11.2 oz 149 lb 4.8 oz Last Vital Signs Temp Pulse Resp BP Pulse Ox 97.8 F 72 20 152/54 100 09/25/17 12:57 09/25/17 12:57 09/25/17 12:57 09/25/17 12:57 09/25/17 10:00 Active Medications Albuterol Sulfate (Ventolin 0.083% Nebulizer Soln -) 1 amp NEB Q4H PRN PRN Reason: SHORT OF BREATH/WHEEZING Last Admin: 09/23/17 02:00 Dose: 1 amp Albuterol/Ipratropium (Duoneb -) 1 amp NEB RQID TOMMY Last Admin: 09/25/17 08:10 Dose: 1 amp Norepinephrine Bitartrate 16, (000 mcg/ Dextrose) 1,000 mls @ 6.5 mls/hr IV ASDIR TOMMY; 0.03 MCG/KG/MIN PRN Reason: Protocol Last Admin: 09/25/17 13:34 Dose: Not Given Sodium Chloride (Normal Saline -) 1,000 mls @ 75 mls/hr IV ASDIR TOMMY Last Admin: 09/25/17 07:05 Dose: 75 mls/hr Famotidine/Sodium Chloride (Pepcid 20 Mg Premixed Ivpb -) 20 mg in 50 mls @ 144 mls/hr IVPB BID TOMMY Last Admin: 09/25/17 10:24 Dose: 144 mls/hr Fentanyl 500 mcg/ Dextrose 100 mls @ 10 mls/hr IVPB TITR TOMMY; 50 MCG/HR PRN Reason: Protocol Last Admin: 09/25/17 07:05 Dose: 10 mls/hr Piperacillin Sod/Tazobactam (Sod 2.25 gm/ Dextrose) 100 mls @ 200 mls/hr IVPB Q6H-IV TOMMY PRN Reason: Protocol Last Admin: 09/25/17 10:00 Dose: 200 mls/hr Methylprednisolone Sodium Succinate (Solu-Medrol -) 40 mg IVPUSH BID TOMMY Gen: intubated, sedated Heart: RRR Lung: scattered rhonchi Abd: soft, nontender Ext: + edema Laboratory Results - last 24 hr 09/22/17 09/22/17 09/24/17 09:30 09:50 16:00 WBC RBC Hgb Hct MCV MCH MCHC RDW Plt Count MPV Retic Count 1.29 Sodium Potassium Chloride Carbon Dioxide Anion Gap BUN Creatinine Random Glucose Lactic Acid 0.9 Calcium Phosphorus Magnesium Ferritin Troponin I Blood Type A POSITIVE Antibody Screen Negative Crossmatch See Detail 09/24/17 09/25/17 09/25/17 16:00 05:55 05:55 WBC 11.5 H RBC 2.51 L Hgb 7.2 L Hct 21.6 L MCV 86.1 MCH 28.8 MCHC 33.5 RDW 15.0 Plt Count 100 L D MPV 8.5 Retic Count Sodium 140 Potassium 3.9 Chloride 102 Carbon Dioxide 24 Anion Gap 14 BUN 82 H Creatinine 3.8 H Random Glucose 180 H Lactic Acid Calcium 7.4 L Phosphorus 4.7 Magnesium 2.8 H Ferritin 138.345 Troponin I Blood Type Antibody Screen Crossmatch 09/25/17 09/25/17 05:55 10:30 WBC RBC Hgb Hct MCV MCH MCHC RDW Plt Count MPV Retic Count Sodium Potassium Chloride Carbon Dioxide Anion Gap BUN Creatinine Random Glucose Lactic Acid Calcium Phosphorus Magnesium Ferritin Troponin I 0.55 H Blood Type A POSITIVE Antibody Screen Negative Crossmatch See Detail ASSESSMENT AND PLAN: s/p Bradycardic Cardiac Arrest Acute on Chronic Hypoxic and Hypercapneic Respiratory Failure Acute COPD Exacerbation Pneumonia Septic Shock Acute Kidney Injury Lactic Acidosis PAD HTN Dementia - continue antibiotics - Monitor off pressors - Taper Medrol - Inhaled bronchodilators - titrate FiO2 to keep SpO2 >90% - lighten sedation to assess mental status - spontaneous breathing trials if mental status improved - enteral feeds - DVT/GI prophylaxis - continue ICU monitoring Dr Guzman Critical care time spent in reviewing chart, evaluating patient and formulating plan 35 min
--- NOTE | 2017-09-25 15:19 | CONSULT ---
Consult Consult Specialty:: Nephrology Reason for Consultation:: ORTIZ - History of Present Illness Chief Complaint: initially presented with shorthess of breath History of Present Illness: Pt is an 87 year old female with pmhx of DM, PVD, lower ext ulcer, COPD, dementia, and macular degeneration who initially presents to the ER with shortness of breath and cough. She also had a cough for about 5 days. She was admitted for treatment and workup. She had a cardiac arrest while in the hospital and was subsequently hypotensive and on pressors. She was found to have ORTIZ and I was called to evaluate her. She is intubated and mechanically ventilated. Pt is unable to give history. I reviewed the chart and discussed her care with the medical team. Pts daughter, Malika, also helped with history. Pt is also anemic and is getting PRBC. 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) Cardio/Vascular: Yes: HTN Pulmonary: Yes: Asthma, COPD, O2 Dependent Psych: Yes: Depression Musculoskeletal: Yes: Other (rt leg wound - receiving wound care) - Alcohol/Substance Use Hx Alcohol Use: No - Smoking History Smoking history: Never smoked Have you smoked in the past 12 months: No Aproximately how many cigarettes per day: 0 - Social History Usual Living Arrangement: Senior Living ADL: Family Assistance History of Recent Travel: No Home Medications - Allergies Allergies/Adverse Reactions: Allergies Allergy/AdvReac Type Severity Reaction Status Date / Time epinephrine Allergy Mild Itching Verified 09/22/17 09:07 - Home Medications Home Medications: Ambulatory Orders Albuterol 0.083% Nebulizer Jasmin [Ventolin 0.083%] 1 neb NEB QID 09/22/17 Ferrous Sulfate 325 mg PO BID 09/22/17 Memantine HCl/Donepezil HCl [Namzaric 28 mg-10 mg Capsule] 1 each PO DAILY 09/22 Montelukast Sodium [Singulair] 10 mg PO DAILY 09/22/17 Family Disease History - Family Disease History Family History: Unable to Obtain Review of Systems Unable to obtain ROS, reason: pt intubated Physical Exam Vital Signs: Vital Signs Temperature 98.5 F 09/25/17 14:52 Pulse Rate 74 09/25/17 14:52 Respiratory Rate 22 09/25/17 14:52 Blood Pressure 153/64 09/25/17 14:52 O2 Sat by Pulse Oximetry (%) 100 09/25/17 10:00 Constitutional: Yes: Calm Eyes: Yes: Conjunctiva Clear Neck: Yes: Trachea Midline Cardiovascular: Yes: S1, S2 Respiratory: Yes: Mechanically Ventilated Gastrointestinal: Yes: Soft Renal/: Yes: Baeza Present Musculoskeletal: Yes: Muscle Weakness Edema: Yes Wound/Incision: Yes: Dressing Dry and Intact Neurological: Yes: Lethargy Labs: CBC, BMP 09/25/17 05:55 09/25/17 05:55 Laboratory Tests 09/22/17 09/22/17 09/23/17 09:30 09:41 01:24 WBC Hgb Plt Count BUN Creatinine 1.0 Lactic Acid 0.9 Urine Color Urine Protein 3+ H Urine Blood 2+ H 09/23/17 09/23/17 09/23/17 05:20 10:30 10:30 WBC Hgb 8.1 L D Plt Count BUN Creatinine 1.2 H 1.4 H Lactic Acid Urine Color Urine Protein Urine Blood 09/23/17 09/24/17 09/24/17 10:30 05:00 06:10 WBC Hgb 7.5 L Plt Count 181 BUN Creatinine Lactic Acid 6.1 H* Urine Color Isabel Urine Protein 3+ H Urine Blood 3+ H 09/24/17 09/25/17 09/25/17 06:10 05:55 05:55 WBC 11.5 H Hgb 7.2 L Plt Count 100 L D BUN 82 H Creatinine 2.9 H 3.8 H Lactic Acid Urine Color Urine Protein Urine Blood Imaging - Results Chest X-ray: Report Reviewed Problem List - Problems (1) ORTIZ (acute kidney injury) Code(s): N17.9 - ACUTE KIDNEY FAILURE, UNSPECIFIED (2) Acute and chronic respiratory failure with hypoxia Code(s): J96.21 - ACUTE AND CHRONIC RESPIRATORY FAILURE WITH HYPOXIA (3) Cardiac arrest Code(s): I46.9 - CARDIAC ARREST, CAUSE UNSPECIFIED (4) Leukocytosis Code(s): D72.829 - ELEVATED WHITE BLOOD CELL COUNT, UNSPECIFIED (5) Shortness of breath Code(s): R06.02 - SHORTNESS OF BREATH (6) Hypoxia Code(s): R09.02 - HYPOXEMIA (7) Sepsis Code(s): A41.9 - SEPSIS, UNSPECIFIED ORGANISM Qualifiers: Sepsis type: sepsis due to unspecified organism Qualified Code(s): A41.9 - Sepsis, unspecified organism Assessment/Plan Current Medications Generic Name Dose Route Start Last Admin Trade Name Freq PRN Reason Stop Dose Admin Albuterol Sulfate 1 amp 09/22/17 16:34 09/23/17 02:00 Ventolin 0.083% Nebulizer Soln - NEB 1 amp Q4H PRN Administration SHORT OF BREATH/WHEEZING Albuterol/Ipratropium 1 amp 09/22/17 20:00 09/25/17 08:10 Duoneb - NEB 1 amp RQID TOMMY Administration Sodium Chloride 1,000 mls @ 75 mls/hr 09/24/17 07:15 09/25/17 07:05 Normal Saline - IV 75 mls/hr ASDIR TOMMY Administration Famotidine/Sodium Chloride 20 mg in 50 mls @ 144 mls/hr 09/24/17 13:30 10:24 Pepcid 20 Mg Premixed Ivpb - IVPB 144 mls/hr BID TOMMY Administration Fentanyl 500 mcg/ Dextrose 100 mls @ 10 mls/hr 09/24/17 19:30 09/25/17 07:05 IVPB 10 mls/hr TITR TOMMY Administration Protocol 50 MCG/HR Piperacillin Sod/Tazobactam 100 mls @ 200 mls/hr 09/25/17 03:00 09/25/17 10: 00 Sod 2.25 gm/ Dextrose IVPB 200 mls/hr Q6H-IV TOMMY Administration Protocol Methylprednisolone Sodium Succinate 40 mg 09/25/17 22:00 Solu-Medrol - IVPUSH BID TOMMY chart reviewed labs reviewed meds reviewed Impression 1. ORTIZ 2. acute respiratory failure 3. cardiac arrest 4. lactic acidosis 5. COPD 6. PNA 7. dementia 8. anemia 9. sepsis Plan - likely etiology of ORTIZ is ATN secondary to hypotension during arrest - cont pressors to a map of 65 - maintain baeza and monitor urine output - monitor hg as she is getting prbc - check renal ultrasound to r/o an obstructive component - discussed case and plan with medical attending - discussed with family - will need to renal dose meds - cont vent support - repeat labs in am - no indication for HD at this time
[2017-09-25] MEDS ORDERED: PROPOFOL 1,000,000 MCG/100 ML VIAL IVPB SCH (20:45)
[2017-09-25] MEDS ORDERED: PT OWN MED DRAWER 7, Y5N ONE (21:15)
[2017-09-25] MEDS: methylPREDNISolone NA SUCC 40 MG/1 ML VIAL IVPUSH SCH (21:16)
[2017-09-26] MEDS: PIPERACILLIN/TAZOB 2.25 GM 2.25 GM in DEXTROSE 5%-WATER - 100 ML IVPB SCH ×2 (02:32→09:25)
[2017-09-26 06:09] LABS: BASO % 0.4 % (0-2.0); HEMATOCRIT 30.4 % (32.4-45.2); HEMOGLOBIN 10.2 GM/dL (10.7-15.3); LYMPH % 3.1 % (8-40); MCH 28.2 pg (25.7-33.7); MCHC 33.5 g/dl (32.0-36.0); MEAN CELL VOLUME 84.2 fl (80-96); MEAN PLT VOLUME 8.5 fl (7.5-11.1); MONO % 3.2 % (3.8-10.2); NEUT % 93.3 % (42.8-82.8); PLATELET COUNT 101 K/MM3 (134-434); RBC 3.61 M/mm3 (3.60-5.2); WHITE BLOOD COUNT 11.3 K/mm3 (4.0-10.0)
[2017-09-26 06:41] LABS: ALBUMIN 2.3 g/dl (3.4-5.0); ANION GAP 11 (8-16); BLOOD UREA NITROGEN 89 mg/dL (7-18); CHLORIDE 106 mmol/L (98-107); CO2 24 mmol/L (21-32); GLUCOSE,RANDOM 227 mg/dL (74-106); MAGNESIUM 2.8 mg/dL (1.8-2.4); SODIUM 141 mmol/L (136-145)
[2017-09-26 06:45] LABS: ALK PHOS 100 U/L (45-117); BILIRUBIN,TOTAL 1.9 mg/dL (0.2-1.0); CALCIUM 7.1 mg/dL (8.5-10.1); CREATININE 3.5 mg/dL (0.55-1.02); PHOSPHOROUS 5.5 mg/dL (2.5-4.9); SGOT/AST 206 U/L (15-37); TOT PROT 5.2 g/dl (6.4-8.2)
[2017-09-26 06:47] LABS: SGPT/ALT 449 U/L (12-78)
[2017-09-26] MEDS ORDERED: fentaNYL CITRATE 250 MCG/5 ML VIAL ONE (06:57)
[2017-09-26 07:01] LABS: ARTERIAL BLD GAS O2 SATURATION 98.8 % (90-98.9); ARTERIAL BLOOD GAS BASE EXCESS -2.1 meq/l (-2-2); ARTERIAL BLOOD GAS PCO2 41.3 mmHg (35-45); ARTERIAL BLOOD GAS pH 7.36 (7.35-7.45)
[2017-09-26 07:13] LABS: ALLENS TEST POSITIVE
[2017-09-26] MEDS ORDERED: PT OWN MED DRAWER 7, Y5N ONE (07:18)
[2017-09-26] MEDS: SODIUM CHLORIDE 1,000 ML IV SCH (08:00)
[2017-09-26 08:07] LABS: SERUM IRON SATURATION 10 % (15-55); TOTAL IRON BINDING CAPACITY 203 ug/dL (250-450); UIBC 182 ug/dL (118-369)
--- NOTE | 2017-09-26 08:24 | PN ---
Physical Exam: SUBJECTIVE: Patient seen and examined The patient is an 87 year old female with a history of Dementia, Asthma, COPD ( on O2), HTN, Glaucoma, PVD who initially presented for a COPD exacerbation with acute on chronic hypoxemia transferred to the ICU for respiratory distress following 3 cardiac arrests. Patient was off sedation yesterday afternoon, but had to be placed back on sedation overnight due to agitation and the patient attempting to pull lines out. Otherwise no acute events. OBJECTIVE: Vital Signs Period Temp Pulse Resp BP Sys/Moscoso Pulse Ox Last 24 Hr 97.2 F-98.5 F 53-74 16-22 116-153/54-72 100-100 GENERAL: The patient is sedated and intubated in no acute distress. HEAD: Normal with no signs of trauma. EYES: sclera anicteric, conjunctiva clear. No ptosis. ENT: oropharynx clear without exudates, moist mucous membranes. NECK: Trachea midline, full range of motion, supple. LUNGS: Breath sounds equal, clear to auscultation bilaterally, no wheezes, no crackles, no accessory muscle use. HEART: Regular rate and rhythm, S1, S2 without murmur, rub or gallop. ABDOMEN: Soft, nontender, nondistended, normoactive bowel sounds, no guarding, no rebound, no hepatosplenomegaly, no masses. EXTREMITIES: 2+ pulses, warm, well-perfused, 2+ edema. NEUROLOGICAL: Moving all four extremities spontaneously. gait not observed. PSYCH: Normal mood, normal affect. SKIN: Warm, dry, normal turgor, no rashes or lesions noted Laboratory Results - last 24 hr 09/22/17 09/24/17 09/25/17 09:50 16:00 05:55 WBC RBC Hgb Hct MCV MCH MCHC RDW Plt Count MPV Neutrophils % Lymphocytes % Monocytes % Eosinophils % Basophils % Puncture Site ABG pH ABG pCO2 at Pt Temp ABG pO2 at Pt Temp ABG HCO3 ABG O2 Sat (Measured) ABG O2 Content ABG Base Excess Darren Test O2 Delivery Device Oxygen Flow Rate Vent Mode Vent Rate PEEP Pressure Support Vent Sodium Potassium Chloride Carbon Dioxide Anion Gap BUN Creatinine Creat Clearance w eGFR Random Glucose Calcium Phosphorus Magnesium Iron 21 L TIBC 203 L Iron Saturation 10 L Total Bilirubin AST ALT Alkaline Phosphatase LD Total 398 H Total Protein Albumin Ur Random Sodium Ur Random Potassium Ur Random Chloride Urine Creatinine Blood Type Antibody Screen Crossmatch See Detail 09/25/17 09/25/17 09/25/17 10:30 16:45 16:45 WBC RBC Hgb Hct MCV MCH MCHC RDW Plt Count MPV Neutrophils % Lymphocytes % Monocytes % Eosinophils % Basophils % Puncture Site ABG pH ABG pCO2 at Pt Temp ABG pO2 at Pt Temp ABG HCO3 ABG O2 Sat (Measured) ABG O2 Content ABG Base Excess Darren Test O2 Delivery Device Oxygen Flow Rate Vent Mode Vent Rate PEEP Pressure Support Vent Sodium Potassium Chloride Carbon Dioxide Anion Gap BUN Creatinine Creat Clearance w eGFR Random Glucose Calcium Phosphorus Magnesium Iron TIBC Iron Saturation Total Bilirubin AST ALT Alkaline Phosphatase LD Total Total Protein Albumin Ur Random Sodium 44 Ur Random Potassium 55.2 Ur Random Chloride 17 Urine Creatinine 92.1 Blood Type A POSITIVE Antibody Screen Negative Crossmatch See Detail 09/26/17 09/26/17 09/26/17 05:40 05:40 06:38 WBC 11.3 H RBC 3.61 D Hgb 10.2 L D Hct 30.4 L D MCV 84.2 MCH 28.2 MCHC 33.5 RDW 17.0 H D Plt Count 101 L MPV 8.5 Neutrophils % 93.3 H Lymphocytes % 3.1 L Monocytes % 3.2 L Eosinophils % 0.0 Basophils % 0.4 Puncture Site Right radial ABG pH 7.36 ABG pCO2 at Pt Temp 41.3 ABG pO2 at Pt Temp 122.0 H D ABG HCO3 22.6 ABG O2 Sat (Measured) 98.8 ABG O2 Content 13.7 L ABG Base Excess -2.1 L Darren Test Positive O2 Delivery Device Vent Oxygen Flow Rate No Result Required. Vent Mode A/c Vent Rate 16 PEEP 5.0 Pressure Support Vent 425 Sodium 141 Potassium 4.0 Chloride 106 Carbon Dioxide 24 Anion Gap 11 BUN 89 H Creatinine 3.5 H Creat Clearance w eGFR 12.41 Random Glucose 227 H Calcium 7.1 L Phosphorus 5.5 H Magnesium 2.8 H Iron TIBC Iron Saturation Total Bilirubin 1.9 H D AST 206 H ALT 449 H Alkaline Phosphatase 100 LD Total Total Protein 5.2 L Albumin 2.3 L Ur Random Sodium Ur Random Potassium Ur Random Chloride Urine Creatinine Blood Type Antibody Screen Crossmatch Active Medications Generic Name Dose Route Start Last Admin Trade Name Freq PRN Reason Stop Dose Admin Albuterol Sulfate 1 amp 09/22/17 16:34 09/23/17 02:00 Ventolin 0.083% Nebulizer Soln - NEB 1 amp Q4H PRN Administration SHORT OF BREATH/WHEEZING Albuterol/Ipratropium 1 amp 09/22/17 20:00 09/25/17 20:56 Duoneb - NEB 1 amp RQID TOMMY Administration Sodium Chloride 1,000 mls @ 75 mls/hr 09/24/17 07:15 09/25/17 07:05 Normal Saline - IV 75 mls/hr ASDIR TOMMY Administration Famotidine/Sodium Chloride 20 mg in 50 mls @ 144 mls/hr 09/24/17 13:30 21:16 Pepcid 20 Mg Premixed Ivpb - IVPB 144 mls/hr BID TOMMY Administration Fentanyl 500 mcg/ Dextrose 100 mls @ 10 mls/hr 09/24/17 19:30 09/25/17 20:00 IVPB 10 mls/hr TITR TOMMY Administration Protocol 50 MCG/HR Piperacillin Sod/Tazobactam 100 mls @ 200 mls/hr 09/25/17 03:00 09/26/17 02: 32 Sod 2.25 gm/ Dextrose IVPB 200 mls/hr Q6H-IV TOMMY Administration Protocol Propofol 1,000,000 mcg in 100 mls @ 4.063 mls/hr 09/25/17 20:45 09/26/17 06: 30 Diprivan - IVPB 30 mcg/kg/min TITR TOMMY 12.19 mls/hr Protocol Titration 10 MCG/KG/MIN Methylprednisolone Sodium Succinate 40 mg 09/25/17 22:00 09/25/17 21:16 Solu-Medrol - IVPUSH 40 mg BID TOMMY Administration ASSESSMENT/PLAN: The patient is an 87 year old female with a history of Dementia, Asthma, COPD ( on O2), HTN, Glaucoma, PVD who initially presented for a COPD exacerbation with acute on chronic hypoxemia transferred to the ICU for respiratory distress following 3 cardiac arrests. NEURO Patient is intubated. -Will stop sedation to evaluated mental status. -Will continue to monitor. CV #Cardiac Arrest Patient coded 3 times with RSOC obtained each time. She was initially noted to be in asystole with the first arrest, ventricular fibullation with the second arrest, and PEA with the third arrest. -Patient is off pressors and maintaining blood pressures. -Continue to monitor. RESP #Acute on Chronic respiratory failure Patient initially presented for COPD exacerbation. She was intubated for continued respiratory distress despite Bipap prior to her cardiac arrest. She received albuterol nebulizers and steroids as well. -Follow up chest plain film. -Continue to maintain vent settings. -Continue solu-medrol at 40mg q12h. -Continue to monitor. GI No issues currently. -Will continue to monitor. Renal #ORTIZ Patient noted to have a rising creatinine level. Nephrology was consulted and is following. Patient's ORTIZ likely due to hypoperfusion during cardiac arrest. -Will continue to monitor bun/creatinine. ID -Patient started on zosyn for antibiotic coverage -Will follow up with cultures. -Will continue to monitor. MSK No issues currently FEN/GI -Replete electrolytes PRN, will monitor PPX -Continue heparin -Continue pepcid DISPO: Continue ICU level of care. Visit type - Emergency Visit Emergency Visit: No - New Patient This patient is new to me today: No - Critical Care Critical Care patient: Yes Total Critical Care Time (in minutes): 35 Critical Care Statement: The care of this patient involved high complexity decision making to prevent further life threatening deterioration of the patient 's condition and/or to evaluate & treat vital organ system(s) failure or risk of failure.
[2017-09-26] MEDS: ALBUTEROL SO4 2.5/IPRATROPIUM 0.5 INH SOL 3 ML VIAL.NEB. NEB SCH ×4 (09:17→20:30)
[2017-09-26] MEDS: ALBUTEROL SO4 0.083% IH SOL 2.5 MG/3 ML VIAL.NEB. NEB PRN (09:18)
[2017-09-26] MEDS: methylPREDNISolone NA SUCC 40 MG/1 ML VIAL IVPUSH SCH ×2 (09:25→21:20)
[2017-09-26] MEDS: FAMOTIDINE 20 MG/50 ML IVPB 20 MG/50 ML MG IVPB SCH ×2 (09:26→21:20)
--- NOTE | 2017-09-26 09:41 | PN ---
Progress Note (short form) - Note Progress Note: sedated, intubated Vital Signs Period Temp Pulse Resp BP Sys/Moscoso Pulse Ox Last 24 Hr 97.2 F-98.5 F 53-74 16-22 116-153/54-72 100-100 cor-rrr lungs clear abd soft,nt ext wound is clean CBC, BMP 09/26/17 05:40 09/26/17 05:40 Microbiology 09/22/17 09:50 Blood - Peripheral Venous Blood Culture - Preliminary NO GROWTH OBTAINED AFTER 72 HOURS, INCUBATION TO CONTINUE FOR 2 DAYS. 09/22/17 09:30 Blood - Peripheral Venous Blood Culture - Preliminary NO GROWTH OBTAINED AFTER 72 HOURS, INCUBATION TO CONTINUE FOR 2 DAYS. 09/23/17 01:26 Urine - Urine Clean Catch Urine Culture - Final NO GROWTH OBTAINED 09/22/17 09:50 Nasopharyngeal Swab Influenza Types A,B Antigen (BRADY) - Final 09/22/17 09:50 Nasopharyngeal Swab - Final Current Medications Albuterol Sulfate (Ventolin 0.083% Nebulizer Soln -) 1 amp NEB Q4H PRN PRN Reason: SHORT OF BREATH/WHEEZING Last Admin: 09/26/17 09:18 Dose: 1 amp Albuterol/Ipratropium (Duoneb -) 1 amp NEB RQID TOMMY Last Admin: 09/26/17 09:17 Dose: 1 amp Sodium Chloride (Normal Saline -) 1,000 mls @ 75 mls/hr IV ASDIR TOMMY Last Admin: 09/26/17 08:00 Dose: 75 mls/hr Famotidine/Sodium Chloride (Pepcid 20 Mg Premixed Ivpb -) 20 mg in 50 mls @ 144 mls/hr IVPB BID TOMMY Last Admin: 09/26/17 09:26 Dose: 144 mls/hr Fentanyl 500 mcg/ Dextrose 100 mls @ 10 mls/hr IVPB TITR TOMMY; 50 MCG/HR PRN Reason: Protocol Last Admin: 09/25/17 20:00 Dose: 10 mls/hr Piperacillin Sod/Tazobactam (Sod 2.25 gm/ Dextrose) 100 mls @ 200 mls/hr IVPB Q6H-IV TOMMY PRN Reason: Protocol Last Admin: 09/26/17 09:25 Dose: 200 mls/hr Propofol (Diprivan -) 1,000,000 mcg in 100 mls @ 4.063 mls/hr IVPB TITR TOMMY; 10 MCG/KG/MIN PRN Reason: Protocol Last Titration: 09/26/17 06:30 Dose: 30 mcg/kg/min, 12.19 mls/hr Methylprednisolone Sodium Succinate (Solu-Medrol -) 40 mg IVPUSH BID TOMMY Last Admin: 09/26/17 09:25 Dose: 40 mg cxray no infiltrate a/p s/p cardiac arrest cultures negative cxray negative abnl LFTS most likely secondary to hypotension from arrest- improving will d/c antibiotics and observe worsening renal function- f/u per renal Problem List - Problems (1) Cardiac arrest Code(s): I46.9 - CARDIAC ARREST, CAUSE UNSPECIFIED (2) Acute respiratory failure with hypoxia and hypercapnia Code(s): J96.01 - ACUTE RESPIRATORY FAILURE WITH HYPOXIA; J96.02 - ACUTE RESPIRATORY FAILURE WITH HYPERCAPNIA (3) Leukocytosis Code(s): D72.829 - ELEVATED WHITE BLOOD CELL COUNT, UNSPECIFIED
--- NOTE | 2017-09-26 10:33 | PN ---
Progress Note (short form) - Note Progress Note: Patient seen and examined intubated. Propofol just stopped Last Vital Signs Temp Pulse Resp BP Pulse Ox 97.4 F L 60 17 122/60 100 09/26/17 05:46 09/26/17 08:40 09/26/17 08:40 09/26/17 05:46 09/26/17 08:40 Eys--corneal opacities Cor: RSR, No murmurs, Lungs: Clear to P&A ant. Abd: Soft, Normal bowel sounds, Ext:No significant edema Abnormal Lab Results 09/24/17 09/25/17 09/25/17 16:00 05:55 10:30 WBC Hgb Hct RDW Plt Count Neutrophils % Lymphocytes % Monocytes % ABG pO2 at Pt Temp ABG O2 Content ABG Base Excess BUN Creatinine Random Glucose Calcium Phosphorus Magnesium Iron 21 L TIBC 203 L Iron Saturation 10 L Total Bilirubin AST ALT LD Total 398 H Creatine Kinase Troponin I Total Protein Albumin Crossmatch See Detail 09/26/17 09/26/17 09/26/17 05:40 05:40 05:40 WBC 11.3 H Hgb 10.2 L D Hct 30.4 L D RDW 17.0 H D Plt Count 101 L Neutrophils % 93.3 H Lymphocytes % 3.1 L Monocytes % 3.2 L ABG pO2 at Pt Temp ABG O2 Content ABG Base Excess BUN 89 H Creatinine 3.5 H Random Glucose 227 H Calcium 7.1 L Phosphorus 5.5 H Magnesium 2.8 H Iron TIBC Iron Saturation Total Bilirubin 1.9 H D AST 206 H ALT 449 H LD Total Creatine Kinase 344 H Troponin I 0.30 H Total Protein 5.2 L Albumin 2.3 L Crossmatch 09/26/17 06:38 WBC Hgb Hct RDW Plt Count Neutrophils % Lymphocytes % Monocytes % ABG pO2 at Pt Temp 122.0 H D ABG O2 Content 13.7 L ABG Base Excess -2.1 L BUN Creatinine Random Glucose Calcium Phosphorus Magnesium Iron TIBC Iron Saturation Total Bilirubin AST ALT LD Total Creatine Kinase Troponin I Total Protein Albumin Crossmatch Active Medications Generic Name Dose Route Start Last Admin Trade Name Freq PRN Reason Stop Dose Admin Albuterol Sulfate 1 amp 09/22/17 16:34 09/26/17 09:18 Ventolin 0.083% Nebulizer Soln - NEB 1 amp Q4H PRN Administration SHORT OF BREATH/WHEEZING Albuterol/Ipratropium 1 amp 09/22/17 20:00 09/26/17 09:17 Duoneb - NEB 1 amp RQID TOMMY Administration Sodium Chloride 1,000 mls @ 75 mls/hr 09/24/17 07:15 09/26/17 08:00 Normal Saline - IV 75 mls/hr ASDIR TOMMY Administration Famotidine/Sodium Chloride 20 mg in 50 mls @ 144 mls/hr 09/24/17 13:30 09:26 Pepcid 20 Mg Premixed Ivpb - IVPB 144 mls/hr BID TOMMY Administration Fentanyl 500 mcg/ Dextrose 100 mls @ 10 mls/hr 09/24/17 19:30 09/25/17 20:00 IVPB 10 mls/hr TITR TOMMY Administration Protocol 50 MCG/HR Propofol 1,000,000 mcg in 100 mls @ 4.063 mls/hr 09/25/17 20:45 09/26/17 06: 30 Diprivan - IVPB 30 mcg/kg/min TITR TOMMY 12.19 mls/hr Protocol Titration 10 MCG/KG/MIN Methylprednisolone Sodium Succinate 40 mg 09/25/17 22:00 09/26/17 09:25 Solu-Medrol - IVPUSH 40 mg BID TOMMY Administration A/P 87 y/o patient with Anemia ORTIZ Now in Septic shock/PNA s/p CAC PAD Thrombocytopenia anemia : multifactorial chronic disease -- CKD +/- gi losses ( low iron saturation) replete iv iron will get GI consult
--- NOTE | 2017-09-26 10:34 | PN ---
Progress Note, Physician Chief Complaint: getting feeds via ng tube sedation turned off off presors - Current Medication List Current Medications: Active Medications Albuterol Sulfate (Ventolin 0.083% Nebulizer Soln -) 1 amp NEB Q4H PRN PRN Reason: SHORT OF BREATH/WHEEZING Last Admin: 09/26/17 09:18 Dose: 1 amp Albuterol/Ipratropium (Duoneb -) 1 amp NEB RQID [facility] Last Admin: 09/26/17 09:17 Dose: 1 amp Sodium Chloride (Normal Saline -) 1,000 mls @ 75 mls/hr IV ASDIR [facility] Last Admin: 09/26/17 08:00 Dose: 75 mls/hr Famotidine/Sodium Chloride (Pepcid 20 Mg Premixed Ivpb -) 20 mg in 50 mls @ 144 mls/hr IVPB BID [facility] Last Admin: 09/26/17 09:26 Dose: 144 mls/hr Fentanyl 500 mcg/ Dextrose 100 mls @ 10 mls/hr IVPB TITR TOMMY; 50 MCG/HR PRN Reason: Protocol Last Admin: 09/25/17 20:00 Dose: 10 mls/hr Propofol (Diprivan -) 1,000,000 mcg in 100 mls @ 4.063 mls/hr IVPB TITR TOMMY; 10 MCG/KG/MIN PRN Reason: Protocol Last Titration: 09/26/17 06:30 Dose: 30 mcg/kg/min, 12.19 mls/hr Methylprednisolone Sodium Succinate (Solu-Medrol -) 40 mg IVPUSH BID [facility] Last Admin: 09/26/17 09:25 Dose: 40 mg - Objective Vital Signs: Vital Signs Temperature 97.4 F L 09/26/17 05:46 Pulse Rate 60 09/26/17 08:40 Respiratory Rate 17 09/26/17 08:40 Blood Pressure 122/60 09/26/17 05:46 O2 Sat by Pulse Oximetry (%) 100 09/26/17 08:40 Constitutional: Yes: Calm Eyes: Yes: Other (legally blind) Cardiovascular: Yes: Regular Rate and Rhythm, S1, S2 Respiratory: Yes: Mechanically Ventilated Gastrointestinal: Yes: Normal Bowel Sounds, Soft Labs: CBC, BMP 09/26/17 05:40 09/26/17 05:40 INR, PTT INR 1.07 (0.82-1.09) 09/24/17 06:10 Problem List - Problems (1) Acute on chronic respiratory failure with hypoxia and hypercapnia Assessment/Plan: intubated in icu off sedation on steroids iv off iv abx- cultures negative s/p bradycardiac arrest off pressors DNR will monitor renal function- appreciate renal consult ORTIZ secondary to hypotension/cardiac arrest Code(s): J96.21 - ACUTE AND CHRONIC RESPIRATORY FAILURE WITH HYPOXIA; J96.22 - ACUTE AND CHRONIC RESPIRATORY FAILURE WITH HYPERCAPNIA
--- NOTE | 2017-09-26 10:45 | CON.GI ---
Consult Consult Specialty:: GI - History of Present Illness History of Present Illness: Chart reviewed Events noted The patient is an 87 year old female with a history of Dementia, Asthma, COPD ( on O2), HTN, Glaucoma, PVD who initially presented for a COPD exacerbation with acute on chronic hypoxemia transferred to the ICU for respiratory distress following 3 cardiac arrests. On admission, the pt had normal Hgb level. During this hospitalization, the level have been steadily decreasing. Of note, the renal function (BUN, Cr) has been steadily worsening at the same time. As per ICU team, the patienthas not have bowel movements for, at least, 2-3 days. Per chart, no stigmata of recent GI blood loss, history of GI bleeding, ulcers, gastritis, colitis. The patient was transfused 2 u PRBC 1 day ago and Hgb is now 10. 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) Cardio/Vascular: Yes: HTN Pulmonary: Yes: Asthma, COPD, O2 Dependent Psych: Yes: Depression Musculoskeletal: Yes: Other (rt leg wound - receiving wound care) - Alcohol/Substance Use Hx Alcohol Use: No - Smoking History Smoking history: Never smoked Have you smoked in the past 12 months: No Aproximately how many cigarettes per day: 0 - Social History Usual Living Arrangement: Long-Term ADL: Family Assistance History of Recent Travel: No Home Medications - Allergies Allergies/Adverse Reactions: Allergies Allergy/AdvReac Type Severity Reaction Status Date / Time epinephrine Allergy Mild Itching Verified 09/22/17 09:07 - Home Medications Home Medications: Ambulatory Orders Albuterol 0.083% Nebulizer Jasmin [Ventolin 0.083%] 1 neb NEB QID 09/22/17 Ferrous Sulfate 325 mg PO BID 09/22/17 Memantine HCl/Donepezil HCl [Namzaric 28 mg-10 mg Capsule] 1 each PO DAILY 09/22 Montelukast Sodium [Singulair] 10 mg PO DAILY 09/22/17 Family Disease History - Family Disease History Family History: Unremarkable Review of Systems Findings/Remarks: As per HPI, H&P Physical Exam-GI Vital Signs: Vital Signs Temperature 97.4 F L 09/26/17 05:46 Pulse Rate 60 09/26/17 08:40 Respiratory Rate 17 09/26/17 08:40 Blood Pressure 122/60 09/26/17 05:46 O2 Sat by Pulse Oximetry (%) 100 09/26/17 08:40 Labs: CBC, BMP 09/26/17 05:40 09/26/17 05:40 INR, PTT INR 1.07 (0.82-1.09) 09/24/17 06:10 Imaging - Results Ultrasound: Report Reviewed (cholelithiasis) Problem List - Problems (1) ORTIZ (acute kidney injury) Code(s): N17.9 - ACUTE KIDNEY FAILURE, UNSPECIFIED (2) Acute and chronic respiratory failure with hypoxia Code(s): J96.21 - ACUTE AND CHRONIC RESPIRATORY FAILURE WITH HYPOXIA (3) Cardiac arrest Code(s): I46.9 - CARDIAC ARREST, CAUSE UNSPECIFIED (4) COPD (chronic obstructive pulmonary disease) Code(s): J44.9 - CHRONIC OBSTRUCTIVE PULMONARY DISEASE, UNSPECIFIED (5) COPD exacerbation Code(s): J44.1 - CHRONIC OBSTRUCTIVE PULMONARY DISEASE W (ACUTE) EXACERBATION Assessment/Plan An 87 yof with acute anemia, however no reports, or stigmata of acute, or ongoing GI blood loss. Giving the recent events, the patient may have developed stress gastritis, which may result in hemoccult positive stools, but not in an acute, significant drop in hemoglobin as observed in this patient. Given the presentation, doubt recent, or ongoing GI bleeding at this time. Continue to monitor closely. Agree with H2RB, or PPI. Renal follow up. Will follow closely.
[2017-09-26] MEDS ORDERED: IRON SUCROSE INJECTION 200 MG in SODIUM CHLORIDE 90 ML IVPB ONE (11:15)
--- NOTE | 2017-09-26 12:14 | PN ---
Teaching Attending Note Name of Resident: Nabeel Davis ATTENDING PHYSICIAN STATEMENT I saw and evaluated the patient. I reviewed the resident's note and discussed the case with the resident. I agree with the resident's findings and plan as documented. SUBJECTIVE: Patient seen and examined in the ICU. Remains intubated and lightly sedated. Apparently moves all extremities and becomes agitated during sedation vacation yesterday. Remains off pressors. OBJECTIVE: Intake & Output 09/23/17 09/24/17 09/25/17 09/26/17 23:59 23:59 23:59 23:59 Intake Total 2396.6 2325 3701.8 1082.1 Output Total 946 939 5888 400 Balance 1796.6 2075 2701.8 682.1 Weight 127 lb 7 oz 145 lb 11.2 oz 149 lb 4.8 oz 151 lb 8 oz Last Vital Signs Temp Pulse Resp BP Pulse Ox 97.4 F L 67 17 122/60 100 09/26/17 05:46 09/26/17 11:30 09/26/17 11:30 09/26/17 05:46 09/26/17 11:30 Active Medications Albuterol Sulfate (Ventolin 0.083% Nebulizer Soln -) 1 amp NEB Q4H PRN PRN Reason: SHORT OF BREATH/WHEEZING Last Admin: 09/26/17 09:18 Dose: 1 amp Albuterol/Ipratropium (Duoneb -) 1 amp NEB RQID [facility] Last Admin: 09/26/17 09:17 Dose: 1 amp Sodium Chloride (Normal Saline -) 1,000 mls @ 75 mls/hr IV ASDIR [facility] Last Admin: 09/26/17 08:00 Dose: 75 mls/hr Famotidine/Sodium Chloride (Pepcid 20 Mg Premixed Ivpb -) 20 mg in 50 mls @ 144 mls/hr IVPB BID [facility] Last Admin: 09/26/17 09:26 Dose: 144 mls/hr Methylprednisolone Sodium Succinate (Solu-Medrol -) 40 mg IVPUSH BID [facility] Last Admin: 09/26/17 09:25 Dose: 40 mg Gen: intubated, sedated Heart: RRR Lung: scattered rhonchi Abd: soft, nontender Ext: + edema Laboratory Results - last 24 hr 09/24/17 09/25/17 09/25/17 16:00 05:55 10:30 WBC RBC Hgb Hct MCV MCH MCHC RDW Plt Count MPV Neutrophils % Lymphocytes % Monocytes % Eosinophils % Basophils % Puncture Site ABG pH ABG pCO2 at Pt Temp ABG pO2 at Pt Temp ABG HCO3 ABG O2 Sat (Measured) ABG O2 Content ABG Base Excess Darren Test O2 Delivery Device Oxygen Flow Rate Vent Mode Vent Rate PEEP Pressure Support Vent Sodium Potassium Chloride Carbon Dioxide Anion Gap BUN Creatinine Creat Clearance w eGFR Random Glucose Calcium Phosphorus Magnesium Iron 21 L TIBC 203 L Iron Saturation 10 L Total Bilirubin AST ALT Alkaline Phosphatase LD Total 398 H Creatine Kinase Troponin I Total Protein Albumin Ur Random Sodium Ur Random Potassium Ur Random Chloride Urine Creatinine Blood Type A POSITIVE Antibody Screen Negative Crossmatch See Detail 09/25/17 09/25/17 09/26/17 16:45 16:45 05:40 WBC 11.3 H RBC 3.61 D Hgb 10.2 L D Hct 30.4 L D MCV 84.2 MCH 28.2 MCHC 33.5 RDW 17.0 H D Plt Count 101 L MPV 8.5 Neutrophils % 93.3 H Lymphocytes % 3.1 L Monocytes % 3.2 L Eosinophils % 0.0 Basophils % 0.4 Puncture Site ABG pH ABG pCO2 at Pt Temp ABG pO2 at Pt Temp ABG HCO3 ABG O2 Sat (Measured) ABG O2 Content ABG Base Excess Darren Test O2 Delivery Device Oxygen Flow Rate Vent Mode Vent Rate PEEP Pressure Support Vent Sodium Potassium Chloride Carbon Dioxide Anion Gap BUN Creatinine Creat Clearance w eGFR Random Glucose Calcium Phosphorus Magnesium Iron TIBC Iron Saturation Total Bilirubin AST ALT Alkaline Phosphatase LD Total Creatine Kinase Troponin I Total Protein Albumin Ur Random Sodium 44 Ur Random Potassium 55.2 Ur Random Chloride 17 Urine Creatinine 92.1 Blood Type Antibody Screen Crossmatch 09/26/17 09/26/17 09/26/17 05:40 05:40 06:38 WBC RBC Hgb Hct MCV MCH MCHC RDW Plt Count MPV Neutrophils % Lymphocytes % Monocytes % Eosinophils % Basophils % Puncture Site Right radial ABG pH 7.36 ABG pCO2 at Pt Temp 41.3 ABG pO2 at Pt Temp 122.0 H D ABG HCO3 22.6 ABG O2 Sat (Measured) 98.8 ABG O2 Content 13.7 L ABG Base Excess -2.1 L Darren Test Positive O2 Delivery Device Vent Oxygen Flow Rate No Result Required. Vent Mode A/c Vent Rate 16 PEEP 5.0 Pressure Support Vent 425 Sodium 141 Potassium 4.0 Chloride 106 Carbon Dioxide 24 Anion Gap 11 BUN 89 H Creatinine 3.5 H Creat Clearance w eGFR 12.41 Random Glucose 227 H Calcium 7.1 L Phosphorus 5.5 H Magnesium 2.8 H Iron TIBC Iron Saturation Total Bilirubin 1.9 H D AST 206 H ALT 449 H Alkaline Phosphatase 100 LD Total Creatine Kinase 344 H Troponin I 0.30 H Total Protein 5.2 L Albumin 2.3 L Ur Random Sodium Ur Random Potassium Ur Random Chloride Urine Creatinine Blood Type Antibody Screen Crossmatch ASSESSMENT AND PLAN: s/p Bradycardic Cardiac Arrest Acute on Chronic Hypoxic and Hypercapneic Respiratory Failure Acute COPD Exacerbation Pneumonia Septic Shock Acute Kidney Injury Lactic Acidosis PAD HTN Dementia - continue antibiotics - Monitor off pressors - D/C Medrol in the next 24 to 48 hours - Inhaled bronchodilators - titrate FiO2 to keep SpO2 >90% - lighten sedation to assess mental status - spontaneous breathing trials as mental status improves - enteral feeds - DVT/GI prophylaxis - continue ICU monitoring Dr Guzman Critical care time spent in reviewing chart, evaluating patient and formulating plan 35 min
[2017-09-26] MEDS ORDERED: PROPOFOL 1,000,000 MCG/100 ML VIAL ONE (17:03)
--- NOTE | 2017-09-26 17:10 | PN ---
Progress Note, Physician History of Present Illness: Pt seen and examined at bedside. She remains in the ICU. Pt remains intubated. - Current Medication List Current Medications: Active Medications Albuterol Sulfate (Ventolin 0.083% Nebulizer Soln -) 1 amp NEB Q4H PRN PRN Reason: SHORT OF BREATH/WHEEZING Last Admin: 09/26/17 09:18 Dose: 1 amp Albuterol/Ipratropium (Duoneb -) 1 amp NEB RQID [facility] Last Admin: 09/26/17 16:51 Dose: 1 amp Sodium Chloride (Normal Saline -) 1,000 mls @ 75 mls/hr IV ASDIR [facility] Last Admin: 09/26/17 08:00 Dose: 75 mls/hr Famotidine/Sodium Chloride (Pepcid 20 Mg Premixed Ivpb -) 20 mg in 50 mls @ 144 mls/hr IVPB BID [facility] Last Admin: 09/26/17 09:26 Dose: 144 mls/hr Methylprednisolone Sodium Succinate (Solu-Medrol -) 40 mg IVPUSH BID [facility] Last Admin: 09/26/17 09:25 Dose: 40 mg - Objective Vital Signs: Vital Signs Temperature 97.4 F L 09/26/17 05:46 Pulse Rate 79 09/26/17 14:40 Respiratory Rate 18 09/26/17 14:40 Blood Pressure 122/60 09/26/17 05:46 O2 Sat by Pulse Oximetry (%) 95 09/26/17 14:40 Constitutional: Yes: Calm Eyes: Yes: Conjunctiva Clear HENT: Yes: Atraumatic Cardiovascular: Yes: S1, S2 Respiratory: Yes: Mechanically Ventilated Gastrointestinal: Yes: Soft Genitourinary: Yes: Mooney Present Musculoskeletal: Yes: Muscle Weakness Edema: Yes Edema: LLE: Trace, RLE: Trace Wound/Incision: Yes: Dressing Dry and Intact Neurological: Yes: Lethargy Labs: CBC, BMP 09/26/17 05:40 09/26/17 05:40 INR, PTT INR 1.07 (0.82-1.09) 09/24/17 06:10 - ....Imaging Chest X-ray: Report Reviewed Ultrasound: Report Reviewed Problem List - Problems (1) ORTIZ (acute kidney injury) Code(s): N17.9 - ACUTE KIDNEY FAILURE, UNSPECIFIED (2) Acute and chronic respiratory failure with hypoxia Code(s): J96.21 - ACUTE AND CHRONIC RESPIRATORY FAILURE WITH HYPOXIA (3) Cardiac arrest Code(s): I46.9 - CARDIAC ARREST, CAUSE UNSPECIFIED (4) Leukocytosis Code(s): D72.829 - ELEVATED WHITE BLOOD CELL COUNT, UNSPECIFIED (5) Shortness of breath Code(s): R06.02 - SHORTNESS OF BREATH (6) Hypoxia Code(s): R09.02 - HYPOXEMIA (7) Sepsis Code(s): A41.9 - SEPSIS, UNSPECIFIED ORGANISM Qualifiers: Sepsis type: sepsis due to unspecified organism Qualified Code(s): A41.9 - Sepsis, unspecified organism Assessment/Plan Current Medications Generic Name Dose Route Start Last Admin Trade Name Freq PRN Reason Stop Dose Admin Albuterol Sulfate 1 amp 09/22/17 16:34 09/26/17 09:18 Ventolin 0.083% Nebulizer Soln - NEB 1 amp Q4H PRN Administration SHORT OF BREATH/WHEEZING Albuterol/Ipratropium 1 amp 09/22/17 20:00 09/26/17 16:51 Duoneb - NEB 1 amp RQID [facility] Administration Sodium Chloride 1,000 mls @ 75 mls/hr 09/24/17 07:15 09/26/17 08:00 Normal Saline - IV 75 mls/hr ASDIR [facility] Administration Famotidine/Sodium Chloride 20 mg in 50 mls @ 144 mls/hr 09/24/17 13:30 09:26 Pepcid 20 Mg Premixed Ivpb - IVPB 144 mls/hr BID [facility] Administration Propofol 1,000,000 mcg in 100 mls @ 2.062 mls/hr 09/26/17 17:15 Diprivan - IVPB TITR [facility] Protocol 5 MCG/KG/MIN Methylprednisolone Sodium Succinate 40 mg 09/25/17 22:00 09/26/17 09:25 Solu-Medrol - IVPUSH 40 mg BID [facility] Administration Impression 1. ORTIZ 2. acute respiratory failure 3. cardiac arrest 4. lactic acidosis 5. COPD 6. PNA 7. dementia 8. anemia 9. sepsis 10. perihepatic free fluid Plan - renal function is starting to improve - repeat labs in am - renal ultrasound reviewed - consider GI eval - monitor hg - vent support - discussed with ICU team - likely ORTIZ from ATN caused by prolonged hypotension
[2017-09-26] MEDS: PROPOFOL 1,000,000 MCG/100 ML VIAL IVPB SCH (17:30)
[2017-09-27 06:27] LABS: BASO % 0.2 % (0-2.0); HEMATOCRIT 30.8 % (32.4-45.2); HEMOGLOBIN 10.2 GM/dL (10.7-15.3); MCH 27.9 pg (25.7-33.7); MEAN CELL VOLUME 84.6 fl (80-96); MEAN PLT VOLUME 8.7 fl (7.5-11.1); MONO % 3.8 % (3.8-10.2); PLATELET COUNT 109 K/MM3 (134-434); RBC 3.65 M/mm3 (3.60-5.2); RDW 17.1 % (11.6-15.6); WHITE BLOOD COUNT 11.7 K/mm3 (4.0-10.0)
[2017-09-27 07:00] LABS: ALBUMIN 2.3 g/dl (3.4-5.0); ANION GAP 10 (8-16); BLOOD UREA NITROGEN 94 mg/dL (7-18); CALCIUM 7.2 mg/dL (8.5-10.1); CHLORIDE 110 mmol/L (98-107); CO2 25 mmol/L (21-32); GLUCOSE,RANDOM 285 mg/dL (74-106); MAGNESIUM 2.5 mg/dL (1.8-2.4); PHOSPHOROUS 4.2 mg/dL (2.5-4.9); POTASSIUM 4.1 mmol/L (3.5-5.1); SGOT/AST 128 U/L (15-37); SODIUM 145 mmol/L (136-145)
[2017-09-27 07:02] LABS: ALK PHOS 115 U/L (45-117); BILIRUBIN,TOTAL 0.6 mg/dL (0.2-1.0); TOT PROT 5.3 g/dl (6.4-8.2)
[2017-09-27 07:18] LABS: SGPT/ALT 426 U/L (12-78)
[2017-09-27] MEDS: ALBUTEROL SO4 2.5/IPRATROPIUM 0.5 INH SOL 3 ML VIAL.NEB. NEB SCH ×4 (07:45→21:56)
--- NOTE | 2017-09-27 09:04 | PN ---
Progress Note (short form) - Note Progress Note: sedated, intubated Vital Signs Period Temp Pulse Resp BP Sys/Moscoso Pulse Ox Last 24 Hr 97.6 F-99.9 F 54-79 16-24 126-165/60-79 93-100 cor-rrr lungs decreased bs at baases abd soft,nt ext shallow ulcer RLE- clear CBC, BMP 09/27/17 06:15 09/27/17 06:15 cxray no infiltrate a/p s/p cardiac arrest cultures negative cxray negative abnl LFTS most likely secondary to hypotension from arrest- improving renal function improving stable off antibiotics will culture wound to r/o esbl infection to see if isolation can be d/yana Problem List - Problems (1) Cardiac arrest Code(s): I46.9 - CARDIAC ARREST, CAUSE UNSPECIFIED (2) Acute respiratory failure with hypoxia and hypercapnia Code(s): J96.01 - ACUTE RESPIRATORY FAILURE WITH HYPOXIA; J96.02 - ACUTE RESPIRATORY FAILURE WITH HYPERCAPNIA (3) Leukocytosis Code(s): D72.829 - ELEVATED WHITE BLOOD CELL COUNT, UNSPECIFIED
[2017-09-27] MEDS: methylPREDNISolone NA SUCC 40 MG/1 ML VIAL IVPUSH SCH ×2 (09:19→21:26)
[2017-09-27] MEDS: FAMOTIDINE 20 MG/50 ML IVPB 20 MG/50 ML MG IVPB SCH ×2 (09:19→21:26)
[2017-09-27] MEDS: CHLORHEXIDINE GLUCONATE 0.12% 15ML CUP MM SCH ×2 (10:30→21:26)
--- NOTE | 2017-09-27 10:54 | PN ---
Progress Note (short form) - Note Progress Note: UBJECTIVE: Patient seen and examined in the ICU. -more awake -remains of vaso presors -low grade temp 99 this am but no other signs of sepsis OBJECTIVE: Vital Signs Temp 99.9 F H 09/27/17 08:00 Pulse 76 09/27/17 08:39 Resp 13 09/27/17 10:24 BP 140/62 09/27/17 08:00 Pulse Ox 98 09/27/17 10:24 Intake & Output 09/26/17 09/26/17 09/27/17 11:59 23:59 11:59 Intake Total 1082.1 2423.3 1136.1 Output Total 400 750 350 Balance 682.1 1673.3 786.1 Weight 68.719 kg 70.477 kg Intake: IV 667.1 1233.3 611.1 DIPRIVAN - 1,000,000 mcg 68.3 86.1 In 100 ml @ 5 MCG/KG/MIN 2.062 mls/hr IVPB TITR [facility] Rx#:[id number] Fentanyl drip 70 40 Normal Saline - 1,000 ml 525 1125 525 @ 75 mls/hr IV ASDIR [facility] Rx#:[id number] Propofol drip 72.1 IVPB 100 150 Tube Feeding 210 800 420 Tube Irrigant 105 240 105 Output: Urine 400 750 350 Mooney 400 750 350 Other: Voiding Method Indwelling Catheter Indwelling Catheter Indwelling Catheter Weight Measurement Method Built in [facility] Built in [facility] Active Medications Albuterol Sulfate (Ventolin 0.083% Nebulizer Soln -) 1 amp NEB Q4H PRN PRN Reason: SHORT OF BREATH/WHEEZING Last Admin: 09/26/17 09:18 Dose: 1 amp Albuterol/Ipratropium (Duoneb -) 1 amp NEB RQID [facility] Last Admin: 09/26/17 09:17 Dose: 1 amp Sodium Chloride (Normal Saline -) 1,000 mls @ 75 mls/hr IV ASDIR [facility] Last Admin: 09/26/17 08:00 Dose: 75 mls/hr Famotidine/Sodium Chloride (Pepcid 20 Mg Premixed Ivpb -) 20 mg in 50 mls @ 144 mls/hr IVPB BID [facility] Last Admin: 09/26/17 09:26 Dose: 144 mls/hr Methylprednisolone Sodium Succinate (Solu-Medrol -) 40 mg IVPUSH BID [facility] Last Admin: 09/26/17 09:25 Dose: 40 mg Gen: intubated, sedated Heart: RRR Lung: scattered rhonchi Abd: soft, nontender Ext: + edema CBC, BMP 09/27/17 06:15 09/27/17 06:15 ASSESSMENT AND PLAN: s/p Bradycardic Cardiac Arrest Acute on Chronic Hypoxic and Hypercapneic Respiratory Failure Acute COPD Exacerbation Pneumonia Septic Shock Acute Kidney Injury Lactic Acidosis PAD HTN Dementia - continue antibiotics, low grade febrile, low threshold to restart abx, ID following - Monitor off pressors , large + fluid balance, diuresis tomorrow if Cr cont down. - D/C Medrol today - Inhaled bronchodilators - titrate FiO2 to keep SpO2 >90% - daily awakening - spontaneous breathing trials as mental status improves - enteral feeds - DVT/GI prophylaxis - continue ICU monitoring Fabio GRANDA [id number] Critical Care Total Critical Care Time (in minutes): 35 Critical Care Statement: The care of this patient involved high complexity decision making to prevent further life threatening deterioration of the patient 's condition and/or to evaluate & treat vital organ system(s) failure or risk of failure.
--- NOTE | 2017-09-27 12:33 | PN ---
Progress Note, Physician - Current Medication List Current Medications: Active Medications Albuterol Sulfate (Ventolin 0.083% Nebulizer Soln -) 1 amp NEB Q4H PRN PRN Reason: SHORT OF BREATH/WHEEZING Last Admin: 09/26/17 09:18 Dose: 1 amp Albuterol/Ipratropium (Duoneb -) 1 amp NEB RQID [facility] Last Admin: 09/27/17 11:33 Dose: 1 amp Chlorhexidine Gluconate (Peridex -) 15 ml MM BID [facility] Sodium Chloride (Normal Saline -) 1,000 mls @ 75 mls/hr IV ASDIR [facility] Last Admin: 09/26/17 08:00 Dose: 75 mls/hr Famotidine/Sodium Chloride (Pepcid 20 Mg Premixed Ivpb -) 20 mg in 50 mls @ 144 mls/hr IVPB BID [facility] Last Admin: 09/27/17 09:19 Dose: 144 mls/hr Propofol (Diprivan -) 1,000,000 mcg in 100 mls @ 2.062 mls/hr IVPB TITR [facility]; 5 MCG/KG/MIN PRN Reason: Protocol Last Titration: 09/26/17 18:00 Dose: 20.13 mcg/kg/min, 8.3 mls/hr Methylprednisolone Sodium Succinate (Solu-Medrol -) 40 mg IVPUSH BID [facility] Last Admin: 09/27/17 09:19 Dose: 40 mg - Objective Vital Signs: Vital Signs Temperature 99.9 F H 09/27/17 12:00 Pulse Rate 80 09/27/17 12:00 Respiratory Rate 14 09/27/17 12:00 Blood Pressure 160/73 09/27/17 12:00 O2 Sat by Pulse Oximetry (%) 98 09/27/17 10:24 Labs: CBC, BMP 09/27/17 06:15 09/27/17 06:15 INR, PTT INR 1.07 (0.82-1.09) 09/24/17 06:10 Problem List - Problems (1) Acute and chronic respiratory failure with hypoxia Assessment/Plan: intubated in icu off sedation on steroids iv off iv abx- cultures negative s/p bradycardiac arrest off pressors DNR will monitor renal function- appreciate renal consult ORTIZ secondary to hypotension/cardiac arrest Code(s): J96.21 - ACUTE AND CHRONIC RESPIRATORY FAILURE WITH HYPOXIA (2) COPD (chronic obstructive pulmonary disease) Assessment/Plan: on steroids and nebs Code(s): J44.9 - CHRONIC OBSTRUCTIVE PULMONARY DISEASE, UNSPECIFIED
[2017-09-27] MEDS: SODIUM CHLORIDE 1,000 ML IV SCH (13:06)
[2017-09-27] MEDS: PROPOFOL 1,000,000 MCG/100 ML VIAL IVPB SCH ×2 (13:07→17:30)
--- NOTE | 2017-09-27 20:16 | PN ---
Progress Note (short form) - Note Progress Note: covering dr storey s/p arrest glen hypotension Current Medications Albuterol Sulfate (Ventolin 0.083% Nebulizer Soln -) 1 amp NEB Q4H PRN PRN Reason: SHORT OF BREATH/WHEEZING Last Admin: 09/26/17 09:18 Dose: 1 amp Albuterol/Ipratropium (Duoneb -) 1 amp NEB RQID [facility] Last Admin: 09/27/17 15:14 Dose: 1 amp Chlorhexidine Gluconate (Peridex -) 15 ml MM BID [facility] Last Admin: 09/27/17 10:30 Dose: 15 ml Sodium Chloride (Normal Saline -) 1,000 mls @ 75 mls/hr IV ASDIR [facility] Last Admin: 09/27/17 13:06 Dose: 75 mls/hr Famotidine/Sodium Chloride (Pepcid 20 Mg Premixed Ivpb -) 20 mg in 50 mls @ 144 mls/hr IVPB BID [facility] Last Admin: 09/27/17 09:19 Dose: 144 mls/hr Propofol (Diprivan -) 1,000,000 mcg in 100 mls @ 2.062 mls/hr IVPB TITR [facility]; 5 MCG/KG/MIN PRN Reason: Protocol Last Titration: 09/27/17 18:30 Dose: 20 mcg/kg/min, 8.246 mls/hr Methylprednisolone Sodium Succinate (Solu-Medrol -) 40 mg IVPUSH BID [facility] Last Admin: 09/27/17 09:19 Dose: 40 mg Last Vital Signs Temp Pulse Resp BP Pulse Ox 100 F H 78 22 132/58 98 09/27/17 19:34 09/27/17 19:34 09/27/17 19:34 09/27/17 19:34 09/27/17 10:24 seen with daughter at bedside on vent somewhat responsive to touch and speech blind LLungs clear vented sounds heart reg Abd soft no guarding ext no edema CBC, BMP 09/27/17 06:15 09/27/17 06:15 Plan- continue same mgmt follow up serum chems
[2017-09-28 06:15] LABS: HEMATOCRIT 31.9 % (32.4-45.2); HEMOGLOBIN 10.7 GM/dL (10.7-15.3); MCH 28.8 pg (25.7-33.7); MCHC 33.6 g/dl (32.0-36.0); MEAN CELL VOLUME 85.7 fl (80-96); MEAN PLT VOLUME 8.6 fl (7.5-11.1); PLATELET COUNT 116 K/MM3 (134-434); RBC 3.72 M/mm3 (3.60-5.2); RDW 17.8 % (11.6-15.6); WHITE BLOOD COUNT 10.5 K/mm3 (4.0-10.0)
[2017-09-28 06:35] LABS: ALBUMIN 2.2 g/dl (3.4-5.0); CHLORIDE 112 mmol/L (98-107); POTASSIUM 4.4 mmol/L (3.5-5.1); SGOT/AST 58 U/L (15-37); SGPT/ALT 309 U/L (12-78); SODIUM 145 mmol/L (136-145)
[2017-09-28 06:47] LABS: ALK PHOS 101 U/L (45-117); ANION GAP 8 (8-16); BILIRUBIN,TOTAL 0.4 mg/dL (0.2-1.0); BLOOD UREA NITROGEN 89 mg/dL (7-18); CO2 25 mmol/L (21-32); CREATININE 2.3 mg/dL (0.55-1.02); GLUCOSE,RANDOM 269 mg/dL (74-106)
[2017-09-28] MEDS: SODIUM CHLORIDE 1,000 ML IV SCH (07:15)
[2017-09-28] MEDS: ALBUTEROL SO4 2.5/IPRATROPIUM 0.5 INH SOL 3 ML VIAL.NEB. NEB SCH ×4 (07:30→20:53)
[2017-09-28] MEDS: PROPOFOL 1,000,000 MCG/100 ML VIAL IVPB SCH ×2 (08:00→19:05)
[2017-09-28] MEDS: CHLORHEXIDINE GLUCONATE 0.12% 15ML CUP MM SCH ×2 (09:18→21:05)
[2017-09-28] MEDS: methylPREDNISolone NA SUCC 40 MG/1 ML VIAL IVPUSH SCH ×2 (09:18→21:05)
[2017-09-28] MEDS: FAMOTIDINE 20 MG/50 ML IVPB 20 MG/50 ML MG IVPB SCH ×2 (09:18→21:05)
--- NOTE | 2017-09-28 15:24 | PN ---
Progress Note (short form) - Note Progress Note: PULM/CCM Pt Seen & examined in the ICU. Off all pressors, Remains on the Vent. Active Medications Albuterol Sulfate (Ventolin 0.083% Nebulizer Soln -) 1 amp NEB Q4H PRN PRN Reason: SHORT OF BREATH/WHEEZING Last Admin: 09/26/17 09:18 Dose: 1 amp Albuterol/Ipratropium (Duoneb -) 1 amp NEB RQID [facility] Last Admin: 09/28/17 20:53 Dose: 1 amp Chlorhexidine Gluconate (Peridex -) 15 ml MM BID [facility] Last Admin: 09/28/17 21:05 Dose: 15 ml Sodium Chloride (Normal Saline -) 1,000 mls @ 75 mls/hr IV ASDIR [facility] Last Admin: 09/28/17 07:15 Dose: Not Given Famotidine/Sodium Chloride (Pepcid 20 Mg Premixed Ivpb -) 20 mg in 50 mls @ 144 mls/hr IVPB BID [facility] Last Admin: 09/28/17 21:05 Dose: 144 mls/hr Propofol (Diprivan -) 1,000,000 mcg in 100 mls @ 2.062 mls/hr IVPB TITR [facility]; 5 MCG/KG/MIN PRN Reason: Protocol Last Admin: 09/28/17 19:05 Dose: 30.07 mcg/kg/min, 12.398 mls/hr Methylprednisolone Sodium Succinate (Solu-Medrol -) 40 mg IVPUSH BID [facility] Last Admin: 09/28/17 21:05 Dose: 40 mg V/S Temp 99.1 F 09/28/17 18:00 Pulse 71 09/28/17 20:00 Resp 16 09/28/17 20:44 BP 110/52 09/28/17 20:00 Pulse Ox 99 09/28/17 20:44 I's & O's 09/27/17 09/28/17 09/28/17 23:59 11:59 23:59 Intake Total 2831.2 1136.8 1989 Output Total 1450 400 500 Balance 1381.2 736.8 1490 Weight 72.756 kg Intake: IV 1396.2 611.8 1030 DIPRIVAN - 1,000,000 mcg 158.7 86.8 130 In 100 ml @ 5 MCG/KG/MIN 2.062 mls/hr IVPB TITR [facility] Rx#:[id number] Normal Saline - 1,000 ml 1237.5 525 900 @ 75 mls/hr IV ASDIR [facility] Rx#:[id number] IVPB 100 Tube Feeding 1020 420 720 Tube Irrigant 315 105 240 Output: Urine 1450 400 500 Mooney 1450 400 500 Other: Voiding Method Indwelling Catheter Indwelling Catheter Indwelling Catheter Bowel Movement No Weight Measurement Method Built in [facility] GEN: intubated, sedated HEENT: Blind PULM: scattered rhonchi CV: RRR ABD: soft, nontender EXT: + edema CBC, BMP 09/28/17 05:55 09/28/17 05:55 RECENT STUDIES TO NOTE: CXR 09/27: Since 09/26/2017 at 0737 hours, the endotracheal tube, nasogastric tube and left jugular line with clear lungs persists. Impression : No significant change. ASSESS & PLAN: s/p Bradycardic Cardiac Arrest Acute on Chronic Hypoxic and Hypercapneic Respiratory Failure Acute COPD Exacerbation Pneumonia Septic Shock Acute Kidney Injury Lactic Acidosis PAD HTN Dementia - Monitor off pressors , large + fluid balance - Diurese as tolerated - Inhaled bronchodilators - titrate FiO2 to keep SpO2 >90% - daily awakening - spontaneous breathing trials as mental status improves - enteral feeds - DVT/GI prophylaxis - continue ICU monitoring [facility], [facility] ICU PULM/CCM [id number]
--- NOTE | 2017-09-28 15:24 | PN ---
Progress Note, Physician Chief Complaint: Shortness of breath History of Present Illness: on mechanical vent daughter at bedside - Current Medication List Current Medications: Active Medications Albuterol Sulfate (Ventolin 0.083% Nebulizer Soln -) 1 amp NEB Q4H PRN PRN Reason: SHORT OF BREATH/WHEEZING Last Admin: 09/26/17 09:18 Dose: 1 amp Albuterol/Ipratropium (Duoneb -) 1 amp NEB RQID [facility] Last Admin: 09/28/17 15:03 Dose: 1 amp Chlorhexidine Gluconate (Peridex -) 15 ml MM BID [facility] Last Admin: 09/28/17 09:18 Dose: 15 ml Sodium Chloride (Normal Saline -) 1,000 mls @ 75 mls/hr IV ASDIR [facility] Last Admin: 09/28/17 07:15 Dose: Not Given Famotidine/Sodium Chloride (Pepcid 20 Mg Premixed Ivpb -) 20 mg in 50 mls @ 144 mls/hr IVPB BID [facility] Last Admin: 09/28/17 09:18 Dose: 144 mls/hr Propofol (Diprivan -) 1,000,000 mcg in 100 mls @ 2.062 mls/hr IVPB TITR [facility]; 5 MCG/KG/MIN PRN Reason: Protocol Last Admin: 09/28/17 08:00 Dose: 30.07 mcg/kg/min, 12.4 mls/hr Methylprednisolone Sodium Succinate (Solu-Medrol -) 40 mg IVPUSH BID [facility] Last Admin: 09/28/17 09:18 Dose: 40 mg - Objective Vital Signs: Vital Signs Temperature 99 F 09/28/17 14:00 Pulse Rate 70 09/28/17 14:00 Respiratory Rate 20 09/28/17 14:25 Blood Pressure 118/55 09/28/17 14:00 O2 Sat by Pulse Oximetry (%) 98 09/28/17 11:26 Constitutional: Yes: Well Nourished, No Distress, Calm Cardiovascular: Yes: Regular Rate and Rhythm Respiratory: Yes: Mechanically Ventilated Labs: CBC, BMP 09/28/17 05:55 09/28/17 05:55 INR, PTT INR 1.07 (0.82-1.09) 09/24/17 06:10 Problem List - Problems (1) Acute and chronic respiratory failure with hypoxia Assessment/Plan: intubated in icu off sedation on steroids iv off iv abx- cultures negative s/p bradycardiac arrest off pressors DNR will monitor renal function- appreciate renal consult ORTIZ secondary to hypotension/cardiac arrest Code(s): J96.21 - ACUTE AND CHRONIC RESPIRATORY FAILURE WITH HYPOXIA (2) Cardiac arrest Assessment/Plan: DNR mechanical vent Code(s): I46.9 - CARDIAC ARREST, CAUSE UNSPECIFIED
--- NOTE | 2017-09-28 15:40 | PN ---
Progress Note (short form) - Note Progress Note: covering dr storey s/p arrest glen hypotension Current Medications Albuterol Sulfate (Ventolin 0.083% Nebulizer Soln -) 1 amp NEB Q4H PRN PRN Reason: SHORT OF BREATH/WHEEZING Last Admin: 09/26/17 09:18 Dose: 1 amp Albuterol/Ipratropium (Duoneb -) 1 amp NEB RQID [facility] Last Admin: 09/28/17 15:03 Dose: 1 amp Chlorhexidine Gluconate (Peridex -) 15 ml MM BID [facility] Last Admin: 09/28/17 09:18 Dose: 15 ml Sodium Chloride (Normal Saline -) 1,000 mls @ 75 mls/hr IV ASDIR [facility] Last Admin: 09/28/17 07:15 Dose: Not Given Famotidine/Sodium Chloride (Pepcid 20 Mg Premixed Ivpb -) 20 mg in 50 mls @ 144 mls/hr IVPB BID [facility] Last Admin: 09/28/17 09:18 Dose: 144 mls/hr Propofol (Diprivan -) 1,000,000 mcg in 100 mls @ 2.062 mls/hr IVPB TITR [facility]; 5 MCG/KG/MIN PRN Reason: Protocol Last Admin: 09/28/17 08:00 Dose: 30.07 mcg/kg/min, 12.4 mls/hr Methylprednisolone Sodium Succinate (Solu-Medrol -) 40 mg IVPUSH BID [facility] Last Admin: 09/28/17 09:18 Dose: 40 mg Last Vital Signs Temp Pulse Resp BP Pulse Ox 99 F 70 20 118/55 98 09/28/17 14:00 09/28/17 14:00 09/28/17 14:25 09/28/17 14:00 09/28/17 11:26 on vent blind Lungs clear vented sounds heart reg Abd soft no guarding ext no edema CBC, BMP 09/28/17 05:55 09/28/17 05:55 CBC, BMP 09/27/17 06:15 09/27/17 06:15 IMP-glen improving underlying CKD due to age baseline serum creatinine 1.0 Plan- continue same mgmt follow up serum chems
[2017-09-29] MEDS: SODIUM CHLORIDE 1,000 ML IV SCH (07:00)
[2017-09-29] MEDS: ALBUTEROL SO4 2.5/IPRATROPIUM 0.5 INH SOL 3 ML VIAL.NEB. NEB SCH ×4 (07:25→21:00)
[2017-09-29 08:41] LABS: ARTERIAL BLD GAS O2 SATURATION 98.9 % (90-98.9); ARTERIAL BLOOD GAS BASE EXCESS -2.8 meq/l (-2-2); ARTERIAL BLOOD GAS PCO2 42.4 mmHg (35-45); ARTERIAL BLOOD GAS pH 7.34 (7.35-7.45)
[2017-09-29 08:43] LABS: ALLENS TEST POSITIVE
[2017-09-29 08:51] LABS: HEMATOCRIT 34.8 % (32.4-45.2); HEMOGLOBIN 11.1 GM/dL (10.7-15.3); MCH 27.6 pg (25.7-33.7); MCHC 31.9 g/dl (32.0-36.0); MEAN CELL VOLUME 86.3 fl (80-96); MEAN PLT VOLUME 8.1 fl (7.5-11.1); PLATELET COUNT 141 K/MM3 (134-434); RBC 4.03 M/mm3 (3.60-5.2); RDW 17.3 % (11.6-15.6); WHITE BLOOD COUNT 14.5 K/mm3 (4.0-10.0)
[2017-09-29] MEDS: FAMOTIDINE 20 MG/50 ML IVPB 20 MG/50 ML MG IVPB SCH ×2 (09:19→23:09)
[2017-09-29] MEDS: CHLORHEXIDINE GLUCONATE 0.12% 15ML CUP MM SCH ×2 (09:20→23:09)
[2017-09-29 09:37] LABS: ALBUMIN 2.3 g/dl (3.4-5.0); ALK PHOS 97 U/L (45-117); ANION GAP 8 (8-16); BILIRUBIN,TOTAL 0.4 mg/dL (0.2-1.0); BLOOD UREA NITROGEN 90 mg/dL (7-18); CALCIUM 7.1 mg/dL (8.5-10.1); CHLORIDE 114 mmol/L (98-107); CO2 24 mmol/L (21-32); CREATININE 2.2 mg/dL (0.55-1.02); GLUCOSE,RANDOM 175 mg/dL (74-106); MAGNESIUM 2.6 mg/dL (1.8-2.4); PHOSPHOROUS 5.5 mg/dL (2.5-4.9); POTASSIUM 4.8 mmol/L (3.5-5.1); SGOT/AST 36 U/L (15-37); SGPT/ALT 234 U/L (12-78); SODIUM 146 mmol/L (136-145); TOT PROT 5.1 g/dl (6.4-8.2)
--- NOTE | 2017-09-29 13:15 | PN ---
Teaching Attending Note Name of Resident: Allegra Eveline ATTENDING PHYSICIAN STATEMENT I saw and evaluated the patient. I reviewed the resident's note and discussed the case with the resident. I agree with the resident's findings and plan as documented. SUBJECTIVE: Pt seen and examined in the ICU. Remains intubated, sedated. Biting endotracheal tube when sedation lightened. No fevers recorded. OBJECTIVE: Last Vital Signs Temp Pulse Resp BP Pulse Ox 98.8 F 61 18 136/65 100 09/29/17 10:00 09/29/17 10:02 09/29/17 11:49 09/29/17 10:00 09/29/17 11:50 Intake & Output 09/26/17 09/27/17 09/28/17 09/29/17 23:59 23:59 23:59 23:59 Intake Total 3505.4 3967.3 3988.8 1136.8 Output Total 1150 1800 1300 300 Balance 2355.4 2167.3 2688.8 836.8 Weight 68.719 kg 70.477 kg 72.756 kg 75.92 kg Gen: intubated, sedated Heart: RRR Lung: bilateral rhonchi Abd: soft, nontender Ext: + edema CBC, BMP 09/29/17 08:08 09/29/17 08:08 Active Medications Albuterol Sulfate (Ventolin 0.083% Nebulizer Soln -) 1 amp NEB Q4H PRN PRN Reason: SHORT OF BREATH/WHEEZING Last Admin: 09/26/17 09:18 Dose: 1 amp Albuterol/Ipratropium (Duoneb -) 1 amp NEB RQID [facility] Last Admin: 09/29/17 11:49 Dose: 1 amp Chlorhexidine Gluconate (Peridex -) 15 ml MM BID [facility] Last Admin: 09/29/17 09:20 Dose: 15 ml Famotidine/Sodium Chloride (Pepcid 20 Mg Premixed Ivpb -) 20 mg in 50 mls @ 144 mls/hr IVPB BID [facility] Last Admin: 09/29/17 09:19 Dose: 144 mls/hr Propofol (Diprivan -) 1,000,000 mcg in 100 mls @ 2.062 mls/hr IVPB TITR [facility]; 5 MCG/KG/MIN PRN Reason: Protocol Last Titration: 09/29/17 07:07 Dose: 20 mcg/kg/min, 8.246 mls/hr Methylprednisolone Sodium Succinate (Solu-Medrol -) 40 mg IVPUSH Q8H-IV [facility] ASSESSMENT AND PLAN: s/p Bradycardic Cardiac Arrest Acute on Chronic Hypoxic and Hypercapneic Respiratory Failure Acute COPD Exacerbation Pneumonia Septic Shock Acute Kidney Injury Volume Overload Lactic Acidosis PAD HTN Dementia - completed antibiotics - monitoring off pressors, maintain MAP >65 - d/c IVF - resume medrol - inhaled bronchodilators - titrate FiO2 to keep SpO2 >90% - daily sedation vacations to assess mental status - spontaneous breathing trials if mental status improved - enteral feeds - DVT/GI prophylaxis - continue ICU monitoring - continue discussions regarding goals of care critical care time spent in reviewing chart, evaluating patient and formulating plan 35 min
[2017-09-29] MEDS: methylPREDNISolone NA SUCC 40 MG/1 ML VIAL IVPUSH SCH ×2 (14:00→18:30)
[2017-09-29] MEDS ORDERED: LACTULOSE 20 GM/30 ML UDC (FOR ORAL USE ONLY) PO ONE (14:30)
--- NOTE | 2017-09-29 14:56 | PN ---
Progress Note, Physician - Current Medication List Current Medications: Active Medications Albuterol Sulfate (Ventolin 0.083% Nebulizer Soln -) 1 amp NEB Q4H PRN PRN Reason: SHORT OF BREATH/WHEEZING Last Admin: 09/26/17 09:18 Dose: 1 amp Albuterol/Ipratropium (Duoneb -) 1 amp NEB RQID [facility] Last Admin: 09/29/17 11:49 Dose: 1 amp Chlorhexidine Gluconate (Peridex -) 15 ml MM BID [facility] Last Admin: 09/29/17 09:20 Dose: 15 ml Famotidine/Sodium Chloride (Pepcid 20 Mg Premixed Ivpb -) 20 mg in 50 mls @ 144 mls/hr IVPB BID [facility] Last Admin: 09/29/17 09:19 Dose: 144 mls/hr Propofol (Diprivan -) 1,000,000 mcg in 100 mls @ 2.062 mls/hr IVPB TITR [facility]; 5 MCG/KG/MIN PRN Reason: Protocol Last Titration: 09/29/17 07:07 Dose: 20 mcg/kg/min, 8.246 mls/hr Methylprednisolone Sodium Succinate (Solu-Medrol -) 40 mg IVPUSH Q8H-IV [facility] - Objective Vital Signs: Vital Signs Temperature 98.8 F 09/29/17 10:00 Pulse Rate 61 09/29/17 10:02 Respiratory Rate 16 09/29/17 14:04 Blood Pressure 136/65 09/29/17 10:00 O2 Sat by Pulse Oximetry (%) 100 09/29/17 11:50 Constitutional: Yes: No Distress, Calm, Other (patient intubated and sedated, responds to pain and discomfort but not to voice) Eyes: Yes: Cataracts HENT: Yes: Atraumatic, Normocephalic Neck: Yes: Supple, Trachea Midline Cardiovascular: Yes: Regular Rate and Rhythm Respiratory: Yes: Other (bilateral diffuse crackles, patient on ventilator). No : Tachypnea Gastrointestinal: Yes: WNL, Soft Musculoskeletal: Yes: Other (BUE pitting edema, sacral edema, no BLE edema) Extremities: Yes: Other (bilateral feet with dressings over foot ulcers without soakthrough, RLE liperdermatosclerosis) Integumentary: Yes: Other (upper lip with dry cracked skin and small amount dried blood) Neurological: Yes: Other (patient sedated and intubated) Labs: CBC, BMP 09/29/17 08:08 09/29/17 08:08 INR, PTT INR 1.07 (0.82-1.09) 09/24/17 06:10 - ....Imaging Chest X-ray: Other (nothing acute) Assessment/Plan ASSESSMENT/PLAN: 87 YOF with h/o dementia, asthma, COPD, HTN, HLD, DM, Glaucoma, PVD who is presented initially with respiratory distress, now s/p 3 reported cardiac arrests and thus xferred to ICU. NEURO Patient is intubated and sedated (propofol drip) -Will continue to monitor. CV #Cardiac Arrest Patient coded 3 times with ROSC obtained each time. She was initially noted to be in asystole with the first arrest, ventricular fibullation with the second arrest, and PEA with the third arrest. Patient is now DNR per family. -Patient is off pressors and maintaining blood pressures. -Continue to monitor. -Need to have overall goals of care discussion with family. -Hold fluids today as patient appears in volume overload. RESP #Acute on Chronic respiratory failure Patient initially presented for COPD exacerbation. She was intubated for continued respiratory distress despite BiPAP prior to her cardiac arrest. She received albuterol nebulizers and steroids as well. -Continue serial CXR -Today's AM CXR with ET tube about 2 cm high; tube advanced to 22cm at the lip. -Re-check CXR today as patient's ET tube advanced and had copious secretions -Maintain vent settings. -Continue solu-medrol at 40mg q12h. -DuoNebs and Albuterol as ordered by Dr. Braga -Continue to monitor. GI No issues currently. -Will continue to monitor. Renal #ORTIZ, improving. Patient's most recent Cr is 2.2 but highest this admission was 3.8. Thought 2/2 hypoperfusion during arrests. -Will continue to monitor BUN/creatinine. ID -Continue Zosyn -Will follow up with cultures. -Will continue to monitor. MSK #Foot ulcers. Patient with foot ulcers, previously infected with ESBL, on isolation precautions now. New wound cultures pending now and will update isolation status based on these results. -Hold Abx for now FEN/GI -Replete electrolytes PRN, will monitor -Continue NGT feeding PPX -Continue heparin -Continue Pepcid DISPO: Continue ICU level of care.
--- NOTE | 2017-09-29 15:20 | PN ---
Progress Note, Physician History of Present Illness: Pt seen and examined at bedside. She remains in the ICU. Pt is making urine. She remains intubated. - Current Medication List Current Medications: Active Medications Albuterol Sulfate (Ventolin 0.083% Nebulizer Soln -) 1 amp NEB Q4H PRN PRN Reason: SHORT OF BREATH/WHEEZING Last Admin: 09/26/17 09:18 Dose: 1 amp Albuterol/Ipratropium (Duoneb -) 1 amp NEB RQID TOMMY Last Admin: 09/29/17 15:09 Dose: 1 amp Chlorhexidine Gluconate (Peridex -) 15 ml MM BID TOMMY Last Admin: 09/29/17 09:20 Dose: 15 ml Famotidine/Sodium Chloride (Pepcid 20 Mg Premixed Ivpb -) 20 mg in 50 mls @ 144 mls/hr IVPB BID TOMMY Last Admin: 09/29/17 09:19 Dose: 144 mls/hr Propofol (Diprivan -) 1,000,000 mcg in 100 mls @ 2.062 mls/hr IVPB TITR TOMMY; 5 MCG/KG/MIN PRN Reason: Protocol Last Titration: 09/29/17 07:07 Dose: 20 mcg/kg/min, 8.246 mls/hr Methylprednisolone Sodium Succinate (Solu-Medrol -) 40 mg IVPUSH Q8H-IV TOMMY - Objective Vital Signs: Vital Signs Temperature 98.8 F 09/29/17 10:00 Pulse Rate 61 09/29/17 10:02 Respiratory Rate 16 09/29/17 14:04 Blood Pressure 136/65 09/29/17 10:00 O2 Sat by Pulse Oximetry (%) 100 09/29/17 11:50 Constitutional: Yes: Calm Eyes: Yes: Conjunctiva Clear HENT: Yes: Atraumatic Cardiovascular: Yes: S1, S2 Respiratory: Yes: Mechanically Ventilated Gastrointestinal: Yes: Soft Genitourinary: Yes: Mooney Present Musculoskeletal: Yes: Muscle Weakness Edema: No Neurological: Yes: Lethargy Labs: CBC, BMP 09/29/17 08:08 09/29/17 08:08 INR, PTT INR 1.07 (0.82-1.09) 09/24/17 06:10 - ....Imaging Chest X-ray: Report Reviewed Problem List - Problems (1) ORTIZ (acute kidney injury) Code(s): N17.9 - ACUTE KIDNEY FAILURE, UNSPECIFIED (2) Acute and chronic respiratory failure with hypoxia Code(s): J96.21 - ACUTE AND CHRONIC RESPIRATORY FAILURE WITH HYPOXIA (3) Cardiac arrest Code(s): I46.9 - CARDIAC ARREST, CAUSE UNSPECIFIED (4) Leukocytosis Code(s): D72.829 - ELEVATED WHITE BLOOD CELL COUNT, UNSPECIFIED (5) Shortness of breath Code(s): R06.02 - SHORTNESS OF BREATH (6) Hypoxia Code(s): R09.02 - HYPOXEMIA (7) Sepsis Code(s): A41.9 - SEPSIS, UNSPECIFIED ORGANISM Qualifiers: Sepsis type: sepsis due to unspecified organism Qualified Code(s): A41.9 - Sepsis, unspecified organism Assessment/Plan Current Medications Generic Name Dose Route Start Last Admin Trade Name Freq PRN Reason Stop Dose Admin Albuterol Sulfate 1 amp 09/22/17 16:34 09/26/17 09:18 Ventolin 0.083% Nebulizer Soln - NEB 1 amp Q4H PRN Administration SHORT OF BREATH/WHEEZING Albuterol/Ipratropium 1 amp 09/22/17 20:00 09/29/17 15:09 Duoneb - NEB 1 amp RQID TOMMY Administration Chlorhexidine Gluconate 15 ml 09/27/17 10:00 09/29/17 09:20 Peridex - MM 15 ml BID TOMMY Administration Famotidine/Sodium Chloride 20 mg in 50 mls @ 144 mls/hr 09/24/17 13:30 09:19 Pepcid 20 Mg Premixed Ivpb - IVPB 144 mls/hr BID TOMMY Administration Propofol 1,000,000 mcg in 100 mls @ 2.062 mls/hr 09/26/17 17:15 09/29/17 07: 07 Diprivan - IVPB 20 mcg/kg/min TITR TOMMY 8.246 mls/hr Protocol Titration 5 MCG/KG/MIN Methylprednisolone Sodium Succinate 40 mg 09/29/17 11:30 Solu-Medrol - IVPUSH Q8H-IV TOMMY Impression 1. ORTIZ 2. acute respiratory failure 3. cardiac arrest 4. lactic acidosis 5. COPD 6. PNA 7. dementia 8. anemia 9. sepsis 10. perihepatic free fluid 11. hypernatremia Plan - renal function is improving - repeat labs in am - fluids to be stopped - will start feeds with free water - repeat sodium in am - vent support - monitor hg - vent support - likely ORTIZ from ATN caused by prolonged hypotension
--- NOTE | 2017-09-29 16:21 | PN ---
Progress Note, Physician Chief Complaint: sedated intubated chart and notes reviewed - Current Medication List Current Medications: Active Medications Albuterol Sulfate (Ventolin 0.083% Nebulizer Soln -) 1 amp NEB Q4H PRN PRN Reason: SHORT OF BREATH/WHEEZING Last Admin: 09/26/17 09:18 Dose: 1 amp Albuterol/Ipratropium (Duoneb -) 1 amp NEB RQID TOMMY Last Admin: 09/29/17 15:09 Dose: 1 amp Chlorhexidine Gluconate (Peridex -) 15 ml MM BID TOMMY Last Admin: 09/29/17 09:20 Dose: 15 ml Famotidine/Sodium Chloride (Pepcid 20 Mg Premixed Ivpb -) 20 mg in 50 mls @ 144 mls/hr IVPB BID TOMMY Last Admin: 09/29/17 09:19 Dose: 144 mls/hr Propofol (Diprivan -) 1,000,000 mcg in 100 mls @ 2.062 mls/hr IVPB TITR TOMMY; 5 MCG/KG/MIN PRN Reason: Protocol Last Titration: 09/29/17 07:07 Dose: 20 mcg/kg/min, 8.246 mls/hr Methylprednisolone Sodium Succinate (Solu-Medrol -) 40 mg IVPUSH Q8H-IV TOMMY - Objective Vital Signs: Vital Signs Temperature 98.8 F 09/29/17 10:00 Pulse Rate 61 09/29/17 10:02 Respiratory Rate 16 09/29/17 14:04 Blood Pressure 136/65 09/29/17 10:00 O2 Sat by Pulse Oximetry (%) 100 09/29/17 11:50 Constitutional: Yes: Mild Distress, Moderate Distress Eyes: Yes: Other HENT: Yes: Other Neck: Yes: Other Cardiovascular: Yes: WNL Respiratory: Yes: Mechanically Ventilated, Poor Air Entry Gastrointestinal: Yes: Distention ...Rectal Exam: Yes: Other Genitourinary: Yes: Mooney Present Musculoskeletal: Yes: Muscle Weakness Extremities: Yes: Other Edema: Yes Peripheral Pulses WNL: Yes Wound/Incision: Yes: Other Neurological: Yes: Other ...Motor Strength: LLE, RLE Psychiatric: Yes: Other Labs: CBC, BMP 09/29/17 08:08 09/29/17 08:08 INR, PTT INR 1.07 (0.82-1.09) 09/24/17 06:10 Problem List - Problems (1) Acute and chronic respiratory failure with hypoxia Code(s): J96.21 - ACUTE AND CHRONIC RESPIRATORY FAILURE WITH HYPOXIA (2) Cardiac arrest Code(s): I46.9 - CARDIAC ARREST, CAUSE UNSPECIFIED (3) Leukocytosis Code(s): D72.829 - ELEVATED WHITE BLOOD CELL COUNT, UNSPECIFIED (4) Shortness of breath Code(s): R06.02 - SHORTNESS OF BREATH (5) Acute hypoxemic respiratory failure Code(s): J96.01 - ACUTE RESPIRATORY FAILURE WITH HYPOXIA (6) Acute on chronic respiratory failure with hypoxia and hypercapnia Code(s): J96.21 - ACUTE AND CHRONIC RESPIRATORY FAILURE WITH HYPOXIA; J96.22 - ACUTE AND CHRONIC RESPIRATORY FAILURE WITH HYPERCAPNIA (7) Acute respiratory failure with hypoxia and hypercapnia Code(s): J96.01 - ACUTE RESPIRATORY FAILURE WITH HYPOXIA; J96.02 - ACUTE RESPIRATORY FAILURE WITH HYPERCAPNIA (8) Asthma exacerbation in COPD Code(s): J44.1 - CHRONIC OBSTRUCTIVE PULMONARY DISEASE W (ACUTE) EXACERBATION; J45.901 - UNSPECIFIED ASTHMA WITH (ACUTE) EXACERBATION (9) Chronic ulcer of right foot Code(s): L97.519 - NON-PRS CHRONIC ULCER OTH PRT RIGHT FOOT W UNSP SEVERITY Qualifiers: Non-pressure ulcer stage: limited to breakdown of skin Qualified Code(s): L97.511 - Non-pressure chronic ulcer of other part of right foot limited to breakdown of skin Assessment/Plan WEAN OFF VENT TOLERATED IV ABX D/W ICU TEAM START LACTULOSE FOR ABD DISTENTION 02 SUPPORT DVT PROPHYLAXIS TITRATE SEDATION AND ATTEMPT ASSIST MODE ON VENT. ABG NO ACUTE CHANGES CXR NO CHANGES BEDSIDE PT
[2017-09-29] MEDS: PROPOFOL 1,000,000 MCG/100 ML VIAL IVPB SCH (16:57)
--- NOTE | 2017-09-29 19:16 | PN ---
Progress Note (short form) - Note Progress Note: Tube feeds stopped for tonight due to risk of aspiration.
[2017-09-30] MEDS: methylPREDNISolone NA SUCC 40 MG/1 ML VIAL IVPUSH SCH ×3 (01:57→18:25)
[2017-09-30 07:44] LABS: ARTERIAL BLD GAS O2 SATURATION 96.8 % (90-98.9); ARTERIAL BLOOD GAS BASE EXCESS -2.2 meq/l (-2-2); ARTERIAL BLOOD GAS PCO2 42.3 mmHg (35-45); ARTERIAL BLOOD GAS pH 7.35 (7.35-7.45)
[2017-09-30 07:51] LABS: ALLENS TEST POSITIVE
[2017-09-30 07:56] LABS: BASO % 0.4 % (0-2.0); HEMATOCRIT 32.8 % (32.4-45.2); HEMOGLOBIN 10.5 GM/dL (10.7-15.3); LYMPH % 2.1 % (8-40); MCH 27.5 pg (25.7-33.7); MCHC 32.1 g/dl (32.0-36.0); MEAN CELL VOLUME 85.7 fl (80-96); MEAN PLT VOLUME 8.7 fl (7.5-11.1); MONO % 3.4 % (3.8-10.2); NEUT % 94.1 % (42.8-82.8); PLATELET COUNT 176 K/MM3 (134-434); RBC 3.82 M/mm3 (3.60-5.2); RDW 17.5 % (11.6-15.6); WHITE BLOOD COUNT 16.7 K/mm3 (4.0-10.0)
[2017-09-30 08:14] LABS: INR 0.99 (0.82-1.09); PROTHROMBIN TIME (PATIENT) 11.2 SEC (9.98-11.88)
[2017-09-30] MEDS: ALBUTEROL SO4 2.5/IPRATROPIUM 0.5 INH SOL 3 ML VIAL.NEB. NEB SCH ×4 (08:20→21:19)
--- NOTE | 2017-09-30 08:26 | PN ---
Progress Note, Physician History of Present Illness: 24 Hour Events: Patient intubated and sedated. Advanced ET tube yesterday by 2 cm, switched side on mouth to prevent ulcers, upper lip a bit swollen, patient had copious secretions which appeared like NGT feeds and had to be suctioned about 10 times during ET tube maintenance. Repeat CXR without note of consolidations or congestion. Leukocytosis worsening. Reported weight is up 20 kg from admission weight (09/23/17). Stopped IVF. Subjective: Patient sedated. 24 Hour I/O: In: 1626cc Out: 1200cc Net: 427cc BM: None reported - Current Medication List Current Medications: Active Medications Albuterol Sulfate (Ventolin 0.083% Nebulizer Soln -) 1 amp NEB Q4H PRN PRN Reason: SHORT OF BREATH/WHEEZING Last Admin: 09/26/17 09:18 Dose: 1 amp Albuterol/Ipratropium (Duoneb -) 1 amp NEB RQID TOMMY Last Admin: 09/29/17 21:00 Dose: 1 amp Chlorhexidine Gluconate (Peridex -) 15 ml MM BID TOMMY Last Admin: 09/29/17 23:09 Dose: 15 ml Famotidine/Sodium Chloride (Pepcid 20 Mg Premixed Ivpb -) 20 mg in 50 mls @ 144 mls/hr IVPB BID TOMMY Last Admin: 09/29/17 23:09 Dose: 144 mls/hr Propofol (Diprivan -) 1,000,000 mcg in 100 mls @ 2.062 mls/hr IVPB TITR TOMMY; 5 MCG/KG/MIN PRN Reason: Protocol Last Admin: 09/30/17 00:00 Dose: 40 mcg/kg/min, 16.493 mls/hr Methylprednisolone Sodium Succinate (Solu-Medrol -) 40 mg IVPUSH Q8H-IV TOMMY Last Admin: 09/30/17 01:57 Dose: 40 mg - Objective Vital Signs: Vital Signs Temperature 98.3 F 09/30/17 08:00 Pulse Rate 64 09/30/17 08:00 Respiratory Rate 16 09/30/17 08:00 Blood Pressure 156/75 09/30/17 08:00 O2 Sat by Pulse Oximetry (%) 100 09/29/17 11:50 Constitutional: Yes: No Distress, Calm, Other (unchanged from yesterday, patient sedated/intubated and initially sleeping, awakens and becomes slightly agitated with exam) Eyes: Yes: Cataracts HENT: Yes: Atraumatic, Normocephalic, Other (upper lip slight swollen, small amount of dried blood on lips, lips dry, ET tube in place) Neck: Yes: Supple, Trachea Midline Cardiovascular: Yes: Bradycardia Respiratory: Yes: Intubated, Other (Bilateral crackles) Gastrointestinal: Yes: Normal Bowel Sounds, Soft Extremities: Yes: Other (feet with dressings in place without soakthrough, feet cold, pitting edema (BUE and sacral)) Edema: LUE: Trace, RUE: 2+, LLE: Trace, RLE: 2+ Neurological: Yes: Other (sedated) Labs: CBC, BMP 09/30/17 06:00 INR, PTT INR 1.07 (0.82-1.09) 09/24/17 06:10 Assessment/Plan ASSESSMENT/PLAN: 87 YOF with h/o dementia, asthma, COPD, HTN, HLD, DM, Glaucoma, PVD who is presented initially with respiratory distress, now s/p 3 reported cardiac arrests and thus xferred to ICU. NEURO Patient is intubated and sedated (propofol drip) -Trial stop sedation today and attempt wean off vent -Continue to monitor CV #Cardiac Arrest Patient coded 3 times with ROSC obtained each time. Initially noted to be in asystole with the first arrest, ventricular fibullation with the second arrest, and PEA with the third arrest. Patient is now DNR per family. Per Palliative note on 09/24/17, "Met with Luci and Malika throughout the day. Family wanting supportive measures to continue to see if Christin can improve. Discussed limited time of endotracheal tube. Pts granddaughter verbalizing about her dad who was anoxic after accident and expressing they have "been through this before" Luci stating she knows her mom would not want intermediate ventilation and has expressed that to her in the past. Luci stating she is still praying for mom to wake up and breath on her own." Since that time Palliative and CCC are involved, leaving VM for daughters, occasionally daughters visiting but no further GOC discussion documented. -Patient is off pressors and maintaining blood pressures. -Continue to monitor -Need to have further goals of care discussion with family -Careful IVF RESP #Acute on Chronic respiratory failure Patient initially presented for COPD exacerbation. She was intubated for continued respiratory distress despite BiPAP prior to her cardiac arrest. She received albuterol nebulizers and steroids as well. -Continue serial CXR (yesterday PM CXR without e/o consolidation) -Scheduled DuoNebs and Albuterol as ordered by Dr. Braga -Maintain vent settings -Continue solu-medrol at 40mg q12h -Continue to monitor -HOLD Lasix today as patient with decreased anasarca, Cr improving GI No issues currently. NGT in proper position per CXR 09/29/17 PM. -Will continue to monitor Renal #ORTIZ, improving. Highest this admission was 3.8, improving, now down to 2.0. Thought 2/2 hypoperfusion during arrests. -Will continue to monitor BUN/Cr -Continue careful IVF ID -Continue Zosyn -Will continue to monitor MSK #Foot ulcers. Patient with foot ulcers, previously infected with ESBL, on isolation precautions now. New wound just updated, grew Diphtherioid/ Corynebacteria, no ESBL. -Update isolation precautions -Hold Abx for now FEN/GI -Replete electrolytes PRN, will monitor -Continue NGT feeding PPX -Continue heparin -Continue Pepcid Lines/Drains/Tubes CVC: PIV: ET Tube: NG Tube: Jesica: DISPO: Continue ICU level of care.
[2017-09-30 08:37] LABS: ACTIVATED PTT 26.3 SECONDS (26.9-34.4)
[2017-09-30 08:47] LABS: ALBUMIN 2.3 g/dl (3.4-5.0); ANION GAP 7 (8-16); BILIRUBIN,TOTAL 0.8 mg/dL (0.2-1.0); BLOOD UREA NITROGEN 88 mg/dL (7-18); CALCIUM 7.3 mg/dL (8.5-10.1); CHLORIDE 115 mmol/L (98-107); CO2 25 mmol/L (21-32); GLUCOSE,RANDOM 133 mg/dL (74-106); MAGNESIUM 2.7 mg/dL (1.8-2.4); PHOSPHOROUS 5.2 mg/dL (2.5-4.9); POTASSIUM 4.9 mmol/L (3.5-5.1); SGPT/ALT 184 U/L (12-78); SODIUM 147 mmol/L (136-145); TOT PROT 5.2 g/dl (6.4-8.2)
[2017-09-30 08:50] LABS: ALK PHOS 98 U/L (45-117); SGOT/AST 30 U/L (15-37)
[2017-09-30] MEDS: CHLORHEXIDINE GLUCONATE 0.12% 15ML CUP MM SCH ×2 (10:03→23:30)
[2017-09-30] MEDS: FAMOTIDINE 20 MG/50 ML IVPB 20 MG/50 ML MG IVPB SCH ×2 (10:03→23:30)
[2017-09-30] MEDS: PROPOFOL 1,000,000 MCG/100 ML VIAL IVPB SCH ×3 (10:05→17:15)
--- NOTE | 2017-09-30 13:27 | PN ---
Teaching Attending Note Name of Resident: Allegra Mosquera ATTENDING PHYSICIAN STATEMENT I saw and evaluated the patient. I reviewed the resident's note and discussed the case with the resident. I agree with the resident's findings and plan as documented. SUBJECTIVE: Pt seen and examined in the ICU. Remains intubated, sedated on propofol gtt. Vented on volume assist control with 35% FiO2. OBJECTIVE: Last Vital Signs Temp Pulse Resp BP Pulse Ox 98.5 F 72 16 144/70 97 09/30/17 12:00 09/30/17 12:00 09/30/17 12:00 09/30/17 12:00 09/30/17 10:40 Intake & Output 09/27/17 09/28/17 09/29/17 09/30/17 23:59 23:59 23:59 23:59 Intake Total 3967.3 3988.8 1626.8 340 Output Total 1800 1300 1200 1100 Balance 2167.3 2688.8 426.8 -760 Weight 70.477 kg 72.756 kg 75.92 kg 78.188 kg Gen: intubated, sedated Heart: RRR Lung: scattered rhonchi Abd: soft, nontender Ext: trace edema CBC, BMP 09/30/17 06:00 09/30/17 06:00 Active Medications Albuterol Sulfate (Ventolin 0.083% Nebulizer Soln -) 1 amp NEB Q4H PRN PRN Reason: SHORT OF BREATH/WHEEZING Last Admin: 09/26/17 09:18 Dose: 1 amp Albuterol/Ipratropium (Duoneb -) 1 amp NEB RQID [facility] Last Admin: 09/30/17 08:20 Dose: 1 amp Chlorhexidine Gluconate (Peridex -) 15 ml MM BID [facility] Last Admin: 09/30/17 10:03 Dose: 15 ml Famotidine/Sodium Chloride (Pepcid 20 Mg Premixed Ivpb -) 20 mg in 50 mls @ 144 mls/hr IVPB BID TOMMY Last Admin: 09/30/17 10:03 Dose: 144 mls/hr Propofol (Diprivan -) 1,000,000 mcg in 100 mls @ 2.062 mls/hr IVPB TITR TOMMY; 5 MCG/KG/MIN PRN Reason: Protocol Last Admin: 09/30/17 10:05 Dose: 50 mcg/kg/min, 20.616 mls/hr Methylprednisolone Sodium Succinate (Solu-Medrol -) 40 mg IVPUSH Q8H-IV TOMMY Last Admin: 09/30/17 10:04 Dose: 40 mg ASSESSMENT AND PLAN: s/p Bradycardic Cardiac Arrest Acute on Chronic Hypoxic and Hypercapneic Respiratory Failure Acute COPD Exacerbation Pneumonia Septic Shock resolving Acute Kidney Injury Lactic Acidosis PAD HTN Dementia - completed antibiotics - monitoring off pressors, maintain MAP >65 - continue medrol - inhaled bronchodilators - titrate FiO2 to keep SpO2 >90% - daily sedation vacations to assess mental status - spontaneous breathing trials when mental status improved - enteral feeds - DVT/GI prophylaxis - continue ICU monitoring - continue discussions regarding goals of care critical care time spent in reviewing chart, evaluating patient and formulating plan 35 min
--- NOTE | 2017-09-30 16:36 | PN ---
Progress Note, Physician Chief Complaint: AWAKE EXTUBATED 02 MASK FAMILY BEDSIDE ALERT - Current Medication List Current Medications: Active Medications Albuterol Sulfate (Ventolin 0.083% Nebulizer Soln -) 1 amp NEB Q4H PRN PRN Reason: SHORT OF BREATH/WHEEZING Last Admin: 09/26/17 09:18 Dose: 1 amp Albuterol/Ipratropium (Duoneb -) 1 amp NEB RQID TOMMY Last Admin: 09/30/17 11:40 Dose: 1 amp Chlorhexidine Gluconate (Peridex -) 15 ml MM BID TOMMY Last Admin: 09/30/17 10:03 Dose: 15 ml Famotidine/Sodium Chloride (Pepcid 20 Mg Premixed Ivpb -) 20 mg in 50 mls @ 144 mls/hr IVPB BID TOMMY Last Admin: 09/30/17 10:03 Dose: 144 mls/hr Propofol (Diprivan -) 1,000,000 mcg in 100 mls @ 2.062 mls/hr IVPB TITR TOMMY; 5 MCG/KG/MIN PRN Reason: Protocol Last Admin: 09/30/17 10:05 Dose: 50 mcg/kg/min, 20.616 mls/hr Methylprednisolone Sodium Succinate (Solu-Medrol -) 40 mg IVPUSH Q8H-IV TOMMY Last Admin: 09/30/17 10:04 Dose: 40 mg - Objective Vital Signs: Vital Signs Temperature 98.4 F 09/30/17 16:00 Pulse Rate 84 09/30/17 16:00 Respiratory Rate 19 09/30/17 16:00 Blood Pressure 145/88 09/30/17 16:00 O2 Sat by Pulse Oximetry (%) 97 09/30/17 10:40 Constitutional: Yes: Mild Distress Eyes: Yes: Other HENT: Yes: WNL Neck: Yes: WNL Cardiovascular: Yes: WNL Respiratory: Yes: On Venti-Mask, SOB Gastrointestinal: Yes: WNL Genitourinary: Yes: Mooney Present, Incontinence Musculoskeletal: Yes: Muscle Weakness Extremities: Yes: WNL Edema: Yes Peripheral Pulses WNL: Yes Integumentary: Yes: Pressure Ulcer Wound/Incision: Yes: Dressing Dry and Intact Neurological: Yes: Pre-Existing Deficit ...Motor Strength: LLE, RLE Psychiatric: Yes: Other Labs: CBC, BMP 09/30/17 06:00 09/30/17 06:00 INR, PTT INR 0.99 (0.82-1.09) 09/30/17 06:00 Problem List - Problems (1) Acute and chronic respiratory failure with hypoxia Code(s): J96.21 - ACUTE AND CHRONIC RESPIRATORY FAILURE WITH HYPOXIA (2) Cardiac arrest Code(s): I46.9 - CARDIAC ARREST, CAUSE UNSPECIFIED (3) Leukocytosis Code(s): D72.829 - ELEVATED WHITE BLOOD CELL COUNT, UNSPECIFIED (4) Shortness of breath Code(s): R06.02 - SHORTNESS OF BREATH (5) Acute hypoxemic respiratory failure Code(s): J96.01 - ACUTE RESPIRATORY FAILURE WITH HYPOXIA (6) Acute on chronic respiratory failure with hypoxia and hypercapnia Code(s): J96.21 - ACUTE AND CHRONIC RESPIRATORY FAILURE WITH HYPOXIA; J96.22 - ACUTE AND CHRONIC RESPIRATORY FAILURE WITH HYPERCAPNIA (7) Acute respiratory failure with hypoxia and hypercapnia Code(s): J96.01 - ACUTE RESPIRATORY FAILURE WITH HYPOXIA; J96.02 - ACUTE RESPIRATORY FAILURE WITH HYPERCAPNIA (8) Asthma exacerbation in COPD Code(s): J44.1 - CHRONIC OBSTRUCTIVE PULMONARY DISEASE W (ACUTE) EXACERBATION; J45.901 - UNSPECIFIED ASTHMA WITH (ACUTE) EXACERBATION (9) Chronic ulcer of right foot Code(s): L97.519 - NON-PRS CHRONIC ULCER OTH PRT RIGHT FOOT W UNSP SEVERITY Qualifiers: Non-pressure ulcer stage: limited to breakdown of skin Qualified Code(s): L97.511 - Non-pressure chronic ulcer of other part of right foot limited to breakdown of skin Assessment/Plan 02 SUPPORT VENTIMASK OOB TO CHAIR NEBS STEROIDS LASIX CARDIO/PUM FOLLOW UP ID F/U
--- NOTE | 2017-09-30 16:54 | PN ---
Progress Note, Physician History of Present Illness: Pt seen and examined at bedside. She was extubated today. She is drowsy. - Current Medication List Current Medications: Active Medications Albuterol Sulfate (Ventolin 0.083% Nebulizer Soln -) 1 amp NEB Q4H PRN PRN Reason: SHORT OF BREATH/WHEEZING Last Admin: 09/26/17 09:18 Dose: 1 amp Albuterol/Ipratropium (Duoneb -) 1 amp NEB RQID [facility] Last Admin: 09/30/17 16:36 Dose: 1 amp Chlorhexidine Gluconate (Peridex -) 15 ml MM BID TOMMY Last Admin: 09/30/17 10:03 Dose: 15 ml Famotidine/Sodium Chloride (Pepcid 20 Mg Premixed Ivpb -) 20 mg in 50 mls @ 144 mls/hr IVPB BID TOMMY Last Admin: 09/30/17 10:03 Dose: 144 mls/hr Propofol (Diprivan -) 1,000,000 mcg in 100 mls @ 2.062 mls/hr IVPB TITR TOMMY; 5 MCG/KG/MIN PRN Reason: Protocol Last Admin: 09/30/17 10:05 Dose: 50 mcg/kg/min, 20.616 mls/hr Methylprednisolone Sodium Succinate (Solu-Medrol -) 40 mg IVPUSH Q8H-IV TOMMY Last Admin: 09/30/17 10:04 Dose: 40 mg - Objective Vital Signs: Vital Signs Temperature 98.4 F 09/30/17 16:00 Pulse Rate 80 09/30/17 16:49 Respiratory Rate 19 09/30/17 16:00 Blood Pressure 145/88 09/30/17 16:00 O2 Sat by Pulse Oximetry (%) 96 09/30/17 16:49 Constitutional: Yes: Calm HENT: Yes: Atraumatic Cardiovascular: Yes: S1, S2 Respiratory: Yes: On Venti-Mask Gastrointestinal: Yes: Soft Genitourinary: Yes: Mooney Present Musculoskeletal: Yes: Muscle Weakness Edema: No Integumentary: Yes: WNL Neurological: Yes: Other (drowsy) Labs: CBC, BMP 09/30/17 06:00 09/30/17 06:00 INR, PTT INR 0.99 (0.82-1.09) 09/30/17 06:00 - ....Imaging Chest X-ray: Report Reviewed Problem List - Problems (1) ORTIZ (acute kidney injury) Code(s): N17.9 - ACUTE KIDNEY FAILURE, UNSPECIFIED (2) Acute and chronic respiratory failure with hypoxia Code(s): J96.21 - ACUTE AND CHRONIC RESPIRATORY FAILURE WITH HYPOXIA (3) Cardiac arrest Code(s): I46.9 - CARDIAC ARREST, CAUSE UNSPECIFIED (4) Leukocytosis Code(s): D72.829 - ELEVATED WHITE BLOOD CELL COUNT, UNSPECIFIED (5) Shortness of breath Code(s): R06.02 - SHORTNESS OF BREATH (6) Hypoxia Code(s): R09.02 - HYPOXEMIA (7) Sepsis Code(s): A41.9 - SEPSIS, UNSPECIFIED ORGANISM Qualifiers: Sepsis type: sepsis due to unspecified organism Qualified Code(s): A41.9 - Sepsis, unspecified organism Assessment/Plan Current Medications Generic Name Dose Route Start Last Admin Trade Name Freq PRN Reason Stop Dose Admin Albuterol Sulfate 1 amp 09/22/17 16:34 09/26/17 09:18 Ventolin 0.083% Nebulizer Soln - NEB 1 amp Q4H PRN Administration SHORT OF BREATH/WHEEZING Albuterol/Ipratropium 1 amp 09/22/17 20:00 09/30/17 16:36 Duoneb - NEB 1 amp RQID TOMMY Administration Chlorhexidine Gluconate 15 ml 09/27/17 10:00 09/30/17 10:03 Peridex - MM 15 ml BID TOMMY Administration Famotidine/Sodium Chloride 20 mg in 50 mls @ 144 mls/hr 09/24/17 13:30 10:03 Pepcid 20 Mg Premixed Ivpb - IVPB 144 mls/hr BID TOMMY Administration Propofol 1,000,000 mcg in 100 mls @ 2.062 mls/hr 09/26/17 17:15 09/30/17 10: 05 Diprivan - IVPB 50 mcg/kg/min TITR TOMMY 20.616 mls/hr Protocol Administration 5 MCG/KG/MIN Methylprednisolone Sodium Succinate 40 mg 09/29/17 11:30 09/30/17 10:04 Solu-Medrol - IVPUSH 40 mg Q8H-IV TOMMY Administration Impression 1. ORTIZ 2. acute respiratory failure 3. cardiac arrest 4. lactic acidosis 5. COPD 6. PNA 7. dementia 8. anemia 9. sepsis 10. perihepatic free fluid 11. hypernatremia Plan - creatinine continues to improve - change fluids to a hypotonic solution - monitor pulse ox - swallow eval - discussed with ICU team - repeat sodium in am - vent support - monitor hg - likely ORTIZ from ATN caused by prolonged hypotension
--- NOTE | 2017-09-30 20:20 | PN ---
Progress Note, Physician - Current Medication List Current Medications: Active Medications Albuterol Sulfate (Ventolin 0.083% Nebulizer Soln -) 1 amp NEB Q4H PRN PRN Reason: SHORT OF BREATH/WHEEZING Last Admin: 09/26/17 09:18 Dose: 1 amp Albuterol/Ipratropium (Duoneb -) 1 amp NEB RQID TOMMY Last Admin: 09/30/17 16:36 Dose: 1 amp Chlorhexidine Gluconate (Peridex -) 15 ml MM BID TOMMY Last Admin: 09/30/17 10:03 Dose: 15 ml Famotidine/Sodium Chloride (Pepcid 20 Mg Premixed Ivpb -) 20 mg in 50 mls @ 144 mls/hr IVPB BID TOMMY Last Admin: 09/30/17 10:03 Dose: 144 mls/hr Propofol (Diprivan -) 1,000,000 mcg in 100 mls @ 2.062 mls/hr IVPB TITR TOMMY; 5 MCG/KG/MIN PRN Reason: Protocol Last Admin: 09/30/17 17:15 Dose: Not Given Methylprednisolone Sodium Succinate (Solu-Medrol -) 40 mg IVPUSH Q8H-IV TOMMY Last Admin: 09/30/17 18:25 Dose: 40 mg - Objective Vital Signs: Vital Signs Temperature 98.3 F 09/30/17 18:00 Pulse Rate 85 09/30/17 18:00 Respiratory Rate 20 09/30/17 20:12 Blood Pressure 136/71 09/30/17 18:00 O2 Sat by Pulse Oximetry (%) 96 09/30/17 20:12 Labs: CBC, BMP 09/30/17 06:00 09/30/17 06:00 INR, PTT INR 0.99 (0.82-1.09) 09/30/17 06:00 Assessment/Plan Patients HCP (daughter) signed DNI today.
[2017-10-01] MEDS: methylPREDNISolone NA SUCC 40 MG/1 ML VIAL IVPUSH SCH ×2 (02:00→10:00)
[2017-10-01 06:32] LABS: HEMATOCRIT 36.4 % (32.4-45.2); HEMOGLOBIN 11.8 GM/dL (10.7-15.3); MCH 28.2 pg (25.7-33.7); MCHC 32.5 g/dl (32.0-36.0); MEAN CELL VOLUME 86.8 fl (80-96); MEAN PLT VOLUME 8.2 fl (7.5-11.1); PLATELET COUNT 249 K/MM3 (134-434); RDW 17.9 % (11.6-15.6); WHITE BLOOD COUNT 14.7 K/mm3 (4.0-10.0)
[2017-10-01 06:41] LABS: INR 0.99 (0.82-1.09); PROTHROMBIN TIME (PATIENT) 11.2 SEC (9.98-11.88)
[2017-10-01 06:42] LABS: ARTERIAL BLOOD GAS BASE EXCESS -2.2 meq/l (-2-2); ARTERIAL BLOOD GAS PCO2 40.8 mmHg (35-45); ARTERIAL BLOOD GAS pH 7.36 (7.35-7.45)
[2017-10-01 06:43] LABS: ACTIVATED PTT 29.2 SECONDS (26.9-34.4)
[2017-10-01 06:46] LABS: ALBUMIN 2.5 g/dl (3.4-5.0); ANION GAP 7 (8-16); BLOOD UREA NITROGEN 85 mg/dL (7-18); CALCIUM 8.6 mg/dL (8.5-10.1); CHLORIDE 118 mmol/L (98-107); CO2 25 mmol/L (21-32); CREATININE 1.7 mg/dL (0.55-1.02); GLUCOSE,RANDOM 119 mg/dL (74-106); MAGNESIUM 2.8 mg/dL (1.8-2.4); POTASSIUM 4.7 mmol/L (3.5-5.1); SGOT/AST 40 U/L (15-37); SGPT/ALT 174 U/L (12-78); SODIUM 150 mmol/L (136-145)
[2017-10-01 06:48] LABS: ALK PHOS 112 U/L (45-117); BILIRUBIN,TOTAL 0.7 mg/dL (0.2-1.0)
[2017-10-01 06:56] LABS: ALLENS TEST POSITIVE
[2017-10-01 07:17] LABS: ARTERIAL BLD GAS O2 SATURATION 99.6 % (90-98.9)
[2017-10-01] MEDS: ALBUTEROL SO4 2.5/IPRATROPIUM 0.5 INH SOL 3 ML VIAL.NEB. NEB SCH ×3 (07:45→16:24)
--- NOTE | 2017-10-01 09:37 | PN ---
Progress Note, Physician History of Present Illness: Patient seen and examined at bedside no events overnight Daughter signed DNI last night - Current Medication List Current Medications: Active Medications Albuterol Sulfate (Ventolin 0.083% Nebulizer Soln -) 1 amp NEB Q4H PRN PRN Reason: SHORT OF BREATH/WHEEZING Last Admin: 09/26/17 09:18 Dose: 1 amp Albuterol/Ipratropium (Duoneb -) 1 amp NEB RQID TOMMY Last Admin: 09/30/17 21:19 Dose: 1 amp Chlorhexidine Gluconate (Peridex -) 15 ml MM BID TOMMY Last Admin: 09/30/17 23:30 Dose: 15 ml Famotidine/Sodium Chloride (Pepcid 20 Mg Premixed Ivpb -) 20 mg in 50 mls @ 144 mls/hr IVPB BID TOMMY Last Admin: 09/30/17 23:30 Dose: 144 mls/hr Propofol (Diprivan -) 1,000,000 mcg in 100 mls @ 2.062 mls/hr IVPB TITR TOMMY; 5 MCG/KG/MIN PRN Reason: Protocol Last Admin: 09/30/17 17:15 Dose: Not Given Methylprednisolone Sodium Succinate (Solu-Medrol -) 40 mg IVPUSH Q8H-IV TOMMY Last Admin: 10/01/17 02:00 Dose: 40 mg - Objective Vital Signs: Vital Signs Temperature 98.8 F 10/01/17 02:00 Pulse Rate 74 10/01/17 08:00 Respiratory Rate 18 10/01/17 08:00 Blood Pressure 154/57 10/01/17 08:00 O2 Sat by Pulse Oximetry (%) 96 09/30/17 20:12 Constitutional: Yes: No Distress Eyes: Yes: Other (patient is blind) HENT: Yes: Atraumatic Neck: Yes: Supple Cardiovascular: Yes: Regular Rate and Rhythm, S1, S2 Respiratory: Yes: Regular, Rhonchi (bilaterally) Gastrointestinal: Yes: Soft, Abdomen, Obese Genitourinary: Yes: Mooney Present Extremities: Yes: Other (bilateral heel ulcers) Edema: No Neurological: Yes: Other (does not follow commands awake alert but not oriented) Labs: CBC, BMP 10/01/17 05:55 10/01/17 05:55 INR, PTT INR 0.99 (0.82-1.09) 10/01/17 05:55 - ....Imaging Chest X-ray: Report Reviewed, Image Reviewed Assessment/Plan 87F with multiple medical problems presents to the ICU s/p cardiac arrest NEURO Patient is awake and alert off sedation mental status not at baseline but improving CV s/p multiple cardiac arrests HR and BP well controlled RESP Acute respiratory failure chronic respiratory failure CXR improved patient extubated yesterday doing well off vent titrated down to nasal cannula O2 and tolerating well continue nebulizers GI will place NG tube and start feeding Hypernatremia: will give 250ml q6h free water through NG tube Renal Jay continues to improve Cr now 1.7 continue to trend renally dose all meds ID Off ABx continue to monitor WBC FEN/GI Restart NG tube feeding will continue to monitor mental status and discuss with family about the possibility of PEG for feeding if patient does not improve PPX SCDs HIT panel sent Continue Pepcid Lines/Drains/Tubes D/C Mooney place NG tube Place peripheral IV ans remove central line DISPO: transfer to med surg Case discussed with attending Dr. Whitley CCTime 35 min
[2017-10-01] MEDS: FAMOTIDINE 20 MG/50 ML IVPB 20 MG/50 ML MG IVPB SCH ×2 (09:59→22:00)
[2017-10-01] MEDS: CHLORHEXIDINE GLUCONATE 0.12% 15ML CUP MM SCH ×2 (10:00→23:05)
[2017-10-01 11:56] LABS: ANISOCYTOSIS 0; MACROCYTOSIS 1+; OVALOCYTE 1+; PLATELET ESTIMATE NORMAL
--- NOTE | 2017-10-01 13:22 | PN ---
Teaching Attending Note Name of Resident: Jesus Jenkins ATTENDING PHYSICIAN STATEMENT I saw and evaluated the patient. I reviewed the resident's note and discussed the case with the resident. I agree with the resident's findings and plan as documented. SUBJECTIVE: Pt seen and examined in the ICU. Remains extubated, saturating well on 40% ventimask. Pt nonverbal. No fevers recorded. OBJECTIVE: Last Vital Signs Temp Pulse Resp BP Pulse Ox 98.3 F 80 21 137/98 100 10/01/17 12:00 10/01/17 12:00 10/01/17 12:00 10/01/17 12:00 10/01/17 08:00 Intake & Output 09/28/17 09/29/17 09/30/17 10/01/17 23:59 23:59 23:59 23:59 Intake Total 3988.8 1626.8 506.4 Output Total 1300 1200 1400 1000 Balance 2688.8 426.8 -893.6 -1000 Weight 72.756 kg 75.92 kg 78.188 kg 78.245 kg Gen: mildly tachypneic at rest Heart: RRR Lung: decreased breath sounds at the bases Abd: soft, nontender Ext: decreasing edema CBC, BMP 10/01/17 05:55 10/01/17 05:55 Active Medications Albuterol Sulfate (Ventolin 0.083% Nebulizer Soln -) 1 amp NEB Q4H PRN PRN Reason: SHORT OF BREATH/WHEEZING Last Admin: 09/26/17 09:18 Dose: 1 amp Albuterol/Ipratropium (Duoneb -) 1 amp NEB RQID [facility] Last Admin: 10/01/17 11:57 Dose: 1 amp Chlorhexidine Gluconate (Peridex -) 15 ml MM BID [facility] Last Admin: 10/01/17 10:00 Dose: Not Given Famotidine/Sodium Chloride (Pepcid 20 Mg Premixed Ivpb -) 20 mg in 50 mls @ 144 mls/hr IVPB BID [facility] Last Admin: 10/01/17 09:59 Dose: 144 mls/hr Propofol (Diprivan -) 1,000,000 mcg in 100 mls @ 2.062 mls/hr IVPB TITR TOMMY; 5 MCG/KG/MIN PRN Reason: Protocol Last Admin: 09/30/17 17:15 Dose: Not Given Methylprednisolone Sodium Succinate (Solu-Medrol -) 40 mg IVPUSH DAILY TOMMY ASSESSMENT AND PLAN: s/p Bradycardic Cardiac Arrest Acute on Chronic Hypoxic and Hypercapneic Respiratory Failure Acute COPD Exacerbation Pneumonia Septic Shock resolving Acute Kidney Injury Lactic Acidosis PAD HTN Dementia - completed antibiotics - monitoring off pressors, maintain MAP >65 - decrease medrol - inhaled bronchodilators - titrate FiO2 to keep SpO2 >90%, can change to nasal cannula - enteral feeds - DVT/GI prophylaxis - can monitor on floor - continue discussions regarding goals of care critical care time spent in reviewing chart, evaluating patient and formulating plan 35 min
--- NOTE | 2017-10-01 13:42 | PN ---
Progress Note, Physician History of Present Illness: Pt seen and examined at bedside. She remains extubated. - Current Medication List Current Medications: Active Medications Albuterol Sulfate (Ventolin 0.083% Nebulizer Soln -) 1 amp NEB Q4H PRN PRN Reason: SHORT OF BREATH/WHEEZING Last Admin: 09/26/17 09:18 Dose: 1 amp Albuterol/Ipratropium (Duoneb -) 1 amp NEB RQID [facility] Last Admin: 10/01/17 11:57 Dose: 1 amp Chlorhexidine Gluconate (Peridex -) 15 ml MM BID [facility] Last Admin: 10/01/17 10:00 Dose: Not Given Famotidine/Sodium Chloride (Pepcid 20 Mg Premixed Ivpb -) 20 mg in 50 mls @ 144 mls/hr IVPB BID [facility] Last Admin: 10/01/17 09:59 Dose: 144 mls/hr Methylprednisolone Sodium Succinate (Solu-Medrol -) 40 mg IVPUSH DAILY [facility] - Objective Vital Signs: Vital Signs Temperature 98.3 F 10/01/17 12:00 Pulse Rate 80 10/01/17 12:00 Respiratory Rate 21 10/01/17 12:00 Blood Pressure 137/98 10/01/17 12:00 O2 Sat by Pulse Oximetry (%) 100 10/01/17 08:00 Constitutional: Yes: Moderate Distress HENT: Yes: Atraumatic Cardiovascular: Yes: S1, S2 Respiratory: Yes: On Venti-Mask, Rales Gastrointestinal: Yes: Soft Genitourinary: Yes: Mooney Present Musculoskeletal: Yes: Muscle Weakness Edema: No Neurological: Yes: Lethargy Labs: CBC, BMP 10/01/17 05:55 10/01/17 05:55 INR, PTT INR 0.99 (0.82-1.09) 10/01/17 05:55 - ....Imaging Chest X-ray: Report Reviewed Problem List - Problems (1) ORTIZ (acute kidney injury) Code(s): N17.9 - ACUTE KIDNEY FAILURE, UNSPECIFIED (2) Acute and chronic respiratory failure with hypoxia Code(s): J96.21 - ACUTE AND CHRONIC RESPIRATORY FAILURE WITH HYPOXIA (3) Cardiac arrest Code(s): I46.9 - CARDIAC ARREST, CAUSE UNSPECIFIED (4) Leukocytosis Code(s): D72.829 - ELEVATED WHITE BLOOD CELL COUNT, UNSPECIFIED (5) Shortness of breath Code(s): R06.02 - SHORTNESS OF BREATH (6) Hypoxia Code(s): R09.02 - HYPOXEMIA (7) Sepsis Code(s): A41.9 - SEPSIS, UNSPECIFIED ORGANISM Qualifiers: Sepsis type: sepsis due to unspecified organism Qualified Code(s): A41.9 - Sepsis, unspecified organism Assessment/Plan Current Medications Generic Name Dose Route Start Last Admin Trade Name Freq PRN Reason Stop Dose Admin Albuterol Sulfate 1 amp 09/22/17 16:34 09/26/17 09:18 Ventolin 0.083% Nebulizer Soln - NEB 1 amp Q4H PRN Administration SHORT OF BREATH/WHEEZING Albuterol/Ipratropium 1 amp 09/22/17 20:00 10/01/17 11:57 Duoneb - NEB 1 amp RQID TMOMY Administration Chlorhexidine Gluconate 15 ml 09/27/17 10:00 10/01/17 10:00 Peridex - MM Not Given BID TOMMY Famotidine/Sodium Chloride 20 mg in 50 mls @ 144 mls/hr 09/24/17 13:30 09:59 Pepcid 20 Mg Premixed Ivpb - IVPB 144 mls/hr BID TOMMY Administration Methylprednisolone Sodium Succinate 40 mg 10/02/17 10:00 Solu-Medrol - IVPUSH DAILY TOMMY Impression 1. ORTIZ 2. acute respiratory failure 3. cardiac arrest 4. lactic acidosis 5. COPD 6. PNA 7. dementia 8. anemia 9. sepsis 10. perihepatic free fluid 11. hypernatremia Plan - renal function is improving - sodium is worsening - recommend d5w - cxr reviewed - monitor pulse ox - speech and swallow eval - repeat sodium in am - monitor hg - likely ORTIZ from ATN caused by prolonged hypotension
[2017-10-01] MEDS ORDERED: PANTOPRAZOLE SODIUM 40 MG VIAL IVPUSH ONE (14:44)
--- NOTE | 2017-10-01 14:45 | PN ---
Progress Note, Physician Chief Complaint: awake, ngt with positive blood lavage performed with low suction no active bleed at this time - Current Medication List Current Medications: Active Medications Albuterol Sulfate (Ventolin 0.083% Nebulizer Soln -) 1 amp NEB Q4H PRN PRN Reason: SHORT OF BREATH/WHEEZING Last Admin: 09/26/17 09:18 Dose: 1 amp Albuterol/Ipratropium (Duoneb -) 1 amp NEB RQID [facility] Last Admin: 10/01/17 11:57 Dose: 1 amp Chlorhexidine Gluconate (Peridex -) 15 ml MM BID [facility] Last Admin: 10/01/17 10:00 Dose: Not Given Famotidine/Sodium Chloride (Pepcid 20 Mg Premixed Ivpb -) 20 mg in 50 mls @ 144 mls/hr IVPB BID [facility] Last Admin: 10/01/17 09:59 Dose: 144 mls/hr Methylprednisolone Sodium Succinate (Solu-Medrol -) 40 mg IVPUSH DAILY [facility] - Objective Vital Signs: Vital Signs Temperature 98.1 F 10/01/17 14:00 Pulse Rate 88 10/01/17 14:00 Respiratory Rate 17 10/01/17 14:00 Blood Pressure 153/73 10/01/17 14:00 O2 Sat by Pulse Oximetry (%) 100 10/01/17 08:00 Constitutional: Yes: Mild Distress Eyes: Yes: Other HENT: Yes: WNL Neck: Yes: WNL Cardiovascular: Yes: WNL Respiratory: Yes: On Nasal O2, Wheezes Gastrointestinal: Yes: WNL Genitourinary: Yes: Incontinence Musculoskeletal: Yes: Muscle Weakness Extremities: Yes: Deformity Edema: No Peripheral Pulses WNL: Yes Integumentary: Yes: Pressure Ulcer Wound/Incision: Yes: Dressing Dry and Intact Neurological: Yes: Pre-Existing Deficit, Unsteady Gait ...Motor Strength: LLE, RLE Psychiatric: Yes: Other Labs: CBC, BMP 10/01/17 05:55 10/01/17 05:55 INR, PTT INR 0.99 (0.82-1.09) 10/01/17 05:55 Problem List - Problems (1) Acute and chronic respiratory failure with hypoxia Code(s): J96.21 - ACUTE AND CHRONIC RESPIRATORY FAILURE WITH HYPOXIA (2) Cardiac arrest Code(s): I46.9 - CARDIAC ARREST, CAUSE UNSPECIFIED (3) Leukocytosis Code(s): D72.829 - ELEVATED WHITE BLOOD CELL COUNT, UNSPECIFIED (4) Shortness of breath Code(s): R06.02 - SHORTNESS OF BREATH (5) Acute hypoxemic respiratory failure Code(s): J96.01 - ACUTE RESPIRATORY FAILURE WITH HYPOXIA (6) Acute on chronic respiratory failure with hypoxia and hypercapnia Code(s): J96.21 - ACUTE AND CHRONIC RESPIRATORY FAILURE WITH HYPOXIA; J96.22 - ACUTE AND CHRONIC RESPIRATORY FAILURE WITH HYPERCAPNIA (7) Acute respiratory failure with hypoxia and hypercapnia Code(s): J96.01 - ACUTE RESPIRATORY FAILURE WITH HYPOXIA; J96.02 - ACUTE RESPIRATORY FAILURE WITH HYPERCAPNIA (8) Asthma exacerbation in COPD Code(s): J44.1 - CHRONIC OBSTRUCTIVE PULMONARY DISEASE W (ACUTE) EXACERBATION; J45.901 - UNSPECIFIED ASTHMA WITH (ACUTE) EXACERBATION (9) Chronic ulcer of right foot Code(s): L97.519 - NON-PRS CHRONIC ULCER OTH PRT RIGHT FOOT W UNSP SEVERITY Qualifiers: Non-pressure ulcer stage: limited to breakdown of skin Qualified Code(s): L97.511 - Non-pressure chronic ulcer of other part of right foot limited to breakdown of skin Assessment/Plan ON NGT START FEEDS AT 20CC/HR CARDIO/PULM FOLLOW UP LAB REVIEWED NEPHROLOGY FOLLOW UP PT/OOB TO CHAIR
[2017-10-01] MEDS: ALBUTEROL SO4 0.083% IH SOL 2.5 MG/3 ML VIAL.NEB. NEB SCH (20:25)
[2017-10-01] MEDS: ACETYLCYSTEINE 20% 200MG/ML 4 ML VIAL *FOR ORAL / INH USE ONLY NEB SCH (20:25)
[2017-10-01] MEDS ORDERED: ACETYLCYSTEINE 20% 200MG/ML 4 ML VIAL *FOR ORAL / INH USE ONLY NEB SCH (22:00)
[2017-10-01] MEDS ORDERED: ALBUTEROL SO4 0.083% IH SOL 2.5 MG/3 ML VIAL.NEB. NEB SCH (22:00)
[2017-10-02 07:29] LABS: HEMATOCRIT 36.4 % (32.4-45.2); HEMOGLOBIN 11.5 GM/dL (10.7-15.3); MCH 27.9 pg (25.7-33.7); MCHC 31.7 g/dl (32.0-36.0); MEAN PLT VOLUME 8.7 fl (7.5-11.1); PLATELET COUNT 248 K/MM3 (134-434); RBC 4.14 M/mm3 (3.60-5.2); RDW 17.8 % (11.6-15.6); WHITE BLOOD COUNT 13.5 K/mm3 (4.0-10.0)
[2017-10-02 08:06] LABS: CHLORIDE 121 mmol/L (98-107); SODIUM 153 mmol/L (136-145)
[2017-10-02 08:11] LABS: ALBUMIN 2.3 g/dl (3.4-5.0); ALK PHOS 95 U/L (45-117); ANION GAP 8 (8-16); BILIRUBIN,TOTAL 0.7 mg/dL (0.2-1.0); BLOOD UREA NITROGEN 74 mg/dL (7-18); CALCIUM 7.7 mg/dL (8.5-10.1); CO2 24 mmol/L (21-32); CREATININE 1.6 mg/dL (0.55-1.02); GLUCOSE,RANDOM 102 mg/dL (74-106); SGPT/ALT 126 U/L (12-78); TOT PROT 5.3 g/dl (6.4-8.2)
[2017-10-02 08:15] LABS: POTASSIUM 4.3 mmol/L (3.5-5.1)
[2017-10-02 08:16] LABS: SGOT/AST 38 U/L (15-37)
[2017-10-02 08:17] LABS: MAGNESIUM 2.6 mg/dL (1.8-2.4)
[2017-10-02] MEDS: ALBUTEROL SO4 0.083% IH SOL 2.5 MG/3 ML VIAL.NEB. NEB SCH ×3 (09:06→21:20)
[2017-10-02] MEDS: ACETYLCYSTEINE 20% 200MG/ML 4 ML VIAL *FOR ORAL / INH USE ONLY NEB SCH ×3 (09:06→21:20)
[2017-10-02] MEDS ORDERED: methylPREDNISolone NA SUCC 40 MG/1 ML VIAL IVPUSH SCH (10:00)
[2017-10-02] MEDS: CHLORHEXIDINE GLUCONATE 0.12% 15ML CUP MM SCH (10:41)
[2017-10-02] MEDS ORDERED: DEXTROSE 5%-WATER - 1,000 ML IV SCH ×2 (11:00→11:05)
--- NOTE | 2017-10-02 11:25 | PN ---
Progress Note (short form) - Note Progress Note: Lethargic but arousbale. NAD on NC O2. Congested cough. Intake & Output 09/29/17 09/30/17 10/01/17 10/02/17 23:59 23:59 23:59 23:59 Intake Total 1626.8 506.4 220 650 Output Total 1200 1400 1700 Balance 426.8 -893.6 -1480 650 Weight 167 lb 6 oz 172 lb 6 oz 172 lb 8 oz 143 lb 3.2 oz Last Vital Signs Temp Pulse Resp BP Pulse Ox 98.9 F 80 22 143/80 100 10/02/17 06:00 10/02/17 06:00 10/02/17 06:00 10/02/17 06:00 10/01/17 21:00 Active Medications Acetylcysteine (Mucomyst 20 Oral / Inh Use Only*) 300 mg NEB RTID [facility] Last Admin: 10/02/17 09:06 Dose: 300 mg Albuterol Sulfate (Ventolin 0.083% Nebulizer Soln -) 1 amp NEB RTID [facility] Last Admin: 10/02/17 09:06 Dose: 1 amp Chlorhexidine Gluconate (Peridex -) 15 ml MM BID [facility] Last Admin: 10/02/17 10:41 Dose: Not Given Furosemide (Lasix Injection -) 40 mg IVPUSH ONCE ONE Stop: 10/02/17 11:31 Famotidine/Sodium Chloride (Pepcid 20 Mg Premixed Ivpb -) 20 mg in 50 mls @ 100 mls/hr IVPB BID [facility] Last Admin: 10/01/17 22:00 Dose: 100 mls/hr Dextrose (D5w -) 1,000 mls @ 50 mls/hr IV Q20H [facility] Methylprednisolone Sodium Succinate (Solu-Medrol -) 40 mg IVPUSH DAILY [facility] Gen: Lethargic, mildly tachypneic at rest Heart: RRR Lung: bilateral rhonchi, no wheeze Abd: soft, nontender Ext: decreasing edema Laboratory Results - last 24 hr 10/01/17 10/02/17 10/02/17 05:55 06:00 06:00 WBC 13.5 H RBC 4.14 Hgb 11.5 Hct 36.4 MCV 88.0 MCH 27.9 MCHC 31.7 L RDW 17.8 H MPV 8.7 Neutrophils % (Manual) 92.9 H* D Band Neutrophils % 2.0 Lymphocytes % (Manual) 1.0 L D Monocytes % (Manual) 4 D Eosinophils % (Manual) 0.0 D Basophils % (Manual) 0.0 Myelocytes % (Man) 0 D Promyelocytes % (Man) 0 Nucleated RBC % 0 Metamyelocytes 0 D Hypochromia 0 Platelet Estimate Normal Polychromasia 1+ Poikilocytosis 1+ Anisocytosis 0 Microcytosis 1+ Macrocytosis 1+ Ovalocytes 1+ Schistocytes 1+ Sodium 153 H Potassium 4.3 Chloride 121 H Carbon Dioxide 24 Anion Gap 8 BUN 74 H Creatinine 1.6 H Creat Clearance w eGFR 30.63 Random Glucose 102 Calcium 7.7 L Phosphorus 4.0 Magnesium 2.6 H Total Bilirubin 0.7 AST 38 H ALT 126 H Alkaline Phosphatase 95 Total Protein 5.3 L Albumin 2.3 L ASSESSMENT AND PLAN: s/p Bradycardic Cardiac Arrest Acute on Chronic Hypoxic and Hypercapneic Respiratory Failure Acute COPD Exacerbation Pneumonia Septic Shock resolving Acute Kidney Injury Lactic Acidosis PAD HTN Dementia - Completed antibiotics - Steroid taper - Inhaled bronchodilators - NC O2 - Enteral feeds - DVT/GI prophylaxis - Aspiration precautions - DNR/DNI Dr Guzman
[2017-10-02] MEDS ORDERED: FUROSEMIDE 40 MG/4 ML INJECTABLE VIAL IVPUSH ONE (11:30)
--- NOTE | 2017-10-02 11:40 | PN ---
Progress Note, Physician Chief Complaint: Shortness of breath History of Present Illness: NAD alert but doesn't respond to verbal stimuli +diarrhea + Ronchi CXR no change BL effusions Hypernatremic - Current Medication List Current Medications: Active Medications Acetylcysteine (Mucomyst 20 Oral / Inh Use Only*) 300 mg NEB RTID [facility] Last Admin: 10/02/17 09:06 Dose: 300 mg Albuterol Sulfate (Ventolin 0.083% Nebulizer Soln -) 1 amp NEB RTID [facility] Last Admin: 10/02/17 09:06 Dose: 1 amp Famotidine/Sodium Chloride (Pepcid 20 Mg Premixed Ivpb -) 20 mg in 50 mls @ 100 mls/hr IVPB BID TOMMY Last Admin: 10/01/17 22:00 Dose: 100 mls/hr Dextrose (D5w -) 1,000 mls @ 50 mls/hr IV Q20H [facility] Methylprednisolone Sodium Succinate (Solu-Medrol -) 40 mg IVPUSH DAILY [facility] - Objective Vital Signs: Vital Signs Temperature 98.9 F 10/02/17 06:00 Pulse Rate 80 10/02/17 06:00 Respiratory Rate 22 10/02/17 06:00 Blood Pressure 143/80 10/02/17 06:00 O2 Sat by Pulse Oximetry (%) 100 10/01/17 21:00 Constitutional: Yes: No Distress, Calm, Cachectic Cardiovascular: Yes: Regular Rate and Rhythm, Murmur (grade III/) Respiratory: Yes: On Nasal O2, Rhonchi (diffuse) Gastrointestinal: Yes: Normal Bowel Sounds, Soft Musculoskeletal: Yes: WNL Extremities: Yes: WNL Edema: No Peripheral Pulses WNL: No Peripheral Pulses: Left Doralis Pedis: 0, Right Dorsalis Pedis: 0 Neurological: Yes: Alert, Aphasia Psychiatric: Yes: Alert Labs: CBC, BMP 10/02/17 06:00 10/02/17 06:00 INR, PTT INR 0.99 (0.82-1.09) 10/01/17 05:55 Problem List - Problems (1) Acute and chronic respiratory failure with hypoxia Assessment/Plan: NAD on nasal O2 seen by pulmonary bronchodilators IV steroids Code(s): J96.21 - ACUTE AND CHRONIC RESPIRATORY FAILURE WITH HYPOXIA (2) Hypernatremia Assessment/Plan: -seen by renal -started on D5W -monitor labs -renal fxn gradually improving Code(s): E87.0 - HYPEROSMOLALITY AND HYPERNATREMIA (3) Diarrhea Assessment/Plan: -send stool for cdiff, stool O&P, Stool culture -Stool OB Code(s): R19.7 - DIARRHEA, UNSPECIFIED Assessment/Plan see problem list
[2017-10-02] MEDS ORDERED: PT OWN MED DRAWER 7, Y5N ONE (11:45)
[2017-10-02] MEDS: methylPREDNISolone NA SUCC 40 MG/1 ML VIAL IVPUSH SCH (11:54)
[2017-10-02] MEDS: FAMOTIDINE 20 MG/50 ML IVPB 20 MG/50 ML MG IVPB SCH (11:54)
--- NOTE | 2017-10-02 16:43 | PN ---
Progress Note, Physician History of Present Illness: Pt seen and examined at bedside. She remains lethargic. - Current Medication List Current Medications: Active Medications Acetylcysteine (Mucomyst 20 Oral / Inh Use Only*) 300 mg NEB RTID [facility] Last Admin: 10/02/17 14:00 Dose: 300 mg Albuterol Sulfate (Ventolin 0.083% Nebulizer Soln -) 1 amp NEB RTID [facility] Last Admin: 10/02/17 14:00 Dose: 1 amp Famotidine/Sodium Chloride (Pepcid 20 Mg Premixed Ivpb -) 20 mg in 50 mls @ 100 mls/hr IVPB BID [facility] Last Admin: 10/02/17 11:54 Dose: 100 mls/hr Dextrose (D5w -) 1,000 mls @ 50 mls/hr IV Q20H [facility] Last Admin: 10/02/17 11:53 Dose: 50 mls/hr Methylprednisolone Sodium Succinate (Solu-Medrol -) 40 mg IVPUSH DAILY [facility] Last Admin: 10/02/17 11:54 Dose: 40 mg - Objective Vital Signs: Vital Signs Temperature 98.9 F 10/02/17 06:00 Pulse Rate 80 10/02/17 15:56 Respiratory Rate 20 10/02/17 15:56 Blood Pressure 168/80 10/02/17 15:56 O2 Sat by Pulse Oximetry (%) 100 10/01/17 21:00 Constitutional: Yes: Calm Eyes: Yes: Conjunctiva Clear HENT: Yes: Atraumatic Neck: Yes: Supple Cardiovascular: Yes: S1, S2 Respiratory: Yes: On Nasal O2, Rhonchi Gastrointestinal: Yes: Soft Genitourinary: Yes: Incontinence Musculoskeletal: Yes: Muscle Weakness Edema: Yes Neurological: Yes: Lethargy Labs: CBC, BMP 10/02/17 06:00 10/02/17 06:00 INR, PTT INR 0.99 (0.82-1.09) 10/01/17 05:55 - ....Imaging Chest X-ray: Report Reviewed Problem List - Problems (1) ORTIZ (acute kidney injury) Code(s): N17.9 - ACUTE KIDNEY FAILURE, UNSPECIFIED (2) Acute and chronic respiratory failure with hypoxia Code(s): J96.21 - ACUTE AND CHRONIC RESPIRATORY FAILURE WITH HYPOXIA (3) Cardiac arrest Code(s): I46.9 - CARDIAC ARREST, CAUSE UNSPECIFIED (4) Leukocytosis Code(s): D72.829 - ELEVATED WHITE BLOOD CELL COUNT, UNSPECIFIED (5) Shortness of breath Code(s): R06.02 - SHORTNESS OF BREATH (6) Hypoxia Code(s): R09.02 - HYPOXEMIA (7) Sepsis Code(s): A41.9 - SEPSIS, UNSPECIFIED ORGANISM Qualifiers: Sepsis type: sepsis due to unspecified organism Qualified Code(s): A41.9 - Sepsis, unspecified organism Assessment/Plan Current Medications Generic Name Dose Route Start Last Admin Trade Name Freq PRN Reason Stop Dose Admin Acetylcysteine 300 mg 10/01/17 20:00 10/02/17 14:00 Mucomyst 20 Oral / Inh Use Only* NEB 300 mg RTID TOMMY Administration Albuterol Sulfate 1 amp 10/01/17 20:00 10/02/17 14:00 Ventolin 0.083% Nebulizer Soln - NEB 1 amp RTID TOMMY Administration Famotidine/Sodium Chloride 20 mg in 50 mls @ 100 mls/hr 10/01/17 22:00 11:54 Pepcid 20 Mg Premixed Ivpb - IVPB 100 mls/hr BID TOMMY Administration Dextrose 1,000 mls @ 50 mls/hr 10/02/17 11:05 10/02/17 11:53 D5w - IV 50 mls/hr Q20H TOMMY Administration Methylprednisolone Sodium Succinate 40 mg 10/02/17 10:00 10/02/17 11:54 Solu-Medrol - IVPUSH 40 mg DAILY TOMMY Administration Impression 1. ORTIZ 2. acute respiratory failure 3. cardiac arrest 4. lactic acidosis 5. COPD 6. PNA 7. dementia 8. anemia 9. sepsis 10. perihepatic free fluid 11. hypernatremia Plan - can decrease rate of saline - will add free water to feeds - pt has a total free water deficit of about 2.7 liters based on a weight of 143 pounds - renal function is improving - cxr reviewed - monitor pulse ox - monitor hg - likely ORTIZ from ATN caused by prolonged hypotension
[2017-10-02] MEDS: DEXTROSE 5%-WATER - 1,000 ML IV SCH (17:42)
[2017-10-03] MEDS: FAMOTIDINE 20 MG/50 ML IVPB 20 MG/50 ML MG IVPB SCH ×2 (00:55→10:46)
[2017-10-03] MEDS: DEXTROSE 5%-WATER - 1,000 ML IV SCH (06:20)
[2017-10-03] MEDS: ALBUTEROL SO4 0.083% IH SOL 2.5 MG/3 ML VIAL.NEB. NEB SCH ×3 (07:40→21:00)
[2017-10-03] MEDS: ACETYLCYSTEINE 20% 200MG/ML 4 ML VIAL *FOR ORAL / INH USE ONLY NEB SCH ×3 (07:40→21:00)
[2017-10-03 07:50] LABS: ALBUMIN 2.3 g/dl (3.4-5.0); ANION GAP 8 (8-16); BILIRUBIN,TOTAL 0.5 mg/dL (0.2-1.0); BLOOD UREA NITROGEN 67 mg/dL (7-18); CALCIUM 7.4 mg/dL (8.5-10.1); CHLORIDE 113 mmol/L (98-107); CO2 29 mmol/L (21-32); CREATININE 1.5 mg/dL (0.55-1.02); GLUCOSE,RANDOM 183 mg/dL (74-106); POTASSIUM 4.4 mmol/L (3.5-5.1); SGOT/AST 28 U/L (15-37); SGPT/ALT 108 U/L (12-78); SODIUM 150 mmol/L (136-145); TOT PROT 5.4 g/dl (6.4-8.2)
[2017-10-03 07:52] LABS: ALK PHOS 107 U/L (45-117); N-TERMINAL BNP 4880.86 pg/ml (5-450)
[2017-10-03 08:03] LABS: BASO % 0.5 % (0-2.0); EOS % 2.5 % (0-4.5); HEMATOCRIT 40.3 % (32.4-45.2); HEMOGLOBIN 12.7 GM/dL (10.7-15.3); LYMPH % 9.7 % (8-40); MCH 27.5 pg (25.7-33.7); MCHC 31.5 g/dl (32.0-36.0); MEAN CELL VOLUME 87.3 fl (80-96); MEAN PLT VOLUME 8.2 fl (7.5-11.1); MONO % 7.8 % (3.8-10.2); NEUT % 79.5 % (42.8-82.8); PLATELET COUNT 250 K/MM3 (134-434); RBC 4.62 M/mm3 (3.60-5.2); RDW 18.1 % (11.6-15.6); WHITE BLOOD COUNT 14.3 K/mm3 (4.0-10.0)
--- NOTE | 2017-10-03 10:28 | PN ---
Progress Note, Physician Chief Complaint: Shortness of breath History of Present Illness: NAD alert but doesn't respond to verbal stimuli +diarrhea + Ronchi CXR yesterday no change BL effusions Still Hypernatremic, but improving - Current Medication List Current Medications: Active Medications Acetylcysteine (Mucomyst 20 Oral / Inh Use Only*) 300 mg NEB RTID [facility] Last Admin: 10/02/17 21:20 Dose: 300 mg Albuterol Sulfate (Ventolin 0.083% Nebulizer Soln -) 1 amp NEB RTID [facility] Last Admin: 10/02/17 21:20 Dose: 1 amp Famotidine/Sodium Chloride (Pepcid 20 Mg Premixed Ivpb -) 20 mg in 50 mls @ 100 mls/hr IVPB BID [facility] Last Admin: 10/03/17 00:55 Dose: 100 mls/hr Dextrose (D5w -) 1,000 mls @ 50 mls/hr IV Q20H [facility] Last Admin: 10/03/17 06:20 Dose: 50 mls/hr Methylprednisolone Sodium Succinate (Solu-Medrol -) 40 mg IVPUSH DAILY [facility] Last Admin: 10/02/17 11:54 Dose: 40 mg - Objective Vital Signs: Vital Signs Temperature 98.2 F 10/03/17 06:00 Pulse Rate 68 10/03/17 06:00 Respiratory Rate 18 10/03/17 06:00 Blood Pressure 128/60 10/03/17 06:00 O2 Sat by Pulse Oximetry (%) 98 10/02/17 21:00 Constitutional: Yes: No Distress, Calm, Cachectic Cardiovascular: Yes: Regular Rate and Rhythm Respiratory: Yes: Regular Genitourinary: Yes: Incontinence Musculoskeletal: Yes: WNL Extremities: Yes: WNL Edema: No Peripheral Pulses WNL: No Peripheral Pulses: Left Doralis Pedis: 0, Right Dorsalis Pedis: 0 Integumentary: Yes: Venous Stasis Changes (BL foot) Wound/Incision: Yes: Dressing Dry and Intact Neurological: Yes: Lethargy Labs: CBC, BMP 10/03/17 06:00 10/03/17 06:00 INR, PTT INR 0.99 (0.82-1.09) 10/01/17 05:55 Problem List - Problems (1) Acute and chronic respiratory failure with hypoxia Assessment/Plan: NAD on nasal O2 seen by pulmonary bronchodilators IV steroids Code(s): J96.21 - ACUTE AND CHRONIC RESPIRATORY FAILURE WITH HYPOXIA (2) Hypernatremia Assessment/Plan: -improving -seen by renal -started on D5W -monitor labs -renal fxn gradually improving Code(s): E87.0 - HYPEROSMOLALITY AND HYPERNATREMIA (3) Diarrhea Assessment/Plan: -stool for cdiff, stool O&P, Stool culture pending -Stool OB negative Code(s): R19.7 - DIARRHEA, UNSPECIFIED Assessment/Plan see problem list seen by Physical therapy Palliative care consult
[2017-10-03] MEDS ORDERED: PT OWN MED DRAWER 7, Y5N ONE (10:37)
[2017-10-03] MEDS: methylPREDNISolone NA SUCC 40 MG/1 ML VIAL IVPUSH SCH (10:46)
--- NOTE | 2017-10-03 10:58 | PN ---
Progress Note, Physician Chief Complaint: congested cough History of Present Illness: reviewed - Current Medication List Current Medications: Active Medications Acetylcysteine (Mucomyst 20 Oral / Inh Use Only*) 300 mg NEB RTID [facility] Last Admin: 10/03/17 07:40 Dose: 300 mg Albuterol Sulfate (Ventolin 0.083% Nebulizer Soln -) 1 amp NEB RTID [facility] Last Admin: 10/03/17 07:40 Dose: 1 amp Famotidine/Sodium Chloride (Pepcid 20 Mg Premixed Ivpb -) 20 mg in 50 mls @ 100 mls/hr IVPB BID [facility] Last Admin: 10/03/17 10:46 Dose: 100 mls/hr Dextrose (D5w -) 1,000 mls @ 50 mls/hr IV Q20H [facility] Last Admin: 10/03/17 06:20 Dose: 50 mls/hr Methylprednisolone Sodium Succinate (Solu-Medrol -) 40 mg IVPUSH DAILY [facility] Last Admin: 10/03/17 10:46 Dose: 40 mg - Objective Vital Signs: Vital Signs Temperature 98.2 F 10/03/17 06:00 Pulse Rate 68 10/03/17 06:00 Respiratory Rate 18 10/03/17 06:00 Blood Pressure 128/60 10/03/17 06:00 O2 Sat by Pulse Oximetry (%) 98 10/02/17 21:00 Constitutional: Yes: Calm Eyes: Yes: EOM Intact HENT: Yes: Normocephalic Neck: Yes: Trachea Midline Cardiovascular: Yes: Regular Rate and Rhythm, S1, S2 Respiratory: Yes: Rhonchi (diffuse bilaterally) Gastrointestinal: Yes: Normal Bowel Sounds, Soft Edema: No Labs: CBC, BMP 10/03/17 06:00 10/03/17 06:00 INR, PTT INR 0.99 (0.82-1.09) 10/01/17 05:55 - ....Imaging Chest X-ray: Report Reviewed, Image Reviewed EKG: Report Reviewed, Image Reviewed Problem List - Problems (1) ORTIZ (acute kidney injury) Code(s): N17.9 - ACUTE KIDNEY FAILURE, UNSPECIFIED (2) Acute and chronic respiratory failure with hypoxia Code(s): J96.21 - ACUTE AND CHRONIC RESPIRATORY FAILURE WITH HYPOXIA (3) Cardiac arrest Code(s): I46.9 - CARDIAC ARREST, CAUSE UNSPECIFIED (4) Diarrhea Code(s): R19.7 - DIARRHEA, UNSPECIFIED (5) Hypernatremia Code(s): E87.0 - HYPEROSMOLALITY AND HYPERNATREMIA (6) Acute hypoxemic respiratory failure Code(s): J96.01 - ACUTE RESPIRATORY FAILURE WITH HYPOXIA Assessment/Plan s/p Bradycardic Cardiac Arrest Acute on Chronic Hypoxic and Hypercapneic Respiratory Failure Acute COPD Exacerbation Pneumonia Septic Shock resolving Acute Kidney Injury Lactic Acidosis PAD HTN Dementia - Completed antibiotics - Steroid taper - Inhaled bronchodilators/suction/ - NC O2 - Enteral feeds - DVT/GI prophylaxis - Aspiration precautions Jake KAT MD
--- NOTE | 2017-10-03 17:52 | PN ---
Progress Note, Physician History of Present Illness: Pt seen and examined at bedside. She is tolerating tube feeds. - Current Medication List Current Medications: Active Medications Acetylcysteine (Mucomyst 20 Oral / Inh Use Only*) 300 mg NEB RTID [facility] Last Admin: 10/03/17 13:50 Dose: 300 mg Albuterol Sulfate (Ventolin 0.083% Nebulizer Soln -) 1 amp NEB RTID [facility] Last Admin: 10/03/17 13:50 Dose: 1 amp Famotidine/Sodium Chloride (Pepcid 20 Mg Premixed Ivpb -) 20 mg in 50 mls @ 100 mls/hr IVPB BID [facility] Last Admin: 10/03/17 10:46 Dose: 100 mls/hr Dextrose (D5w -) 1,000 mls @ 50 mls/hr IV Q20H [facility] Last Admin: 10/03/17 06:20 Dose: 50 mls/hr Methylprednisolone Sodium Succinate (Solu-Medrol -) 40 mg IVPUSH DAILY [facility] Last Admin: 10/03/17 10:46 Dose: 40 mg - Objective Vital Signs: Vital Signs Temperature 98.5 F 10/03/17 17:32 Pulse Rate 82 10/03/17 17:32 Respiratory Rate 18 10/03/17 17:32 Blood Pressure 152/91 10/03/17 17:32 O2 Sat by Pulse Oximetry (%) 97 10/03/17 09:00 Constitutional: Yes: Calm Eyes: Yes: Conjunctiva Clear HENT: Yes: Atraumatic Cardiovascular: Yes: S1, S2 Respiratory: Yes: On Nasal O2 Gastrointestinal: Yes: Soft Genitourinary: Yes: Incontinence Musculoskeletal: Yes: Muscle Weakness Edema: Yes Neurological: Yes: Lethargy Labs: CBC, BMP 10/03/17 06:00 10/03/17 06:00 INR, PTT INR 0.99 (0.82-1.09) 10/01/17 05:55 Problem List - Problems (1) ORTIZ (acute kidney injury) Code(s): N17.9 - ACUTE KIDNEY FAILURE, UNSPECIFIED (2) Acute and chronic respiratory failure with hypoxia Code(s): J96.21 - ACUTE AND CHRONIC RESPIRATORY FAILURE WITH HYPOXIA (3) Cardiac arrest Code(s): I46.9 - CARDIAC ARREST, CAUSE UNSPECIFIED (4) Leukocytosis Code(s): D72.829 - ELEVATED WHITE BLOOD CELL COUNT, UNSPECIFIED (5) Shortness of breath Code(s): R06.02 - SHORTNESS OF BREATH (6) Hypoxia Code(s): R09.02 - HYPOXEMIA (7) Sepsis Code(s): A41.9 - SEPSIS, UNSPECIFIED ORGANISM Qualifiers: Sepsis type: sepsis due to unspecified organism Qualified Code(s): A41.9 - Sepsis, unspecified organism Assessment/Plan Current Medications Generic Name Dose Route Start Last Admin Trade Name Freq PRN Reason Stop Dose Admin Acetylcysteine 300 mg 10/01/17 20:00 10/03/17 13:50 Mucomyst 20 Oral / Inh Use Only* NEB 300 mg RTID TOMMY Administration Albuterol Sulfate 1 amp 10/01/17 20:00 10/03/17 13:50 Ventolin 0.083% Nebulizer Soln - NEB 1 amp RTID TOMMY Administration Famotidine/Sodium Chloride 20 mg in 50 mls @ 100 mls/hr 10/01/17 22:00 10:46 Pepcid 20 Mg Premixed Ivpb - IVPB 100 mls/hr BID TOMMY Administration Dextrose 1,000 mls @ 50 mls/hr 10/02/17 16:43 10/03/17 06:20 D5w - IV 50 mls/hr Q20H TOMMY Administration Methylprednisolone Sodium Succinate 40 mg 10/02/17 10:00 10/03/17 10:46 Solu-Medrol - IVPUSH 40 mg DAILY TOMMY Administration Impression 1. ORTIZ 2. acute respiratory failure 3. cardiac arrest 4. lactic acidosis 5. COPD 6. PNA 7. dementia 8. anemia 9. sepsis 10. perihepatic free fluid 11. hypernatremia Plan - cont tube feeds with free water - can stop d5w overnight - repeat labs in am - renal function is improving - monitor pulse ox - monitor hg - likely ORTIZ from ATN caused by prolonged hypotension
[2017-10-04] MEDS: FAMOTIDINE 20 MG/50 ML IVPB 20 MG/50 ML MG IVPB SCH ×3 (02:14→21:24)
--- NOTE | 2017-10-04 03:40 | HOSP ---
Subjective - Review of Symptoms Events since last encounter: Hospitalist Encounter Notified by RN that the patient pulled out her NGT secondary to Dementia Subjective: Arrived to bedside patient is alert to name only. Plan: 16fr [place] Sump placed in R- Nare Chest Xray ordered for confirmation Tube feedings held for now Physical Examination Vital Signs: Vital Signs Temperature 98.5 F 10/03/17 17:32 Pulse Rate 82 10/03/17 17:32 Respiratory Rate 18 10/03/17 17:32 Blood Pressure 152/91 10/03/17 17:32 O2 Sat by Pulse Oximetry (%) 97 10/03/17 09:00 Constitutional: Yes: Anxious, Thin Cardiovascular: Yes: WNL, Regular Rate and Rhythm, S1, S2 Respiratory: Yes: Rhonchi Gastrointestinal: Yes: WNL, Normal Bowel Sounds, Soft Peripheral Pulses WNL: Yes Psychiatric: Yes: WNL, Alert Labs: CBC, BMP 10/03/17 06:00 10/03/17 06:00 Microbiology 10/02/17 11:19 Salmonella/Shigella Culture - Preliminary Stool NO ENTERIC PATHOGENS, 24 HOURS, ON PRIMARY PLATES Yersinia Culture - Preliminary NO ENTERIC PATHOGENS, 24 HOURS, ON PRIMARY PLATES Vibrio Culture - Final NO GROWTH OF VIBRIO SPECIES OBTAINED Escherichia coli 0157 Culture - Final NO GROWTH OF E COLI 0157 OBTAINED Current Medications Generic Name Dose Route Start Last Admin Trade Name Loyda PRN Reason Stop Dose Admin Acetylcysteine 300 mg 10/01/17 20:00 10/03/17 21:00 Mucomyst 20 Oral / Inh Use Only* NEB 300 mg RTID [facility] Administration Albuterol Sulfate 1 amp 10/01/17 20:00 10/03/17 21:00 Ventolin 0.083% Nebulizer Soln - NEB 1 amp RTID [facility] Administration Famotidine/Sodium Chloride 20 mg in 50 mls @ 100 mls/hr 10/01/17 22:00 02:14 Pepcid 20 Mg Premixed Ivpb - IVPB 100 mls/hr BID TOMMY Administration Methylprednisolone Sodium Succinate 40 mg 10/02/17 10:00 10/03/17 10:46 Solu-Medrol - IVPUSH 40 mg DAILY TOMMY Administration
[2017-10-04] MEDS: DEXTROSE 5%-WATER - 1,000 ML IV SCH (07:24)
[2017-10-04] MEDS: ALBUTEROL SO4 0.083% IH SOL 2.5 MG/3 ML VIAL.NEB. NEB SCH ×3 (07:27→21:05)
[2017-10-04] MEDS: ACETYLCYSTEINE 20% 200MG/ML 4 ML VIAL *FOR ORAL / INH USE ONLY NEB SCH ×3 (07:27→21:05)
--- NOTE | 2017-10-04 08:37 | PN ---
Progress Note, Physician - Current Medication List Current Medications: Active Medications Acetylcysteine (Mucomyst 20 Oral / Inh Use Only*) 300 mg NEB RTID [facility] Last Admin: 10/04/17 07:27 Dose: 300 mg Albuterol Sulfate (Ventolin 0.083% Nebulizer Soln -) 1 amp NEB RTID [facility] Last Admin: 10/04/17 07:27 Dose: 1 amp Famotidine/Sodium Chloride (Pepcid 20 Mg Premixed Ivpb -) 20 mg in 50 mls @ 100 mls/hr IVPB BID [facility] Last Admin: 10/04/17 02:14 Dose: 100 mls/hr Methylprednisolone Sodium Succinate (Solu-Medrol -) 40 mg IVPUSH DAILY [facility] Last Admin: 10/03/17 10:46 Dose: 40 mg - Objective Vital Signs: Vital Signs Temperature 98.2 F 10/04/17 06:49 Pulse Rate 101 H 10/03/17 22:00 Respiratory Rate 20 10/03/17 22:00 Blood Pressure 126/76 10/03/17 22:00 O2 Sat by Pulse Oximetry (%) 97 10/03/17 09:00 Cardiovascular: Yes: S1, S2 Respiratory: Yes: Rhonchi Gastrointestinal: Yes: Normal Bowel Sounds, Soft Labs: CBC, BMP 10/03/17 06:00 10/03/17 06:00 INR, PTT INR 0.99 (0.82-1.09) 10/01/17 05:55 Problem List - Problems (1) Acute and chronic respiratory failure with hypoxia Code(s): J96.21 - ACUTE AND CHRONIC RESPIRATORY FAILURE WITH HYPOXIA (2) COPD (chronic obstructive pulmonary disease) Code(s): J44.9 - CHRONIC OBSTRUCTIVE PULMONARY DISEASE, UNSPECIFIED Assessment/Plan - Problems (1) Acute and chronic respiratory failure with hypoxia Assessment/Plan: on nasal O2 seen by pulmonary bronchodilators IV steroids Code(s): J96.21 - ACUTE AND CHRONIC RESPIRATORY FAILURE WITH HYPOXIA (2) Hypernatremia Assessment/Plan: -improving -seen by renal -started on D5W -monitor labs -renal fxn gradually improving Code(s): E87.0 - HYPEROSMOLALITY AND HYPERNATREMIA (3) Diarrhea Assessment/Plan: -stool for cdiff, stool O&P, Stool culture pending -Stool OB negative Code(s): R19.7 - DIARRHEA, UNSPECIFIED
--- NOTE | 2017-10-04 10:45 | PN ---
Progress Note (short form) - Note Progress Note: Remains lethargic with significant clinical change from yesterday. Mildly tachypneic at rest. Congested cough noted. Intake & Output 10/01/17 10/02/17 10/03/17 10/04/17 23:59 23:59 23:59 23:59 Intake Total 220 3500 2000 Output Total 1700 Balance -1480 3500 2000 Weight 172 lb 8 oz 143 lb 3.2 oz 143 lb 3.2 oz 135 lb 2 oz Last Vital Signs Temp Pulse Resp BP Pulse Ox 98.2 F 101 H 20 126/76 95 10/04/17 06:49 10/03/17 22:00 10/03/17 22:00 10/03/17 22:00 10/03/17 21:00 Active Medications Acetylcysteine (Mucomyst 20 Oral / Inh Use Only*) 300 mg NEB RTID [facility] Last Admin: 10/04/17 07:27 Dose: 300 mg Albuterol Sulfate (Ventolin 0.083% Nebulizer Soln -) 1 amp NEB RTID [facility] Last Admin: 10/04/17 07:27 Dose: 1 amp Famotidine/Sodium Chloride (Pepcid 20 Mg Premixed Ivpb -) 20 mg in 50 mls @ 100 mls/hr IVPB BID [facility] Last Admin: 10/04/17 02:14 Dose: 100 mls/hr Methylprednisolone Sodium Succinate (Solu-Medrol -) 40 mg IVPUSH DAILY [facility] Last Admin: 10/03/17 10:46 Dose: 40 mg Gen: Lethargic, mildly tachypneic at rest Heart: RRR Lung: bilateral rhonchi, no wheeze Abd: soft, nontender Ext: decreasing edema ASSESSMENT AND PLAN: s/p Bradycardic Cardiac Arrest Acute on Chronic Hypoxic and Hypercapneic Respiratory Failure Acute COPD Exacerbation Pneumonia Septic Shock resolving Acute Kidney Injury Lactic Acidosis PAD HTN Dementia - Completed antibiotics - D/C Medrol and monitor - Inhaled bronchodilators - NC O2 - Enteral feeds - DVT/GI prophylaxis - Aspiration precautions - DNR/DNI Dr Guzman
[2017-10-04] MEDS: methylPREDNISolone NA SUCC 40 MG/1 ML VIAL IVPUSH SCH (10:57)
--- NOTE | 2017-10-04 17:45 | PN ---
Progress Note, Physician History of Present Illness: Pt seen and examined at bedside. She remains lethargic. - Current Medication List Current Medications: Active Medications Acetylcysteine (Mucomyst 20 Oral / Inh Use Only*) 300 mg NEB RTID [facility] Last Admin: 10/04/17 14:37 Dose: 300 mg Albuterol Sulfate (Ventolin 0.083% Nebulizer Soln -) 1 amp NEB RTID [facility] Last Admin: 10/04/17 14:38 Dose: 1 amp Famotidine/Sodium Chloride (Pepcid 20 Mg Premixed Ivpb -) 20 mg in 50 mls @ 100 mls/hr IVPB BID [facility] Last Admin: 10/04/17 12:53 Dose: 100 mls/hr - Objective Vital Signs: Vital Signs Temperature 98.1 F 10/04/17 15:19 Pulse Rate 71 10/04/17 15:19 Respiratory Rate 18 10/04/17 15:19 Blood Pressure 155/67 10/04/17 15:19 O2 Sat by Pulse Oximetry (%) 98 10/04/17 11:00 Constitutional: Yes: Calm Eyes: Yes: Conjunctiva Clear Cardiovascular: Yes: S1, S2 Respiratory: Yes: On Nasal O2 Gastrointestinal: Yes: Soft Genitourinary: Yes: Incontinence Musculoskeletal: Yes: Muscle Weakness Edema: Yes Neurological: Yes: Lethargy Labs: CBC, BMP 10/03/17 06:00 10/03/17 06:00 INR, PTT INR 0.99 (0.82-1.09) 10/01/17 05:55 - ....Imaging Chest X-ray: Report Reviewed Problem List - Problems (1) ORTIZ (acute kidney injury) Code(s): N17.9 - ACUTE KIDNEY FAILURE, UNSPECIFIED (2) Acute and chronic respiratory failure with hypoxia Code(s): J96.21 - ACUTE AND CHRONIC RESPIRATORY FAILURE WITH HYPOXIA (3) Cardiac arrest Code(s): I46.9 - CARDIAC ARREST, CAUSE UNSPECIFIED (4) Leukocytosis Code(s): D72.829 - ELEVATED WHITE BLOOD CELL COUNT, UNSPECIFIED (5) Shortness of breath Code(s): R06.02 - SHORTNESS OF BREATH (6) Hypoxia Code(s): R09.02 - HYPOXEMIA (7) Sepsis Code(s): A41.9 - SEPSIS, UNSPECIFIED ORGANISM Qualifiers: Sepsis type: sepsis due to unspecified organism Qualified Code(s): A41.9 - Sepsis, unspecified organism Assessment/Plan Current Medications Generic Name Dose Route Start Last Admin Trade Name Loyda PRN Reason Stop Dose Admin Acetylcysteine 300 mg 10/01/17 20:00 10/04/17 14:37 Mucomyst 20 Oral / Inh Use Only* NEB 300 mg RTID TOMMY Administration Albuterol Sulfate 1 amp 10/01/17 20:00 10/04/17 14:38 Ventolin 0.083% Nebulizer Soln - NEB 1 amp RTID TOMMY Administration Famotidine/Sodium Chloride 20 mg in 50 mls @ 100 mls/hr 10/01/17 22:00 12:53 Pepcid 20 Mg Premixed Ivpb - IVPB 100 mls/hr BID TOMMY Administration Impression 1. ORTIZ 2. acute respiratory failure 3. cardiac arrest 4. lactic acidosis 5. COPD 6. PNA 7. dementia 8. anemia 9. sepsis 10. perihepatic free fluid 11. hypernatremia Plan - sodium is improving - resume tube feed and free water once ng tube placement confirmed - repeat labs in am - monitor hg - likely ORTIZ from ATN caused by prolonged hypotension - prognosis is poor
[2017-10-05 08:05] LABS: BASO % 0.2 % (0-2.0); EOS % 5.6 % (0-4.5); HEMATOCRIT 39.7 % (32.4-45.2); HEMOGLOBIN 12.8 GM/dL (10.7-15.3); LYMPH % 8.3 % (8-40); MCH 27.9 pg (25.7-33.7); MCHC 32.3 g/dl (32.0-36.0); MEAN CELL VOLUME 86.4 fl (80-96); MONO % 4.5 % (3.8-10.2); NEUT % 81.4 % (42.8-82.8); PLATELET COUNT 224 K/MM3 (134-434); RDW 17.8 % (11.6-15.6); WHITE BLOOD COUNT 13.9 K/mm3 (4.0-10.0)
[2017-10-05 08:10] LABS: ANION GAP 8 (8-16); BLOOD UREA NITROGEN 45 mg/dL (7-18); CALCIUM 7.8 mg/dL (8.5-10.1); CHLORIDE 110 mmol/L (98-107); CO2 30 mmol/L (21-32); CREATININE 1.1 mg/dL (0.55-1.02); GLUCOSE,RANDOM 143 mg/dL (74-106); POTASSIUM 3.4 mmol/L (3.5-5.1); SGOT/AST 32 U/L (15-37); SGPT/ALT 75 U/L (12-78); SODIUM 148 mmol/L (136-145)
[2017-10-05 08:12] LABS: ALK PHOS 119 U/L (45-117); BILIRUBIN,TOTAL 0.6 mg/dL (0.2-1.0)
[2017-10-05] MEDS: ACETYLCYSTEINE 20% 200MG/ML 4 ML VIAL *FOR ORAL / INH USE ONLY NEB SCH ×3 (08:16→20:38)
[2017-10-05] MEDS: ALBUTEROL SO4 0.083% IH SOL 2.5 MG/3 ML VIAL.NEB. NEB SCH ×3 (08:17→20:38)
--- NOTE | 2017-10-05 09:17 | PN ---
Progress Note, Physician - Current Medication List Current Medications: Active Medications Acetylcysteine (Mucomyst 20 Oral / Inh Use Only*) 300 mg NEB RTID [facility] Last Admin: 10/05/17 08:16 Dose: 300 mg Albuterol Sulfate (Ventolin 0.083% Nebulizer Soln -) 1 amp NEB RTID [facility] Last Admin: 10/05/17 08:17 Dose: 1 amp Famotidine/Sodium Chloride (Pepcid 20 Mg Premixed Ivpb -) 20 mg in 50 mls @ 100 mls/hr IVPB BID [facility] Last Admin: 10/04/17 21:24 Dose: 100 mls/hr - Objective Vital Signs: Vital Signs Temperature 97.9 F 10/05/17 07:00 Pulse Rate 72 10/05/17 07:00 Respiratory Rate 20 10/05/17 07:00 Blood Pressure 141/76 10/05/17 07:00 O2 Sat by Pulse Oximetry (%) 97 10/04/17 21:00 Cardiovascular: Yes: S1, S2 Respiratory: Yes: Rhonchi Gastrointestinal: Yes: Normal Bowel Sounds, Soft Labs: CBC, BMP 10/05/17 06:45 10/05/17 06:45 INR, PTT INR 0.99 (0.82-1.09) 10/01/17 05:55 Problem List - Problems (1) Acute and chronic respiratory failure with hypoxia Code(s): J96.21 - ACUTE AND CHRONIC RESPIRATORY FAILURE WITH HYPOXIA (2) COPD (chronic obstructive pulmonary disease) Code(s): J44.9 - CHRONIC OBSTRUCTIVE PULMONARY DISEASE, UNSPECIFIED Assessment/Plan - Problems (1) Acute and chronic respiratory failure with hypoxia Assessment/Plan: on nasal O2 seen by pulmonary bronchodilators IV steroids per pulm Code(s): J96.21 - ACUTE AND CHRONIC RESPIRATORY FAILURE WITH HYPOXIA (2) Hypernatremia Assessment/Plan: -improving -seen by renal -started on D5W -monitor labs -renal fxn gradually improving Code(s): E87.0 - HYPEROSMOLALITY AND HYPERNATREMIA (3) Diarrhea Assessment/Plan: -stool for cdiff, stool O&P, Stool culture pending -Stool OB negative Code(s): R19.7 - DIARRHEA, UNSPECIFIED (4) Hypokalemia Assessment/Plan: -replace and monitor (5) CHF Assessment/Plan: -on cxr with elevated bnp -lasix x 1 --cxr
[2017-10-05] MEDS: FAMOTIDINE 20 MG/50 ML IVPB 20 MG/50 ML MG IVPB SCH ×2 (09:36→22:27)
--- NOTE | 2017-10-05 11:04 | PN ---
Progress Note (short form) - Note Progress Note: Remains confused but in NAD on NC O2. No significant clinical change from yesterday. Intake & Output 10/02/17 10/03/17 10/04/17 10/05/17 23:59 23:59 23:59 23:59 Intake Total 3500 1999 640 735 Balance 3500 1999 640 735 Weight 143 lb 3.2 oz 143 lb 3.2 oz 135 lb 2 oz 138 lb 1 oz Last Vital Signs Temp Pulse Resp BP Pulse Ox 98.0 F 78 20 164/86 97 10/05/17 10:00 10/05/17 10:00 10/05/17 10:00 10/05/17 10:00 10/04/17 21:00 Active Medications Acetylcysteine (Mucomyst 20 Oral / Inh Use Only*) 300 mg NEB RTID [facility] Last Admin: 10/05/17 08:16 Dose: 300 mg Albuterol Sulfate (Ventolin 0.083% Nebulizer Soln -) 1 amp NEB RTID [facility] Last Admin: 10/05/17 08:17 Dose: 1 amp Famotidine/Sodium Chloride (Pepcid 20 Mg Premixed Ivpb -) 20 mg in 50 mls @ 100 mls/hr IVPB BID [facility] Last Admin: 10/05/17 09:36 Dose: 100 mls/hr Gen: Confused, NAD Heart: RRR Lung: bilateral rhonchi, no wheeze Abd: soft, nontender Ext: decreasing edema Laboratory Results - last 24 hr 10/05/17 10/05/17 06:45 06:45 WBC 13.9 H RBC 4.60 Hgb 12.8 Hct 39.7 MCV 86.4 MCH 27.9 MCHC 32.3 RDW 17.8 H Plt Count 224 MPV 8.0 Neutrophils % 81.4 Lymphocytes % 8.3 Monocytes % 4.5 Eosinophils % 5.6 H D Basophils % 0.2 Sodium 148 H Potassium 3.4 L Chloride 110 H Carbon Dioxide 30 Anion Gap 8 BUN 45 H Creatinine 1.1 H Creat Clearance w eGFR 47.21 Random Glucose 143 H Calcium 7.8 L Total Bilirubin 0.6 AST 32 ALT 75 Alkaline Phosphatase 119 H Total Protein 5.0 L Albumin 2.0 L ASSESSMENT AND PLAN: s/p Bradycardic Cardiac Arrest Acute on Chronic Hypoxic and Hypercapneic Respiratory Failure Acute COPD Exacerbation Pneumonia Septic Shock resolving Acute Kidney Injury Lactic Acidosis PAD HTN Dementia - Completed antibiotics - D/C Medrol and monitor - Inhaled bronchodilators - NC O2 - Enteral feeds - DVT/GI prophylaxis - Aspiration precautions - DNR/DNI Dr Guzman
[2017-10-05] MEDS ORDERED: FUROSEMIDE 40 MG/4 ML INJECTABLE VIAL IVPUSH ONE (13:57)
[2017-10-05] MEDS ORDERED: POTASSIUM CHLORIDE TABS 20 MEQ TABLET.ER (FP) PO ONE (13:57)
[2017-10-05] MEDS ORDERED: KCL 10 MEQ IVPB 10 MEQ/100 ML INFUS.BAG IVPB SCH (14:00)
[2017-10-05] MEDS ORDERED: POTASSIUM CHLORIDE 20 MEQ in SODIUM CHLORIDE 250 ML IVPB ONE (14:45)
[2017-10-05] MEDS ORDERED: POTASSIUM CHLORIDE ORAL LIQUID 20 MEQ/15 ML PO ONE (16:15)
--- NOTE | 2017-10-05 19:45 | PN ---
Progress Note, Physician History of Present Illness: Pt seen and examined at bedside. She is lethargic. She is back on tube feeds. - Current Medication List Current Medications: Active Medications Acetylcysteine (Mucomyst 20 Oral / Inh Use Only*) 300 mg NEB RTID [facility] Last Admin: 10/05/17 14:29 Dose: 300 mg Albuterol Sulfate (Ventolin 0.083% Nebulizer Soln -) 1 amp NEB RTID [facility] Last Admin: 10/05/17 14:29 Dose: 1 amp Famotidine/Sodium Chloride (Pepcid 20 Mg Premixed Ivpb -) 20 mg in 50 mls @ 100 mls/hr IVPB BID [facility] Last Admin: 10/05/17 09:36 Dose: 100 mls/hr - Objective Vital Signs: Vital Signs Temperature 98.0 F 10/05/17 10:00 Pulse Rate 78 10/05/17 10:00 Respiratory Rate 20 10/05/17 10:00 Blood Pressure 164/86 10/05/17 10:00 O2 Sat by Pulse Oximetry (%) 96 10/05/17 09:00 Constitutional: Yes: Calm Cardiovascular: Yes: S1, S2 Respiratory: Yes: Rhonchi Gastrointestinal: Yes: Soft Genitourinary: Yes: Incontinence Musculoskeletal: Yes: Muscle Weakness Edema: No Wound/Incision: Yes: Dressing Dry and Intact Neurological: Yes: Lethargy Labs: CBC, BMP 10/05/17 06:45 10/05/17 06:45 INR, PTT INR 0.99 (0.82-1.09) 10/01/17 05:55 Problem List - Problems (1) ORTIZ (acute kidney injury) Code(s): N17.9 - ACUTE KIDNEY FAILURE, UNSPECIFIED (2) Acute and chronic respiratory failure with hypoxia Code(s): J96.21 - ACUTE AND CHRONIC RESPIRATORY FAILURE WITH HYPOXIA (3) Cardiac arrest Code(s): I46.9 - CARDIAC ARREST, CAUSE UNSPECIFIED (4) Leukocytosis Code(s): D72.829 - ELEVATED WHITE BLOOD CELL COUNT, UNSPECIFIED (5) Shortness of breath Code(s): R06.02 - SHORTNESS OF BREATH (6) Hypoxia Code(s): R09.02 - HYPOXEMIA (7) Sepsis Code(s): A41.9 - SEPSIS, UNSPECIFIED ORGANISM Qualifiers: Sepsis type: sepsis due to unspecified organism Qualified Code(s): A41.9 - Sepsis, unspecified organism Assessment/Plan Current Medications Generic Name Dose Route Start Last Admin Trade Name Loyda PRN Reason Stop Dose Admin Acetylcysteine 300 mg 10/01/17 20:00 10/05/17 14:29 Mucomyst 20 Oral / Inh Use Only* NEB 300 mg RTID TOMMY Administration Albuterol Sulfate 1 amp 10/01/17 20:00 10/05/17 14:29 Ventolin 0.083% Nebulizer Soln - NEB 1 amp RTID TOMMY Administration Famotidine/Sodium Chloride 20 mg in 50 mls @ 100 mls/hr 10/01/17 22:00 09:36 Pepcid 20 Mg Premixed Ivpb - IVPB 100 mls/hr BID TOMMY Administration Impression 1. ORTIZ 2. acute respiratory failure 3. cardiac arrest 4. lactic acidosis 5. COPD 6. PNA 7. dementia 8. anemia 9. sepsis 10. perihepatic free fluid 11. hypernatremia Plan - renal function is improving - sodium is improved from yesterday - cont with tube feeds along with free water - monitor hg - likely ORTIZ from ATN caused by prolonged hypotension - prognosis is poor
[2017-10-06] MEDS: ACETYLCYSTEINE 20% 200MG/ML 4 ML VIAL *FOR ORAL / INH USE ONLY NEB SCH ×3 (07:25→20:30)
[2017-10-06] MEDS: ALBUTEROL SO4 0.083% IH SOL 2.5 MG/3 ML VIAL.NEB. NEB SCH ×3 (07:25→20:30)
[2017-10-06 07:26] LABS: BASO % 0.3 % (0-2.0); EOS % 4.8 % (0-4.5); HEMATOCRIT 42.7 % (32.4-45.2); HEMOGLOBIN 13.7 GM/dL (10.7-15.3); LYMPH % 8.5 % (8-40); MCH 27.7 pg (25.7-33.7); MEAN CELL VOLUME 86.6 fl (80-96); MEAN PLT VOLUME 8.2 fl (7.5-11.1); MONO % 4.7 % (3.8-10.2); NEUT % 81.7 % (42.8-82.8); PLATELET COUNT 214 K/MM3 (134-434); RBC 4.93 M/mm3 (3.60-5.2); RDW 17.6 % (11.6-15.6); WHITE BLOOD COUNT 15.6 K/mm3 (4.0-10.0)
[2017-10-06 08:15] LABS: ALBUMIN 2.1 g/dl (3.4-5.0); ANION GAP 5 (8-16); BLOOD UREA NITROGEN 38 mg/dL (7-18); CALCIUM 7.7 mg/dL (8.5-10.1); CHLORIDE 108 mmol/L (98-107); CO2 36 mmol/L (21-32); GLUCOSE,RANDOM 149 mg/dL (74-106); POTASSIUM 3.4 mmol/L (3.5-5.1); SODIUM 149 mmol/L (136-145)
[2017-10-06 08:20] LABS: ALK PHOS 158 U/L (45-117); BILIRUBIN,TOTAL 0.7 mg/dL (0.2-1.0); CREATININE 1.3 mg/dL (0.55-1.02); SGOT/AST 34 U/L (15-37); SGPT/ALT 74 U/L (12-78); TOT PROT 5.2 g/dl (6.4-8.2)
--- NOTE | 2017-10-06 10:27 | PN ---
Progress Note, Physician Chief Complaint: Shortness of breath History of Present Illness: NAD, more awake pulled out NGT over the weekend which was reinserted +diarrhea + Julius seen by Renal and Pulmonary - Current Medication List Current Medications: Active Medications Acetylcysteine (Mucomyst 20 Oral / Inh Use Only*) 300 mg NEB RTID [facility] Last Admin: 10/06/17 07:25 Dose: 300 mg Albuterol Sulfate (Ventolin 0.083% Nebulizer Soln -) 1 amp NEB RTID [facility] Last Admin: 10/06/17 07:25 Dose: 1 amp Famotidine/Sodium Chloride (Pepcid 20 Mg Premixed Ivpb -) 20 mg in 50 mls @ 100 mls/hr IVPB BID [facility]OM[facility] Last Admin: 10/05/17 22:27 Dose: 100 mls/hr - Objective Vital Signs: Vital Signs Temperature 98.8 F 10/06/17 06:13 Pulse Rate 77 10/06/17 06:13 Respiratory Rate 18 10/06/17 06:13 Blood Pressure 147/69 10/06/17 06:13 O2 Sat by Pulse Oximetry (%) 96 10/05/17 21:00 Constitutional: Yes: Well Nourished, No Distress, Calm Cardiovascular: Yes: Regular Rate and Rhythm Respiratory: Yes: Regular Gastrointestinal: Yes: Normal Bowel Sounds, Soft Musculoskeletal: Yes: Muscle Weakness Extremities: Yes: WNL Edema: No Peripheral Pulses WNL: Yes Integumentary: Yes: Venous Stasis Changes (BL foot) Neurological: Yes: Alert, Pre-Existing Deficit Psychiatric: Yes: Alert Labs: CBC, BMP 10/06/17 06:30 10/06/17 06:30 INR, PTT INR 0.99 (0.82-1.09) 10/01/17 05:55 Problem List - Problems (1) Acute and chronic respiratory failure with hypoxia Assessment/Plan: NAD on nasal O2 seen by pulmonary bronchodilators steroids discontinued Code(s): J96.21 - ACUTE AND CHRONIC RESPIRATORY FAILURE WITH HYPOXIA (2) Hypernatremia Assessment/Plan: -improving -seen by renal -monitor labs -Free water increased via NGT -renal fxn gradually improving Code(s): E87.0 - HYPEROSMOLALITY AND HYPERNATREMIA (3) Diarrhea Assessment/Plan: -stool for cdiff, stool O&P, Stool culture negative -Stool OB negative -ranitidine Code(s): R19.7 - DIARRHEA, UNSPECIFIED (4) Cellulitis and abscess of foot Assessment/Plan: -added prosource for increased healing -Vit C and Zinc -daily wound care Code(s): L03.119 - CELLULITIS OF UNSPECIFIED PART OF LIMB; L02.619 - CUTANEOUS ABSCESS OF UNSPECIFIED FOOT Assessment/Plan see problem list seen by Physical therapy Palliative care consult Left message for Daughter Cary Cheung to discuss plan of care, may be PEG insertion?
[2017-10-06] MEDS ORDERED: AMINO ACIDS/PROTEIN HYDROLYS 30 ML LIQUID.PKT PO SCH ×2 (10:45→17:30)
[2017-10-06] MEDS ORDERED: RANITIDINE HCL 150 MG/10 ML UNIT-DOSE PO SCH (10:45)
[2017-10-06] MEDS ORDERED: ZINC SULFATE 220 MG CAPSULE (FP) PO SCH (10:45)
[2017-10-06] MEDS ORDERED: ASCORBIC ACID 250 MG TABLET (FP) PO SCH (11:00)
[2017-10-06] MEDS: FAMOTIDINE 20 MG/50 ML IVPB 20 MG/50 ML MG IVPB SCH (11:19)
[2017-10-06] MEDS: POTASSIUM CHLORIDE ORAL LIQUID 20 MEQ/15 ML NGT SCH (11:34)
[2017-10-06] MEDS: RANITIDINE HCL 150 MG/10 ML UNIT-DOSE NGT SCH (11:34)
[2017-10-06] MEDS: ZINC SULFATE 220 MG CAPSULE (FP) NGT SCH (11:34)
[2017-10-06] MEDS: AMINO ACIDS/PROTEIN HYDROLYS 30 ML LIQUID.PKT NGT SCH (11:34)
[2017-10-06] MEDS: ASCORBIC ACID 250 MG TABLET (FP) NGT SCH (11:36)
--- NOTE | 2017-10-06 13:49 | PN ---
Progress Note (short form) - Note Progress Note: PULMONARY More awake, alert. NGT in place with enteral feeds. Saturating well on nasal cannula. Last Vital Signs Temp Pulse Resp BP Pulse Ox 98.8 F 77 18 147/69 96 10/06/17 06:13 10/06/17 06:13 10/06/17 06:13 10/06/17 06:13 10/05/17 21:00 Intake & Output 10/03/17 10/04/17 10/05/17 10/06/17 23:59 23:59 23:59 23:59 Intake Total 1999 640 1805 565 Balance 1999 640 1805 565 Weight 64.954 kg 61.292 kg 62.624 kg 58.831 kg Gen: NAD at rest Heart: RRR Lung: scattered rhonchi Abd: soft, nontender Ext: no edema CBC, BMP 10/06/17 06:30 10/06/17 06:30 Active Medications Acetylcysteine (Mucomyst 20 Oral / Inh Use Only*) 300 mg NEB RTID [facility] Last Admin: 10/06/17 07:25 Dose: 300 mg Albuterol Sulfate (Ventolin 0.083% Nebulizer Soln -) 1 amp NEB RTID [facility] Last Admin: 10/06/17 07:25 Dose: 1 amp Amino Acids (Prosource No Carb Liquid Pkt) 30 ml NGT DAILY@0800 [facility] Last Admin: 10/06/17 11:34 Dose: 30 ml Ascorbic Acid (Vitamin C -) 250 mg NGT DAILY [facility] Last Admin: 10/06/17 11:36 Dose: 250 mg Potassium Chloride (Potassium Chloride Oral Liquid) 40 meq NGT DAILY [facility] Last Admin: 10/06/17 11:34 Dose: 40 meq Ranitidine HCl (Zantac Oral Solution -) 150 mg NGT DAILY [facility] Last Admin: 10/06/17 11:34 Dose: 150 mg Zinc Sulfate (Orazinc -) 220 mg NGT DAILY [facility] Last Admin: 10/06/17 11:34 Dose: 220 mg A/P s/p Bradycardic Cardiac Arrest Acute on Chronic Hypoxic and Hypercapneic Respiratory Failure improving Acute COPD Exacerbation improved Pneumonia Septic Shock resolved Acute Kidney Injury Lactic Acidosis resolved PAD HTN Dementia - completed antibiotics - inhaled bronchodilators - O2 to keep SpO2 >90% - enteral feeds - swallow eval - DVT/GI prophylaxis
--- NOTE | 2017-10-06 15:27 | CONSULT ---
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) Cardiovascular: Yes: HTN Pulmonary: Yes: Asthma, COPD, O2 Dependent Psych: Yes: Depression Musculoskeletal: Yes: Other (rt leg wound - receiving wound care) - Smoking History Smoking history: Never smoked Have you smoked in the past 12 months: No Aproximately how many cigarettes per day: 0 - Alcohol/Substance Use Hx Alcohol Use: No - Social History ADL: Family Assistance History of Recent Travel: No History - Admission Reason For Visit: SHORTNESS OF BREATH - Hearing Hearing: Normal Hearing Aide: No With Patient: No Speech Evaluation - Communication Primary Language: AUSTRALIAN Secondary Language: [place] Communication: Yes: Simple Responses (Can answer yes / no questions), Blind Oral Expression Ability: Yes: Moderate Impairment - Speech Production Apraxia: No Able to Make Needs Known: Yes: Moderately Impaired (requires verbal prompts) Intelligibility: Yes: Moderately Impaired - Speech Characteristics Voice Loudness: Moderately Soft/Quiet Voice Pitch: Yes: Limited Variation Voice Phonatory-based Quality: Yes: Breathy, Weak, Vocal Wetness Speech Pattern: Impaired Speech Clarity: < 50% Nasal Resonance: Normal Articulation: Yes: Precise Rate of Speech: Too Slow Voice, Other Observations: Yes: Mouth Breathing, Progressively Weak Voice Voice Comment: reduced vocal quality secondary to respiratory distress. - Language/Auditory Comprehension Follows: Yes: 1 Stage Simple Commands (WFL) Observation: Able to respond to yes/no queries: Yes, Yes/No Confusion: No, Comprehends Conversational Speech: Yes, Benefits from Slow Speech: Yes, Benefits from Repetiton: Yes, Benefits from Increased Volume of Speech: Yes - Language/Verbal Expression Able to Respond to Simple Queries: Yes: Moderately Impaired Able to Communicate Wants and Needs: Yes: Moderately Impaired Functional Communication Status: Yes: Moderately Impaired Aware of Errors: No Attempts to Correct Errors: No Use of Gestures: No Written Expression: Not examined Oral Expression: Limited responses. yes /no only Reading Comprehension: Not examined Calculations: Not examined - Memory/Perception emt intermediate Memory: Yes: Moderately Impaired Short Term Memory: Yes: Moderately Impaired - Swallow Evaluation/Bedside Assessment Current Nutritional Intake: NPO (s/p extubation and pending swallow evaluation.) Oral Secretions: Yes: Dryness, Tongue Coated Tracheostomy Present: No Patient on Ventilator: No Dentition: Yes: Missing Teeth (dentition of lower incisors. Molars not observed ) Facial Symmetry at Rest: Symmetrical Facial Movement: Involuntary Sensation: Reduced Left Facial Comment: Appears WF for speech and swallowing purposes. Jaw Position: Open at Rest Against Resistance Opening: Weak Against Resistance Closing: Weak Lips, Comment: Pt did not complete oral motor exam. Appears WFL Lingual Movement: Unable to Perform Lingual Speed of Movement: Reduced Lingual Movement Strgth Against Opposition: Reduced Lingual Movement Characteristics: Writhing, Fasciculations Lingual Comment: Pt did not complete oral motor exam. Appears WFL Soft Palate Description: Normal Color Hard Palate Description: Normal Color Gag Reflex: Weak Bite Reflex: Absent Velopharyngeal Movement: Reduced Elevation Laryngeal Elevation: Impaired Laryngeal Movement: Reduced Excursion, Labored,delay initiation Needs Assistance: Yes Rate of Intake: Slow/Holding Bolus Size: Small Sensation: Bite Reflex Labial Seal: WFL Chewing: Impaired Oral Prep Time: Increased A-P Transit: Impaired Timing of Swallow: Delayed Odynophagia: Oral, Pharyngeal Coughing/Throat Clear: Yes (observed with purees and liquids) Change in Voice: No - Food Behavior Pureed Food Food Behaviors: Yes: Residual on Tongue, Coughing after Swallowing, Difficulty Chewing, Delay Laryngeal Elevation, Delayed Swallow, Wet Voice Other Findings/Remarks: 87 yo female seen at bedside for swallow eval to r/o dysphagia. Daughter present for this session. Pt is minimally verbal, A&Ox1. visually impaired, & cooperative. Current diet NPO with NGT in place for nutritional needs. Extubated 09/30/17. Admitted for respiratory distress. PMHX includes COPD ORTIZ. Pt presents with reduced vocal quality and airway protection. Pt given po trials of puree with total assistance revealed reduced acceptance, fair bolus control and transport, pharyngeal swallow is delayed 2-4 seconds. Positive s/s of aspiration-like behaviors (coughing) and wet voicing and increased respiration after the swallow. REMELT WORKER attempted several trials (at the family request) with similar results. Pt given po trials of ice chips via spoon with positive s/s of aspiration-like behaviors (coughing) and wet voicing and increased respiration after the swallow. Recommendations - Speech Evaluation, Impression/Plan Impression: Pt is a risk for aspiration with pureed solids and liquids at this time. Continue NPO status and provide nutritional support with NGT. Correction Goals: Continue NPO at this time. - Dysphagia Impressions/Plan Swallowing Skills: Impaired Dysphagia Impressions: Severe Impairment, Risk of Aspiration, Suspect Aspiration *Silent aspiration: cannot be R/O at bedside Dysphagia Treatment Plan: Other (Observe standard aspiration precautions and provide oral care as needed.) Dysphagia Evaluation Summary: Pt is at risk for aspiration with both solids and liquids at this time. Continue NPO status with nutrition medication and hydration via NGT. REMELT WORKER with follow up to determine if swallow status improves. Results given verbally to conveyor line battery charger Orestes and to pcp via chart. Recommendations: Modified Barium Swallow - Recommendations Diet Consistency: NPO Liquids: NPO
--- NOTE | 2017-10-06 19:36 | PN ---
Progress Note, Physician History of Present Illness: Pt seen and examined at bedside. She is tolerating feeds. - Current Medication List Current Medications: Active Medications Acetylcysteine (Mucomyst 20 Oral / Inh Use Only*) 300 mg NEB RTID [facility] Last Admin: 10/06/17 14:24 Dose: 300 mg Albuterol Sulfate (Ventolin 0.083% Nebulizer Soln -) 1 amp NEB RTID [facility] Last Admin: 10/06/17 14:24 Dose: 1 amp Amino Acids (Prosource No Carb Liquid Pkt) 30 ml NGT DAILY@0800 [facility] Last Admin: 10/06/17 11:34 Dose: 30 ml Ascorbic Acid (Vitamin C -) 250 mg NGT DAILY [facility] Last Admin: 10/06/17 11:36 Dose: 250 mg Potassium Chloride (Potassium Chloride Oral Liquid) 40 meq NGT DAILY [facility] Last Admin: 10/06/17 11:34 Dose: 40 meq Ranitidine HCl (Zantac Oral Solution -) 150 mg NGT DAILY [facility] Last Admin: 10/06/17 11:34 Dose: 150 mg Zinc Sulfate (Orazinc -) 220 mg NGT DAILY [facility] Last Admin: 10/06/17 11:34 Dose: 220 mg - Objective Vital Signs: Vital Signs Temperature 98.2 F 10/06/17 16:30 Pulse Rate 79 10/06/17 16:30 Respiratory Rate 18 10/06/17 16:30 Blood Pressure 154/72 10/06/17 16:30 O2 Sat by Pulse Oximetry (%) 93 L 10/06/17 09:00 Constitutional: Yes: Calm Cardiovascular: Yes: S1, S2 Respiratory: Yes: Rhonchi Gastrointestinal: Yes: Soft Genitourinary: Yes: Incontinence Musculoskeletal: Yes: Muscle Weakness Edema: No Wound/Incision: Yes: Dressing Dry and Intact Labs: CBC, BMP 10/06/17 06:30 10/06/17 06:30 INR, PTT INR 0.99 (0.82-1.09) 10/01/17 05:55 Problem List - Problems (1) ORTIZ (acute kidney injury) Code(s): N17.9 - ACUTE KIDNEY FAILURE, UNSPECIFIED (2) Acute and chronic respiratory failure with hypoxia Code(s): J96.21 - ACUTE AND CHRONIC RESPIRATORY FAILURE WITH HYPOXIA (3) Cardiac arrest Code(s): I46.9 - CARDIAC ARREST, CAUSE UNSPECIFIED (4) Leukocytosis Code(s): D72.829 - ELEVATED WHITE BLOOD CELL COUNT, UNSPECIFIED (5) Shortness of breath Code(s): R06.02 - SHORTNESS OF BREATH (6) Hypoxia Code(s): R09.02 - HYPOXEMIA (7) Sepsis Code(s): A41.9 - SEPSIS, UNSPECIFIED ORGANISM Qualifiers: Sepsis type: sepsis due to unspecified organism Qualified Code(s): A41.9 - Sepsis, unspecified organism Assessment/Plan Current Medications Generic Name Dose Route Start Last Admin Trade Name Freq PRN Reason Stop Dose Admin Acetylcysteine 300 mg 10/01/17 20:00 10/06/17 14:24 Mucomyst 20 Oral / Inh Use Only* NEB 300 mg RTID TOMMY Administration Albuterol Sulfate 1 amp 10/01/17 20:00 10/06/17 14:24 Ventolin 0.083% Nebulizer Soln - NEB 1 amp RTID TOMMY Administration Amino Acids 30 ml 10/06/17 11:15 10/06/17 11:34 Prosource No Carb Liquid Pkt NGT 30 ml DAILY@0800 TOMMY Administration Ascorbic Acid 250 mg 10/06/17 11:00 10/06/17 11:36 Vitamin C - NGT 250 mg DAILY TOMMY Administration Potassium Chloride 40 meq 10/06/17 10:30 10/06/17 11:34 Potassium Chloride Oral Liquid NGT 40 meq DAILY TOMMY Administration Ranitidine HCl 150 mg 10/06/17 11:15 10/06/17 11:34 Zantac Oral Solution - NGT 150 mg DAILY TOMMY Administration Zinc Sulfate 220 mg 10/06/17 11:15 10/06/17 11:34 Orazinc - NGT 220 mg DAILY TOMMY Administration Impression 1. ORTIZ 2. acute respiratory failure 3. cardiac arrest 4. lactic acidosis 5. COPD 6. PNA 7. dementia 8. anemia 9. sepsis 10. perihepatic free fluid 11. hypernatremia Plan - cont with tube feeds - will increase free water with feeds - repeat labs in am - discussed with family - swalloe follow up tomorrow - likely ORTIZ from ATN caused by prolonged hypotension - prognosis is poor
[2017-10-06] MEDS ORDERED: PT OWN MED DRAWER 7, Y5N ONE (21:04)
[2017-10-07] MEDS: ALBUTEROL SO4 0.083% IH SOL 2.5 MG/3 ML VIAL.NEB. NEB SCH ×3 (07:40→20:35)
[2017-10-07] MEDS: ACETYLCYSTEINE 20% 200MG/ML 4 ML VIAL *FOR ORAL / INH USE ONLY NEB SCH ×3 (07:40→20:35)
[2017-10-07] MEDS: AMINO ACIDS/PROTEIN HYDROLYS 30 ML LIQUID.PKT NGT SCH (08:00)
[2017-10-07 08:02] LABS: ANION GAP 9 (8-16); BLOOD UREA NITROGEN 39 mg/dL (7-18); CALCIUM 8.4 mg/dL (8.5-10.1); CHLORIDE 107 mmol/L (98-107); CO2 35 mmol/L (21-32); CREATININE 1.2 mg/dL (0.55-1.02); GLUCOSE,RANDOM 140 mg/dL (74-106); POTASSIUM 3.5 mmol/L (3.5-5.1); SODIUM 151 mmol/L (136-145)
--- NOTE | 2017-10-07 10:12 | PN ---
Progress Note, Physician Chief Complaint: Shortness of breath History of Present Illness: NAD, more awake + Ronchi worsening hypernatremia free water increased by nephrology seen by Renal and Pulmonary - Current Medication List Current Medications: Active Medications Acetylcysteine (Mucomyst 20 Oral / Inh Use Only*) 300 mg NEB RTID [facility] Last Admin: 10/07/17 07:40 Dose: 300 mg Albuterol Sulfate (Ventolin 0.083% Nebulizer Soln -) 1 amp NEB RTID [facility] Last Admin: 10/07/17 07:40 Dose: 1 amp Amino Acids (Prosource No Carb Liquid Pkt) 30 ml NGT DAILY@0800 [facility] Last Admin: 10/07/17 08:00 Dose: 30 ml Ascorbic Acid (Vitamin C -) 250 mg NGT DAILY [facility] Last Admin: 10/06/17 11:36 Dose: 250 mg Potassium Chloride (Potassium Chloride Oral Liquid) 40 meq NGT DAILY [facility] Last Admin: 10/06/17 11:34 Dose: 40 meq Ranitidine HCl (Zantac Oral Solution -) 150 mg NGT DAILY [facility] Last Admin: 10/06/17 11:34 Dose: 150 mg Zinc Sulfate (Orazinc -) 220 mg NGT DAILY [facility] Last Admin: 10/06/17 11:34 Dose: 220 mg - Objective Vital Signs: Vital Signs Temperature 96.9 F L 10/07/17 06:00 Pulse Rate 77 10/07/17 06:00 Respiratory Rate 20 10/07/17 06:00 Blood Pressure 161/93 10/07/17 06:00 O2 Sat by Pulse Oximetry (%) 93 L 10/06/17 21:00 Constitutional: Yes: Well Nourished, No Distress, Calm Cardiovascular: Yes: Regular Rate and Rhythm Respiratory: Yes: Regular, Rhonchi (diffuse) Gastrointestinal: Yes: Normal Bowel Sounds, Soft Musculoskeletal: Yes: Muscle Weakness Extremities: Yes: WNL Edema: No Peripheral Pulses WNL: No Peripheral Pulses: Left Doralis Pedis: 1+, Right Dorsalis Pedis: 1+ Neurological: Yes: Alert, Pre-Existing Deficit Psychiatric: Yes: Alert Labs: CBC, BMP 10/06/17 06:30 10/07/17 06:00 INR, PTT INR 0.99 (0.82-1.09) 10/01/17 05:55 Problem List - Problems (1) Acute and chronic respiratory failure with hypoxia Assessment/Plan: NAD on nasal O2 seen by pulmonary bronchodilators steroids discontinued Code(s): J96.21 - ACUTE AND CHRONIC RESPIRATORY FAILURE WITH HYPOXIA (2) Hypernatremia Assessment/Plan: -worse today -seen by renal -monitor labs -Free water increased via NGT -monitor renal fxn Code(s): E87.0 - HYPEROSMOLALITY AND HYPERNATREMIA (3) Diarrhea Assessment/Plan: -stool for cdiff, stool O&P, Stool culture negative -Stool OB negative -ranitidine Code(s): R19.7 - DIARRHEA, UNSPECIFIED (4) Cellulitis and abscess of foot Assessment/Plan: -added prosource for increased healing -Vit C and Zinc -daily wound care Code(s): L03.119 - CELLULITIS OF UNSPECIFIED PART OF LIMB; L02.619 - CUTANEOUS ABSCESS OF UNSPECIFIED FOOT (5) FTT (failure to thrive) in adult Assessment/Plan: -NGT -Spoke to daughter about detention plan and consideration for PEG, Daughter Luci doesn't want PEG to be inserted. I explained to her that pt was seen by Speech therapy and she failed the swallow eval. Daughter wants swallow eval to be tried again. -Speech Therapy Kathryn Rizo tried swallow eval in my presence and patient would not participate. She wouldn't open her mouth for us to feed her. -Instructed responsible RN to let pt's daughter try to feed the patient, when she arrives and monitor any symptoms of aspiration. Code(s): R62.7 - ADULT FAILURE TO THRIVE Assessment/Plan see problem list seen by Physical therapy Palliative care consult
[2017-10-07] MEDS: ZINC SULFATE 220 MG CAPSULE (FP) NGT SCH (10:23)
[2017-10-07] MEDS: POTASSIUM CHLORIDE ORAL LIQUID 20 MEQ/15 ML NGT SCH (10:23)
[2017-10-07] MEDS: ASCORBIC ACID 250 MG TABLET (FP) NGT SCH (10:23)
[2017-10-07] MEDS: RANITIDINE HCL 150 MG/10 ML UNIT-DOSE NGT SCH (10:24)
--- NOTE | 2017-10-07 13:34 | PN ---
Progress Note (short form) - Note Progress Note: PULMONARY Remains awake, alert. Tolerating enteral feeds. Saturating well on nasal cannula. Last Vital Signs Temp Pulse Resp BP Pulse Ox 97.7 F 76 20 164/84 94 L 10/07/17 08:00 10/07/17 08:00 10/07/17 08:00 10/07/17 08:00 10/07/17 09:00 Gen: NAD at rest Heart: RRR Lung: scattered rhonchi Abd: soft, nontender Ext: no edema CBC, BMP 10/06/17 06:30 10/07/17 06:00 Active Medications Acetylcysteine (Mucomyst 20 Oral / Inh Use Only*) 300 mg NEB RTID [facility] Last Admin: 10/07/17 07:40 Dose: 300 mg Albuterol Sulfate (Ventolin 0.083% Nebulizer Soln -) 1 amp NEB RTID [facility] Last Admin: 10/07/17 07:40 Dose: 1 amp Amino Acids (Prosource No Carb Liquid Pkt) 30 ml NGT DAILY@0800 [facility] Last Admin: 10/07/17 08:00 Dose: 30 ml Ascorbic Acid (Vitamin C -) 250 mg NGT DAILY [facility] Last Admin: 10/07/17 10:23 Dose: 250 mg Potassium Chloride (Potassium Chloride Oral Liquid) 40 meq NGT DAILY [facility] Last Admin: 10/07/17 10:23 Dose: 40 meq Ranitidine HCl (Zantac Oral Solution -) 150 mg NGT DAILY [facility] Last Admin: 10/07/17 10:24 Dose: 150 mg Zinc Sulfate (Orazinc -) 220 mg NGT DAILY [facility] Last Admin: 10/07/17 10:23 Dose: 220 mg A/P s/p Bradycardic Cardiac Arrest Acute on Chronic Hypoxic and Hypercapneic Respiratory Failure improving Acute COPD Exacerbation improved Pneumonia Septic Shock resolved Acute Kidney Injury Lactic Acidosis resolved PAD HTN Dementia - completed antibiotics - inhaled bronchodilators - O2 to keep SpO2 >90% - enteral feeds - swallow eval - DVT/GI prophylaxis
--- NOTE | 2017-10-07 16:22 | PN ---
Progress Note, Physician History of Present Illness: Pt seen and examined at bedside. No great change overnight. - Current Medication List Current Medications: Active Medications Acetylcysteine (Mucomyst 20 Oral / Inh Use Only*) 300 mg NEB RTID [facility] Last Admin: 10/07/17 14:33 Dose: 300 mg Albuterol Sulfate (Ventolin 0.083% Nebulizer Soln -) 1 amp NEB RTID [facility] Last Admin: 10/07/17 14:33 Dose: 1 amp Amino Acids (Prosource No Carb Liquid Pkt) 30 ml NGT DAILY@0800 [facility] Last Admin: 10/07/17 08:00 Dose: 30 ml Ascorbic Acid (Vitamin C -) 250 mg NGT DAILY [facility] Last Admin: 10/07/17 10:23 Dose: 250 mg Potassium Chloride (Potassium Chloride Oral Liquid) 40 meq NGT DAILY [facility] Last Admin: 10/07/17 10:23 Dose: 40 meq Ranitidine HCl (Zantac Oral Solution -) 150 mg NGT DAILY [facility] Last Admin: 10/07/17 10:24 Dose: 150 mg Zinc Sulfate (Orazinc -) 220 mg NGT DAILY [facility] Last Admin: 10/07/17 10:23 Dose: 220 mg - Objective Vital Signs: Vital Signs Temperature 97.7 F 10/07/17 08:00 Pulse Rate 76 10/07/17 08:00 Respiratory Rate 20 10/07/17 08:00 Blood Pressure 164/84 10/07/17 08:00 O2 Sat by Pulse Oximetry (%) 94 L 10/07/17 09:00 Constitutional: Yes: Calm HENT: Yes: Atraumatic Cardiovascular: Yes: S1, S2 Respiratory: Yes: Rhonchi Gastrointestinal: Yes: Soft Genitourinary: Yes: Incontinence Musculoskeletal: Yes: Muscle Weakness Edema: No Neurological: Yes: Confusion Labs: CBC, BMP 10/06/17 06:30 10/07/17 06:00 INR, PTT INR 0.99 (0.82-1.09) 10/01/17 05:55 Problem List - Problems (1) ORTIZ (acute kidney injury) Code(s): N17.9 - ACUTE KIDNEY FAILURE, UNSPECIFIED (2) Acute and chronic respiratory failure with hypoxia Code(s): J96.21 - ACUTE AND CHRONIC RESPIRATORY FAILURE WITH HYPOXIA (3) Cardiac arrest Code(s): I46.9 - CARDIAC ARREST, CAUSE UNSPECIFIED (4) Leukocytosis Code(s): D72.829 - ELEVATED WHITE BLOOD CELL COUNT, UNSPECIFIED (5) Shortness of breath Code(s): R06.02 - SHORTNESS OF BREATH (6) Hypoxia Code(s): R09.02 - HYPOXEMIA (7) Sepsis Code(s): A41.9 - SEPSIS, UNSPECIFIED ORGANISM Qualifiers: Sepsis type: sepsis due to unspecified organism Qualified Code(s): A41.9 - Sepsis, unspecified organism Assessment/Plan Current Medications Generic Name Dose Route Start Last Admin Trade Name Freq PRN Reason Stop Dose Admin Acetylcysteine 300 mg 10/01/17 20:00 10/07/17 14:33 Mucomyst 20 Oral / Inh Use Only* NEB 300 mg RTID TOMMY Administration Albuterol Sulfate 1 amp 10/01/17 20:00 10/07/17 14:33 Ventolin 0.083% Nebulizer Soln - NEB 1 amp RTID TOMMY Administration Amino Acids 30 ml 10/06/17 11:15 10/07/17 08:00 Prosource No Carb Liquid Pkt NGT 30 ml DAILY@0800 TOMMY Administration Ascorbic Acid 250 mg 10/06/17 11:00 10/07/17 10:23 Vitamin C - NGT 250 mg DAILY TOMMY Administration Potassium Chloride 40 meq 10/06/17 10:30 10/07/17 10:23 Potassium Chloride Oral Liquid NGT 40 meq DAILY TOMMY Administration Ranitidine HCl 150 mg 10/06/17 11:15 10/07/17 10:24 Zantac Oral Solution - NGT 150 mg DAILY TOMMY Administration Zinc Sulfate 220 mg 10/06/17 11:15 10/07/17 10:23 Orazinc - NGT 220 mg DAILY TOMMY Administration Impression 1. ORTIZ 2. acute respiratory failure 3. cardiac arrest 4. lactic acidosis 5. COPD 6. PNA 7. dementia 8. anemia 9. sepsis 10. perihepatic free fluid 11. hypernatremia Plan - sodium is rising - will increase free water further - repeat labs in am - likely ORTIZ from ATN caused by prolonged hypotension - prognosis is poor
[2017-10-08] MEDS: ACETYLCYSTEINE 20% 200MG/ML 4 ML VIAL *FOR ORAL / INH USE ONLY NEB SCH ×3 (07:45→21:06)
[2017-10-08] MEDS: ALBUTEROL SO4 0.083% IH SOL 2.5 MG/3 ML VIAL.NEB. NEB SCH ×3 (07:46→21:06)
[2017-10-08 08:46] LABS: ALBUMIN 2.1 g/dl (3.4-5.0); ANION GAP 9 (8-16); BLOOD UREA NITROGEN 36 mg/dL (7-18); CALCIUM 7.5 mg/dL (8.5-10.1); CHLORIDE 109 mmol/L (98-107); CO2 26 mmol/L (21-32); GLUCOSE,RANDOM 134 mg/dL (74-106); SODIUM 144 mmol/L (136-145)
[2017-10-08 08:50] LABS: ALK PHOS 233 U/L (45-117); BILIRUBIN,TOTAL 1.2 mg/dL (0.2-1.0); CREATININE 1.1 mg/dL (0.55-1.02); SGOT/AST 53 U/L (15-37); SGPT/ALT 78 U/L (12-78); TOT PROT 5.6 g/dl (6.4-8.2)
[2017-10-08] MEDS: AMINO ACIDS/PROTEIN HYDROLYS 30 ML LIQUID.PKT NGT SCH (11:03)
[2017-10-08] MEDS: POTASSIUM CHLORIDE ORAL LIQUID 20 MEQ/15 ML NGT SCH (11:03)
[2017-10-08] MEDS: ZINC SULFATE 220 MG CAPSULE (FP) NGT SCH (11:03)
[2017-10-08] MEDS: RANITIDINE HCL 150 MG/10 ML UNIT-DOSE NGT SCH (11:04)
--- NOTE | 2017-10-08 11:13 | PN ---
Progress Note, CRISIS INTERVENTION SPECIALIST - Note Progress Note: Late entry from 10/07/17: Pt known to me from 12/2016, at which time she was oriented, and swallowing was intact, eating reg food/thin liquids. Pt seen with TOOL SHAPER SETUP OPERATOR, adamently refusing PO trials. Vocal quality intact. Articulation precise. Vocal quality initially wet nd gurgly, refused to be suctioned. With repeated snezing, vocal quality improved significantly. Suggested trial of Po by Family with nursing supervision. Today, it was reported that pt did tolerate magic cup from family. However, she was congested last night and today, requiring suctioning. Pt is DNR/DNI. Selected Entries 10/07/17 10/07/17 10/07/17 06:00 08:00 16:17 Temperature 96.9 F L 97.7 F 98.2 F 10/07/17 10/07/17 10/08/17 17:00 22:00 06:00 Temperature 98.4 F 98 F 98.8 F Laboratory Tests 10/06/17 06:30 WBC 15.6 H Congested.Cough. NGT in place. Maintain NPO, HOB elevated, Mouth care. What are pt's end of life wishes?
--- NOTE | 2017-10-08 12:22 | PN ---
Progress Note, Physician History of Present Illness: pulmonary awake,comfortable,less congested - Current Medication List Current Medications: Active Medications Acetylcysteine (Mucomyst 20 Oral / Inh Use Only*) 300 mg NEB RTID [facility] Last Admin: 10/08/17 07:45 Dose: 300 mg Albuterol Sulfate (Ventolin 0.083% Nebulizer Soln -) 1 amp NEB RTID [facility] Last Admin: 10/08/17 07:46 Dose: 1 amp Amino Acids (Prosource No Carb Liquid Pkt) 30 ml NGT DAILY@0800 [facility] Last Admin: 10/08/17 11:03 Dose: 30 ml Ascorbic Acid (Vitamin C -) 250 mg NGT DAILY [facility] Last Admin: 10/07/17 10:23 Dose: 250 mg Potassium Chloride (Potassium Chloride Oral Liquid) 40 meq NGT DAILY [facility] Last Admin: 10/08/17 11:03 Dose: 40 meq Ranitidine HCl (Zantac Oral Solution -) 150 mg NGT DAILY [facility] Last Admin: 10/08/17 11:04 Dose: 150 mg Zinc Sulfate (Orazinc -) 220 mg NGT DAILY [facility] Last Admin: 10/08/17 11:03 Dose: 220 mg - Objective Vital Signs: Vital Signs Temperature 98.8 F 10/08/17 06:00 Pulse Rate 83 10/08/17 06:00 Respiratory Rate 18 10/08/17 06:00 Blood Pressure 160/76 10/08/17 06:00 O2 Sat by Pulse Oximetry (%) 97 10/07/17 21:00 Constitutional: Yes: Calm, Thin Eyes: Yes: WNL HENT: Yes: WNL Neck: Yes: WNL Cardiovascular: Yes: Regular Rate and Rhythm, S1, S2 Respiratory: Yes: Rhonchi, Wheezes (scattered jose wheezes and rhonchi) Gastrointestinal: Yes: Normal Bowel Sounds, Soft Extremities: Yes: WNL Edema: No Labs: CBC, BMP Problem List - Problems (1) Shortness of breath Code(s): R06.02 - SHORTNESS OF BREATH (2) Acute on chronic respiratory failure with hypoxia and hypercapnia Code(s): J96.21 - ACUTE AND CHRONIC RESPIRATORY FAILURE WITH HYPOXIA; J96.22 - ACUTE AND CHRONIC RESPIRATORY FAILURE WITH HYPERCAPNIA (3) Asthma exacerbation in COPD Code(s): J44.1 - CHRONIC OBSTRUCTIVE PULMONARY DISEASE W (ACUTE) EXACERBATION; J45.901 - UNSPECIFIED ASTHMA WITH (ACUTE) EXACERBATION (4) Asthma-COPD overlap syndrome Code(s): J44.9 - CHRONIC OBSTRUCTIVE PULMONARY DISEASE, UNSPECIFIED (5) Bronchitis Code(s): J40 - BRONCHITIS, NOT SPECIFIED ACUTE OR CHRONIC (6) COPD exacerbation Code(s): J44.1 - CHRONIC OBSTRUCTIVE PULMONARY DISEASE W (ACUTE) EXACERBATION (7) Chronic ulcer of right foot Code(s): L97.519 - NON-PRS CHRONIC ULCER OTH PRT RIGHT FOOT W UNSP SEVERITY Qualifiers: Non-pressure ulcer stage: limited to breakdown of skin Qualified Code(s): L97.511 - Non-pressure chronic ulcer of other part of right foot limited to breakdown of skin (8) Hypertension Code(s): I10 - ESSENTIAL (PRIMARY) HYPERTENSION (9) Hypoxia Code(s): R09.02 - HYPOXEMIA (10) Peripheral vascular disease Code(s): I73.9 - PERIPHERAL VASCULAR DISEASE, UNSPECIFIED (11) Acute and chronic respiratory failure with hypoxia Code(s): J96.21 - ACUTE AND CHRONIC RESPIRATORY FAILURE WITH HYPOXIA Assessment/Plan A/P s/p Bradycardic Cardiac Arrest Acute on Chronic Hypoxic and Hypercapneic Respiratory Failure improving Acute COPD Exacerbation improved Pneumonia Septic Shock resolved Acute Kidney Injury Lactic Acidosis resolved PAD HTN Dementia - inhaled bronchodilators - O2 to keep SpO2 >90% - enteral feeds - DVT/GI prophylaxis DR FONSECA
--- NOTE | 2017-10-08 13:20 | PN ---
Progress Note, Physician Chief Complaint: Shortness of breath History of Present Illness: NAD, more awake + Ronchi, more congested today hypernatremia improved free water increased by nephrology seen by Renal and Pulmonary - Current Medication List Current Medications: Active Medications Acetylcysteine (Mucomyst 20 Oral / Inh Use Only*) 300 mg NEB RTID [facility] Last Admin: 10/08/17 07:45 Dose: 300 mg Albuterol Sulfate (Ventolin 0.083% Nebulizer Soln -) 1 amp NEB RTID [facility] Last Admin: 10/08/17 07:46 Dose: 1 amp Amino Acids (Prosource No Carb Liquid Pkt) 30 ml NGT DAILY@0800 [facility] Last Admin: 10/08/17 11:03 Dose: 30 ml Ascorbic Acid (Vitamin C -) 250 mg NGT DAILY [facility] Last Admin: 10/07/17 10:23 Dose: 250 mg Potassium Chloride (Potassium Chloride Oral Liquid) 40 meq NGT DAILY [facility] Last Admin: 10/08/17 11:03 Dose: 40 meq Ranitidine HCl (Zantac Oral Solution -) 150 mg NGT DAILY [facility] Last Admin: 10/08/17 11:04 Dose: 150 mg Zinc Sulfate (Orazinc -) 220 mg NGT DAILY [facility] Last Admin: 10/08/17 11:03 Dose: 220 mg - Objective Vital Signs: Vital Signs Temperature 98.8 F 10/08/17 06:00 Pulse Rate 83 10/08/17 06:00 Respiratory Rate 18 10/08/17 06:00 Blood Pressure 160/76 10/08/17 06:00 O2 Sat by Pulse Oximetry (%) 97 10/07/17 21:00 Constitutional: Yes: Well Nourished, No Distress, Cachectic Respiratory: Yes: Regular, Rhonchi (diffuse) Gastrointestinal: Yes: Normal Bowel Sounds, Soft Genitourinary: Yes: Incontinence Edema: No Neurological: Yes: Alert, Pre-Existing Deficit Psychiatric: Yes: Alert Labs: CBC, BMP 10/06/17 06:30 10/08/17 08:00 INR, PTT INR 0.99 (0.82-1.09) 10/01/17 05:55 Problem List - Problems (1) Acute and chronic respiratory failure with hypoxia Assessment/Plan: NAD on nasal O2 seen by pulmonary bronchodilators steroids discontinued Code(s): J96.21 - ACUTE AND CHRONIC RESPIRATORY FAILURE WITH HYPOXIA (2) Hypernatremia Assessment/Plan: -normalized -seen by renal -monitor labs -Free water increased via NGT -monitor renal fxn Code(s): E87.0 - HYPEROSMOLALITY AND HYPERNATREMIA (3) Diarrhea Assessment/Plan: -resolved Code(s): R19.7 - DIARRHEA, UNSPECIFIED (4) Cellulitis and abscess of foot Assessment/Plan: -added prosource for increased healing -Vit C and Zinc -daily wound care Code(s): L03.119 - CELLULITIS OF UNSPECIFIED PART OF LIMB; L02.619 - CUTANEOUS ABSCESS OF UNSPECIFIED FOOT (5) FTT (failure to thrive) in adult Assessment/Plan: -NGT -Spoke to daughter about [place] [facility] plan and consideration for PEG, Daughter Luci doesn't want PEG to be inserted. I explained to her that pt was seen by Speech therapy and she failed the swallow eval. Daughter wants swallow eval to be tried again. -Speech Therapy Kathrynmavis Rizo tried swallow eval in my presence and patient would not participate. She wouldn't open her mouth for us to feed her. -Instructed responsible RN to let pt's daughter try to feed the patient, when she arrives and monitor any symptoms of aspiration. 10/08/17 -Pt had few spoons of apple sauce and magic cup yesterday from daughter -Worsening congestion today -WBC elevated -seen by Speech therapy again today -although afebrile, high risk for aspiration -repeat CXR today Code(s): R62.7 - ADULT FAILURE TO THRIVE Assessment/Plan see problem list seen by Physical therapy Palliative care consult
--- NOTE | 2017-10-08 13:43 | PN ---
Progress Note, Physician History of Present Illness: Pt seen and examined at bedside. She remains lethargic. She is tolerating tube feeds. - Current Medication List Current Medications: Active Medications Acetylcysteine (Mucomyst 20 Oral / Inh Use Only*) 300 mg NEB RTID [facility] Last Admin: 10/08/17 07:45 Dose: 300 mg Albuterol Sulfate (Ventolin 0.083% Nebulizer Soln -) 1 amp NEB RTID [facility] Last Admin: 10/08/17 07:46 Dose: 1 amp Amino Acids (Prosource No Carb Liquid Pkt) 30 ml NGT DAILY@0800 [facility] Last Admin: 10/08/17 11:03 Dose: 30 ml Ascorbic Acid (Vitamin C -) 250 mg NGT DAILY [facility] Last Admin: 10/07/17 10:23 Dose: 250 mg Potassium Chloride (Potassium Chloride Oral Liquid) 40 meq NGT DAILY [facility] Last Admin: 10/08/17 11:03 Dose: 40 meq Ranitidine HCl (Zantac Oral Solution -) 150 mg NGT DAILY [facility] Last Admin: 10/08/17 11:04 Dose: 150 mg Zinc Sulfate (Orazinc -) 220 mg NGT DAILY [facility] Last Admin: 10/08/17 11:03 Dose: 220 mg - Objective Vital Signs: Vital Signs Temperature 98.8 F 10/08/17 06:00 Pulse Rate 83 10/08/17 06:00 Respiratory Rate 18 10/08/17 06:00 Blood Pressure 160/76 10/08/17 06:00 O2 Sat by Pulse Oximetry (%) 97 10/07/17 21:00 Constitutional: Yes: Mild Distress HENT: Yes: Atraumatic Cardiovascular: Yes: S1, S2 Respiratory: Yes: On Nasal O2 Gastrointestinal: Yes: Soft Musculoskeletal: Yes: Muscle Weakness Edema: No Neurological: Yes: Lethargy Labs: CBC, BMP 10/06/17 06:30 10/08/17 08:00 INR, PTT INR 0.99 (0.82-1.09) 10/01/17 05:55 Problem List - Problems (1) ORTIZ (acute kidney injury) Code(s): N17.9 - ACUTE KIDNEY FAILURE, UNSPECIFIED (2) Acute and chronic respiratory failure with hypoxia Code(s): J96.21 - ACUTE AND CHRONIC RESPIRATORY FAILURE WITH HYPOXIA (3) Cardiac arrest Code(s): I46.9 - CARDIAC ARREST, CAUSE UNSPECIFIED (4) Leukocytosis Code(s): D72.829 - ELEVATED WHITE BLOOD CELL COUNT, UNSPECIFIED (5) Shortness of breath Code(s): R06.02 - SHORTNESS OF BREATH (6) Hypoxia Code(s): R09.02 - HYPOXEMIA (7) Sepsis Code(s): A41.9 - SEPSIS, UNSPECIFIED ORGANISM Qualifiers: Sepsis type: sepsis due to unspecified organism Qualified Code(s): A41.9 - Sepsis, unspecified organism Assessment/Plan Current Medications Generic Name Dose Route Start Last Admin Trade Name Freq PRN Reason Stop Dose Admin Acetylcysteine 300 mg 10/01/17 20:00 10/08/17 07:45 Mucomyst 20 Oral / Inh Use Only* NEB 300 mg RTID [facility] Administration Albuterol Sulfate 1 amp 10/01/17 20:00 10/08/17 07:46 Ventolin 0.083% Nebulizer Soln - NEB 1 amp RTID [facility] Administration Amino Acids 30 ml 10/06/17 11:15 10/08/17 11:03 Prosource No Carb Liquid Pkt NGT 30 ml DAILY@0800 [facility]OM[facility] Administration Ascorbic Acid 250 mg 10/06/17 11:00 10/07/17 10:23 Vitamin C - NGT 250 mg DAILY [facility] Administration Potassium Chloride 40 meq 10/06/17 10:30 10/08/17 11:03 Potassium Chloride Oral Liquid NGT 40 meq DAILY [facility] Administration Ranitidine HCl 150 mg 10/06/17 11:15 10/08/17 11:04 Zantac Oral Solution - NGT 150 mg DAILY [facility] Administration Zinc Sulfate 220 mg 10/06/17 11:15 10/08/17 11:03 Orazinc - NGT 220 mg DAILY [facility] Administration Impression 1. ORTIZ 2. acute respiratory failure 3. cardiac arrest 4. lactic acidosis 5. COPD 6. PNA 7. dementia 8. anemia 9. sepsis 10. perihepatic free fluid 11. hypernatremia Plan - sodium is improved - cont tube feeds - will likely need a peg - likely ORTIZ from ATN caused by prolonged hypotension - prognosis is poor
[2017-10-08] MEDS: ASCORBIC ACID 250 MG TABLET (FP) NGT SCH (18:06)
[2017-10-09] MEDS: ALBUTEROL SO4 0.083% IH SOL 2.5 MG/3 ML VIAL.NEB. NEB SCH ×3 (08:14→20:30)
[2017-10-09] MEDS: ACETYLCYSTEINE 20% 200MG/ML 4 ML VIAL *FOR ORAL / INH USE ONLY NEB SCH ×3 (08:14→20:30)
--- NOTE | 2017-10-09 10:10 | PN ---
Progress Note, Physician Chief Complaint: Shortness of breath History of Present Illness: NAD, more awake + Ronchi, hypernatremia improved free water increased by nephrology seen by Renal and Pulmonary - Current Medication List Current Medications: Active Medications Acetylcysteine (Mucomyst 20 Oral / Inh Use Only*) 300 mg NEB RTID [facility] Last Admin: 10/09/17 08:14 Dose: 300 mg Albuterol Sulfate (Ventolin 0.083% Nebulizer Soln -) 1 amp NEB RTID [facility] Last Admin: 10/09/17 08:14 Dose: 1 amp Amino Acids (Prosource No Carb Liquid Pkt) 30 ml NGT DAILY@0800 [facility] Last Admin: 10/08/17 11:03 Dose: 30 ml Ascorbic Acid (Vitamin C -) 250 mg NGT DAILY [facility] Last Admin: 10/08/17 18:06 Dose: 250 mg Potassium Chloride (Potassium Chloride Oral Liquid) 40 meq NGT DAILY [facility] Last Admin: 10/08/17 11:03 Dose: 40 meq Ranitidine HCl (Zantac Oral Solution -) 150 mg NGT DAILY [facility] Last Admin: 10/08/17 11:04 Dose: 150 mg Zinc Sulfate (Orazinc -) 220 mg NGT DAILY [facility] Last Admin: 10/08/17 11:03 Dose: 220 mg - Objective Vital Signs: Vital Signs Temperature 99.7 F H 10/09/17 06:00 Pulse Rate 91 H 10/09/17 06:00 Respiratory Rate 20 10/09/17 06:00 Blood Pressure 145/67 10/09/17 06:00 O2 Sat by Pulse Oximetry (%) 96 10/08/17 21:00 Constitutional: Yes: No Distress, Calm, Cachectic Cardiovascular: Yes: Regular Rate and Rhythm Respiratory: Yes: Rhonchi (diffuse) Gastrointestinal: Yes: Normal Bowel Sounds Musculoskeletal: Yes: Muscle Weakness Edema: No Peripheral Pulses WNL: No Peripheral Pulses: Left Doralis Pedis: 1+, Right Dorsalis Pedis: 1+ Neurological: Yes: Alert, Pre-Existing Deficit Labs: CBC, BMP 10/06/17 06:30 10/08/17 08:00 INR, PTT INR 0.99 (0.82-1.09) 10/01/17 05:55 Problem List - Problems (1) Acute and chronic respiratory failure with hypoxia Assessment/Plan: NAD on nasal O2 seen by pulmonary bronchodilators Code(s): J96.21 - ACUTE AND CHRONIC RESPIRATORY FAILURE WITH HYPOXIA (2) Hypernatremia Assessment/Plan: -mildly elevated today -seen by renal -monitor labs -Free water increased via NGT -monitor renal fxn Code(s): E87.0 - HYPEROSMOLALITY AND HYPERNATREMIA (3) Cellulitis and abscess of foot Assessment/Plan: -added prosource for increased healing -Vit C and Zinc -daily wound care Code(s): L03.119 - CELLULITIS OF UNSPECIFIED PART OF LIMB; L02.619 - CUTANEOUS ABSCESS OF UNSPECIFIED FOOT (4) FTT (failure to thrive) in adult Assessment/Plan: -NGT -Spoke to daughter about [employer] service representative plan and consideration for PEG, Daughter Luci doesn't want PEG to be inserted. I explained to her that pt was seen by Speech therapy and she failed the swallow eval. Daughter wants swallow eval to be tried again. -Speech Therapy Kathrynmavis Rizo tried swallow eval in my presence and patient would not participate. She wouldn't open her mouth for us to feed her. -Instructed responsible RN to let pt's daughter try to feed the patient, when she arrives and monitor any symptoms of aspiration. 10/08/17 -Pt had few spoons of apple sauce and magic cup yesterday from daughter -Worsening congestion today -WBC elevated -seen by Speech therapy again today -although afebrile, high risk for aspiration -repeat CXR today 10/09/17 repeat CXR unremrakable Worsening Leukocytosis Palliative care to meet with daughters this afternoon Poor prognosis Code(s): R62.7 - ADULT FAILURE TO THRIVE (5) Leukocytosis Assessment/Plan: -low grade temp this AM aspiration? -ID to re-evaluate Code(s): D72.829 - ELEVATED WHITE BLOOD CELL COUNT, UNSPECIFIED (6) Hyperbilirubinemia Assessment/Plan: -GI to re-evaluate Code(s): E80.6 - OTHER DISORDERS OF BILIRUBIN METABOLISM Assessment/Plan see problem list seen by Physical therapy Palliative care consult
[2017-10-09] MEDS ORDERED: PT OWN MED DRAWER 7, Y5N ONE (10:22)
[2017-10-09] MEDS: ZINC SULFATE 220 MG CAPSULE (FP) NGT SCH (10:24)
[2017-10-09] MEDS: AMINO ACIDS/PROTEIN HYDROLYS 30 ML LIQUID.PKT NGT SCH (10:24)
[2017-10-09] MEDS: ASCORBIC ACID 250 MG TABLET (FP) NGT SCH (10:24)
[2017-10-09] MEDS: POTASSIUM CHLORIDE ORAL LIQUID 20 MEQ/15 ML NGT SCH (10:24)
[2017-10-09] MEDS: RANITIDINE HCL 150 MG/10 ML UNIT-DOSE NGT SCH (10:24)
[2017-10-09] MEDS ORDERED: LYTES/YERBA SANTA 240 ML BOTTLE MM PRN ×2 (11:18→11:53)
[2017-10-09] MEDS ORDERED: MINERAL OIL/PET HY-PHL TOPICAL OINTMENT 454 GM JAR TP PRN ×2 (11:19→11:54)
[2017-10-09 11:29] LABS: HEMATOCRIT 41.7 % (32.4-45.2); HEMOGLOBIN 13.2 GM/dL (10.7-15.3); MCH 27.7 pg (25.7-33.7); MCHC 31.7 g/dl (32.0-36.0); MEAN CELL VOLUME 87.4 fl (80-96); MEAN PLT VOLUME 8.4 fl (7.5-11.1); PLATELET COUNT 157 K/MM3 (134-434); RBC 4.77 M/mm3 (3.60-5.2); RDW 17.1 % (11.6-15.6); WHITE BLOOD COUNT 20.3 K/mm3 (4.0-10.0)
[2017-10-09 11:46] LABS: ALBUMIN 2.2 g/dl (3.4-5.0); ANION GAP 11 (8-16); BLOOD UREA NITROGEN 36 mg/dL (7-18); CALCIUM 8.4 mg/dL (8.5-10.1); CHLORIDE 104 mmol/L (98-107); CO2 31 mmol/L (21-32); GLUCOSE,RANDOM 182 mg/dL (74-106); POTASSIUM 4.1 mmol/L (3.5-5.1); SODIUM 146 mmol/L (136-145)
[2017-10-09 11:54] LABS: ALK PHOS 267 U/L (45-117); BILIRUBIN,TOTAL 1.5 mg/dL (0.2-1.0); CREATININE 1.2 mg/dL (0.55-1.02); SGOT/AST 39 U/L (15-37); SGPT/ALT 76 U/L (12-78); TOT PROT 6.1 g/dl (6.4-8.2)
[2017-10-09 12:19] LABS: ACANTHOCYTES 1+; ANISOCYTOSIS 1+; MACROCYTOSIS 1+
[2017-10-09 12:21] LABS: PLATELET ESTIMATE ADEQUATE
--- NOTE | 2017-10-09 12:30 | PN ---
Progress Note (short form) - Note Progress Note: PULMONARY Less responsive today. No fevers recorded. Last Vital Signs Temp Pulse Resp BP Pulse Ox 97.9 F 96 H 20 155/54 96 10/09/17 10:00 10/09/17 10:00 10/09/17 10:00 10/09/17 10:00 10/08/17 21:00 Gen: NAD at rest Heart: RRR Lung: bilateral rhonchi Abd: soft, nontender Ext: no edema CBC, BMP 10/09/17 10:55 10/09/17 10:55 Active Medications Acetylcysteine (Mucomyst 20 Oral / Inh Use Only*) 300 mg NEB RTID [facility] Last Admin: 10/09/17 08:14 Dose: 300 mg Albuterol Sulfate (Ventolin 0.083% Nebulizer Soln -) 1 amp NEB RTID [facility] Last Admin: 10/09/17 08:14 Dose: 1 amp Amino Acids (Prosource No Carb Liquid Pkt) 30 ml NGT DAILY@0800 [facility] Last Admin: 10/09/17 10:24 Dose: 30 ml Ascorbic Acid (Vitamin C -) 250 mg NGT DAILY [facility] Last Admin: 10/09/17 10:24 Dose: 250 mg Emollient Ointment (Aquaphor -) 1 applic TP BID PRN PRN Reason: DRY SKIN Emollient Ointment (Aquaphor -) 1 applic TP BID PRN PRN Reason: DRY SKIN Last Admin: 10/09/17 12:27 Dose: 1 applic Potassium Chloride (Potassium Chloride Oral Liquid) 40 meq NGT DAILY [facility] Last Admin: 10/09/17 10:24 Dose: 40 meq Ranitidine HCl (Zantac Oral Solution -) 150 mg NGT DAILY [facility] Last Admin: 10/09/17 10:24 Dose: 150 mg Saliva Substitute (Mouthkote Solution -) 1 applic MM Q4H PRN PRN Reason: DRY MOUTH Saliva Substitute (Mouthkote Solution -) 1 applic MM Q4H PRN PRN Reason: DRY MOUTH Last Admin: 10/09/17 12:27 Dose: 1 applic Zinc Sulfate (Orazinc -) 220 mg NGT DAILY [facility] Last Admin: 10/09/17 10:24 Dose: 220 mg A/P s/p Bradycardic Cardiac Arrest Acute on Chronic Hypoxic and Hypercapneic Respiratory Failure improving Acute COPD Exacerbation improved Pneumonia Septic Shock resolved Acute Kidney Injury Lactic Acidosis resolved PAD HTN Dementia - completed antibiotics - inhaled bronchodilators - O2 to keep SpO2 >90% - enteral feeds - aspiration precautions - DVT/GI prophylaxis - poor overall prognosis
--- NOTE | 2017-10-09 12:51 | PN ---
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 Large amount of secretions suctioned by nursing from posterior pharynx. Cogh response but rare swallow reflex noted.NGT in place. Swallowing reassessed. Again, no manipulation of puree placed in anterior oral cavity, requiring suctioning to remove residue. Maintain NPO, HOB elevated, Mouth care. Family meeting scheduled for today.
--- NOTE | 2017-10-09 13:51 | PN ---
GI Progress Note Subjective: Dr. Castaneda covering for Dr. Rivas: Recalled to eval rising LFTs - Objective Vital Signs: Vital Signs Temperature 97.9 F 10/09/17 10:00 Pulse Rate 96 H 10/09/17 10:00 Respiratory Rate 20 10/09/17 10:00 Blood Pressure 155/54 10/09/17 10:00 O2 Sat by Pulse Oximetry (%) 96 10/08/17 21:00 Constitutional: Calm Cardiovascular: Yes: Tachycardia Respiratory: Yes: Diminished (at bases, poor insp effort) Gastrointestinal Inspection: No: Distention ...Auscultate: Yes: Normoactive Bowel Sounds ...Palpate: Yes: Tenderness (RUQ) Edema: No (No LE edema) Labs: CBC, BMP 10/09/17 10:55 10/09/17 10:55 INR, PTT INR 0.99 (0.82-1.09) 10/01/17 05:55 Hepatic Panel Total Bilirubin 1.5 mg/dL (0.2-1.0) H D 10/09/17 10:55 AST 39 U/L (15-37) H 10/09/17 10:55 ALT 76 U/L (12-78) 10/09/17 10:55 Alkaline Phosphatase 267 U/L (45-117) H 10/09/17 10:55 Albumin 2.2 g/dl (3.4-5.0) L 10/09/17 10:55 Problem List - Problems (1) Abnormal liver function tests Assessment/Plan: With rising WBC / RUQ pain, biliary tract pathology needs to be considered and excluded Advise: Imaging of abdomen: Ordered CT scan of the abdomen and pelvis Broad spectrum IV Abx ID evaluation Code(s): R94.5 - ABNORMAL RESULTS OF LIVER FUNCTION STUDIES
[2017-10-09] MEDS ORDERED: ACETAMINOPHEN 650 MG/20.3 ML ORAL SOLUTION (CUPS) PO PRN (14:38)
[2017-10-09] MEDS ORDERED: PIPERACILLIN/TAZOB 3.375 GM/50 ML PRE-DOCKED IVPB SCH ×2 (14:45→15:15)
[2017-10-09] MEDS: SCOPOLAMINE HYDROBROMIDE 1 PATCH PATCH.TD72 TD SCH (14:47)
[2017-10-09] MEDS ORDERED: PIPERACILLIN/TAZOB 3.375 GM 3.375 GM in DEXTROSE 5%-WATER - 50 ML IVPB SCH (15:00)
--- NOTE | 2017-10-09 15:07 | PN ---
Progress Note (short form) - Note Progress Note: lethargic NGT in place febrile Temp rectal 101.8 Vital Signs Period Temp Pulse Resp BP Sys/Moscoso Pulse Ox Last 24 Hr 97.9 F-99.7 F 77-96 18-20 143-155/54-78 96 +NGT cor-rrr lungs decreased bs at bases abd soft, nontender ext ulcer on foot is clean- no erythema, or drainage CBC, BMP 10/09/17 10:55 10/09/17 10:55 cxray bibasilar effusions a/p s/p cardiac arrest now with fever and abnl lfts- ?biliary, ?aspiration agree with imaging studies cultures have been sent would start zosyn for biliary and aspiration coverage Problem List - Problems (1) Cardiac arrest Code(s): I46.9 - CARDIAC ARREST, CAUSE UNSPECIFIED (2) Acute respiratory failure with hypoxia and hypercapnia Code(s): J96.01 - ACUTE RESPIRATORY FAILURE WITH HYPOXIA; J96.02 - ACUTE RESPIRATORY FAILURE WITH HYPERCAPNIA (3) Leukocytosis Code(s): D72.829 - ELEVATED WHITE BLOOD CELL COUNT, UNSPECIFIED
[2017-10-09] MEDS ORDERED: ACETAMINOPHEN 650 MG SUPP.RECT PR PRN (17:32)
[2017-10-09] MEDS ORDERED: PANTOPRAZOLE SODIUM 40 MG VIAL IVPB SCH (17:45)
[2017-10-09] MEDS: D5-1/2NS+40 MEQ KCL - 40 MEQ/1,000 ML INFUS.BAG IV SCH (18:52)
[2017-10-09] MEDS: PIPERACILLIN/TAZOB 3.375 GM 3.375 GM in DEXTROSE 5%-WATER - 50 ML IVPB SCH ×2 (18:52→21:49)
--- NOTE | 2017-10-09 19:52 | PN ---
Progress Note, Physician History of Present Illness: Pt seen and examined at bedside. She is more lethargic today and had fever. - Current Medication List Current Medications: Active Medications Acetaminophen (Tylenol Suppository -) 650 mg IN Q4H PRN PRN Reason: FEVER Acetylcysteine (Mucomyst 20 Oral / Inh Use Only*) 300 mg NEB RTID TOMMY Last Admin: 10/09/17 14:00 Dose: 300 mg Albuterol Sulfate (Ventolin 0.083% Nebulizer Soln -) 1 amp NEB RTID [facility] Last Admin: 10/09/17 14:00 Dose: 1 amp Amino Acids (Prosource No Carb Liquid Pkt) 30 ml NGT DAILY@0800 [facility] Last Admin: 10/09/17 10:24 Dose: 30 ml Ascorbic Acid (Vitamin C -) 250 mg NGT DAILY [facility] Last Admin: 10/09/17 10:24 Dose: 250 mg Emollient Ointment (Aquaphor -) 1 applic TP BID PRN PRN Reason: DRY SKIN Last Admin: 10/09/17 12:27 Dose: 1 applic Piperacillin Sod/Tazobactam (Sod 3.375 gm/ Dextrose) 50 mls @ 100 mls/hr IVPB Q8H-IV TOMMY Last Admin: 10/09/17 18:52 Dose: 100 mls/hr Dextrose/Sodium Chloride (D5-1/2ns+40 Meq Kcl -) 40 meq in 1,000 mls @ 75 mls/ hr IV ASDIR [facility] Last Admin: 10/09/17 18:52 Dose: 75 mls/hr Pantoprazole Sodium (Protonix Iv) 40 mg IVPUSH DAILY [facility] Potassium Chloride (Potassium Chloride Oral Liquid) 40 meq NGT DAILY [facility] Last Admin: 10/09/17 10:24 Dose: 40 meq Ranitidine HCl (Zantac Oral Solution -) 150 mg NGT DAILY [facility] Last Admin: 10/09/17 10:24 Dose: 150 mg Saliva Substitute (Mouthkote Solution -) 1 applic MM Q4H PRN PRN Reason: DRY MOUTH Last Admin: 10/09/17 12:27 Dose: 1 applic Scopolamine HBr (Transderm-Scop -) 1 patch TD Q72H [facility] Last Admin: 10/09/17 14:47 Dose: 1 patch Zinc Sulfate (Orazinc -) 220 mg NGT DAILY [facility] Last Admin: 10/09/17 10:24 Dose: 220 mg - Objective Vital Signs: Vital Signs Temperature 98.7 F 10/09/17 15:30 Pulse Rate 80 10/09/17 15:30 Respiratory Rate 18 10/09/17 15:30 Blood Pressure 138/80 10/09/17 15:30 O2 Sat by Pulse Oximetry (%) 93 L 10/09/17 09:00 Constitutional: Yes: Calm Cardiovascular: Yes: S1, S2 Respiratory: Yes: Rhonchi Gastrointestinal: Yes: Soft Genitourinary: Yes: Incontinence Musculoskeletal: Yes: Muscle Weakness Edema: No Wound/Incision: Yes: Dressing Dry and Intact Neurological: Yes: Lethargy Labs: CBC, BMP 10/09/17 10:55 10/09/17 10:55 INR, PTT INR 0.99 (0.82-1.09) 10/01/17 05:55 Problem List - Problems (1) ORTIZ (acute kidney injury) Code(s): N17.9 - ACUTE KIDNEY FAILURE, UNSPECIFIED (2) Acute and chronic respiratory failure with hypoxia Code(s): J96.21 - ACUTE AND CHRONIC RESPIRATORY FAILURE WITH HYPOXIA (3) Cardiac arrest Code(s): I46.9 - CARDIAC ARREST, CAUSE UNSPECIFIED (4) Leukocytosis Code(s): D72.829 - ELEVATED WHITE BLOOD CELL COUNT, UNSPECIFIED (5) Shortness of breath Code(s): R06.02 - SHORTNESS OF BREATH (6) Hypoxia Code(s): R09.02 - HYPOXEMIA (7) Sepsis Code(s): A41.9 - SEPSIS, UNSPECIFIED ORGANISM Qualifiers: Sepsis type: sepsis due to unspecified organism Qualified Code(s): A41.9 - Sepsis, unspecified organism Assessment/Plan Current Medications Generic Name Dose Route Start Last Admin Trade Name Freq PRN Reason Stop Dose Admin Acetaminophen 650 mg 10/09/17 17:32 Tylenol Suppository - IN Q4H PRN FEVER Acetylcysteine 300 mg 10/01/17 20:00 10/09/17 14:00 Mucomyst 20 Oral / Inh Use Only* NEB 300 mg RTID TOMMY Administration Albuterol Sulfate 1 amp 10/01/17 20:00 10/09/17 14:00 Ventolin 0.083% Nebulizer Soln - NEB 1 amp RTID TOMMY Administration Amino Acids 30 ml 10/06/17 11:15 10/09/17 10:24 Prosource No Carb Liquid Pkt NGT 30 ml DAILY@0800 TOMMY Administration Ascorbic Acid 250 mg 10/06/17 11:00 10/09/17 10:24 Vitamin C - NGT 250 mg DAILY TOMMY Administration Emollient Ointment 1 applic 10/09/17 11:54 10/09/17 12:27 Aquaphor - TP 1 applic BID PRN Administration DRY SKIN Piperacillin Sod/Tazobactam 50 mls @ 100 mls/hr 10/09/17 15:30 10/09/17 18:52 Sod 3.375 gm/ Dextrose IVPB 100 mls/hr Q8H-IV TOMMY Administration Dextrose/Sodium Chloride 40 meq in 1,000 mls @ 75 mls/hr 10/09/17 17:30 10/09 18:52 D5-1/2ns+40 Meq Kcl - IV 75 mls/hr ASDIR TOMMY Administration Pantoprazole Sodium 40 mg 10/10/17 10:00 Protonix Iv IVPUSH DAILY TOMMY Potassium Chloride 40 meq 10/06/17 10:30 10/09/17 10:24 Potassium Chloride Oral Liquid NGT 40 meq DAILY TOMMY Administration Ranitidine HCl 150 mg 10/06/17 11:15 10/09/17 10:24 Zantac Oral Solution - NGT 150 mg DAILY TOMMY Administration Saliva Substitute 1 applic 10/09/17 11:53 10/09/17 12:27 Mouthkote Solution - MM 1 applic Q4H PRN Administration DRY MOUTH Scopolamine HBr 1 patch 10/09/17 13:00 10/09/17 14:47 Transderm-Scop - TD 1 patch Q72H TOMMY Administration Zinc Sulfate 220 mg 10/06/17 11:15 10/09/17 10:24 Orazinc - NGT 220 mg DAILY TOMMY Administration Impression 1. ORTIZ 2. acute respiratory failure 3. cardiac arrest 4. lactic acidosis 5. COPD 6. PNA 7. dementia 8. anemia 9. sepsis 10. perihepatic free fluid 11. hypernatremia Plan - sodium is higher today however pt was not getting the correct dose of flushes overnight - sepsis workup - follow imaging - monitor vitals - will likely need a peg - likely ORTIZ from ATN caused by prolonged hypotension - prognosis is poor
[2017-10-10] MEDS: PIPERACILLIN/TAZOB 3.375 GM 3.375 GM in DEXTROSE 5%-WATER - 50 ML IVPB SCH ×3 (02:39→18:26)
[2017-10-10 07:34] LABS: ANION GAP 12 (8-16); BLOOD UREA NITROGEN 35 mg/dL (7-18); CALCIUM 7.9 mg/dL (8.5-10.1); CHLORIDE 104 mmol/L (98-107); CO2 27 mmol/L (21-32); GLUCOSE,RANDOM 143 mg/dL (74-106); SODIUM 143 mmol/L (136-145)
[2017-10-10 07:38] LABS: ALK PHOS 282 U/L (45-117); BILIRUBIN,TOTAL 2.9 mg/dL (0.2-1.0); CREATININE 1.3 mg/dL (0.55-1.02); SGPT/ALT 65 U/L (12-78); TOT PROT 6.1 g/dl (6.4-8.2)
[2017-10-10] MEDS: ACETYLCYSTEINE 20% 200MG/ML 4 ML VIAL *FOR ORAL / INH USE ONLY NEB SCH ×3 (07:54→21:20)
[2017-10-10] MEDS: ALBUTEROL SO4 0.083% IH SOL 2.5 MG/3 ML VIAL.NEB. NEB SCH ×3 (07:55→21:20)
[2017-10-10 08:00] LABS: BASO % 0.3 % (0-2.0); EOS % 1.4 % (0-4.5); HEMATOCRIT 41.2 % (32.4-45.2); LYMPH % 6.3 % (8-40); MCH 27.7 pg (25.7-33.7); MCHC 31.5 g/dl (32.0-36.0); MEAN CELL VOLUME 87.7 fl (80-96); MEAN PLT VOLUME 9.1 fl (7.5-11.1); MONO % 3.4 % (3.8-10.2); NEUT % 88.6 % (42.8-82.8); PLATELET COUNT 167 K/MM3 (134-434); RDW 17.4 % (11.6-15.6); WHITE BLOOD COUNT 19.8 K/mm3 (4.0-10.0)
[2017-10-10 08:19] LABS: POTASSIUM 4.2 mmol/L (3.5-5.1); SGOT/AST 38 U/L (15-37)
--- NOTE | 2017-10-10 09:14 | PN ---
GI Progress Note Subjective: CT scan performed. Reveals fluid filled GB No acute events Seen by ID, Abx resumed - Objective Vital Signs: Vital Signs Temperature 99.8 F H 10/10/17 06:00 Pulse Rate 92 H 10/10/17 06:00 Respiratory Rate 18 10/10/17 06:00 Blood Pressure 132/75 10/10/17 06:00 O2 Sat by Pulse Oximetry (%) 95 10/09/17 21:00 Constitutional: Calm Cardiovascular: Yes: Regular Rate and Rhythm Respiratory: Yes: Diminished (at bases b/l) Gastrointestinal Inspection: No: Distention ...Auscultate: Yes: Normoactive Bowel Sounds ...Palpate: Yes: Tenderness (TTP RUQ) ...Percussion: No: Tympanitic Edema: No (No LE edema) Labs: CBC, BMP 10/10/17 06:00 10/10/17 06:00 INR, PTT INR 0.99 (0.82-1.09) 10/01/17 05:55 Hepatic Panel Total Bilirubin 2.9 mg/dL (0.2-1.0) H D 10/10/17 06:00 AST 38 U/L (15-37) H 10/10/17 06:00 ALT 65 U/L (12-78) 10/10/17 06:00 Alkaline Phosphatase 282 U/L (45-117) H 10/10/17 06:00 Albumin 2.0 g/dl (3.4-5.0) L 10/10/17 06:00 Problem List - Problems (1) Abnormal liver function tests Assessment/Plan: Fluid filled GB on CT scan: ? acalculous cholecystitis On IV Abx Ordered Abd US and HIDA Surgical Eval Hold tube feeds May need cholecystostomy tube if familly is agreeable to this Code(s): R94.5 - ABNORMAL RESULTS OF LIVER FUNCTION STUDIES
[2017-10-10] MEDS ORDERED: PANTOPRAZOLE SODIUM 40 MG in SODIUM CHLORIDE 100 ML IVPB SCH (10:00)
[2017-10-10] MEDS: PANTOPRAZOLE SODIUM 40 MG VIAL IVPUSH SCH (10:44)
--- NOTE | 2017-10-10 10:55 | PN ---
Progress Note, Physician Chief Complaint: patient in bed legally blind on ivf CT scan noted for fluid filled GB awaiting family decision today regarding further plans of care ? feeding tube tube feeds via ng tube held for HIDA scan afebrile today - Current Medication List Current Medications: Active Medications Acetaminophen (Tylenol Suppository -) 650 mg PA Q4H PRN PRN Reason: FEVER Acetylcysteine (Mucomyst 20 Oral / Inh Use Only*) 300 mg NEB RTID [facility] Last Admin: 10/10/17 07:54 Dose: 300 mg Albuterol Sulfate (Ventolin 0.083% Nebulizer Soln -) 1 amp NEB RTID [facility] Last Admin: 10/10/17 07:55 Dose: 1 amp Amino Acids (Prosource No Carb Liquid Pkt) 30 ml NGT DAILY@0800 [facility] Last Admin: 10/09/17 10:24 Dose: 30 ml Ascorbic Acid (Vitamin C -) 250 mg NGT DAILY [facility] Last Admin: 10/09/17 10:24 Dose: 250 mg Emollient Ointment (Aquaphor -) 1 applic TP BID PRN PRN Reason: DRY SKIN Last Admin: 10/09/17 12:27 Dose: 1 applic Piperacillin Sod/Tazobactam (Sod 3.375 gm/ Dextrose) 50 mls @ 100 mls/hr IVPB Q8H-IV [facility] Last Admin: 10/10/17 10:44 Dose: Not Given Dextrose/Sodium Chloride (D5-1/2ns+40 Meq Kcl -) 40 meq in 1,000 mls @ 75 mls/ hr IV ASDIR [facility] Last Admin: 10/09/17 18:52 Dose: 75 mls/hr Pantoprazole Sodium (Protonix Iv) 40 mg IVPUSH DAILY [facility] Last Admin: 10/10/17 10:44 Dose: 40 mg Potassium Chloride (Potassium Chloride Oral Liquid) 40 meq NGT DAILY [facility] Last Admin: 10/09/17 10:24 Dose: 40 meq Ranitidine HCl (Zantac Oral Solution -) 150 mg NGT DAILY [facility] Last Admin: 10/09/17 10:24 Dose: 150 mg Saliva Substitute (Mouthkote Solution -) 1 applic MM Q4H PRN PRN Reason: DRY MOUTH Last Admin: 10/09/17 12:27 Dose: 1 applic Scopolamine HBr (Transderm-Scop -) 1 patch TD Q72H [facility] Last Admin: 10/09/17 14:47 Dose: 1 patch Zinc Sulfate (Orazinc -) 220 mg NGT DAILY [facility] Last Admin: 10/09/17 10:24 Dose: 220 mg - Objective Vital Signs: Vital Signs Temperature 99.8 F H 10/10/17 06:00 Pulse Rate 92 H 10/10/17 06:00 Respiratory Rate 18 10/10/17 06:00 Blood Pressure 132/75 10/10/17 06:00 O2 Sat by Pulse Oximetry (%) 95 10/09/17 21:00 Constitutional: Yes: Calm Cardiovascular: Yes: Regular Rate and Rhythm, S1, S2 Respiratory: Yes: Diminished Gastrointestinal: Yes: Normal Bowel Sounds, Soft Edema: No Labs: CBC, BMP 10/10/17 06:00 10/10/17 06:00 INR, PTT INR 0.99 (0.82-1.09) 10/01/17 05:55 Problem List - Problems (1) Abnormal liver function tests Assessment/Plan: ct scan noted for fluid filled GB surgery evaluation iv abx started to get HIDA scan today called Luci for telephone consent [phone]-obtained pending results might need IR for possible cholecystotomy Code(s): R94.5 - ABNORMAL RESULTS OF LIVER FUNCTION STUDIES (2) FTT (failure to thrive) in adult Assessment/Plan: family to decide regarding further plans of care- ?:? peg ivf Code(s): R62.7 - ADULT FAILURE TO THRIVE (3) Leukocytosis Assessment/Plan: iv zosyn Code(s): D72.829 - ELEVATED WHITE BLOOD CELL COUNT, UNSPECIFIED (4) Acute on chronic respiratory failure with hypoxia and hypercapnia Assessment/Plan: s/p Cardiac arrest s/p intubation and extubation now on floor Code(s): J96.21 - ACUTE AND CHRONIC RESPIRATORY FAILURE WITH HYPOXIA; J96.22 - ACUTE AND CHRONIC RESPIRATORY FAILURE WITH HYPERCAPNIA
--- NOTE | 2017-10-10 11:39 | PN ---
Progress Note (short form) - Note Progress Note: lethargic NGT in place Vital Signs Period Temp Pulse Resp BP Sys/Moscoso Pulse Ox Last 24 Hr 98.5 F-99.8 F 80-98 18-18 132-167/68-89 95 cor-rrr lungs decreased bs at bases abd soft,nt ext no edema wound with dressing intact CBC, BMP 10/10/17 06:00 10/10/17 06:00 blood cultures pending a/p s/p cardiac arrest now with fever and abnl lfts- ?biliary, ?aspiration cultures have been sent continue zosyn ?cholycysitis- ct scan results noted for hida/ultrasound today Problem List - Problems (1) Cardiac arrest Code(s): I46.9 - CARDIAC ARREST, CAUSE UNSPECIFIED (2) Acute respiratory failure with hypoxia and hypercapnia Code(s): J96.01 - ACUTE RESPIRATORY FAILURE WITH HYPOXIA; J96.02 - ACUTE RESPIRATORY FAILURE WITH HYPERCAPNIA (3) Leukocytosis Code(s): D72.829 - ELEVATED WHITE BLOOD CELL COUNT, UNSPECIFIED
--- NOTE | 2017-10-10 14:35 | PN ---
Progress Note (short form) - Note Progress Note: order for cholecystotomy tube placed s/w Dr corenjo and Dr maddie mistry HCP her cell phone number given to Dr cornejo to get consent for procedure Problem List - Problems (1) Abnormal liver function tests Code(s): R94.5 - ABNORMAL RESULTS OF LIVER FUNCTION STUDIES (2) FTT (failure to thrive) in adult Code(s): R62.7 - ADULT FAILURE TO THRIVE (3) Leukocytosis Code(s): D72.829 - ELEVATED WHITE BLOOD CELL COUNT, UNSPECIFIED (4) Acute on chronic respiratory failure with hypoxia and hypercapnia Code(s): J96.21 - ACUTE AND CHRONIC RESPIRATORY FAILURE WITH HYPOXIA; J96.22 - ACUTE AND CHRONIC RESPIRATORY FAILURE WITH HYPERCAPNIA
--- NOTE | 2017-10-10 15:18 | PN ---
Progress Note (short form) - Note Progress Note: Called by Dr. Black re: US findings: Feels that there is suggestion of contained GB perforation. Ms. cheung was down in interventional radiologys and he attempted to get in touch with her family regarding percutaneous cholecystostomy. He was unable to get in touch with them. Ms. Cheung' nurse attempted to contact the family as well and I discussed the situation with Dr. Conn who stated she would be attempting to contact the family. Dr. Kemp was called regarding GB findings. he will be seeing her but feels she will liekly need cholecystostomy as well given that she is a poor surgical candidate. Unclear re: family wishes regarding interventions at this point so awaiting their input regarding this. For now: IV Abx hold tube feeds IV hydration Problem List - Problems (1) Abnormal liver function tests Code(s): R94.5 - ABNORMAL RESULTS OF LIVER FUNCTION STUDIES
--- NOTE | 2017-10-10 16:21 | CONSULT ---
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 (legally blind due to glaucoma) Cardio/Vascular: Yes: HTN Pulmonary: Yes: Asthma, COPD, O2 Dependent Psych: Yes: Depression Musculoskeletal: Yes: Other (rt leg wound - receiving wound care) - Alcohol/Substance Use Hx Alcohol Use: No - Smoking History Smoking history: Never smoked Have you smoked in the past 12 months: No Aproximately how many cigarettes per day: 0 - Social History Usual Living Arrangement: [facility] ADL: Family Assistance History of Recent Travel: No Home Medications - Allergies Allergies/Adverse Reactions: Allergies Allergy/AdvReac Type Severity Reaction Status Date / Time epinephrine Allergy Mild Itching Verified 09/22/17 09:07 - Home Medications Home Medications: Ambulatory Orders Albuterol 0.083% Nebulizer Jasmin [Ventolin 0.083%] 1 neb NEB QID 09/22/17 Ferrous Sulfate 325 mg PO BID 09/22/17 Memantine HCl/Donepezil HCl [Namzaric 28 mg-10 mg Capsule] 1 each PO DAILY 09/22 Montelukast Sodium [Singulair] 10 mg PO DAILY 09/22/17 Review of Systems Unable to obtain ROS, reason: Clinical condition Physical Exam Vital Signs: Vital Signs Temperature 100.5 F H 10/10/17 10:00 Pulse Rate 97 H 10/10/17 10:00 Respiratory Rate 22 10/10/17 10:00 Blood Pressure 140/67 10/10/17 10:00 O2 Sat by Pulse Oximetry (%) 95 10/10/17 09:00 Respiratory: Yes: Diminished Gastrointestinal: Yes: Soft, Tenderness (RUQ). No: Distention Labs: CBC, BMP 10/10/17 06:00 10/10/17 06:00 Imaging - Results Cat Scan: Image Reviewed Ultrasound: Image Reviewed Problem List - Problems (1) ORTIZ (acute kidney injury) Code(s): N17.9 - ACUTE KIDNEY FAILURE, UNSPECIFIED (2) Abnormal liver function tests Code(s): R94.5 - ABNORMAL RESULTS OF LIVER FUNCTION STUDIES (3) Hyperbilirubinemia Code(s): E80.6 - OTHER DISORDERS OF BILIRUBIN METABOLISM Assessment/Plan 87 female with thickened gallbladder wall and elevated WBC/LFTs Likely cholecystitis Poor surgical candidate Recommend Interventional radiology for percutaneous cholecystostomy Antibiotics
[2017-10-10] MEDS ORDERED: MINERAL OIL 30 ML UNIT-DOSE CUP PO PRN (16:56)
[2017-10-10] MEDS ORDERED: MORPHINE SULFATE 10 MG/1 ML *VIAL IVPUSH PRN (16:58)
--- NOTE | 2017-10-10 17:04 | PN ---
Progress Note, Physician History of Present Illness: Pt seen and examined at bedside. She remains lethargic. - Current Medication List Current Medications: Active Medications Acetaminophen (Tylenol Suppository -) 650 mg MT Q4H PRN PRN Reason: FEVER Acetylcysteine (Mucomyst 20 Oral / Inh Use Only*) 300 mg NEB RTID [facility] Last Admin: 10/10/17 13:50 Dose: Not Given Albuterol Sulfate (Ventolin 0.083% Nebulizer Soln -) 1 amp NEB RTID [facility] Last Admin: 10/10/17 13:50 Dose: Not Given Amino Acids (Prosource No Carb Liquid Pkt) 30 ml NGT DAILY@0800 [facility] Last Admin: 10/09/17 10:24 Dose: 30 ml Ascorbic Acid (Vitamin C -) 250 mg NGT DAILY [facility] Last Admin: 10/09/17 10:24 Dose: 250 mg Emollient Ointment (Aquaphor -) 1 applic TP BID PRN PRN Reason: DRY SKIN Last Admin: 10/09/17 12:27 Dose: 1 applic Piperacillin Sod/Tazobactam (Sod 3.375 gm/ Dextrose) 50 mls @ 100 mls/hr IVPB Q8H-IV [facility] Last Admin: 10/10/17 10:44 Dose: Not Given Dextrose/Sodium Chloride (D5-1/2ns+40 Meq Kcl -) 40 meq in 1,000 mls @ 75 mls/ hr IV ASDIR [facility] Last Admin: 10/09/17 18:52 Dose: 75 mls/hr Mineral Oil (Mineral Oil -) 30 ml PO TID PRN PRN Reason: HYGEINE Morphine Sulfate (Morphine Injection -) 2 mg IVPUSH Q4H PRN PRN Reason: PAIN LEVEL 6-10 Pantoprazole Sodium (Protonix Iv) 40 mg IVPUSH DAILY [facility] Last Admin: 10/10/17 10:44 Dose: 40 mg Potassium Chloride (Potassium Chloride Oral Liquid) 40 meq NGT DAILY [facility] Last Admin: 10/09/17 10:24 Dose: 40 meq Ranitidine HCl (Zantac Oral Solution -) 150 mg NGT DAILY [facility] Last Admin: 10/09/17 10:24 Dose: 150 mg Saliva Substitute (Mouthkote Solution -) 1 applic MM Q4H PRN PRN Reason: DRY MOUTH Last Admin: 10/09/17 12:27 Dose: 1 applic Scopolamine HBr (Transderm-Scop -) 1 patch TD Q72H [facility] Last Admin: 10/09/17 14:47 Dose: 1 patch Zinc Sulfate (Orazinc -) 220 mg NGT DAILY [facility] Last Admin: 10/09/17 10:24 Dose: 220 mg - Objective Vital Signs: Vital Signs Temperature 100.5 F H 10/10/17 10:00 Pulse Rate 97 H 10/10/17 10:00 Respiratory Rate 22 10/10/17 10:00 Blood Pressure 140/67 10/10/17 10:00 O2 Sat by Pulse Oximetry (%) 95 10/10/17 09:00 Constitutional: Yes: Calm Cardiovascular: Yes: S1, S2 Respiratory: Yes: On Nasal O2, Rhonchi Gastrointestinal: Yes: Soft Genitourinary: Yes: Incontinence Musculoskeletal: Yes: Muscle Weakness Edema: No Neurological: Yes: Lethargy Labs: CBC, BMP 10/10/17 06:00 10/10/17 06:00 INR, PTT INR 0.99 (0.82-1.09) 10/01/17 05:55 Problem List - Problems (1) ORTIZ (acute kidney injury) Code(s): N17.9 - ACUTE KIDNEY FAILURE, UNSPECIFIED (2) Acute and chronic respiratory failure with hypoxia Code(s): J96.21 - ACUTE AND CHRONIC RESPIRATORY FAILURE WITH HYPOXIA (3) Cardiac arrest Code(s): I46.9 - CARDIAC ARREST, CAUSE UNSPECIFIED (4) Leukocytosis Code(s): D72.829 - ELEVATED WHITE BLOOD CELL COUNT, UNSPECIFIED (5) Shortness of breath Code(s): R06.02 - SHORTNESS OF BREATH (6) Hypoxia Code(s): R09.02 - HYPOXEMIA (7) Sepsis Code(s): A41.9 - SEPSIS, UNSPECIFIED ORGANISM Qualifiers: Sepsis type: sepsis due to unspecified organism Qualified Code(s): A41.9 - Sepsis, unspecified organism Assessment/Plan Current Medications Generic Name Dose Route Start Last Admin Trade Name Freq PRN Reason Stop Dose Admin Acetaminophen 650 mg 10/09/17 17:32 Tylenol Suppository - MT Q4H PRN FEVER Acetylcysteine 300 mg 10/01/17 20:00 10/10/17 13:50 Mucomyst 20 Oral / Inh Use Only* NEB Not Given RTID TOMMY Albuterol Sulfate 1 amp 10/01/17 20:00 10/10/17 13:50 Ventolin 0.083% Nebulizer Soln - NEB Not Given RTID TOMMY Amino Acids 30 ml 10/06/17 11:15 10/09/17 10:24 Prosource No Carb Liquid Pkt NGT 30 ml DAILY@0800 TOMMY Administration Ascorbic Acid 250 mg 10/06/17 11:00 10/09/17 10:24 Vitamin C - NGT 250 mg DAILY TOMMY Administration Emollient Ointment 1 applic 10/09/17 11:54 10/09/17 12:27 Aquaphor - TP 1 applic BID PRN Administration DRY SKIN Piperacillin Sod/Tazobactam 50 mls @ 100 mls/hr 10/09/17 15:30 10/10/17 10:44 Sod 3.375 gm/ Dextrose IVPB Not Given Q8H-IV TOMMY Dextrose/Sodium Chloride 40 meq in 1,000 mls @ 75 mls/hr 10/09/17 17:30 10/09 18:52 D5-1/2ns+40 Meq Kcl - IV 75 mls/hr ASDIR TOMMY Administration Mineral Oil 30 ml 10/10/17 16:56 Mineral Oil - PO TID PRN HYGEINE Morphine Sulfate 2 mg 10/10/17 16:58 Morphine Injection - IVPUSH Q4H PRN PAIN LEVEL 6-10 Pantoprazole Sodium 40 mg 10/10/17 10:00 10/10/17 10:44 Protonix Iv IVPUSH 40 mg DAILY TOMMY Administration Potassium Chloride 40 meq 10/06/17 10:30 10/09/17 10:24 Potassium Chloride Oral Liquid NGT 40 meq DAILY TOMMY Administration Ranitidine HCl 150 mg 10/06/17 11:15 10/09/17 10:24 Zantac Oral Solution - NGT 150 mg DAILY TOMMY Administration Saliva Substitute 1 applic 10/09/17 11:53 10/09/17 12:27 Mouthkote Solution - MM 1 applic Q4H PRN Administration DRY MOUTH Scopolamine HBr 1 patch 10/09/17 13:00 10/09/17 14:47 Transderm-Scop - TD 1 patch Q72H TOMMY Administration Zinc Sulfate 220 mg 10/06/17 11:15 10/09/17 10:24 Orazinc - NGT 220 mg DAILY TOMMY Administration Impression 1. ORTIZ 2. acute respiratory failure 3. cardiac arrest 4. lactic acidosis 5. COPD 6. PNA 7. dementia 8. anemia 9. sepsis 10. perihepatic free fluid 11. hypernatremia 12. sepsis Plan - cont fluids while NPO - cont abx - renal function stabilizing - surgery input appreciated - will follow PRN - likely ORTIZ from ATN caused by prolonged hypotension - prognosis is poor
[2017-10-10] MEDS ORDERED: PT OWN MED DRAWER 7, Y5N ONE (17:38)
[2017-10-11] MEDS: PIPERACILLIN/TAZOB 3.375 GM 3.375 GM in DEXTROSE 5%-WATER - 50 ML IVPB SCH ×3 (03:06→18:28)
[2017-10-11] MEDS: D5-1/2NS+40 MEQ KCL - 40 MEQ/1,000 ML INFUS.BAG IV SCH ×2 (04:44→18:28)
[2017-10-11] MEDS: ACETYLCYSTEINE 20% 200MG/ML 4 ML VIAL *FOR ORAL / INH USE ONLY NEB SCH ×3 (07:30→21:15)
[2017-10-11] MEDS: ALBUTEROL SO4 0.083% IH SOL 2.5 MG/3 ML VIAL.NEB. NEB SCH ×3 (07:30→21:15)
[2017-10-11 08:19] LABS: BASO % 0.5 % (0-2.0); EOS % 3.1 % (0-4.5); HEMATOCRIT 41.1 % (32.4-45.2); HEMOGLOBIN 13.1 GM/dL (10.7-15.3); LYMPH % 7.9 % (8-40); MCHC 31.8 g/dl (32.0-36.0); MEAN CELL VOLUME 87.9 fl (80-96); MEAN PLT VOLUME 9.5 fl (7.5-11.1); MONO % 4.1 % (3.8-10.2); NEUT % 84.4 % (42.8-82.8); PLATELET COUNT 183 K/MM3 (134-434); RBC 4.67 M/mm3 (3.60-5.2); RDW 17.1 % (11.6-15.6); WHITE BLOOD COUNT 13.8 K/mm3 (4.0-10.0)
[2017-10-11 08:26] LABS: ANION GAP 7 (8-16); BLOOD UREA NITROGEN 32 mg/dL (7-18); CALCIUM 7.7 mg/dL (8.5-10.1); CHLORIDE 108 mmol/L (98-107); CO2 30 mmol/L (21-32); GLUCOSE,RANDOM 123 mg/dL (74-106); POTASSIUM 4.1 mmol/L (3.5-5.1); SODIUM 145 mmol/L (136-145)
[2017-10-11 08:30] LABS: ALK PHOS 265 U/L (45-117); BILIRUBIN,TOTAL 2.1 mg/dL (0.2-1.0); CREATININE 1.5 mg/dL (0.55-1.02); SGOT/AST 21 U/L (15-37); SGPT/ALT 47 U/L (12-78); TOT PROT 5.9 g/dl (6.4-8.2)
--- NOTE | 2017-10-11 08:55 | PN ---
Progress Note (short form) - Note Progress Note: ID Zosyn continues Tmax 100.5 Selected Entries 10/11/17 10/11/17 02:46 06:00 Temperature 98.9 F Pulse Rate 73 Respiratory 20 Rate Blood Pressure 115/62 Weight 121 lb Microbiology 10/09/17 15:15 Blood - Peripheral Venous Blood Culture - Preliminary NO GROWTH OBTAINED AFTER 24 HOURS, INCUBATION TO CONTINUE FOR 4 DAYS. 10/09/17 15:00 Blood - Peripheral Venous Blood Culture - Preliminary NO GROWTH OBTAINED AFTER 24 HOURS, INCUBATION TO CONTINUE FOR 4 DAYS. Laboratory Tests 10/10/17 10/11/17 10/11/17 06:00 06:30 06:30 WBC 19.8 H 13.8 H D Hgb 13.1 Plt Count 183 BUN 32 H Creatinine 1.5 H Creat Clearance w eGFR 33.00 Total Bilirubin 2.1 H D AST 21 Alkaline Phosphatase 265 H Assessment Cholecytitis abnormal LFTS Fever Plan Continue antibiotic & cholecystotomy advised per surgery Christa TUCKER
--- NOTE | 2017-10-11 09:01 | PN ---
Progress Note (short form) - Note Progress Note: patient is lying in bed with one eye open non-verbal on 5L Nasal canula she does not voice any complaints (1) Acute and chronic respiratory failure with hypoxia Assessment/Plan: on nasal O2 seen by pulmonary bronchodilators IV steroids per pulm (2) Hypernatremia resolved -improving -seen by renal -monitor labs (3) Diarrhea Assessment/Plan: -stool for cdiff, stool O&P, Stool culture pending -Stool OB negative (4) Hypokalemia resloved Assessment/Plan: -replace and monitor (5) CHF Assessment/Plan: -on cxr with elevated bnp -lasix x 1 --cxr 6 leukocytosis - resolving c/w antibiotic treatment Visit type - Emergency Visit Emergency Visit: No - New Patient This patient is new to me today: Yes Date on this admission: 10/11/17 - Critical Care Critical Care patient: No - Discharge Referral Referred to [facility] Med [facility].C.: No
[2017-10-11] MEDS: PANTOPRAZOLE SODIUM 40 MG VIAL IVPUSH SCH (09:31)
--- NOTE | 2017-10-11 11:03 | PN ---
Progress Note (short form) - Note Progress Note: PULMONARY VSS/AFEBRILE NO OVERALL CHANGE IN CLINICAL EXAM MEDS/NOTES/MICRO/LABS/IMAGES REVIEWED s/p Bradycardic Cardiac Arrest Acute on Chronic Hypoxic and Hypercapneic Respiratory Failure improving Acute COPD Exacerbation improved Pneumonia Septic Shock resolved Acute Kidney Injury Lactic Acidosis resolved PAD HTN Dementia - completed antibiotics - inhaled bronchodilators - O2 to keep SpO2 >90% - enteral feeds - aspiration precautions - DVT/GI prophylaxis - poor overall prognosis Jake KAT MD Problem List - Problems (1) ORTIZ (acute kidney injury) Code(s): N17.9 - ACUTE KIDNEY FAILURE, UNSPECIFIED (2) Acute and chronic respiratory failure with hypoxia Code(s): J96.21 - ACUTE AND CHRONIC RESPIRATORY FAILURE WITH HYPOXIA (3) Cardiac arrest Code(s): I46.9 - CARDIAC ARREST, CAUSE UNSPECIFIED (4) Diarrhea Code(s): R19.7 - DIARRHEA, UNSPECIFIED (5) Hypernatremia Code(s): E87.0 - HYPEROSMOLALITY AND HYPERNATREMIA (6) Acute hypoxemic respiratory failure Code(s): J96.01 - ACUTE RESPIRATORY FAILURE WITH HYPOXIA
[2017-10-11 11:35] LABS: ARTERIAL BLD GAS O2 SATURATION 91.1 % (90-98.9); ARTERIAL BLOOD GAS BASE EXCESS 2.8 meq/l (-2-2); ARTERIAL BLOOD GAS PCO2 40.8 mmHg (35-45); ARTERIAL BLOOD GAS PO2 58.5 mmHg (68-100); ARTERIAL BLOOD GAS pH 7.43 (7.35-7.45)
[2017-10-11 11:37] LABS: ALLENS TEST POSITIVE
--- NOTE | 2017-10-11 11:56 | PN ---
GI Progress Note Subjective: GI NOte ( covering for Dr Rivas) : The patient was being prepped for a percutaneous cholecystostomy late yesterday afternoon when the family denies consent for the procedure. She had fever to 100.5 earlier yesterday but is afebrile today. Bilirubin and WBC dropping - Objective Vital Signs: Vital Signs Temperature 98.9 F 10/11/17 02:46 Pulse Rate 73 10/11/17 02:46 Respiratory Rate 20 10/11/17 02:46 Blood Pressure 115/62 10/11/17 02:46 O2 Sat by Pulse Oximetry (%) 93 L 10/10/17 21:00 Laboratory Tests 10/09/17 10/10/17 10/10/17 10:55 06:00 06:00 WBC 20.3 H D 19.8 H Total Bilirubin 2.9 H D AST 38 H ALT 65 Alkaline Phosphatase 282 H 10/11/17 10/11/17 06:30 06:30 WBC 13.8 H D Total Bilirubin 2.1 H D AST 21 ALT 47 Alkaline Phosphatase 265 H Constitutional: Other (noncomunicative) ...Auscultate: Yes: Hypoactive Bowel Sounds ...Palpate: Yes: Soft, Other (mild right epigastric tenderness elicited) Labs: CBC, BMP 10/11/17 06:30 10/11/17 06:30 INR, PTT INR 0.99 (0.82-1.09) 10/01/17 05:55 Assessment/Plan Family has opted against intervention DNR in effect Continue antibiotics Prognosis grim Dr Rivas will return 10/13
[2017-10-11] MEDS ORDERED: PT OWN MED DRAWER 7, Y5N ONE ×2 (17:55→20:54)
[2017-10-11] MEDS: DEXTROSE 5%-0.45% SALINE 1,000 ML IV SCH (21:18)
[2017-10-12] MEDS: PIPERACILLIN/TAZOB 3.375 GM 3.375 GM in DEXTROSE 5%-WATER - 50 ML IVPB SCH ×3 (01:26→18:40)
[2017-10-12 07:00] LABS: BASO % 0.7 % (0-2.0); EOS % 2.2 % (0-4.5); HEMATOCRIT 38.1 % (32.4-45.2); LYMPH % 8.2 % (8-40); MCH 27.7 pg (25.7-33.7); MCHC 31.6 g/dl (32.0-36.0); MEAN CELL VOLUME 87.6 fl (80-96); MEAN PLT VOLUME 9.2 fl (7.5-11.1); MONO % 5.6 % (3.8-10.2); NEUT % 83.3 % (42.8-82.8); PLATELET COUNT 186 K/MM3 (134-434); RBC 4.35 M/mm3 (3.60-5.2); RDW 16.8 % (11.6-15.6)
--- NOTE | 2017-10-12 07:19 | PN ---
Progress Note, Physician Chief Complaint: ID GI note read NO intervention of biliary tract planned Zosyn day 3 - Current Medication List Current Medications: Active Medications Acetaminophen (Tylenol Suppository -) 650 mg [place] Q4H PRN PRN Reason: FEVER Acetylcysteine (Mucomyst 20 Oral / Inh Use Only*) 300 mg NEB RTID [facility] Last Admin: 10/11/17 21:15 Dose: 300 mg Albuterol Sulfate (Ventolin 0.083% Nebulizer Soln -) 1 amp NEB RTID [facility] Last Admin: 10/11/17 21:15 Dose: 1 amp Amino Acids (Prosource No Carb Liquid Pkt) 30 ml NGT DAILY@0800 [facility] Last Admin: 10/09/17 10:24 Dose: 30 ml Ascorbic Acid (Vitamin C -) 250 mg NGT DAILY [facility] Last Admin: 10/09/17 10:24 Dose: 250 mg Emollient Ointment (Aquaphor -) 1 applic TP BID PRN PRN Reason: DRY SKIN Last Admin: 10/09/17 12:27 Dose: 1 applic Piperacillin Sod/Tazobactam (Sod 3.375 gm/ Dextrose) 50 mls @ 100 mls/hr IVPB Q8H-IV [facility] Last Admin: 10/12/17 01:26 Dose: 100 mls/hr Dextrose/Sodium Chloride (D5-1/2ns -) 1,000 mls @ 75 mls/hr IV ASDIR [facility] Last Admin: 10/11/17 21:18 Dose: 75 mls/hr Mineral Oil (Mineral Oil -) 30 ml PO TID PRN PRN Reason: HYGEINE Morphine Sulfate (Morphine Injection -) 2 mg IVPUSH Q4H PRN PRN Reason: PAIN LEVEL 6-10 Last Admin: 10/11/17 11:08 Dose: 2 mg Pantoprazole Sodium (Protonix Iv) 40 mg IVPUSH DAILY [facility] Last Admin: 10/11/17 09:31 Dose: 40 mg Potassium Chloride (Potassium Chloride Oral Liquid) 40 meq NGT DAILY [facility] Last Admin: 10/09/17 10:24 Dose: 40 meq Ranitidine HCl (Zantac Oral Solution -) 150 mg NGT DAILY [facility] Last Admin: 10/09/17 10:24 Dose: 150 mg Saliva Substitute (Mouthkote Solution -) 1 applic MM Q4H PRN PRN Reason: DRY MOUTH Last Admin: 10/09/17 12:27 Dose: 1 applic Scopolamine HBr (Transderm-Scop -) 1 patch TD Q72H [facility] Last Admin: 10/09/17 14:47 Dose: 1 patch Zinc Sulfate (Orazinc -) 220 mg NGT DAILY [facility] Last Admin: 10/09/17 10:24 Dose: 220 mg - Objective Vital Signs: Vital Signs Temperature 99.4 F 10/12/17 06:00 Pulse Rate 85 10/12/17 06:00 Respiratory Rate 20 10/12/17 06:00 Blood Pressure 143/84 10/12/17 06:00 O2 Sat by Pulse Oximetry (%) 95 10/11/17 21:00 Constitutional: Yes: Thin Cardiovascular: Yes: S1, S2 Respiratory: Yes: WNL, Regular, CTA Bilaterally Gastrointestinal: Yes: Soft. No: Tenderness, Tenderness, Rebound Labs: INR, PTT INR 0.99 (0.82-1.09) 10/01/17 05:55 Assessment/Plan Microbiology 10/09/17 15:15 Blood - Peripheral Venous Blood Culture - Preliminary NO GROWTH OBTAINED AFTER 48 HOURS, INCUBATION TO CONTINUE FOR 3 DAYS. 10/09/17 15:00 Blood - Peripheral Venous Blood Culture - Preliminary NO GROWTH OBTAINED AFTER 48 HOURS, INCUBATION TO CONTINUE FOR 3 DAYS. Laboratory Tests 10/11/17 10/11/17 10/12/17 06:30 06:30 06:00 WBC 13.8 H D Pending Plt Count 183 Pending Creatinine 1.5 H Total Bilirubin 2.1 H D AST 21 ALT 47 Alkaline Phosphatase 265 H Assessment Family against intervention so antibiotic only few more days Plan Kindly recall as needed Christa TUCKER
[2017-10-12 07:28] LABS: ALBUMIN 1.8 g/dl (3.4-5.0); ALK PHOS 260 U/L (45-117); ANION GAP 8 (8-16); BILIRUBIN,TOTAL 1.4 mg/dL (0.2-1.0); BLOOD UREA NITROGEN 23 mg/dL (7-18); CALCIUM 7.5 mg/dL (8.5-10.1); CHLORIDE 109 mmol/L (98-107); CO2 28 mmol/L (21-32); CREATININE 1.4 mg/dL (0.55-1.02); GLUCOSE,RANDOM 126 mg/dL (74-106); SGOT/AST 16 U/L (15-37); SGPT/ALT 34 U/L (12-78); SODIUM 145 mmol/L (136-145); TOT PROT 5.7 g/dl (6.4-8.2)
[2017-10-12] MEDS: ALBUTEROL SO4 0.083% IH SOL 2.5 MG/3 ML VIAL.NEB. NEB SCH ×3 (07:30→20:35)
[2017-10-12] MEDS: ACETYLCYSTEINE 20% 200MG/ML 4 ML VIAL *FOR ORAL / INH USE ONLY NEB SCH ×3 (07:30→20:35)
[2017-10-12] MEDS ORDERED: PT OWN MED DRAWER 7, Y5N ONE ×3 (08:45→17:23)
[2017-10-12] MEDS: PANTOPRAZOLE SODIUM 40 MG VIAL IVPUSH SCH (09:43)
--- NOTE | 2017-10-12 11:13 | PN ---
Progress Note (short form) - Note Progress Note: patient is lying in bed with one eye open non-verbal on 5L Nasal canula she does not voice any complaints (1) Acute and chronic respiratory failure with hypoxia Assessment/Plan: on nasal O2 seen by pulmonary bronchodilators IV steroids per pulm (2) Hypernatremia resolved -improving -seen by renal -monitor labs (3) Diarrhea Assessment/Plan: -stool for cdiff, stool O&P, Stool culture pending -Stool OB negative (4) Hypokalemia resloved Assessment/Plan: -replace and monitor (5) CHF Assessment/Plan: -on cxr with elevated bnp -lasix x 1 --cxr 6 leukocytosis - resolving c/w antibiotic treatment Visit type - Emergency Visit Emergency Visit: No - New Patient This patient is new to me today: Yes Date on this admission: 10/12/17 - Critical Care Critical Care patient: No - Discharge Referral Referred to [facility] No
[2017-10-12] MEDS: SCOPOLAMINE HYDROBROMIDE 1 PATCH PATCH.TD72 TD SCH (13:19)
[2017-10-13] MEDS: PIPERACILLIN/TAZOB 3.375 GM 3.375 GM in DEXTROSE 5%-WATER - 50 ML IVPB SCH ×3 (01:05→17:50)
[2017-10-13] MEDS: DEXTROSE 5%-0.45% SALINE 1,000 ML IV SCH ×2 (01:07→17:51)
[2017-10-13] MEDS: ACETYLCYSTEINE 20% 200MG/ML 4 ML VIAL *FOR ORAL / INH USE ONLY NEB SCH (07:40)
[2017-10-13] MEDS: ALBUTEROL SO4 0.083% IH SOL 2.5 MG/3 ML VIAL.NEB. NEB SCH ×3 (07:40→21:10)
--- NOTE | 2017-10-13 10:13 | PN ---
Progress Note (short form) - Note Progress Note: PULMONARY VSS/LOW GRADE TEMP NO OVERALL CHANGE IN CLINICAL EXAM MEDS/NOTES/MICRO/LABS/IMAGES REVIEWED s/p Bradycardic Cardiac Arrest Acute on Chronic Hypoxic and Hypercapneic Respiratory Failure improving Acute COPD Exacerbation improved Pneumonia Septic Shock resolved Acute Kidney Injury Lactic Acidosis resolved PAD HTN Dementia - completed antibiotics - inhaled bronchodilators - O2 to keep SpO2 >90% - enteral feeds - aspiration precautions - DVT/GI prophylaxis - poor overall prognosis - agree with terminal care facility Jake KAT MD Problem List - Problems (1) ORTIZ (acute kidney injury) Code(s): N17.9 - ACUTE KIDNEY FAILURE, UNSPECIFIED (2) Acute and chronic respiratory failure with hypoxia Code(s): J96.21 - ACUTE AND CHRONIC RESPIRATORY FAILURE WITH HYPOXIA (3) Cardiac arrest Code(s): I46.9 - CARDIAC ARREST, CAUSE UNSPECIFIED (4) Diarrhea Code(s): R19.7 - DIARRHEA, UNSPECIFIED (5) Hypernatremia Code(s): E87.0 - HYPEROSMOLALITY AND HYPERNATREMIA (6) Acute hypoxemic respiratory failure Code(s): J96.01 - ACUTE RESPIRATORY FAILURE WITH HYPOXIA
--- NOTE | 2017-10-13 10:49 | PN ---
Progress Note (short form) - Note Progress Note: Remains confused. Breathing is non-labored on NC O2. No significant clinical change. Intake & Output 10/10/17 10/11/17 10/12/17 10/13/17 23:59 23:59 23:59 23:59 Intake Total 850 0 2175 600 Balance 850 0 2175 600 Weight 120 lb 11.2 oz 121 lb 117 lb 14.4 oz Last Vital Signs Temp Pulse Resp BP Pulse Ox 99 F 74 20 152/68 94 L 10/13/17 06:22 10/13/17 06:22 10/13/17 06:22 10/13/17 06:22 10/12/17 21:00 Active Medications Acetaminophen (Tylenol Suppository -) 650 mg [place] Q4H PRN PRN Reason: FEVER Acetylcysteine (Mucomyst 20 Oral / Inh Use Only*) 300 mg NEB RTID [facility] Last Admin: 10/13/17 07:40 Dose: 300 mg Albuterol Sulfate (Ventolin 0.083% Nebulizer Soln -) 1 amp NEB RTID [facility] Last Admin: 10/13/17 07:40 Dose: 1 amp Alprazolam (Xanax -) 0.25 mg PO Q8H PRN PRN Reason: ANXIETY Amino Acids (Prosource No Carb Liquid Pkt) 30 ml NGT DAILY@0800 [facility] Last Admin: 10/09/17 10:24 Dose: 30 ml Ascorbic Acid (Vitamin C -) 250 mg NGT DAILY [facility] Last Admin: 10/09/17 10:24 Dose: 250 mg Emollient Ointment (Aquaphor -) 1 applic TP BID PRN PRN Reason: DRY SKIN Last Admin: 10/09/17 12:27 Dose: 1 applic Piperacillin Sod/Tazobactam (Sod 3.375 gm/ Dextrose) 50 mls @ 100 mls/hr IVPB Q8H-IV [facility] Last Admin: 10/13/17 01:05 Dose: 100 mls/hr Dextrose/Sodium Chloride (D5-1/2ns -) 1,000 mls @ 75 mls/hr IV ASDIR [facility] Last Admin: 10/13/17 01:07 Dose: 75 mls/hr Mineral Oil (Mineral Oil -) 30 ml PO TID PRN PRN Reason: HYGEINE Morphine Sulfate (Morphine Injection -) 2 mg IVPUSH Q4H PRN PRN Reason: PAIN LEVEL 6-10 Last Admin: 10/11/17 11:08 Dose: 2 mg Pantoprazole Sodium (Protonix Iv) 40 mg IVPUSH DAILY [facility] Last Admin: 10/12/17 09:43 Dose: 40 mg Potassium Chloride (Potassium Chloride Oral Liquid) 40 meq NGT DAILY [facility] Last Admin: 10/09/17 10:24 Dose: 40 meq Ranitidine HCl (Zantac Oral Solution -) 150 mg NGT DAILY [facility] Last Admin: 10/09/17 10:24 Dose: 150 mg Saliva Substitute (Mouthkote Solution -) 1 applic MM Q4H PRN PRN Reason: DRY MOUTH Last Admin: 10/09/17 12:27 Dose: 1 applic Scopolamine HBr (Transderm-Scop -) 1 patch TD Q72H [facility] Last Admin: 10/12/17 13:19 Dose: 1 patch Zinc Sulfate (Orazinc -) 220 mg NGT DAILY [facility] Last Admin: 10/09/17 10:24 Dose: 220 mg Gen: Confused, breathing is non-labored Heart: RRR Lung: bilateral rhonchi, no wheeze Abd: soft, nontender Ext: decreased edema ASSESSMENT AND PLAN: s/p Bradycardic Cardiac Arrest Acute on Chronic Hypoxic and Hypercapneic Respiratory Failure Acute COPD Exacerbation Pneumonia Septic Shock resolving Acute Kidney Injury Lactic Acidosis PAD HTN Dementia - Zosyn - Inhaled bronchodilators - NC O2 - Enteral feeds - DVT/GI prophylaxis - Aspiration precautions - DNR/DNI - Arrangements being made for possible Christina Guzman
--- NOTE | 2017-10-13 10:50 | PN ---
Progress Note, Physician Chief Complaint: patient in bed non verbal legally blind calm no plans for feeding tube or aggressive intervention plan for [facility] - Current Medication List Current Medications: Active Medications Acetaminophen (Tylenol Suppository -) 650 mg [place] Q4H PRN PRN Reason: FEVER Acetylcysteine (Mucomyst 20 Oral / Inh Use Only*) 300 mg NEB RTID [facility] Last Admin: 10/13/17 07:40 Dose: 300 mg Albuterol Sulfate (Ventolin 0.083% Nebulizer Soln -) 1 amp NEB RTID [facility] Last Admin: 10/13/17 07:40 Dose: 1 amp Alprazolam (Xanax -) 0.25 mg PO Q8H PRN PRN Reason: ANXIETY Amino Acids (Prosource No Carb Liquid Pkt) 30 ml NGT DAILY@0800 [facility] Last Admin: 10/09/17 10:24 Dose: 30 ml Ascorbic Acid (Vitamin C -) 250 mg NGT DAILY [facility] Last Admin: 10/09/17 10:24 Dose: 250 mg Emollient Ointment (Aquaphor -) 1 applic TP BID PRN PRN Reason: DRY SKIN Last Admin: 10/09/17 12:27 Dose: 1 applic Piperacillin Sod/Tazobactam (Sod 3.375 gm/ Dextrose) 50 mls @ 100 mls/hr IVPB Q8H-IV [facility] Last Admin: 10/13/17 01:05 Dose: 100 mls/hr Dextrose/Sodium Chloride (D5-1/2ns -) 1,000 mls @ 75 mls/hr IV ASDIR [facility] Last Admin: 10/13/17 01:07 Dose: 75 mls/hr Mineral Oil (Mineral Oil -) 30 ml PO TID PRN PRN Reason: HYGEINE Morphine Sulfate (Morphine Injection -) 2 mg IVPUSH Q4H PRN PRN Reason: PAIN LEVEL 6-10 Last Admin: 10/11/17 11:08 Dose: 2 mg Pantoprazole Sodium (Protonix Iv) 40 mg IVPUSH DAILY [facility] Last Admin: 10/12/17 09:43 Dose: 40 mg Potassium Chloride (Potassium Chloride Oral Liquid) 40 meq NGT DAILY [facility] Last Admin: 10/09/17 10:24 Dose: 40 meq Ranitidine HCl (Zantac Oral Solution -) 150 mg NGT DAILY [facility] Last Admin: 10/09/17 10:24 Dose: 150 mg Saliva Substitute (Mouthkote Solution -) 1 applic MM Q4H PRN PRN Reason: DRY MOUTH Last Admin: 10/09/17 12:27 Dose: 1 applic Scopolamine HBr (Transderm-Scop -) 1 patch TD Q72H [facility] Last Admin: 10/12/17 13:19 Dose: 1 patch Zinc Sulfate (Orazinc -) 220 mg NGT DAILY [facility] Last Admin: 10/09/17 10:24 Dose: 220 mg - Objective Vital Signs: Vital Signs Temperature 99 F 10/13/17 06:22 Pulse Rate 74 10/13/17 06:22 Respiratory Rate 20 10/13/17 06:22 Blood Pressure 152/68 10/13/17 06:22 O2 Sat by Pulse Oximetry (%) 94 L 10/12/17 21:00 Constitutional: Yes: Calm Cardiovascular: Yes: Regular Rate and Rhythm, S1, S2 Respiratory: Yes: Diminished Gastrointestinal: Yes: Normal Bowel Sounds, Soft Edema: No Neurological: Yes: Lethargy Labs: CBC, BMP 10/12/17 06:00 10/12/17 06:00 INR, PTT INR 0.99 (0.82-1.09) 10/01/17 05:55 Problem List - Problems (1) Abnormal liver function tests Assessment/Plan: ct scan noted for fluid filled GB a 2 more days of abx then stop no aggresive intervention, no HIDA no cholecystomy tube placement plan is to transfer to hospice Code(s): R94.5 - ABNORMAL RESULTS OF LIVER FUNCTION STUDIES (2) FTT (failure to thrive) in adult Assessment/Plan: DNR/DNI no peg Code(s): R62.7 - ADULT FAILURE TO THRIVE (3) Leukocytosis Assessment/Plan: iv zosyn 2 more days Code(s): D72.829 - ELEVATED WHITE BLOOD CELL COUNT, UNSPECIFIED (4) Acute on chronic respiratory failure with hypoxia and hypercapnia Assessment/Plan: s/p Cardiac arrest s/p intubation and extubation now on floor Code(s): J96.21 - ACUTE AND CHRONIC RESPIRATORY FAILURE WITH HYPOXIA; J96.22 - ACUTE AND CHRONIC RESPIRATORY FAILURE WITH HYPERCAPNIA Assessment/Plan tylenol ,xanax and morphine as needed awaiting [facility] transfer all other medications stopped
[2017-10-13] MEDS: PANTOPRAZOLE SODIUM 40 MG VIAL IVPUSH SCH (10:53)
[2017-10-13] MEDS: ALPRAZolam 0.25 MG TABLET PO PRN (11:27)
--- NOTE | 2017-10-13 13:49 | PN ---
Progress Note, Physician History of Present Illness: Chart reviewed Not in distress. - Current Medication List Current Medications: Active Medications Acetaminophen (Tylenol Suppository -) 650 mg [place] Q4H PRN PRN Reason: FEVER Albuterol Sulfate (Ventolin 0.083% Nebulizer Soln -) 1 amp NEB RTID [facility] Last Admin: 10/13/17 07:40 Dose: 1 amp Alprazolam (Xanax -) 0.25 mg PO Q8H PRN PRN Reason: ANXIETY Last Admin: 10/13/17 11:27 Dose: 0.25 mg Amino Acids (Prosource No Carb Liquid Pkt) 30 ml NGT DAILY@0800 [facility] Last Admin: 10/09/17 10:24 Dose: 30 ml Ascorbic Acid (Vitamin C -) 250 mg NGT DAILY [facility] Last Admin: 10/09/17 10:24 Dose: 250 mg Emollient Ointment (Aquaphor -) 1 applic TP BID PRN PRN Reason: DRY SKIN Last Admin: 10/09/17 12:27 Dose: 1 applic Piperacillin Sod/Tazobactam (Sod 3.375 gm/ Dextrose) 50 mls @ 100 mls/hr IVPB Q8H-IV [facility] Last Admin: 10/13/17 10:53 Dose: 100 mls/hr Dextrose/Sodium Chloride (D5-1/2ns -) 1,000 mls @ 75 mls/hr IV ASDIR [facility] Last Admin: 10/13/17 01:07 Dose: 75 mls/hr Mineral Oil (Mineral Oil -) 30 ml PO TID PRN PRN Reason: HYGEINE Morphine Sulfate (Morphine Injection -) 2 mg IVPUSH Q4H PRN PRN Reason: PAIN LEVEL 6-10 Last Admin: 10/11/17 11:08 Dose: 2 mg Ranitidine HCl (Zantac Oral Solution -) 150 mg NGT DAILY [facility] Last Admin: 10/09/17 10:24 Dose: 150 mg Saliva Substitute (Mouthkote Solution -) 1 applic MM Q4H PRN PRN Reason: DRY MOUTH Last Admin: 10/09/17 12:27 Dose: 1 applic Scopolamine HBr (Transderm-Scop -) 1 patch TD Q72H [facility] Last Admin: 10/12/17 13:19 Dose: 1 patch Zinc Sulfate (Orazinc -) 220 mg NGT DAILY [facility] Last Admin: 10/09/17 10:24 Dose: 220 mg - Objective Vital Signs: Vital Signs Temperature 99 F 10/13/17 06:22 Pulse Rate 74 10/13/17 06:22 Respiratory Rate 20 10/13/17 06:22 Blood Pressure 152/68 10/13/17 06:22 O2 Sat by Pulse Oximetry (%) 94 L 10/12/17 21:00 Constitutional: Yes: Calm Gastrointestinal: Yes: Soft. No: Distention Labs: CBC, BMP 10/12/17 06:00 10/12/17 06:00 INR, PTT INR 0.99 (0.82-1.09) 10/01/17 05:55 Problem List - Problems (1) ORTIZ (acute kidney injury) Code(s): N17.9 - ACUTE KIDNEY FAILURE, UNSPECIFIED (2) Acute and chronic respiratory failure with hypoxia Code(s): J96.21 - ACUTE AND CHRONIC RESPIRATORY FAILURE WITH HYPOXIA (3) Cardiac arrest Code(s): I46.9 - CARDIAC ARREST, CAUSE UNSPECIFIED (4) COPD (chronic obstructive pulmonary disease) Code(s): J44.9 - CHRONIC OBSTRUCTIVE PULMONARY DISEASE, UNSPECIFIED (5) COPD exacerbation Code(s): J44.1 - CHRONIC OBSTRUCTIVE PULMONARY DISEASE W (ACUTE) EXACERBATION Assessment/Plan Supportive, comfort care.
--- NOTE | 2017-10-13 15:03 | PN ---
Progress Note, Physician History of Present Illness: Pt seen and examined at bedside. She is lethargic. - Current Medication List Current Medications: Active Medications Acetaminophen (Tylenol Suppository -) 650 mg [place] Q4H PRN PRN Reason: FEVER Albuterol Sulfate (Ventolin 0.083% Nebulizer Soln -) 1 amp NEB RTID [facility] Last Admin: 10/13/17 14:03 Dose: 1 amp Alprazolam (Xanax -) 0.25 mg PO Q8H PRN PRN Reason: ANXIETY Last Admin: 10/13/17 11:27 Dose: 0.25 mg Amino Acids (Prosource No Carb Liquid Pkt) 30 ml NGT DAILY@0800 [facility] Last Admin: 10/09/17 10:24 Dose: 30 ml Ascorbic Acid (Vitamin C -) 250 mg NGT DAILY [facility] Last Admin: 10/09/17 10:24 Dose: 250 mg Emollient Ointment (Aquaphor -) 1 applic TP BID PRN PRN Reason: DRY SKIN Last Admin: 10/09/17 12:27 Dose: 1 applic Piperacillin Sod/Tazobactam (Sod 3.375 gm/ Dextrose) 50 mls @ 100 mls/hr IVPB Q8H-IV [facility] Last Admin: 10/13/17 10:53 Dose: 100 mls/hr Dextrose/Sodium Chloride (D5-1/2ns -) 1,000 mls @ 75 mls/hr IV ASDIR [facility] Last Admin: 10/13/17 01:07 Dose: 75 mls/hr Mineral Oil (Mineral Oil -) 30 ml PO TID PRN PRN Reason: HYGEINE Morphine Sulfate (Morphine Injection -) 2 mg IVPUSH Q4H PRN PRN Reason: PAIN LEVEL 6-10 Last Admin: 10/11/17 11:08 Dose: 2 mg Ranitidine HCl (Zantac Oral Solution -) 150 mg NGT DAILY [facility] Last Admin: 10/09/17 10:24 Dose: 150 mg Saliva Substitute (Mouthkote Solution -) 1 applic MM Q4H PRN PRN Reason: DRY MOUTH Last Admin: 10/09/17 12:27 Dose: 1 applic Scopolamine HBr (Transderm-Scop -) 1 patch TD Q72H [facility] Last Admin: 10/12/17 13:19 Dose: 1 patch Zinc Sulfate (Orazinc -) 220 mg NGT DAILY [facility] Last Admin: 10/09/17 10:24 Dose: 220 mg - Objective Vital Signs: Vital Signs Temperature 99 F 10/13/17 06:22 Pulse Rate 74 10/13/17 06:22 Respiratory Rate 20 10/13/17 06:22 Blood Pressure 152/68 10/13/17 06:22 O2 Sat by Pulse Oximetry (%) 94 L 10/12/17 21:00 Constitutional: Yes: Calm Eyes: Yes: Other (legaly blind) Cardiovascular: Yes: S1, S2 Respiratory: Yes: On Nasal O2 Gastrointestinal: Yes: Soft Genitourinary: Yes: Incontinence Musculoskeletal: Yes: Muscle Weakness Edema: No Neurological: Yes: Lethargy Labs: CBC, BMP 10/12/17 06:00 10/12/17 06:00 INR, PTT INR 0.99 (0.82-1.09) 10/01/17 05:55 Problem List - Problems (1) ORTIZ (acute kidney injury) Code(s): N17.9 - ACUTE KIDNEY FAILURE, UNSPECIFIED (2) Acute and chronic respiratory failure with hypoxia Code(s): J96.21 - ACUTE AND CHRONIC RESPIRATORY FAILURE WITH HYPOXIA (3) Cardiac arrest Code(s): I46.9 - CARDIAC ARREST, CAUSE UNSPECIFIED (4) Leukocytosis Code(s): D72.829 - ELEVATED WHITE BLOOD CELL COUNT, UNSPECIFIED (5) Shortness of breath Code(s): R06.02 - SHORTNESS OF BREATH (6) Hypoxia Code(s): R09.02 - HYPOXEMIA (7) Sepsis Code(s): A41.9 - SEPSIS, UNSPECIFIED ORGANISM Qualifiers: Sepsis type: sepsis due to unspecified organism Qualified Code(s): A41.9 - Sepsis, unspecified organism Assessment/Plan Current Medications Generic Name Dose Route Start Last Admin Trade Name Freq PRN Reason Stop Dose Admin Acetaminophen 650 mg 10/09/17 17:32 Tylenol Suppository - NE Q4H PRN FEVER Albuterol Sulfate 1 amp 10/01/17 20:00 10/13/17 14:03 Ventolin 0.083% Nebulizer Soln - NEB 1 amp RTID [facility] Administration Alprazolam 0.25 mg 10/13/17 10:45 10/13/17 11:27 Xanax - PO 0.25 mg Q8H PRN Administration ANXIETY Amino Acids 30 ml 10/06/17 11:15 10/09/17 10:24 Prosource No Carb Liquid Pkt NGT 30 ml DAILY@0800 [facility] Administration Ascorbic Acid 250 mg 10/06/17 11:00 10/09/17 10:24 Vitamin C - NGT 250 mg DAILY [facility] Administration Emollient Ointment 1 applic 10/09/17 11:54 10/09/17 12:27 Aquaphor - TP 1 applic BID PRN Administration DRY SKIN Piperacillin Sod/Tazobactam 50 mls @ 100 mls/hr 10/09/17 15:30 10/13/17 10:53 Sod 3.375 gm/ Dextrose IVPB 100 mls/hr Q8H-IV [facility] Administration Dextrose/Sodium Chloride 1,000 mls @ 75 mls/hr 10/11/17 18:45 10/13/17 01:07 D5-1/2ns - IV 75 mls/hr ASDIR [facility] Administration Mineral Oil 30 ml 10/10/17 16:56 Mineral Oil - PO TID PRN HYGEINE Morphine Sulfate 2 mg 10/10/17 16:58 10/11/17 11:08 Morphine Injection - IVPUSH 2 mg Q4H PRN Administration PAIN LEVEL 6-10 Ranitidine HCl 150 mg 10/06/17 11:15 10/09/17 10:24 Zantac Oral Solution - NGT 150 mg DAILY [facility] Administration Saliva Substitute 1 applic 10/09/17 11:53 10/09/17 12:27 Mouthkote Solution - MM 1 applic Q4H PRN Administration DRY MOUTH Scopolamine HBr 1 patch 10/09/17 13:00 10/12/17 13:19 Transderm-Scop - TD 1 patch Q72H [facility] Administration Zinc Sulfate 220 mg 10/06/17 11:15 10/09/17 10:24 Orazinc - NGT 220 mg DAILY [facility] Administration Impression 1. ORTIZ 2. acute respiratory failure 3. cardiac arrest 4. lactic acidosis 5. COPD 6. PNA 7. dementia 8. anemia 9. sepsis 10. perihepatic free fluid 11. hypernatremia 12. sepsis Plan - cont current fluids - family are discussing GOC - will discuss with primary team - will follow PRN - likely ORTIZ from ATN caused by prolonged hypotension - prognosis is poor
[2017-10-13] MEDS ORDERED: PT OWN MED DRAWER 7, Y5N ONE (17:44)
[2017-10-14] MEDS: PIPERACILLIN/TAZOB 3.375 GM 3.375 GM in DEXTROSE 5%-WATER - 50 ML IVPB SCH ×3 (02:29→18:48)
[2017-10-14] MEDS: DEXTROSE 5%-0.45% SALINE 1,000 ML IV SCH ×2 (04:16→18:49)
[2017-10-14] MEDS: ALBUTEROL SO4 0.083% IH SOL 2.5 MG/3 ML VIAL.NEB. NEB SCH ×3 (07:33→20:32)
--- NOTE | 2017-10-14 08:40 | PN ---
Progress Note, Physician - Current Medication List Current Medications: Active Medications Acetaminophen (Tylenol Suppository -) 650 mg [place] Q4H PRN PRN Reason: FEVER Albuterol Sulfate (Ventolin 0.083% Nebulizer Soln -) 1 amp NEB RTID [facility] Last Admin: 10/14/17 07:33 Dose: 1 amp Alprazolam (Xanax -) 0.25 mg PO Q8H PRN PRN Reason: ANXIETY Last Admin: 10/13/17 11:27 Dose: 0.25 mg Amino Acids (Prosource No Carb Liquid Pkt) 30 ml NGT DAILY@0800 [facility] Last Admin: 10/09/17 10:24 Dose: 30 ml Ascorbic Acid (Vitamin C -) 250 mg NGT DAILY [facility] Last Admin: 10/09/17 10:24 Dose: 250 mg Emollient Ointment (Aquaphor -) 1 applic TP BID PRN PRN Reason: DRY SKIN Last Admin: 10/09/17 12:27 Dose: 1 applic Piperacillin Sod/Tazobactam (Sod 3.375 gm/ Dextrose) 50 mls @ 100 mls/hr IVPB Q8H-IV [facility] Last Admin: 10/14/17 02:29 Dose: 100 mls/hr Dextrose/Sodium Chloride (D5-1/2ns -) 1,000 mls @ 75 mls/hr IV ASDIR [facility] Last Admin: 10/14/17 04:16 Dose: 75 mls/hr Mineral Oil (Mineral Oil -) 30 ml PO TID PRN PRN Reason: HYGEINE Morphine Sulfate (Morphine Injection -) 2 mg IVPUSH Q4H PRN PRN Reason: PAIN LEVEL 6-10 Last Admin: 10/11/17 11:08 Dose: 2 mg Ranitidine HCl (Zantac Oral Solution -) 150 mg NGT DAILY [facility] Last Admin: 10/09/17 10:24 Dose: 150 mg Saliva Substitute (Mouthkote Solution -) 1 applic MM Q4H PRN PRN Reason: DRY MOUTH Last Admin: 10/09/17 12:27 Dose: 1 applic Scopolamine HBr (Transderm-Scop -) 1 patch TD Q72H [facility] Last Admin: 10/12/17 13:19 Dose: 1 patch Zinc Sulfate (Orazinc -) 220 mg NGT DAILY [facility] Last Admin: 10/09/17 10:24 Dose: 220 mg - Objective Vital Signs: Vital Signs Temperature 99.1 F 10/14/17 08:03 Pulse Rate 83 10/14/17 08:03 Respiratory Rate 20 10/14/17 08:03 Blood Pressure 139/90 10/14/17 08:03 O2 Sat by Pulse Oximetry (%) 94 L 10/13/17 21:00 Cardiovascular: Yes: S1, S2 Respiratory: Yes: Diminished Gastrointestinal: Yes: Normal Bowel Sounds, Soft Labs: CBC, BMP 10/12/17 06:00 10/12/17 06:00 INR, PTT INR 0.99 (0.82-1.09) 10/01/17 05:55 Problem List - Problems (1) Acute and chronic respiratory failure with hypoxia Code(s): J96.21 - ACUTE AND CHRONIC RESPIRATORY FAILURE WITH HYPOXIA (2) COPD (chronic obstructive pulmonary disease) Code(s): J44.9 - CHRONIC OBSTRUCTIVE PULMONARY DISEASE, UNSPECIFIED Assessment/Plan - Problems (1) Abnormal liver function tests Assessment/Plan: ct scan noted for fluid filled GB a 2 more days of abx then stop no aggresive intervention, no HIDA no cholecystomy tube placement plan is to transfer to hospice Code(s): R94.5 - ABNORMAL RESULTS OF LIVER FUNCTION STUDIES (2) FTT (failure to thrive) in adult Assessment/Plan: DNR/DNI no peg Code(s): R62.7 - ADULT FAILURE TO THRIVE (3) Leukocytosis Assessment/Plan: iv zosyn 2 more days Code(s): D72.829 - ELEVATED WHITE BLOOD CELL COUNT, UNSPECIFIED (4) Acute on chronic respiratory failure with hypoxia and hypercapnia Assessment/Plan: s/p Cardiac arrest s/p intubation and extubation now on floor Code(s): J96.21 - ACUTE AND CHRONIC RESPIRATORY FAILURE WITH HYPOXIA; J96.22 - ACUTE AND CHRONIC RESPIRATORY FAILURE WITH HYPERCAPNIA Assessment/Plan tylenol ,xanax and morphine as needed awaiting [facility] transfer all other medications stopped
--- NOTE | 2017-10-14 09:25 | PN ---
Progress Note (short form) - Note Progress Note: Lethargic and confused. Breathing is non-labored on [place] O2. No significant clinical improvement. Intake & Output 10/11/17 10/12/17 10/13/17 10/14/17 23:59 23:59 23:59 23:59 Intake Total 0 2175 1500 900 Balance 0 2175 1500 900 Weight 121 lb 117 lb 14.4 oz 118 lb 4 oz Last Vital Signs Temp Pulse Resp BP Pulse Ox 99.1 F 83 20 139/90 94 L 10/14/17 08:03 10/14/17 08:03 10/14/17 08:03 10/14/17 08:03 10/13/17 21:00 Active Medications Acetaminophen (Tylenol Suppository -) 650 mg [place] Q4H PRN PRN Reason: FEVER Albuterol Sulfate (Ventolin 0.083% Nebulizer Soln -) 1 amp NEB RTID [facility] Last Admin: 10/14/17 07:33 Dose: 1 amp Alprazolam (Xanax -) 0.25 mg PO Q8H PRN PRN Reason: ANXIETY Last Admin: 10/13/17 11:27 Dose: 0.25 mg Amino Acids (Prosource No Carb Liquid Pkt) 30 ml NGT DAILY@0800 [facility] Last Admin: 10/09/17 10:24 Dose: 30 ml Ascorbic Acid (Vitamin C -) 250 mg NGT DAILY [facility] Last Admin: 10/09/17 10:24 Dose: 250 mg Emollient Ointment (Aquaphor -) 1 applic TP BID PRN PRN Reason: DRY SKIN Last Admin: 10/09/17 12:27 Dose: 1 applic Piperacillin Sod/Tazobactam (Sod 3.375 gm/ Dextrose) 50 mls @ 100 mls/hr IVPB Q8H-IV [facility] Last Admin: 10/14/17 02:29 Dose: 100 mls/hr Dextrose/Sodium Chloride (D5-1/2ns -) 1,000 mls @ 75 mls/hr IV ASDIR [facility] Last Admin: 10/14/17 04:16 Dose: 75 mls/hr Mineral Oil (Mineral Oil -) 30 ml PO TID PRN PRN Reason: HYGEINE Morphine Sulfate (Morphine Injection -) 2 mg IVPUSH Q4H PRN PRN Reason: PAIN LEVEL 6-10 Last Admin: 10/11/17 11:08 Dose: 2 mg Ranitidine HCl (Zantac Oral Solution -) 150 mg NGT DAILY [facility] Last Admin: 10/09/17 10:24 Dose: 150 mg Saliva Substitute (Mouthkote Solution -) 1 applic MM Q4H PRN PRN Reason: DRY MOUTH Last Admin: 10/09/17 12:27 Dose: 1 applic Scopolamine HBr (Transderm-Scop -) 1 patch TD Q72H [facility] Last Admin: 10/12/17 13:19 Dose: 1 patch Zinc Sulfate (Orazinc -) 220 mg NGT DAILY [facility] Last Admin: 10/09/17 10:24 Dose: 220 mg Gen: Confused, breathing is non-labored Heart: RRR Lung: bilateral rhonchi, no wheeze Abd: soft, nontender Ext: decreased edema ASSESSMENT AND PLAN: s/p Bradycardic Cardiac Arrest Acute on Chronic Hypoxic and Hypercapneic Respiratory Failure Acute COPD Exacerbation Pneumonia Septic Shock resolving Acute Kidney Injury Lactic Acidosis PAD HTN Dementia - ABX per ID - Inhaled bronchodilators - NC O2 - Enteral feeds - DVT/GI prophylaxis - Aspiration precautions - DNR/DNI - Arrangements being made for possible Christina Guzman
[2017-10-14] MEDS ORDERED: PT OWN MED DRAWER 7, Y5N ONE ×2 (10:39→18:44)
[2017-10-14] MEDS: ALPRAZolam 0.25 MG TABLET PO PRN (10:59)
[2017-10-15] MEDS ORDERED: PT OWN MED DRAWER 7, Y5N ONE ×4 (01:13→17:35)
[2017-10-15] MEDS: PIPERACILLIN/TAZOB 3.375 GM 3.375 GM in DEXTROSE 5%-WATER - 50 ML IVPB SCH ×3 (02:10→17:37)
[2017-10-15] MEDS: ALPRAZolam 0.25 MG TABLET PO PRN (02:10)
[2017-10-15] MEDS: ALBUTEROL SO4 0.083% IH SOL 2.5 MG/3 ML VIAL.NEB. NEB SCH ×3 (07:35→20:52)
--- NOTE | 2017-10-15 08:07 | PN ---
Progress Note, Physician - Current Medication List Current Medications: Active Medications Acetaminophen (Tylenol Suppository -) 650 mg [place] Q4H PRN PRN Reason: FEVER Albuterol Sulfate (Ventolin 0.083% Nebulizer Soln -) [address] [facility] Last Admin: 10/14/17 20:32 Dose: 1 amp Alprazolam (Xanax -) 0.25 mg PO Q8H PRN PRN Reason: ANXIETY Last Admin: 10/15/17 02:10 Dose: 0.25 mg Amino Acids (Prosource No Carb Liquid Pkt) 30 ml NGT DAILY@0800 [facility] Last Admin: 10/09/17 10:24 Dose: 30 ml Ascorbic Acid (Vitamin C -) [address] [facility] Last Admin: 10/09/17 10:24 Dose: 250 mg Emollient Ointment (Aquaphor -) 1 applic TP BID PRN PRN Reason: DRY SKIN Last Admin: 10/09/17 12:27 Dose: 1 applic Piperacillin Sod/Tazobactam (Sod 3.375 gm/ Dextrose) 50 mls @ 100 mls/hr IVPB Q8H-IV [facility] Last Admin: 10/15/17 02:10 Dose: 100 mls/hr Dextrose/Sodium Chloride (D5-1/2ns -) 1,000 mls @ 75 mls/hr IV ASDIR [facility] Last Admin: 10/14/17 18:49 Dose: 75 mls/hr Mineral Oil (Mineral Oil -) 30 ml PO TID PRN PRN Reason: HYGEINE Morphine Sulfate (Morphine Injection -) 2 mg IVPUSH Q4H PRN PRN Reason: PAIN LEVEL 6-10 Last Admin: 10/11/17 11:08 Dose: 2 mg Ranitidine HCl (Zantac Oral Solution -) [address] [facility] Last Admin: 10/09/17 10:24 Dose: 150 mg Saliva Substitute (Mouthkote Solution -) 1 applic MM Q4H PRN PRN Reason: DRY MOUTH Last Admin: 10/09/17 12:27 Dose: 1 applic Scopolamine HBr (Transderm-Scop -) [address] [facility] Last Admin: 10/12/17 13:19 Dose: 1 patch Zinc Sulfate (Orazinc -) [address] [facility] Last Admin: 10/09/17 10:24 Dose: 220 mg - Objective Vital Signs: Vital Signs Temperature 97.4 F L 10/15/17 07:11 Pulse Rate 142 H 10/15/17 07:11 Respiratory Rate 20 10/15/17 07:11 Blood Pressure 110/76 10/15/17 07:11 O2 Sat by Pulse Oximetry (%) 96 10/14/17 21:00 Cardiovascular: Yes: S1, S2 Respiratory: Yes: Regular, CTA Bilaterally Gastrointestinal: Yes: Normal Bowel Sounds, Soft Labs: CBC, BMP 10/12/17 06:00 10/12/17 06:00 INR, PTT INR 0.99 (0.82-1.09) 10/01/17 05:55 Problem List - Problems (1) Acute and chronic respiratory failure with hypoxia Code(s): J96.21 - ACUTE AND CHRONIC RESPIRATORY FAILURE WITH HYPOXIA (2) COPD (chronic obstructive pulmonary disease) Code(s): J44.9 - CHRONIC OBSTRUCTIVE PULMONARY DISEASE, UNSPECIFIED Assessment/Plan - Problems (1) Abnormal liver function tests Assessment/Plan: ct scan noted for fluid filled GB a 2 more days of abx then stop no aggresive intervention, no HIDA no cholecystomy tube placement plan is to transfer to hospice Code(s): R94.5 - ABNORMAL RESULTS OF LIVER FUNCTION STUDIES (2) FTT (failure to thrive) in adult Assessment/Plan: DNR/DNI no peg Code(s): R62.7 - ADULT FAILURE TO THRIVE (3) Leukocytosis Assessment/Plan: iv zosyn 2 more days Code(s): D72.829 - ELEVATED WHITE BLOOD CELL COUNT, UNSPECIFIED (4) Acute on chronic respiratory failure with hypoxia and hypercapnia Assessment/Plan: s/p Cardiac arrest s/p intubation and extubation now on floor Code(s): J96.21 - ACUTE AND CHRONIC RESPIRATORY FAILURE WITH HYPOXIA; J96.22 - ACUTE AND CHRONIC RESPIRATORY FAILURE WITH HYPERCAPNIA Assessment/Plan tylenol ,xanax and morphine as needed awaiting [facility] transfer all other medications stopped
[2017-10-15] MEDS: DEXTROSE 5%-0.45% SALINE 1,000 ML IV SCH ×2 (10:49→19:36)
[2017-10-15] MEDS: SCOPOLAMINE HYDROBROMIDE 1 PATCH PATCH.TD72 TD SCH (14:04)
[2017-10-16] MEDS: PIPERACILLIN/TAZOB 3.375 GM 3.375 GM in DEXTROSE 5%-WATER - 50 ML IVPB SCH ×2 (01:12→10:22)
[2017-10-16] MEDS: DEXTROSE 5%-0.45% SALINE 1,000 ML IV SCH (01:12)
[2017-10-16] MEDS: AMINO ACIDS/PROTEIN HYDROLYS 30 ML LIQUID.PKT NGT SCH (08:18)
[2017-10-16] MEDS: ALBUTEROL SO4 0.083% IH SOL 2.5 MG/3 ML VIAL.NEB. NEB SCH (08:30)
--- NOTE | 2017-10-16 08:55 | DS ---
Physical Examination Vital Signs: Vital Signs Temperature 98.0 F 10/16/17 05:57 Pulse Rate 65 10/16/17 05:57 Respiratory Rate 18 10/16/17 05:57 Blood Pressure 139/65 10/16/17 05:57 O2 Sat by Pulse Oximetry (%) 96 10/15/17 21:00 Cardiovascular: Yes: S1, S2 Respiratory: Yes: Regular, CTA Bilaterally Gastrointestinal: Yes: Normal Bowel Sounds, Soft Labs: CBC, BMP 10/12/17 06:00 10/12/17 06:00 Discharge Summary Reason For Visit: SHORTNESS OF BREATH Current Active Problems ORTIZ (acute kidney injury) (Acute) Abnormal liver function tests (Acute) Acute and chronic respiratory failure with hypoxia (Acute) Cardiac arrest (Acute) Diarrhea (Acute) FTT (failure to thrive) in adult (Acute) Hyperbilirubinemia (Acute) Hypernatremia (Acute) Leukocytosis (Acute) Shortness of breath (Acute) Hospital Course: he patient is an 87 year old female with a history of Dementia, Asthma, COPD ( on O2), HTN, Glaucoma, PVD who initially presented for a COPD exacerbation with acute on chronic hypoxemia transferred to the ICU for respiratory distress following 3 cardiac arrests. On admission, the pt had normal Hgb level. During this hospitalization, the level have been steadily decreasing. Of note, the renal function (BUN, Cr) has been steadily worsening at the same time. As per ICU team, the patienthas not have bowel movements for, at least, 2-3 days. Per chart, no stigmata of recent GI blood loss, history of GI bleeding, ulcers, gastritis, colitis. The patient was transfused 2 u PRBC 1 day ago and Hgb is now 10. 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) Cardio/Vascular: Yes: HTN Pulmonary: Yes: Asthma, COPD, O2 Dependent Psych: Yes: Depression Musculoskeletal: Yes: Other (rt leg wound - receiving wound care) Problems (1) Abnormal liver function tests Assessment/Plan: ct scan noted for fluid filled GB a 2 more days of abx then stop no aggresive intervention, no HIDA no cholecystomy tube placement plan is to transfer to hospice Code(s): R94.5 - ABNORMAL RESULTS OF LIVER FUNCTION STUDIES (2) FTT (failure to thrive) in adult Assessment/Plan: DNR/DNI no peg Code(s): R62.7 - ADULT FAILURE TO THRIVE (3) Leukocytosis Assessment/Plan: iv zosyn 2 more days Code(s): D72.829 - ELEVATED WHITE BLOOD CELL COUNT, UNSPECIFIED (4) Acute on chronic respiratory failure with hypoxia and hypercapnia Assessment/Plan: s/p Cardiac arrest s/p intubation and extubation now on floor Code(s): J96.21 - ACUTE AND CHRONIC RESPIRATORY FAILURE WITH HYPOXIA; J96.22 - ACUTE AND CHRONIC RESPIRATORY FAILURE WITH HYPERCAPNIA Assessment/Plan tylenol ,xanax and morphine as needed awaiting [facility] transfer all other medications stopped - Instructions Referrals: Gretel Condon MD [Primary Care Provider] - - Home Medications Comprehensive Discharge Medication List: Ambulatory Orders Albuterol 0.083% Nebulizer Jasmin [Ventolin 0.083%] 1 neb NEB QID 09/22/17 Ferrous Sulfate 325 mg PO BID 09/22/17 Memantine HCl/Donepezil HCl [Namzaric 28 mg-10 mg Capsule] 1 each PO DAILY 09/22 Montelukast Sodium [Singulair] 10 mg PO DAILY 09/22/17
[2017-10-16] MEDS ORDERED: PT OWN MED DRAWER 7, Y5N ONE (10:20)
[2017-10-16] MEDS: RANITIDINE HCL 150 MG/10 ML UNIT-DOSE NGT SCH (10:22)
[2017-10-16] MEDS: ZINC SULFATE 220 MG CAPSULE (FP) NGT SCH (10:22)
--- NOTE | 2017-10-16 10:35 | PN ---
Progress Note (short form) - Note Progress Note: Breathing is non-labored on NC O2. No significant clinical improvement. Intake & Output 10/13/17 10/14/17 10/15/17 10/16/17 23:59 23:59 23:59 23:59 Intake Total 1500 1800 1834 0 Balance 1500 1800 1834 0 Weight 118 lb 4 oz 119 lb 4 oz Last Vital Signs Temp Pulse Resp BP Pulse Ox 98.0 F 65 18 139/65 96 10/16/17 05:57 10/16/17 05:57 10/16/17 05:57 10/16/17 05:57 10/15/17 21:00 Active Medications Acetaminophen (Tylenol Suppository -) 650 mg [place] Q4H PRN PRN Reason: FEVER Albuterol Sulfate (Ventolin 0.083% Nebulizer Soln -) 1 amp NEB RTID [facility] Last Admin: 10/16/17 08:30 Dose: 1 amp Alprazolam (Xanax -) 0.25 mg PO Q8H PRN PRN Reason: ANXIETY Last Admin: 10/15/17 02:10 Dose: 0.25 mg Amino Acids (Prosource No Carb Liquid Pkt) 30 ml NGT DAILY@0800 [facility] Last Admin: 10/16/17 08:18 Dose: 30 ml Ascorbic Acid (Vitamin C -) 250 mg NGT DAILY [facility] Last Admin: 10/09/17 10:24 Dose: 250 mg Emollient Ointment (Aquaphor -) 1 applic TP BID PRN PRN Reason: DRY SKIN Last Admin: 10/09/17 12:27 Dose: 1 applic Piperacillin Sod/Tazobactam (Sod 3.375 gm/ Dextrose) 50 mls @ 100 mls/hr IVPB Q8H-IV [facility] Last Admin: 10/16/17 10:22 Dose: 100 mls/hr Dextrose/Sodium Chloride (D5-1/2ns -) 1,000 mls @ 75 mls/hr IV ASDIR [facility] Last Admin: 10/16/17 01:12 Dose: 75 mls/hr Mineral Oil (Mineral Oil -) 30 ml PO TID PRN PRN Reason: HYGEINE Morphine Sulfate (Morphine Injection -) 2 mg IVPUSH Q4H PRN PRN Reason: PAIN LEVEL 6-10 Last Admin: 10/11/17 11:08 Dose: 2 mg Ranitidine HCl (Zantac Oral Solution -) 150 mg NGT DAILY [facility] Last Admin: 10/16/17 10:22 Dose: 150 mg Saliva Substitute (Mouthkote Solution -) 1 applic MM Q4H PRN PRN Reason: DRY MOUTH Last Admin: 10/09/17 12:27 Dose: 1 applic Scopolamine HBr (Transderm-Scop -) 1 patch TD Q72H [facility] Last Admin: 10/15/17 14:04 Dose: 1 patch Zinc Sulfate (Orazinc -) 220 mg NGT DAILY [facility] Last Admin: 10/16/17 10:22 Dose: 220 mg Gen: Confused, breathing is non-labored Heart: RRR Lung: bilateral rhonchi, no wheeze Abd: soft, nontender Ext: decreased edema ASSESSMENT AND PLAN: s/p Bradycardic Cardiac Arrest Acute on Chronic Hypoxic and Hypercapneic Respiratory Failure Acute COPD Exacerbation Pneumonia Septic Shock resolving Acute Kidney Injury Lactic Acidosis PAD HTN Dementia - O2 as needed - Comfort measures - For transfer to [place] Dr Guzman
[2017-10-16] MEDS: ASCORBIC ACID 250 MG TABLET (FP) NGT SCH (10:59)
[2017-10-16 11:43] VITALS: BP 153/84; PULSE 69; TEMP 97.6
== END 2017-10-16 11:19 | disposition hospice, inpatient (51) | DRG 207 ==
LOC: JER 09:06 → SUPCPDRO 09:06 → JERBED 13:08 → J2W 20:56 → JICU 09-23 09:21 → J8W 10-01 20:57
PROVIDERS: ADMIT Family Medicine; ATTEND Family Medicine
PROC: 5A1955Z Respiratory Ventilation, Greater than 96 Consecutive Hours (ICD-10-PCS; principal; 2017-09-23)
PROC: 0BH17EZ Insertion of Endotracheal Airway into Trachea, Via Natural or Artificial Opening (ICD-10-PCS; 2017-09-23)
PROC: 06HM33Z Insertion of Infusion Device into Right Femoral Vein, Percutaneous Approach (ICD-10-PCS; 2017-09-23)
PROC: B54BZZA Ultrasonography of Right Lower Extremity Veins, Guidance (ICD-10-PCS; 2017-09-23)
PROC: 02HV33Z Insertion of Infusion Device into Superior Vena Cava, Percutaneous Approach (ICD-10-PCS; 2017-09-24)
PROC: B548ZZA Ultrasonography of Superior Vena Cava, Guidance (ICD-10-PCS; 2017-09-24)
PROC: 30233N1 Transfusion of Nonautologous Red Blood Cells into Peripheral Vein, Percutaneous Approach (ICD-10-PCS; 2017-09-25)
DX: J96.21 Acute and chronic respiratory failure with hypoxia (principal); I46.9 Cardiac arrest, cause unspecified; K72.00 Acute and subacute hepatic failure without coma; A41.9 Sepsis, unspecified organism; R65.21 Severe sepsis with septic shock; J18.9 Pneumonia, unspecified organism; N17.0 Acute kidney failure with tubular necrosis; R64 Cachexia; Z68.1 Body mass index [BMI] 19.9 or less, adult; J44.1 Chronic obstructive pulmonary disease with (acute) exacerbation; E87.2 Acidosis; E87.0 Hyperosmolality and hypernatremia; I13.0 Hypertensive heart and chronic kidney disease with heart failure and stage 1 through stage 4 chronic kidney disease, or unspecified chronic kidney disease; L03.115 Cellulitis of right lower limb; J96.22 Acute and chronic respiratory failure with hypercapnia; F03.90 Unspecified dementia, unspecified severity, without behavioral disturbance, psychotic disturbance, mood disturbance, and anxiety; E11.51 Type 2 diabetes mellitus with diabetic peripheral angiopathy without gangrene; H35.30 Unspecified macular degeneration; I45.10 Unspecified right bundle-branch block; H40.9 Unspecified glaucoma; F32.9 Major depressive disorder, single episode, unspecified; Z99.81 Dependence on supplemental oxygen; L97.519 Non-pressure chronic ulcer of other part of right foot with unspecified severity; H54.8 Legal blindness, as defined in USA; J06.9 Acute upper respiratory infection, unspecified; I87.8 Other specified disorders of veins; D64.9 Anemia, unspecified; E11.22 Type 2 diabetes mellitus with diabetic chronic kidney disease; I12.9 Hypertensive chronic kidney disease with stage 1 through stage 4 chronic kidney disease, or unspecified chronic kidney disease; N18.9 Chronic kidney disease, unspecified; D69.6 Thrombocytopenia, unspecified; R19.7 Diarrhea, unspecified; E87.6 Hypokalemia; I50.9 Heart failure, unspecified; R62.7 Adult failure to thrive; R94.5 Abnormal results of liver function studies; E80.6 Other disorders of bilirubin metabolism; Z66 Do not resuscitate
CPT/HCPCS: 31500; 36415; 36430; 36600; 71045-TC-FY; 74176-TC; 76705-TC; 76775-TC; 76856-TC; 80048; 80053; 81003; 81015; 82272; 82436; 82550; 82553; 82570; 82728; 82803; 83540; 83550; 83605; 83615; 83735; 83880; 84100; 84133; 84300; 84484; 85025; 85027; 85044; 85610; 85730; 86022; 86850; 86900; 86901; 86922; 87040; 87045; 87046; 87070; 87077; 87086; 87177; 87205; 87209; 87324; 87449; 87804; 93005; 93010; 93306-TC; 94002; 94640; 94660; 97161-GP; 99285-25; J1644; J1756; P9038; P9058